=== PATIENT | male | born 1960 | race Caucasian/White ===

== ENCOUNTER 2023-05-17 09:48 | Emergency (ER) | payer MEDICARE, BC, SELFPAY ==
[2023-05-17 09:59] VITALS: BP 104/65
[2023-05-17 10:16] LABS: Glucose - Point of Care 166 mg/dl (70-99)
[2023-05-17 10:19] VITALS: BP 126/62
[2023-05-17 10:50] LABS: % Basophils 0.7 % (0-2); % Eosinophils 1.8 % (0-6); % Immature Granulocytes 0.6 % (0-0.5); % Lymphocytes 7.7 % (20.5-51.1); % Monocytes 12.8 % (1.7-9.3); % Neutrophils 76.4 % (42.2-75.2); Absolute Basophils 0.1 10^3/uL (0-0.2); Absolute Eosinophils 0.2 10^3/uL (0-0.7); Absolute Immature Granulocytes 0.1 10^3/uL (0-0.05); Absolute Lymphocytes 0.7 10^3/uL (1.2-3.4); Absolute Monocytes 1.2 10^3/uL (0.1-0.6); Absolute Neutrophils 7.3 10^3/uL (1.4-6.5); Hematocrit 33.9 % (39.0-52.0); Mean Corp Hgb Conc. 35.4 g/dL (33.0-37.0); Mean Corpuscular Hgb 32.2 pg (27.0-31.0); Mean Corpuscular Volume 90.9 fL (80.0-94.0); Mean Platelet Volume 11.2 fL (7.4-10.4); Nucleated Red Blood Cells % 0 % (-); Platelet Count 168 10^3/uL (130-400); Red Blood Cell Count 3.73 10^6/uL (4.70-6.10); Red Cell Dist. Width 13.9 % (11.5-14.5); White Blood Cell Count 9.5 10^3/uL (4.8-10.8)
[2023-05-17 11:00] VITALS: BP 136/71
[2023-05-17] MEDS: TYLENOL 650 MG PO (11:06)
[2023-05-17 11:07] LABS: COVID-19 Antigen Negative (Negative)
[2023-05-17 11:09] LABS: Lactic Acid 1.3 mmol/L (0.7-2.0)
[2023-05-17 11:13] LABS: Blood Urea Nitrogen 15 mg/dl (9-20); Calcium 8.3 mg/dl (8.4-10.2); Carbon Dioxide 33 mmol/L (22-30); Chloride 97 mmol/L (98-107); Glucose 161 mg/dl (70-99); Sodium 132 mmol/L (135-145); eGFR > 60.00
--- NOTE | 2023-05-17 12:05 | ED.GENMED ---
History of Present Illness
General
Chief Complaint: Fever
Source: patient and family
Exam Limitations: altered mental status
Time Seen by Provider: 05/17/23 10:08
Nursing documentation reviewed up to this point in time: agreed with
Travel History
Have you had any contact with someone who has COVID-19?: No
Do you have any symptoms of coronavirus? Fever > 100 degrees, chills, cough, shortness of breath, sore throat, loss of taste or smell, muscle aches, or headache?: Yes
Symptoms:: fever
History of Present Illness
History of Present Illness:
Patient is a 62-year-old male with a history of a remote TBI status postcraniotomy, insulin-dependent diabetes, hypertension, smoker, history of frequent pneumonia causing a change in mental status who presents for fever and rigors this morning.
Patient says he started not feeling well last night and this morning when he woke up he had the shakes. He did not take his temperature at home but he felt warm. His thought that he was disoriented, he disconnected his insulin pump and did
not reconnect it, was rooting around in a bag looking for it which would be very unusual for it to be kept on that location. Patient's says that he has gotten this way when he has been sick before, recently the patient was admitted in March
for bilateral pneumonia concerning for sepsis. At that time he also had toxic metabolic encephalopathy which did resolve and his fevers resolved. Patient's is very concerned because he will go from being stable to completely unstable when he
is sick like this.
Patient has no history of known aspiration
He is not having any neck pain, sore throat, headache, vomiting or diarrhea
Past History
Past History
ED Past Medical History: HTN, Hypercholesterolemia, NIDDM, Psychiatric (Bipolar) and Other (Chronic pain syndrome, pneumonia)
ED Past Surgical History: None
Social History
Tobacco: Smoker
Review of Systems
Review of Systems
Allergies reviewed?: Yes
All Other Systems: Not applicable
Phy Exam
Physical Exam
Physical Exam:
GENERAL: Alert , in no apparent distress
EYE: pupils equal and reactive
NECK: Supple
ENT: o/p clr, mmm.
CARDIAC: Regular rate and rhythm .
LUNGS: Clear breath sounds bilaterally, no acute respiratory distress, no wheezes/rales/rhonchi
ABDOMEN: Soft, without focal tenderness, no r/g, no cvat, normal bowel sounds
NEUROLOGICAL: Alert and oriented, no focal neuro deficits
SKIN: Warm and dry, skin intact.
MUSCULOSKELETAL: No edema, well perfused. neg kim's sign
PSYCH: Normal and appropriate interaction.
Course
Orders/Labs/Results
Orders:
Orders
05/17/23 10:32
Cardiac Monitoring- Treatment ONCE
05/17/23 10:33
Basic Metabolic Panel Urgent
Complete Blood Count/With Diff Urgent
Blood Culture Q30M
ELIE Source: Blood/Venous
Specimen Description:
Comment: FROM 2 SEPARATE SITES
Blood Culture Q30M
ELIE Source: Blood/Venous
Specimen Description:
Comment: FROM 2 SEPARATE SITES
05/17/23 10:35
Lactic Acid Q4H
Comment: ON ICE, CANCEL 2ND ORDER IF FIRST LACTIC ACID LEVEL <2
05/17/23 10:40
COVID-19 Antigen Urgent
Source: Nasal Swab
Influenza A+B Rapid Molecular Urgent
ELIE Source: Nasal Swab
Specimen Description:
05/17/23 10:42
CR Chest - 2 Views Urgent
Comment:
Reason For Exam: fever, sepsis
05/17/23 11:02
Acetaminophen [Tylenol] 650 mg PO NOW STA
05/17/23 12:08
Piperacillin/Tazo 4.5 Gram [Zosyn] 4.5 gram in 100 ml IV NOW
05/17/23 12:59
Potassium Urgent
Abnormal Lab Results
05/17/23 05/17/23
10:14 10:33
RBC 3.73 L 10^6/uL
(4.70-6.10)
Hgb 12.0 L g/dL
(13.0-18.0)
Hct 33.9 L %
(39.0-52.0)
MCH 32.2 H pg
(27.0-31.0)
MPV 11.2 H fL
(7.4-10.4)
Abs Immat Gran (auto) 0.1 H 10^3/uL
(0-0.05)
Absolute Neuts (auto) 7.3 H 10^3/uL
(1.4-6.5)
Absolute Lymphs (auto) 0.7 L 10^3/uL
(1.2-3.4)
Absolute Monos (auto) 1.2 H 10^3/uL
(0.1-0.6)
Immature Gran % 0.6 H %
(0-0.5)
Neutrophils % 76.4 H %
(42.2-75.2)
Lymphocytes % 7.7 L %
(20.5-51.1)
Monocytes % 12.8 H %
(1.7-9.3)
Sodium 132 L mmol/L
(135-145)
Chloride 97 L mmol/L
(98-107)
Carbon Dioxide 33 H mmol/L
(22-30)
Glucose 161 H mg/dl
(70-99)
Calcium 8.3 L mg/dl
(8.4-10.2)
POC Glucose 166 H mg/dl
(70-99)
05/17/23 10:33
05/17/23 12:59
Vital Signs
Initial and Last Documented VS:
Initial Vital Signs
Temp Pulse Resp BP Pulse Ox
100.6 F H 90 16 104/65 95
05/17/23 09:59 05/17/23 09:59 05/17/23 09:59 05/17/23 09:59 05/17/23 09:59
Last Documented Vital Signs
Temp Pulse Resp BP Pulse Ox
100.3 F 75 17 116/46 96
05/17/23 10:37 05/17/23 13:00 05/17/23 13:00 05/17/23 13:00 05/17/23 13:00
MDM/Problems Addressed
Differential Diagnosis Includes:
pneumponia, sepsis, bacetermia, TME, uri, flu, covid
MDM/Problems Addressed:
62 y/o M with ho pneumoina, smoiking, htn, tbi
fever and slight confusion today
has chronic cough
no sob, cp, abdominal pain, vomiting, diarrhea, yurinary sypmtoms, neck pain
says pt has had pneumonia a few times and gotten sick quickly
pt is not hypoxic, has basleine pulse ox 91%, but was febrile, low grade
nontoxic
no meningismus
lungs sounded diminished but no significant whezing or rales
abdomen soft/nontender
pt defervesced and then his mentation improved
he was given chance to be admitted or go home
he initially said he would stay and then decided on going home
cxr shows small pna
flu/cpovid neg
d/c home with abx
return precautions.
*Critical Care Note
Total Time (30-74mins, 75-104mins- exclusive of procedures): Not Applicable
ED Attending Note
-
Portions of this chart may have been created with voice recognition software.� Occasional wrong word or��sound alike� substitutions may have occurred due to the inherent limitations of voice recognition software.
Discharge Plan
Departure
Patient Disposition: Home (Routine Discharge)
Date of Disposition: 05/17/23
Time of Disposition: 13:32
Patient with high blood pressure during this ER visit?: No
Condition: Fair
Covid-19: Negative COVID-19
Discharge Problem:
Pneumonia
Instructions: Pneumonia, Adult (DC)
Prescriptions:
New
amoxicillin-pot clavulanate 875-125 mg tablet
1 tab PO BID Qty: 14 0RF
azithromycin [Zithromax] 250 mg tablet
250 mg PO DAILY Qty: 6 0RF
No Action
atorvastatin 40 mg tablet
40 mg PO DAILY
morphine 30 mg tablet extended release
30 mg PO Q12H
Patient Comments:
03/19/2023, patient filled this medication on 02/19/2023 for 60 tablets according to PDMP.
gabapentin 800 mg tablet
800 mg PO TID
divalproex 500 mg tablet extended release 24 hr
500 mg PO TID
paroxetine HCl 40 mg tablet
40 mg PO DAILY
budesonide-formoterol [Symbicort] 160-4.5 mcg/actuation Hfa Aerosol Inhaler
2 puff INHALATION R DAILYPRN PRN (Reason: sob)
cyanocobalamin (vitamin B-12) 1,000 mcg Tablet
1,000 mcg PO DAILY
aspirin 81 mg Tablet,Delayed Release (Dr/Ec)
81 mg PO DAILY
levothyroxine 100 mcg tablet
100 mcg PO DAILY
indomethacin 25 mg capsule
25 mg PO Q6H
diazepam 10 mg tablet
5 mg PO DAILY PRN (Reason: Mental Health/Anxiety)
Patient Comments:
03/19/2023, patient filled this medication on 03/13/2023 for 45 tablets according to PDMP.
oxycodone 10 mg tablet
10 mg PO Q6HPRN PRN (Reason: moderate to severe pain)
Patient Comments:
03/19/2023, patient filled this medication on 02/19/2023 for 120 tablets according to PDMP.
albuterol sulfate 90 mcg/actuation HFA aerosol inhaler
2 puff inhalation R Q4HPRN PRN (Reason: wheezing)
amlodipine-benazepril 5-20 mg Capsule
1 cap PO DAILY
Anoro Ellipta 62.5-25 mcg/actuation Blister With Device
1 inh INHALATION R DAILY
insulin aspart U-100 [Novolog U-100 Insulin aspart] 100 unit/mL Solution
0 unit SC .VIA PUMP
diazepam 10 mg Tablet
10 mg PO HS PRN (Reason: anxiety)
Patient Comments:
03/19/2023, patient filled this medication on 03/13/2023 for 45 tablets according to PDMP.
cholecalciferol (vitamin D3) 50 mcg (2,000 unit) Tablet
50 mcg PO DAILY
doxycycline hyclate 100 mg Capsule
100 mg PO Q12 Qty: 5 0RF
cefdinir 300 mg Capsule
300 mg PO Q12 Qty: 5 0RF
Referrals:
Dusty Nova, DO [Family Provider] - Follow up in 2-3 days
Activity Restrictions/Additional Instructions:
WE OFFERED YOU ADMISSION FOR YOUR INFECTION BUT YOU PREFERRED TO GO HOME
WE DID NOT GET A CHANCE TO TEST YOUR URINE.
BUT IT APPEARS THAT YOU MAY HAVE A SUBTLE PNEUMONIA
TAKE ZITHROMAX 2 TABS TODAY THEN 1 TAB DAILY FOR 4 DAYS
USE AUGMENTIN TWICE A DAY (START TONIGHT)
TYLENOL NEEDED 3 TIMES A DAY FOR FEVER/CONFUSION
DRINK FLUIDS
REST
RETURN FOR: SHORTNESS OF BREATH, SEVERE WORSENING CONFUSION, HIGH SUGARS, VOMITING, CHEST PAIN OR ANY CONCERNS.
Interventions
Interventions:
*Risk Screen - Suicide Last Done: 05/17/23 09:59
*General Assessment Last Done: 05/17/23 10:15
*Neglect/Abuse Screening Last Done: 05/17/23 09:59
ED- Fall Risk Assessment Last Done: 05/17/23 10:15
*ED COVID-19 Vaccine History Last Done: 05/17/23 09:59
*Nursing Disposition Last Done: 05/17/23 14:02
ED- Neurological Assessment Last Done: 05/17/23 10:15
ED-Skin Assessment Last Done: 05/17/23 10:15
Discharge Date and Time
Discharge Date/Time: 05/17/23 14:02
[2023-05-17 12:16] VITALS: BP 123/57
[2023-05-17] MEDS: ZOSYN 100 IV (12:21)
[2023-05-17 13:00] VITALS: BP 116/46
[2023-05-17 13:29] LABS: Potassium 4.5 mmol/L (3.5-5.1)
== END 2023-05-17 14:02 | disposition home or self-care (01) ==
LOC: EMR 09:48
PROVIDERS: Physician Assistant; EMERGENCY PHYSICIAN Emergency Medicine; FAMILY PHYSICIAN Family Medicine
DX: J18.9 Pneumonia, unspecified organism (principal); I10 Essential (primary) hypertension; F17.200 Nicotine dependence, unspecified, uncomplicated; Z11.52 Encounter for screening for COVID-19; Z87.820 Personal history of traumatic brain injury
CPT/HCPCS: 99284; 96365; 71046; 80048; 82962; 83605; 84132; 85025; 87040; 87502; 87811

== ENCOUNTER 2023-06-26 14:21 | Inpatient (IN) | payer MEDICARE, BC, SELFPAY ==
[2023-06-26] VITALS (12 sets, daily range): BP systolic 111–167; BP diastolic 60–93; BMI 29.5
[2023-06-26 07:58] LABS: Glucose - Point of Care 140 mg/dl (70-99)
--- NOTE | 2023-06-26 08:34 | ED.GENMED ---
History of Present Illness
<Hung Joy PA-C - Last Filed: 06/26/23 15:16>
General
Chief Complaint: Fever
Time Seen by Provider: 06/26/23 08:17
Travel History
Have you had any contact with someone who has COVID-19?: No
Do you have any symptoms of coronavirus? Fever > 100 degrees, chills, cough, shortness of breath, sore throat, loss of taste or smell, muscle aches, or headache?: No
History of Present Illness
History of Present Illness:
62-year-old male with history of prior craniotomy, hypertension, and insulin-dependent diabetes presents to the emergency department the [facility] from home. Prior history of severe encephalopathy due to sepsis. Patient provide no history on arrival as
he is profoundly altered. Was seen in this emergency department last month and treated for pneumonia
Past History
<Hung Joy PA-C - Last Filed: 06/26/23 15:16>
Past History
ED Past Medical History: HTN, Hypercholesterolemia, NIDDM, Psychiatric (Bipolar) and Other (Chronic pain syndrome, pneumonia)
ED Past Surgical History: None
Social History
Tobacco: Smoker
Review of Systems
<Hung Joy PA-C - Last Filed: 06/26/23 15:16>
Review of Systems
Allergies reviewed?: Yes
All Other Systems: ROS reviewed and negative except as documented in HPI and ROS
Phy Exam
<Hung Joy PA-C - Last Filed: 06/26/23 15:16>
Physical Exam
Physical Exam:
GEN: Ill-appearing, confused, difficult to redirect
Eyes: PERRLA, EOMs intact, no scleral icterus
HENT: NCAT, oral mucosa moist
Lungs: Tachypnea, no accessory muscle use, lungs clear to auscultation
Cardiac: RRR, no M/R/G, no peripheral edema. Radial pulses 2+ bilat
Abdomen: S, NT, ND, NABS, no masses or hepatosplenomegaly
Neuro: Somnolent, agitated, difficult to redirect, does follow commands occasionally, moves all extremities freely
MSK: No gross deformity or ecchymosis. No edema. No digital clubbing
Skin: No rashes, petechiae. Normal color, no pallor or jaundice.
Course
<Hung Joy PA-C - Last Filed: 06/26/23 15:16>
Orders/Labs/Results
Orders:
Orders
06/26/23 07:51
Electrocardiogram (*1) Urgent
Reason for Study: Fatigue / Weakness
06/26/23 07:52
EKG- Treatment ONCE
06/26/23 07:53
Electrocardiogram (*1) Urgent
Reason for Study: Other
Other Reason for Exam: Possible Sepsis
Cardiac Monitoring- Treatment ONCE
IV Insert/Care/Rem.- Treatment PRN
O2 Therapy [RESP] Urgent
Titrate/Wean O2 to maintain O2 sat greater than (%): 93
Special Instructions: TO MAINTAIN CONTINUOUS O2 SATS > OR = 93%
Pulse Ox/cont/shift [RESP] Urgent
Quantity: 1
Special Instructions: CONTINUOUS
06/26/23 07:54
EKG- Treatment ONCE
06/26/23 08:19
Acetaminophen [Tylenol/Feverall] 650 mg RECTAL NOW STA
CR Chest Portable - 1 View Urgent
Comment:
Reason For Exam: fever/altered mental
Reason Study Needs to be Portable: Other
06/26/23 08:23
Basic Metabolic Panel Urgent
Complete Blood Count/With Diff Urgent
Urinalysis Reflex To Culture Urgent
Date Specimen was Collected: 06/26/23
Time Specimen was Collected: 07:54
Urine Drug Abuse Screen Urgent
Date Specimen was Collected: 06/26/23
Time Specimen was Collected: 07:54
Urine Microscopic Reflex Cult Urgent
06/26/23 08:32
Blood Culture Q30M
ELIE Source: Blood/Venous
Specimen Description:
Comment: FROM 2 SEPARATE SITES
06/26/23 08:33
Lactic Acid Q4H
Comment: ON ICE, CANCEL 2ND ORDER IF FIRST LACTIC ACID LEVEL <2
Blood Culture Q30M
ELIE Source: Blood/Venous
Specimen Description:
Comment: FROM 2 SEPARATE SITES
06/26/23 08:35
Lorazepam [Ativan] 1 mg IV NOW STA
06/26/23 08:53
Lorazepam [Ativan] 1 mg IV NOW STA
06/26/23 09:04
Comprehensive Metabolic Panel Urgent
06/26/23 09:43
CT Chest/abd/pel W Iv Cont Urgent
Comment:
Reason For Exam: sepsis unknown source
06/26/23 09:48
0.9% Sodium Chloride 1000 ml [Nss] 1,000 ml IV BOLUS
Ketorolac [Toradol] 15 mg IV NOW STA
06/26/23 10:01
COVID-19 Antigen Urgent
Source: Nasal Swab
Influenza A+B Rapid Molecular Urgent
ELIE Source: Nasal Swab
Specimen Description:
06/26/23 11:23
Cefepime HCl [Maxipime] 2,000 mg IV NOW STA
06/26/23 12:20
Lactic Acid Q4H
Comment: ON ICE, CANCEL 2ND ORDER IF FIRST LACTIC ACID LEVEL <2
06/26/23 13:18
Admit/Transfer Patient As Directed
Co-Sign Provider:
Level of Care: Inpatient admission
Assign to:: Medical/Surgical
Physician / Group: baires
Diagnosis: sepsis
Reason for Hospitalization: sepsis
Expected length of stay greater than two midnights?: Yes
ELOS- Estimated Length of Stay in days: 3
I certify the patient meets the requirements for IP care: Yes
06/26/23 13:19
Code Status As Directed
Resuscitation Status: Full Code
06/26/23 14:11
Drug Screen, Urine [Urine Drug Abuse Screen] Stat
06/26/23 14:15
INFECTIOUS DISEASE CONSULT Routine
Consulting Provider: Roberta Benz
Was physician already notified: Yes
06/26/23 14:17
Add On- LAB Urgent
Tests Added?: urine drug screen
Abnormal Lab Results
06/26/23 06/26/23 06/26/23
07:56 08:23 08:33
WBC 12.6 H 10^3/uL
(4.8-10.8)
RBC 4.34 L 10^6/uL
(4.70-6.10)
MCH 32.0 H pg
(27.0-31.0)
MPV 12.1 H fL
(7.4-10.4)
Absolute Neuts (auto) 9.3 H 10^3/uL
(1.4-6.5)
Absolute Monos (auto) 1.3 H 10^3/uL
(0.1-0.6)
Lymphocytes % 12.3 L %
(20.5-51.1)
Monocytes % 10.5 H %
(1.7-9.3)
Carbon Dioxide 32 H mmol/L
(22-30)
Glucose 130 H mg/dl
(70-99)
Lactic Acid 3.7 H mmol/L
(0.7-2.0)
Ur Occult Blood Reflex 1+ A
(Negative)
Urine RBC 7-10 A /HPF
(0-2)
Urine Glucose Trace A
(Negative)
POC Glucose 140 H mg/dl
(70-99)
06/26/23
09:04
WBC
RBC
MCH
MPV
Absolute Neuts (auto)
Absolute Monos (auto)
Lymphocytes %
Monocytes %
Carbon Dioxide 31 H mmol/L
(22-30)
Glucose 137 H mg/dl
(70-99)
Lactic Acid
Ur Occult Blood Reflex
Urine RBC
Urine Glucose
POC Glucose
06/26/23 08:23
06/26/23 09:04
...
Vital Signs
Initial and Last Documented VS:
Initial Vital Signs
Pulse Resp Pulse Ox
93 16 96
06/26/23 07:52 06/26/23 07:52 06/26/23 07:52
Last Documented Vital Signs
Temp Pulse Resp BP Pulse Ox
100.6 F H 64 18 141/60 91
06/26/23 12:29 06/26/23 13:30 06/26/23 13:30 06/26/23 13:00 06/26/23 12:30
...
<Cele Soriano MD - Last Filed: 06/26/23 11:25>
Orders/Labs/Results
Orders:
Orders
06/26/23 07:51
Electrocardiogram (*1) Urgent
Reason for Study: Fatigue / Weakness
06/26/23 07:52
EKG- Treatment ONCE
06/26/23 07:53
Electrocardiogram (*1) Urgent
Reason for Study: Other
Other Reason for Exam: Possible Sepsis
Cardiac Monitoring- Treatment ONCE
IV Insert/Care/Rem.- Treatment PRN
O2 Therapy [RESP] Urgent
Titrate/Wean O2 to maintain O2 sat greater than (%): 93
Special Instructions: TO MAINTAIN CONTINUOUS O2 SATS > OR = 93%
Pulse Ox/cont/shift [RESP] Urgent
Quantity: 1
Special Instructions: CONTINUOUS
06/26/23 07:54
EKG- Treatment ONCE
06/26/23 08:19
Acetaminophen [Tylenol/Feverall] 650 mg RECTAL NOW STA
CR Chest Portable - 1 View Urgent
Comment:
Reason For Exam: fever/altered mental
Reason Study Needs to be Portable: Other
06/26/23 08:23
Basic Metabolic Panel Urgent
Complete Blood Count/With Diff Urgent
Urinalysis Reflex To Culture Urgent
Date Specimen was Collected: 06/26/23
Time Specimen was Collected: 07:54
Urine Drug Abuse Screen Urgent
Date Specimen was Collected: 06/26/23
Time Specimen was Collected: 07:54
Urine Microscopic Reflex Cult Urgent
06/26/23 08:32
Blood Culture Q30M
ELIE Source: Blood/Venous
Specimen Description:
Comment: FROM 2 SEPARATE SITES
06/26/23 08:33
Lactic Acid Q4H
Comment: ON ICE, CANCEL 2ND ORDER IF FIRST LACTIC ACID LEVEL <2
Blood Culture Q30M
ELIE Source: Blood/Venous
Specimen Description:
Comment: FROM 2 SEPARATE SITES
06/26/23 08:35
Lorazepam [Ativan] 1 mg IV NOW STA
06/26/23 08:53
Lorazepam [Ativan] 1 mg IV NOW STA
06/26/23 09:04
Comprehensive Metabolic Panel Urgent
06/26/23 09:43
CT Chest/abd/pel W Iv Cont Urgent
Comment:
Reason For Exam: sepsis unknown source
06/26/23 09:48
0.9% Sodium Chloride 1000 ml [Nss] 1,000 ml IV BOLUS
Ketorolac [Toradol] 15 mg IV NOW STA
06/26/23 10:01
COVID-19 Antigen Urgent
Source: Nasal Swab
Influenza A+B Rapid Molecular Urgent
ELIE Source: Nasal Swab
Specimen Description:
06/26/23 11:23
Cefepime HCl [Maxipime] 2,000 mg IV NOW STA
06/26/23 12:20
Lactic Acid Q4H
Comment: ON ICE, CANCEL 2ND ORDER IF FIRST LACTIC ACID LEVEL <2
06/26/23 13:18
Admit/Transfer Patient As Directed
Co-Sign Provider:
Level of Care: Inpatient admission
Assign to:: Medical/Surgical
Physician / Group: dequan
Diagnosis: sepsis
Reason for Hospitalization: sepsis
Expected length of stay greater than two midnights?: Yes
ELOS- Estimated Length of Stay in days: 3
I certify the patient meets the requirements for IP care: Yes
06/26/23 13:19
Code Status As Directed
Resuscitation Status: Full Code
06/26/23 14:11
Drug Screen, Urine [Urine Drug Abuse Screen] Stat
06/26/23 14:15
INFECTIOUS DISEASE CONSULT Routine
Consulting Provider: Roberta Benz
Was physician already notified: Yes
06/26/23 14:17
Add On- LAB Urgent
Tests Added?: urine drug screen
Abnormal Lab Results
06/26/23 06/26/23 06/26/23
07:56 08:23 08:33
WBC 12.6 H 10^3/uL
(4.8-10.8)
RBC 4.34 L 10^6/uL
(4.70-6.10)
MCH 32.0 H pg
(27.0-31.0)
MPV 12.1 H fL
(7.4-10.4)
Absolute Neuts (auto) 9.3 H 10^3/uL
(1.4-6.5)
Absolute Monos (auto) 1.3 H 10^3/uL
(0.1-0.6)
Lymphocytes % 12.3 L %
(20.5-51.1)
Monocytes % 10.5 H %
(1.7-9.3)
Carbon Dioxide 32 H mmol/L
(22-30)
Glucose 130 H mg/dl
(70-99)
Lactic Acid 3.7 H mmol/L
(0.7-2.0)
Ur Occult Blood Reflex 1+ A
(Negative)
Urine RBC 7-10 A /HPF
(0-2)
Urine Glucose Trace A
(Negative)
POC Glucose 140 H mg/dl
(70-99)
06/26/23
09:04
WBC
RBC
MCH
MPV
Absolute Neuts (auto)
Absolute Monos (auto)
Lymphocytes %
Monocytes %
Carbon Dioxide 31 H mmol/L
(22-30)
Glucose 137 H mg/dl
(70-99)
Lactic Acid
Ur Occult Blood Reflex
Urine RBC
Urine Glucose
POC Glucose
06/26/23 08:23
06/26/23 09:04
Vital Signs
Initial and Last Documented VS:
Initial Vital Signs
Pulse Resp Pulse Ox
93 16 96
06/26/23 07:52 06/26/23 07:52 06/26/23 07:52
Last Documented Vital Signs
Temp Pulse Resp BP Pulse Ox
100.6 F H 64 18 141/60 91
06/26/23 12:29 06/26/23 13:30 06/26/23 13:30 06/26/23 13:00 06/26/23 12:30
<Hung Joy PA-C - Last Filed: 06/26/23 15:16>
MDM/Problems Addressed
MDM/Problems Addressed:
Patient's altered mentation to improve defervescent's. CT scan is suggestive of potential pneumonia and he does have mild hypoxia. Certainly the patient has had recurrent pneumonia in the past and this could be driving his encephalopathy.
Ultimately I do not see any indication at this time to perform lumbar puncture to rule out meningitis given improvement in mental status. Given the profound encephalopathy on presentation will admit for further IV antibiotics and management
<Hung Joy PA-C - Last Filed: 06/26/23 15:16>
Comment
Comment:
EKG independently interpreted by me shows normal sinus rhythm with occasional PVCs, diffuse ST depressions, no ST elevations, QTc 420
*Critical Care Note
Total Time (30-74mins, 75-104mins- exclusive of procedures): Not Applicable
ED Attending Note
<Hung Joy PA-C - Last Filed: 06/26/23 15:16>
-
Portions of this chart may have been created with voice recognition software.� Occasional wrong word or��sound alike� substitutions may have occurred due to the inherent limitations of voice recognition software.
<Cele Soriano MD - Last Filed: 06/26/23 11:25>
ED Attending Note
Patient seen and examined by attending physician: Yes
I performed the substantive portion of visit, reviewed & personally made and approve the management plan that is documented in note by myself or YESENIA.: Yes
ED Attending Note:
62 yr old male with fever and mid low back pain, noted to be agitated here in ED. S/p ativan and antipyretic, pt now calm, cooperative, asking for an update. On exam, no nuchal rigidity, nods yes and no spontaneously, no photophobia. He generally
complains of not feeling well, nonspecific. No neck pain, has a mild headache. W/u suggestive of pna as cause of fever/findings. In past, pt quite agitated when febrile. Doubt meningitis/encephalitis given improvement of ms and lack fo typical
physical findings, other source more likely. Abx, admit.
Discharge Plan
Departure
Patient Disposition: Admit
Date of Disposition: 06/26/23
Time of Disposition: 11:25
Presentation/result/management discussed w/ accepting MD/DO: Hospitalist
Discharge Problem:
Toxic metabolic encephalopathy, Pneumonia
Interventions
Interventions:
*General Assessment Last Done: 06/26/23 08:01
*ED COVID-19 Vaccine History Last Done: 06/26/23 08:55
ED- Neurological Assessment Last Done: 06/26/23 08:30
ED-Skin Assessment Last Done: 06/26/23 08:30
[2023-06-26 08:38] LABS: Urine Albumin Negative (Neg - Trace); Urine Bilirubin Negative (Negative); Urine Character Clear (Clear); Urine Color Yellow; Urine Glucose Trace (Negative); Urine Ketone Negative (Negative); Urine Leukocyte Negative (Negative); Urine Nitrite Negative (Negative); Urine Occult Blood 1+ (Negative); Urine Urobilinogen Negative (Neg - 1+)
[2023-06-26] MEDS: ATIVAN 1 MG IV ×2 (08:40→08:59)
[2023-06-26] MEDS: TYLENOL/FEVERALL 650 MG RECTAL (08:41)
[2023-06-26 08:44] LABS: % Basophils 0.8 % (0-2); % Eosinophils 2.4 % (0-6); % Immature Granulocytes 0.3 % (0-0.5); % Lymphocytes 12.3 % (20.5-51.1); % Monocytes 10.5 % (1.7-9.3); % Neutrophils 73.7 % (42.2-75.2); Absolute Basophils 0.1 10^3/uL (0-0.2); Absolute Eosinophils 0.3 10^3/uL (0-0.7); Absolute Lymphocytes 1.6 10^3/uL (1.2-3.4); Absolute Monocytes 1.3 10^3/uL (0.1-0.6); Absolute Neutrophils 9.3 10^3/uL (1.4-6.5); Hematocrit 40.5 % (39.0-52.0); Hemoglobin 13.9 g/dL (13.0-18.0); Mean Corp Hgb Conc. 34.3 g/dL (33.0-37.0); Mean Corpuscular Volume 93.3 fL (80.0-94.0); Nucleated Red Blood Cells % 0 % (-); Red Blood Cell Count 4.34 10^6/uL (4.70-6.10); Red Cell Dist. Width 13.2 % (11.5-14.5); White Blood Cell Count 12.6 10^3/uL (4.8-10.8)
--- NOTE | 2023-06-26 08:51 | PHANOTE ---
MED REC NOTE- PATIENT UNABLE TO ANSWER QUESTIONS AT THIS TIME, CALLED [facility], NUMBER ON FILE, LEFT VOICE MAIL. PATIENT HAS NO ECW RECORDS AND WAS RECENTLY ADMITTED IN MAY 2023. AWAITING CALL BACK
[2023-06-26 08:57] LABS: Lactic Acid 3.7 mmol/L (0.7-2.0)
[2023-06-26 08:59] LABS: Blood Urea Nitrogen 16 mg/dl (9-20); Carbon Dioxide 32 mmol/L (22-30); Chloride 98 mmol/L (98-107); Estimated Creatinine Clearance 84 ml/min; Glucose 130 mg/dl (70-99); Sodium 135 mmol/L (135-145); eGFR > 60.00
[2023-06-26 09:08] LABS: Urine Squamous Cell 0-2 /LPF (Few); Urine White Cell 0-2 /HPF (0-5)
[2023-06-26 09:26] LABS: ALT (SGPT) 15 U/L (0-50); AST (SGOT) 29 U/L (17-59); Albumin 3.9 g/dl (3.5-5.0); Alkaline Phosphatase 107 U/L (38-126); Blood Urea Nitrogen 15 mg/dl (9-20); Calcium 9.1 mg/dl (8.4-10.2); Carbon Dioxide 31 mmol/L (22-30); Chloride 98 mmol/L (98-107); Estimated Creatinine Clearance 75 ml/min; Glucose 137 mg/dl (70-99); Potassium 4.8 mmol/L (3.5-5.1); Sodium 135 mmol/L (135-145); Total Bilirubin 0.5 mg/dl (0.2-1.3); Total Protein 6.7 g/dl (6.3-8.2); eGFR > 60.00
[2023-06-26] MEDS: TORADOL 15 MG IV (09:55)
[2023-06-26] MEDS: NSS 1000 IV ×2 (09:59→17:32)
[2023-06-26 10:24] LABS: COVID-19 Antigen Negative (Negative)
[2023-06-26 10:24] LABS: Mean Platelet Volume 12.1 fL (7.4-10.4); Platelet Count 163 10^3/uL (130-400)
[2023-06-26] MEDS: MAXIPIME 2000 MG IV (12:11)
[2023-06-26 12:38] LABS: Lactic Acid 1.9 mmol/L (0.7-2.0)
--- NOTE | 2023-06-26 12:52 | HPS.HSE ---
Addendum entered and electronically signed by Stewart Torres MD 06/26/23 16:54:
Seen and examined by me independently in collaboration with the nurse practitioner Kolby.
Past medical history/social history/medication/allergies reviewed.
Lab data and imaging data reviewed.
Presents presents with acute change in mental status suspect secondary to TME from infection.
Sepsis suspected from pneumonia.
Bilateral diffuse centrilobular groundglass nodules which are more pronounced raising suspicion for pneumonic process either infectious or inflammatory. Start on broad-spectrum antibiotics including atypical coverage-cefepime, vancomycin and
doxycycline. Consult ID. Follow culture data.
Rest as below.
Original Note:
Family Physician
-
Family Physician: Dusty Nova
Chief Complaint
-
fever
confusion
History of Present Illness
63-year-old with past medical history for hypertension type 2 diabetes chronic pain syndrome, COPD, hypothyroidism, pneumonia presented to us with fever of 101 this morning. patient was complaining of chills. he was sob and delirious. he was fine
until last night. patient stated productive cough with greenish sputum. patient was evaluated by pulmonology yesterday for his pulmonary nodules. he had CT of chest last week. At present, patient is confused. He does not know the year and date.
Patient does not know the name of the president. Patient denied any headache, dizziness. Patient denied any chest pain. Patient denied abdominal pain, nausea, vomiting, diarrhea. Patient denied dysuria hematuria.
CT with pneumonitis or bronchopneumonia. Patient received a dose of IV cefepime in ER. Admitting for further management
Medical History
Past Medical History
Past Medical History: Reports Other
Additional Past Medical History:
iabetes with insulin pump, COPD, chronic pain/opiate dependence, hypertension, hypercholesteremia, bipolar disorder
Past Surgical History: Reports Other
Additional Past Surgical History:
Craniotomy
Social History
Tobacco: Smoker
Alcohol: None
Drug: None
Personal:
Living: With Family
Family History
Family History: Not pertinent
Allergies / Home Medications
Allergies reflects when Allergies were last updated in [facility].
Home Medications with original date entered in [facility]
Allergy/Medication List:
Allergies
Allergy/AdvReac Type Severity Reaction Status Date / Time
No Known Allergies Allergy Verified 03/19/23 09:04
Home Medications
atorvastatin 40 mg tablet 40 mg PO DAILY High cholesterol 12/25/21
divalproex 500 mg tablet,extended release 24 hr 500 mg PO TID mental health 12/25/21
gabapentin 800 mg tablet 800 mg PO TID Neurological Condition 12/25/21
morphine 30 mg tablet,extended release 30 mg PO Q12H Pain 12/25/21
paroxetine HCl 40 mg tablet 40 mg PO DAILY Mental health 12/25/21
aspirin 81 mg tablet,delayed release 81 mg PO DAILY Blood clot prevention/tx 05/16/22
budesonide-formoterol HFA 160 mcg-4.5 mcg/actuation aerosol inhaler (Symbicort) 2 puff inhalation R DAILYPRN PRN sob 05/16/22
cyanocobalamin (vitamin B-12) 1,000 mcg tablet 1,000 mcg PO DAILY Supplement 05/16/22
albuterol sulfate 90 mcg/actuation aerosol inhaler 2 puff inhalation R Q4HPRN PRN wheezing 09/10/22
indomethacin 25 mg capsule 25 mg PO Q6H Pain 09/10/22
levothyroxine 100 mcg tablet 100 mcg PO DAILY Thyroid 09/10/22
oxycodone 10 mg tablet 10 mg PO Q6HPRN PRN moderate to severe pain 09/10/22
amlodipine 5 mg-benazepril 20 mg capsule 1 cap PO DAILY Blood Pressure 02/23/23
umeclidinium 62.5 mcg-vilanterol 25 mcg/actuation powdr for inhalation (Anoro Ellipta) 1 inh inhalation R DAILY Lung/Breathing Issues 12/11/23
cholecalciferol (vitamin D3) 50 mcg (2,000 unit) tablet 50 mcg PO DAILY 03/19/23
diazepam 10 mg tablet 10 mg PO BIDPRN PRN anxiety 03/19/23
Patient Own Insulin Pump 0 units SC .VIA PUMP 06/26/23
Review of Systems
-
Constitutional: Reports Fever, Fatigue and Chills
EENT: Reports No Symptoms
Respiratory: Reports Cough and Trouble Breathing
Cardiac: Reports Chest Pain
Abdomen/GI: Reports No Symptoms
: Reports No Symptoms
Musculoskeletal: Reports No Symptoms
Skin: Reports No Symptoms
Neurological: Reports No Symptoms
Endocrine: Reports No Symptoms
Hematologic/Lymphatic: Reports No Symptoms
Psych: Reports No Symptoms
Physical Exam
Vital Signs
Vital Signs
Temp Pulse Resp BP Pulse Ox
100.6 F H 65 21 166/67 91
06/26/23 12:29 06/26/23 12:30 06/26/23 12:30 06/26/23 12:00 06/26/23 12:30
Physical Exam
General: Well Developed, Well Nourished and No Apparent Distress
HEENT: NormoCephalic, Moist mucous membranes and Atraumatic
Respiratory: Clear
Cardiac: S1/S2 and Regular Rhythm; No Murmur or Rub
GI: Soft, Non Tender, Non Distended and Normal Bowel Sounds; No Organomegaly
Rectal: Deferred by Provider
Musculoskeletal: No Clubbing, No Cyanosis and No Edema
Skin: No Rash
Neuro: Nonfocal/grossly intact
Psych: Calm and Confused
Laboratory Results
-
06/26/23 08:23
06/26/23 09:04
Laboratory Results
Lactic Acid 1.9 mmol/L (0.7-2.0) 06/26/23 12:20
Total Bilirubin 0.5 mg/dl (0.2-1.3) 06/26/23 09:04
AST 29 U/L (17-59) 06/26/23 09:04
ALT 15 U/L (0-50) 06/26/23 09:04
Alkaline Phosphatase 107 U/L (38-126) 06/26/23 09:04
Data Reviewed
-
Diagnostic Radiology: Report Reviewed by me
CT Scan: Report Reviewed by me
Lab Data: Labs Reviewed by me
Impression/Plan
-
#sepsis/toxic metabolic encephalopathy likely from pneumonia
-wbc 12.6,temp 100.6
-COVID-negative
-Chest abdomen pelvis CT with impression of Scattered but diffuse centrilobular groundglass nodules scattered throughout the right lung with sparing of the left lung. Similar but more pronounced findings seen on the prior CT from 03/19/2023. Findings
suspicious for infectious or inflammatory process such as pneumonitis or bronchial pneumonia.Couple of more isolated appearing nodules, including a 6 mm nodule within the posterior lateral right lower lobe. There is also a 3 mm nodule within the
anterior left lower lobe. The larger nodule was present on the prior CT from 03/19/2023. Patient referred to the pulmonary nodule advisory Board for appropriate follow-up.
-Chest x-ray with impression of Nonspecific mildly increased interstitial markings bilaterally which may be chronic finding
-Negative for influenza AMB
-Blood culture sent from ER
-IV cefepime in ER
-Tylenol as needed for fever
-Nebs as needed for short of breath and wheezing
-continue vanco and cefepime, doxy
-ID consulted
# Pulmonary nodules
-Patient follows up with flame degreaser as outpatient
#COPD--Not in acute exacerbation--no wheezing--Continue inhalers
#Type 2 diabetes on chronic insulin pump
-hold insulin Pump
-sliding scale
-cho diet
#Essential hypertension--Continue amlodipine benazepril
#Hyperlipidemia--Continue statin
#Bipolar disorder--Continue diazepam, Depakote, paroxetine
#Chronic pain syndrome on chronic narcotics--Continue gabapentin, indomethacin, oxycodone, morphine
Subdural hematoma with parietal craniotomy--noted
#Hypothyroidism--Continue levothyroxine
#code status --Full code
#DVT prophylaxis�Lovenox
[2023-06-26 15:25] LABS: Amphetamines Negative (Negative); Barbiturates Negative (Negative); Benzodiazepines Positive (Negative); Buprenorphine Negative (Negative); Cocaine Negative (Negative); Marijuana Negative (Negative); Methadone Negative (Negative); Methamphetamines Negative (Negative); Opiates Positive (Negative); Phencyclidine Negative (Negative); Tricyclic Antidepressants Negative (Negative)
[2023-06-26 15:38] LABS: Fentanyl, Urine Negative (Negative)
[2023-06-26 16:24] LABS: Glucose - Point of Care 124 mg/dl (70-99)
--- NOTE | 2023-06-26 16:30 | CON.ID ---
Consultation
-
Date/Time Consultation Requested: 06/26/23 14:15
Date/Time Consultation Performed: 06/26/23 16:31
Requesting Provider: Kolby BOB
Performing Provider: Dr Benz
Reason for Consultation: fever, confusion
Chief Complaint / Past History
Chief Complaint
fever, confusion
History of Present Illness
Mr Macdonald is a 62 year old male with COPD, Dm2 who presented here for fever to 101, chills, productive cough with greenish sputum, confusion. Onset was abrupt. No headache, chest pain, abdomianl pain, nausea, vomiting, diarrhea, dysuria,
hematuria. reports recurrent pnuemonias. No coughing or choaking when eating. used to have a chronic 'smokers cough' but they both quit. no chronic sputum production. known to have pulmonary nodules. has been monogamous over 40 years,
hasnt had immunoglobulins checked. Did get routine vaccines for adults: pneumococcal, covid, influenza and rsv. Had augmentin about 1 month ago. No history of MDROs on file here. Does go to multiple health systems
Since arrival here rectal T up to 104.5 oral Tmax is 101.1, bp initially hypertensive now more stable, saturating well on 2L, wbc 12.6, hgb 3.9, plt 163, no left shift, cr 1.0, lactic acid initially 3.7 now 1.9, t bili 0.5, ast 29, alt 15, alk phos
107, ua without pyuria, UDS: benzos, opiates, covid ag neg, CT c/a/p: pneumonitis or bronchial pneumonia, pulmonary nodules, stool burden, s pnuemo/legionella urine antigens pending, flu pending, blood cultures x2 in progress, currently on
vanc/cefepime/doxycycline; ID is consulted for assistance with management.
Past History
Additional Past Medical History:
iabetes with insulin pump, COPD, chronic pain/opiate dependence, hypertension, hypercholesteremia, bipolar disorder
Additional Past Surgical History:
Craniotomy
Allergy History:
No Known Allergies Allergy (Verified 03/19/23 09:04)
Medications Reviewed: Yes
Social History
Tobacco: Smoker
Alcohol: None
Drug: None
Family History
Family History: Not Pertinent
Review of Systems
Review of Systems
General: Fever and Chills
All systems: All other systems were reviewed and were negative
Vital Signs
Temp Pulse Resp BP Pulse Ox
100.6 F H 62 17 127/67 84
06/26/23 12:29 06/26/23 15:45 06/26/23 15:45 06/26/23 15:01 06/26/23 15:45
Physical Exam
Physical Exam
Constitutional: No Acute Distress
Cardiovascular: Regular Rate and S1/S2; Negative Murmur or Rub
Pulmonary: Clear and Symmetric; Negative Wheezes, Rales or Rhonchi
Gastrointestinal: Soft, Non Tender, Non Distended and Normal Bowel Sounds
Skin: Warm and Dry; Negative Rash or Jaundice
Lab / Diagnostic Study Results
06/26/23 08:23
06/26/23 09:04
Abs Immat Gran (auto) 0.0 10^3/uL (0-0.05) 06/26/23 08:23
Absolute Neuts (auto) 9.3 10^3/uL (1.4-6.5) H 06/26/23 08:23
Absolute Lymphs (auto) 1.6 10^3/uL (1.2-3.4) 06/26/23 08:23
Absolute Monos (auto) 1.3 10^3/uL (0.1-0.6) H 06/26/23 08:23
Absolute Basos (auto) 0.1 10^3/uL (0-0.2) 06/26/23 08:23
Immature Gran % 0.3 % (0-0.5) 06/26/23 08:23
Neutrophils % 73.7 % (42.2-75.2) 06/26/23 08:23
Lymphocytes % 12.3 % (20.5-51.1) L 06/26/23 08:23
Monocytes % 10.5 % (1.7-9.3) H 06/26/23 08:23
Eosinophils % 2.4 % (0-6) 06/26/23 08:23
Basophils % 0.8 % (0-2) 06/26/23 08:23
Lactic Acid 1.9 mmol/L (0.7-2.0) 06/26/23 12:20
Ur Squamous Epith Cells 0-2 /LPF (Few) 06/26/23 08:23
Microbiology Results
Micro:
06/26/23 16:09 Legionella Urinary Antigen - Pending
Urine Streptococcus pneumoniae Antigen (M - Pending
06/26/23 10:01 Influenza Types A & B (KIERSTEN) - Final
Nasal Swab Negative for Influenza A & B, NAAT
Negative results must be combined with clinical observations
and patient history.
Nucleic Acid Amplification test (NAAT)performed on the
[employer] platform.
06/26/23 08:33 Blood Culture - Pending
Blood/Venous
06/26/23 08:32 Blood Culture - Pending
Blood/Venous
Assessment / Plan
Possible Bronchopneumonia
Pulmonary Nodules
- sputum culture if able to obtain one
- agree with legionella/s pneumo urine antigens
- blood cultures x2 in progress
- start ceftriaxone and oral doxycycline; stop cefepime/vancomycin
- no further rectal Ts and no cooling blanket - strict
- follow clinically
--- NOTE | 2023-06-26 16:52 | PTCARENOTE ---
Rec'd pt from ED, oriented to room and unit. Pt with own insulin pump, removed and taken home. Pt call crisostomo placed within reach, pt confused, will place bed alarm under pt. will cont to monitor.
--- NOTE | 2023-06-26 17:00 | PTCARENOTE ---
1630 Pt arrived from ER via stretcher, alert and verbalizing. Vs stable, afebrile. Pulse ox 97% on room air. Noted pt has own insulin pump.
Dr. Torres notified and ordered to have insulin pump removed. Pt's here at bedside and able to remove pt's insulin pump and will take back home.
1730 Noted MD orders, started IV fluids NSS at 80 ml per hour via IV pump, continue to monitor pt closely.
[2023-06-26] MEDS: DEPAKOTE ER (24 HR RELEASE) 500 MG PO ×2 (17:28→22:30)
[2023-06-26] MEDS: VANCOCIN 540 MG IV (17:28)
[2023-06-26] MEDS: INDOCIN 25 MG PO ×2 (17:28→22:31)
[2023-06-26] MEDS: LOVENOX 40 MG SC (17:30)
[2023-06-26] MEDS: NEURONTIN 800 MG PO ×2 (17:31→22:30)
[2023-06-26] MEDS: NOVOLOG FLEXPEN-LOW RESISTANCE SC (17:32)
[2023-06-26] MEDS: ROXICODONE 10 MG PO (18:11)
[2023-06-26] MEDS: MS CONTIN (EXTENDED RELEASE) 30 MG PO (20:02)
[2023-06-26] MEDS: VIBRAMYCIN 100 MG PO (20:02)
[2023-06-26] MEDS: STERILE WATER FOR INJECTION 20 ML IV (20:02)
[2023-06-26] MEDS: ROCEPHIN 2000 MG IV (20:02)
[2023-06-26 22:06] LABS: Glucose - Point of Care 245 mg/dl (70-99)
[2023-06-26 22:40] LABS: Amphetamines Negative (Negative); Barbiturates Negative (Negative); Benzodiazepines Positive (Negative); Buprenorphine Negative (Negative); Cocaine Negative (Negative); Marijuana Negative (Negative); Methadone Negative (Negative); Methamphetamines Negative (Negative); Opiates Positive (Negative); Phencyclidine Negative (Negative); Tricyclic Antidepressants Negative (Negative)
[2023-06-26 23:05] LABS: Fentanyl, Urine Negative (Negative)
[2023-06-27] MEDS: ROXICODONE 10 MG PO ×3 (00:46→15:47)
[2023-06-27] MEDS: VALIUM 10 MG PO ×2 (00:50→22:20)
[2023-06-27] MEDS: SYNTHROID 100 MCG PO (06:10)
[2023-06-27] MEDS: INDOCIN 25 MG PO ×4 (06:10→22:20)
[2023-06-27 06:59] LABS: Hematocrit 36.1 % (39.0-52.0); Mean Corpuscular Hgb 32.1 pg (27.0-31.0); Mean Corpuscular Volume 89.1 fL (80.0-94.0); Mean Platelet Volume 10.5 fL (7.4-10.4); Platelet Count 158 10^3/uL (130-400); Red Blood Cell Count 4.05 10^6/uL (4.70-6.10); Red Cell Dist. Width 13.2 % (11.5-14.5); White Blood Cell Count 7.8 10^3/uL (4.8-10.8)
[2023-06-27 07:21] LABS: Blood Urea Nitrogen 15 mg/dl (9-20); Calcium 9.1 mg/dl (8.4-10.2); Carbon Dioxide 32 mmol/L (22-30); Chloride 102 mmol/L (98-107); Estimated Creatinine Clearance 108 ml/min; Glucose 144 mg/dl (70-99); Potassium 4.1 mmol/L (3.5-5.1); Sodium 136 mmol/L (135-145); eGFR > 60.00
[2023-06-27 08:00] LABS: Glucose - Point of Care 151 mg/dl (70-99)
[2023-06-27] MEDS: SPIRIVA RESPIMAT 2.5 MCG 2 PUFF INH (08:01)
[2023-06-27] MEDS: STRIVERDI RESPIMAT 2 PUFF INH (08:01)
[2023-06-27 08:28] LABS: Glycohemoglobin (HgbA1c) 6.4 % (4.0-5.6)
[2023-06-27 08:34] VITALS: BP 152/80
[2023-06-27] MEDS: MS CONTIN (EXTENDED RELEASE) 30 MG PO ×2 (09:02→20:47)
[2023-06-27] MEDS: NOVOLOG FLEXPEN-LOW RESISTANCE 1 UNITS SC (09:24)
[2023-06-27] MEDS: ASPIR LOW (ENTERIC COATED) 81 MG PO (09:24)
[2023-06-27] MEDS: LIPITOR 40 MG PO (09:25)
[2023-06-27] MEDS: DEPAKOTE ER (24 HR RELEASE) 500 MG PO ×3 (09:25→21:16)
[2023-06-27] MEDS: PAXIL 40 MG PO (09:25)
[2023-06-27] MEDS: LOTREL 5 MG/20 MG 1 CAPSULE PO (09:25)
[2023-06-27] MEDS: NEURONTIN 800 MG PO ×3 (09:25→21:17)
[2023-06-27] MEDS: VIBRAMYCIN 100 MG PO ×2 (09:26→20:47)
--- NOTE | 2023-06-27 09:37 | PTOTSP ---
Speech Therapy
Presentation: Patient stated that his voice (mildly dysphonic) has changed since his spinal surgery (4 years ago). Patient appeared to demonstrate moments of word-finding difficulty which patient states his memory has been an issue for a little
while now.
Swallowing Complaints: Patient stated that for the past several months he has had trouble swallowing where he reports food occasionally getting stuck in his esophagus. Patient states he had a VSE previously but does not recall where, when or what
the recommendations were. Not completed at .
Swallowing Function: COAL SHOOTER observed patient with several bites of cracker and sips of thin liquids in which patient appeared to tolerate as he did not exhibit any overt clinical s/sx of aspiration or difficulty with mastication/ manipulation.
Per RN, patient tolerated medications whole with several sips of thin liquids.
Given the above information, patient would likely benefit from a VSE to r/o silent aspiration and quantify dysphagia complaints. In addition, a VSE could assist with r/o aspiration pna given patient's recurrent pna.
Recommendations:
1) Continuation of current diet (regular consistency solids and thin liquids)
2) Aspiration precautions
3) Medications as tolerated
4) VSE
Plan: COAL SHOOTER will continue to follow; pending hospitalization.
[2023-06-27 12:43] LABS: Glucose - Point of Care 243 mg/dl (70-99)
[2023-06-27] MEDS: NSS 1000 IV (13:06)
[2023-06-27] MEDS: NOVOLOG FLEXPEN-LOW RESISTANCE 2 UNITS SC ×2 (13:07→18:16)
--- NOTE | 2023-06-27 13:55 | W.PN.ID1 ---
Date of Service
Date of Service: June 27, 2023
Today's Communication
swallow eval
continue current abx
Assessment / Plan
Possible Bronchopneumonia
Pulmonary Nodules
Recurrent pneumonia
- sputum culture if able to obtain one
- agree with legionella/s pneumo urine antigens
- blood cultures x2 in progress
- continue ceftriaxone and oral doxycycline for today
- swallow evaluation given history of crainotomy and recurrent pneumonias
- check IgG, IgM, IgA levels, denies risk factors for HIV; CT not consistent with bronchiectasis
- follow clinically
Chief Complaint
-: Fever and Pneumonia
Subjective / Review of Systems
fever curve improved
bp stable
leukocytosis resolved
cr improved
immunoglobulins not resulted
cough less, no longer productive
discussed with patient and
Vital Signs / Physical Exam
Vital Signs
Vital Signs
Temp Pulse Resp BP Pulse Ox
97.7 F 53 18 152/80 98
06/27/23 08:34 06/27/23 08:34 06/27/23 08:34 06/27/23 08:34 06/27/23 09:30
Physical Exam
Constitutional: No Acute Distress
Cardiovascular: Regular Rate and S1/S2; Negative Murmur or Rub
Pulmonary: Clear and Symmetric; Negative Wheezes or Rales
Gastrointestinal: Soft, Non Tender, Non Distended and Normal Bowel Sounds
Skin: Warm and Dry; Negative Rash or Jaundice
Objective Data
Lab Data
Lab Results
06/27/23 06:44
06/27/23 06:44
Estimated Creat Clear 108 ml/min 06/27/23 06:44
Lactic Acid 1.9 mmol/L (0.7-2.0) 06/26/23 12:20
Total Bilirubin 0.5 mg/dl (0.2-1.3) 06/26/23 09:04
AST 29 U/L (17-59) 06/26/23 09:04
ALT 15 U/L (0-50) 06/26/23 09:04
Alkaline Phosphatase 107 U/L (38-126) 06/26/23 09:04
Most recent labs reviewed.
Micro Results:
06/26/23 08:33 Blood Culture - Preliminary
Blood/Venous No Growth in 24 hours- Final report to follow
06/26/23 08:32 Blood Culture - Preliminary
Blood/Venous No Growth in 24 hours- Final report to follow
06/26/23 16:09 Legionella Urinary Antigen - Final
Urine Negative for Legionella pneumophila Serogroup 1 antigen.
A negative result does not rule out the possiblity of
Legionella infection due to other serogroups or species of
Legionella. Clinical correlation is recommended.
Streptococcus pneumoniae Antigen (M - Final
Negative for Streptococcus pneumoniae antigen.
A negative result does not exclude infection with
Streptococcus pneumoniae. Clinical correlation is
recommended.
06/26/23 10:01 Influenza Types A & B (KIERSTEN) - Final
Nasal Swab Negative for Influenza A & B, NAAT
Negative results must be combined with clinical observations
and patient history.
Nucleic Acid Amplification test (NAAT)performed on the
[employer] platform.
Care Review
Plan reviewed with: Physician (Dr Torres - requests call)
--- NOTE | 2023-06-27 15:01 | CM ---
actuarial manager reviewed patient's chart and met with patient and patient lives with is spouse in a 2 story home, patient has a 1st floor set up, patient has a canes in home alone with a walker and w/c in home. patient has a prescription plan and uses
[facility] pharmacy, on [address] in [place].
PCP: Dr. Nova
Plan; Home when stable, no needs, AD information provided to patient.
--- NOTE | 2023-06-27 15:16 | W.PN.HOSP.TC ---
Today's Communication/Plan
-
Continue with antibiotics
Continue with diet
VSE
Assessment / Plan
Assessment / Plan
#sepsis/toxic metabolic encephalopathy
# Pouueqbdn-pxnpahumi-lhrkucqu; rule out silent aspiration
-Resolved fevers. Normalized white count.
-COVID-negative; influenza negative. Pneumococcal antigen negative. Blood cultures negative so far.
-Chest abdomen pelvis CT with impression of Scattered but diffuse centrilobular groundglass nodules scattered throughout the right lung with sparing of the left lung. Similar but more pronounced findings seen on the prior CT from 03/19/2023. Findings
suspicious for infectious or inflammatory process such as pneumonitis or bronchial pneumonia.Couple of more isolated appearing nodules, including a 6 mm nodule within the posterior lateral right lower lobe. There is also a 3 mm nodule within the
anterior left lower lobe. The larger nodule was present on the prior CT from 03/19/2023. Patient referred to the pulmonary nodule advisory Board for appropriate follow-up.
-Chest x-ray with impression of Nonspecific mildly increased interstitial markings bilaterally which may be chronic finding
-Negative for influenza AMB
-Appreciate ID input-continue with antibiotics per ID.
-Speech input noted-continue with regular consistency but will get a video swallow to rule out silent aspiration. Patient with remote history of head injury and craniotomy.
# Pulmonary nodules
-Patient follows up with administrative support specialist as outpatient
#COPD--Not in acute exacerbation--no wheezing--Continue inhalers
#Type 2 diabetes on chronic insulin pump
-hold insulin Pump
-sliding scale
-Diabetic diet
#Essential hypertension--Continue amlodipine benazepril
#Hyperlipidemia--Continue statin
#Bipolar disorder--Continue diazepam, Depakote, paroxetine
#Chronic pain syndrome on chronic narcotics--Continue gabapentin, indomethacin, oxycodone, morphine
Subdural hematoma with parietal craniotomy--noted
#Hypothyroidism--Continue levothyroxine
#code status --Full code
#DVT prophylaxis�Lovenox
Anticipated Discharge: > 48 hours
Subjective/Interval History
-
Date of Service: June 27, 2023
No further fevers.
Denies shortness of breath at rest.
Denies any nausea vomiting or swallowing difficulty.
Objective Data
-
Labs:
Laboratory Results
06/27/23
06:44
WBC 7.8
Hgb 13.0
Hct 36.1 L
Plt Count 158
Sodium 136
Potassium 4.1
Chloride 102
Carbon Dioxide 32 H
BUN 15
Creatinine 0.7
Glucose 144 H
Calcium 9.1
Vital Signs:
Vital Signs
Temp Pulse Resp BP Pulse Ox
97.7 F 53 18 152/80 98
06/27/23 08:34 06/27/23 08:34 06/27/23 08:34 06/27/23 08:34 06/27/23 09:30
I&O
06/26/23 06/27/23 06/28/23
06:59 06:59 06:59
Intake Total 750 / 750
Output Total 800 / 800 300 / 300
Balance -50 / -50 -300 / -300
Review of Systems
-
Constitutional: Denies Fever
EENT: Denies Sore Throat
Respiratory: Denies Trouble Breathing
Cardiac: Denies Chest Pain
Abdomen/GI: Denies Nausea or Vomiting
Neuro: Denies Dizzy
Physical Exam
-
General: No Apparent Distress
HEENT: Moist Mucous Membranes
Respiratory: Clear to Auscultation; Negative Wheezes or Crackles
Cardiac: Regular Rhythm and S1/S2
GI: Soft and Nontender
Neuro: Awake, Alert, Oriented and No Motor Deficits; Negative Tremors, Slurred Speech (slow speech) or Facial Droop
Psych: Calm; Negative Confused
Data Reviewed
-
Labs: Labs Reviewed by me
[2023-06-27 16:04] VITALS: BP 171/71
[2023-06-27 16:08] VITALS: BP 132/75; BP 171/79; PULSE 50
[2023-06-27 17:51] LABS: Glucose - Point of Care 203 mg/dl (70-99)
[2023-06-27] MEDS: LOVENOX 40 MG SC (18:15)
[2023-06-27] MEDS: STERILE WATER FOR INJECTION 20 ML IV (20:47)
[2023-06-27] MEDS: ROCEPHIN 2000 MG IV (20:47)
[2023-06-27 23:00] VITALS: BP 163/71
[2023-06-28] MEDS: NSS IV (00:10)
[2023-06-28] MEDS: INDOCIN 25 MG PO (06:14)
[2023-06-28] MEDS: SYNTHROID 100 MCG PO (06:14)
[2023-06-28 06:54] LABS: Hematocrit 37.6 % (39.0-52.0); Hemoglobin 13.4 g/dL (13.0-18.0); Mean Corp Hgb Conc. 35.6 g/dL (33.0-37.0); Mean Corpuscular Hgb 32.1 pg (27.0-31.0); Mean Corpuscular Volume 90.2 fL (80.0-94.0); Platelet Count 166 10^3/uL (130-400); Red Blood Cell Count 4.17 10^6/uL (4.70-6.10); Red Cell Dist. Width 13.1 % (11.5-14.5); White Blood Cell Count 5.6 10^3/uL (4.8-10.8)
[2023-06-28 07:11] VITALS: BP 180/79
[2023-06-28 07:18] LABS: Blood Urea Nitrogen 18 mg/dl (9-20); Calcium 9.7 mg/dl (8.4-10.2); Carbon Dioxide 33 mmol/L (22-30); Chloride 96 mmol/L (98-107); Estimated Creatinine Clearance 94 ml/min; Glucose 154 mg/dl (70-99); Potassium 4.4 mmol/L (3.5-5.1); Sodium 136 mmol/L (135-145); eGFR > 60.00
[2023-06-28 07:20] LABS: Glucose - Point of Care 152 mg/dl (70-99)
[2023-06-28] MEDS: LOTREL 5 MG/20 MG 1 CAPSULE PO (07:35)
[2023-06-28] MEDS: MS CONTIN (EXTENDED RELEASE) 30 MG PO ×2 (07:35→19:58)
[2023-06-28] MEDS: VIBRAMYCIN 100 MG PO ×2 (07:36→19:57)
[2023-06-28] MEDS: ASPIR LOW (ENTERIC COATED) 81 MG PO (07:36)
[2023-06-28] MEDS: NEURONTIN 800 MG PO ×3 (07:36→21:50)
[2023-06-28] MEDS: LIPITOR 40 MG PO (07:36)
[2023-06-28] MEDS: ROXICODONE 10 MG PO ×3 (07:36→23:04)
[2023-06-28] MEDS: PAXIL 40 MG PO (07:36)
[2023-06-28] MEDS: DEPAKOTE ER (24 HR RELEASE) 500 MG PO ×3 (07:37→21:49)
[2023-06-28] MEDS: NOVOLOG FLEXPEN-LOW RESISTANCE 1 UNITS SC (07:38)
[2023-06-28] MEDS: SPIRIVA RESPIMAT 2.5 MCG 2 PUFF INH (08:00)
[2023-06-28] MEDS: STRIVERDI RESPIMAT 2 PUFF INH (08:00)
[2023-06-28 10:05] VITALS: BP 134/67
--- NOTE | 2023-06-28 10:33 | W.PN.HOSP.TC ---
Today's Communication/Plan
-
cw antimicrobials
VSE in am
DC planning
Assessment / Plan
Assessment / Plan
#sepsis/toxic metabolic encephalopathy
# Yyvxkyzyh-vobwbdhqf-ybaqdqkq; rule out silent aspiration
-Resolved fevers. Normalized white count.
-COVID-negative; influenza negative. Pneumococcal antigen negative. Blood cultures negative so far.
-Chest abdomen pelvis CT with impression of Scattered but diffuse centrilobular groundglass nodules scattered throughout the right lung with sparing of the left lung. Similar but more pronounced findings seen on the prior CT from 03/19/2023. Findings
suspicious for infectious or inflammatory process such as pneumonitis or bronchial pneumonia.Couple of more isolated appearing nodules, including a 6 mm nodule within the posterior lateral right lower lobe. There is also a 3 mm nodule within the
anterior left lower lobe. The larger nodule was present on the prior CT from 03/19/2023. Patient referred to the pulmonary nodule advisory Board for appropriate follow-up.
-Chest x-ray with impression of Nonspecific mildly increased interstitial markings bilaterally which may be chronic finding
-Negative for influenza AMB
-Appreciate ID input-continue with antibiotics per ID.
-Speech input noted-continue with regular consistency but will get a video swallow to rule out silent aspiration. Patient with remote history of head injury and craniotomy.
# Pulmonary nodules
-Patient follows up with sewer tapper as outpatient
#COPD--Not in acute exacerbation--no wheezing--Continue inhalers
#Type 2 diabetes on chronic insulin pump
-hold insulin Pump
-sliding scale
-Diabetic diet
#Essential hypertension--Continue amlodipine benazepril
#Hyperlipidemia--Continue statin
#Bipolar disorder--Continue diazepam, Depakote, paroxetine
#Chronic pain syndrome on chronic narcotics--Continue gabapentin, indomethacin( says he takes it prn), oxycodone, morphine
Subdural hematoma with parietal craniotomy--noted
#Hypothyroidism--Continue levothyroxine
#code status --Full code
#DVT prophylaxis�Lovenox
Anticipated Discharge: Within 24 hours
Subjective/Interval History
-
Date of Service: June 28, 2023
No further fevers.
Denies any cough. No shortness of breath.
No nausea vomiting. Had a BM today.
Objective Data
-
Labs:
Laboratory Results
06/28/23
06:26
WBC 5.6
Hgb 13.4
Hct 37.6 L
Plt Count 166
Sodium 136
Potassium 4.4
Chloride 96 L
Carbon Dioxide 33 H
BUN 18
Creatinine 0.8
Glucose 154 H
Calcium 9.7
Vital Signs:
Vital Signs
Temp Pulse Resp BP Pulse Ox
97.9 F 52 16 134/67 98
06/28/23 07:11 06/28/23 08:07 06/28/23 08:07 06/28/23 10:05 06/28/23 08:07
I&O
06/27/23 06/28/23 06/29/23
06:59 06:59 06:59
Intake Total 750 / 750 2460 / 2460
Output Total 800 / 800 1450 / 1450
Balance -50 / -50 1010 / 1010
Review of Systems
-
All other systems: Reviewed and negative
Physical Exam
-
General: No Apparent Distress
HEENT: Moist Mucous Membranes
Respiratory: Clear to Auscultation
Cardiac: Regular Rhythm and S1/S2
GI: Soft
Neuro: AO x 3
Psych: Calm
--- NOTE | 2023-06-28 11:07 | W.PN.ID1 ---
Date of Service
Date of Service: June 28, 2023
Today's Communication
- switched to oral cefdinir and doxycycline - plan 5 day total course 06/25-06/29
- check IgG, IgM, IgA levels - lab reports will be run tonight; sample is in lab
- stable for dc once VSE completed
Assessment / Plan
Possible Bronchopneumonia
Pulmonary Nodules
Recurrent pneumonia
- for video swallow eval
- sputum culture if able to obtain one - none thus far
- blood cultures x2 in progress
- switched to oral cefdinir and doxycycline - plan 5 day total course 06/25-06/29
- check IgG, IgM, IgA levels - lab reports will be run tonight; sample is in lab
- stable for dc once VSE completed
Chief Complaint
-: Fever and Pneumonia
Subjective / Review of Systems
no further fevers
bp stable
remains without leukocytosis
cr stable
blood cultures no growth to date
hasnt produced a sputum
VSE is planned
discussed with via phone
Vital Signs / Physical Exam
Vital Signs
Vital Signs
Temp Pulse Resp BP Pulse Ox
97.9 F 52 16 134/67 98
06/28/23 07:11 06/28/23 08:07 06/28/23 08:07 06/28/23 10:05 06/28/23 08:40
Physical Exam
Constitutional: No Acute Distress and Chronically Ill
Cardiovascular: Regular Rate and S1/S2; Negative Murmur or Rub
Pulmonary: Clear and Symmetric; Negative Wheezes or Rales
Gastrointestinal: Soft, Non Tender, Non Distended and Normal Bowel Sounds
Skin: Warm and Dry; Negative Rash or Jaundice
Objective Data
Lab Data
Lab Results
06/28/23 06:26
06/28/23 06:26
Estimated Creat Clear 94 ml/min 06/28/23 06:26
Lactic Acid 1.9 mmol/L (0.7-2.0) 06/26/23 12:20
Total Bilirubin 0.5 mg/dl (0.2-1.3) 06/26/23 09:04
AST 29 U/L (17-59) 06/26/23 09:04
ALT 15 U/L (0-50) 06/26/23 09:04
Alkaline Phosphatase 107 U/L (38-126) 06/26/23 09:04
Most recent labs reviewed.
Micro Results:
06/26/23 08:32 Blood Culture - Preliminary
Blood/Venous No Growth in 48 hours- Final report to follow
06/26/23 08:33 Blood Culture - Preliminary
Blood/Venous No Growth in 48 hours- Final report to follow
06/26/23 16:09 Legionella Urinary Antigen - Final
Urine Negative for Legionella pneumophila Serogroup 1 antigen.
A negative result does not rule out the possiblity of
Legionella infection due to other serogroups or species of
Legionella. Clinical correlation is recommended.
Streptococcus pneumoniae Antigen (M - Final
Negative for Streptococcus pneumoniae antigen.
A negative result does not exclude infection with
Streptococcus pneumoniae. Clinical correlation is
recommended.
06/26/23 10:01 Influenza Types A & B (KIERSTEN) - Final
Nasal Swab Negative for Influenza A & B, NAAT
Negative results must be combined with clinical observations
and patient history.
Nucleic Acid Amplification test (NAAT)performed on the
[employer] platform.
[2023-06-28 11:55] LABS: Glucose - Point of Care 269 mg/dl (70-99)
[2023-06-28] MEDS: NOVOLOG FLEXPEN-LOW RESISTANCE 3 UNITS SC (12:11)
[2023-06-28 15:05] VITALS: BP 157/75
[2023-06-28 16:16] LABS: Glucose - Point of Care 213 mg/dl (70-99)
[2023-06-28] MEDS: NOVOLOG FLEXPEN-LOW RESISTANCE 2 UNITS SC (16:56)
[2023-06-28] MEDS: LOVENOX 40 MG SC (16:56)
[2023-06-28] MEDS: OMNICEF 300 MG PO (19:58)
[2023-06-28 21:57] LABS: Glucose - Point of Care 172 mg/dl (70-99)
[2023-06-28 23:00] VITALS: BP 140/74
[2023-06-29 03:58] LABS: IgA 134 mg/dl (70-400); IgG 1005 mg/dl (700-1600)
[2023-06-29] MEDS: SYNTHROID 100 MCG PO (05:04)
[2023-06-29] MEDS: ROXICODONE 10 MG PO ×2 (05:05→11:10)
[2023-06-29 05:20] LABS: IgM < 25 mg/dl (40-230)
[2023-06-29 07:30] VITALS: BP 165/72
[2023-06-29 08:02] LABS: Glucose - Point of Care 145 mg/dl (70-99)
[2023-06-29] MEDS: STRIVERDI RESPIMAT 2 PUFF INH (08:03)
[2023-06-29] MEDS: SPIRIVA RESPIMAT 2.5 MCG 2 PUFF INH (08:04)
[2023-06-29 08:11] LABS: Hematocrit 36.3 % (39.0-52.0); Hemoglobin 12.9 g/dL (13.0-18.0); Mean Corp Hgb Conc. 35.5 g/dL (33.0-37.0); Mean Corpuscular Hgb 32.1 pg (27.0-31.0); Mean Corpuscular Volume 90.3 fL (80.0-94.0); Mean Platelet Volume 10.8 fL (7.4-10.4); Platelet Count 180 10^3/uL (130-400); Red Blood Cell Count 4.02 10^6/uL (4.70-6.10); Red Cell Dist. Width 13.3 % (11.5-14.5); White Blood Cell Count 5.3 10^3/uL (4.8-10.8)
[2023-06-29] MEDS: NOVOLOG FLEXPEN-LOW RESISTANCE SC (08:24)
[2023-06-29 08:31] LABS: Blood Urea Nitrogen 21 mg/dl (9-20); Calcium 9.4 mg/dl (8.4-10.2); Carbon Dioxide 32 mmol/L (22-30); Chloride 100 mmol/L (98-107); Estimated Creatinine Clearance 94 ml/min; Glucose 150 mg/dl (70-99); Potassium 4.1 mmol/L (3.5-5.1); Sodium 136 mmol/L (135-145); eGFR > 60.00
[2023-06-29] MEDS: ASPIR LOW (ENTERIC COATED) 81 MG PO (09:16)
[2023-06-29] MEDS: LOTREL 5 MG/20 MG 1 CAPSULE PO (09:16)
[2023-06-29] MEDS: DEPAKOTE ER (24 HR RELEASE) 500 MG PO ×2 (09:22→15:51)
[2023-06-29] MEDS: PAXIL 40 MG PO (09:22)
[2023-06-29] MEDS: NEURONTIN 800 MG PO ×2 (09:22→15:51)
[2023-06-29] MEDS: VIBRAMYCIN 100 MG PO (09:22)
[2023-06-29] MEDS: MS CONTIN (EXTENDED RELEASE) 30 MG PO (09:22)
[2023-06-29] MEDS: LIPITOR 40 MG PO (09:22)
[2023-06-29] MEDS: OMNICEF 300 MG PO (11:07)
[2023-06-29 12:17] LABS: Glucose - Point of Care 258 mg/dl (70-99)
[2023-06-29] MEDS: NOVOLOG FLEXPEN-LOW RESISTANCE 3 UNITS SC (12:23)
--- NOTE | 2023-06-29 13:11 | PN.DE.MGMTRT ---
Insulin Management
- -
06/29/2023: Consulted for insulin pump management
This is a 62 year old male admitted on 06/25 with sepsis/toxic metabolic encephalopathy and Lmewkvpiv-nvzbuomxs-qfhkluyd.
PMH: COPD, T1DM, Smoking, bipolar disorder admitted for severe sepsis/acute hypoxia likely from HAP.
Prior to admission using Medtronic insulin pump with NovoLog insulin, Quick set infusion set. He is also using the Saqib [address] Berger, for ongoing diabetes care. A1C 6.4%, Cr 0.6, eGFR >60
Pt seen this morning, resting in bed, states that his took his insulin pump home and that it is not present at this time.
His current diabetes regimen includes low corrective insulin only. Premeal Glucose has been 145 to 269, with a current blood sugar of 258
Will start basal bolus insulin. Give Lantus 10 units now and start NovoLog 4 units A, cont low corrective insulin with meals
change diet to 1800 ADA diet. Accucheks AC/HS. Utilize corrective insulin if NPO for tests or procedures.
Pt may resume his insulin pump up on discharge. Discussed with Pt's Nurse and Hospitalist
Diabetes History
- -
Type of Diabetes: 1
Pre-Admission Diabetes Regimen
06/29/23
07:37
Creatinine 0.8
Lab Results
Hemoglobin A1c 6.4 % (4.0-5.6) H 06/27/23 06:44
Insulin Pump Settings
IP Diabetes Regimen
06/28/23 06/28/23 06/29/23
16:15 21:56 07:37
Glucose 150 H
POC Glucose 213 H 172 H
06/29/23 06/29/23
08:00 12:15
Glucose
POC Glucose 145 H 258 H
Meal type: Dinner
Meal type: Lunch
Amount consumed: 100%
Amount consumed: 100%
Patient Education
[2023-06-29 13:21] VITALS: BP 123/65; PULSE 50; O2SAT 95
[2023-06-29 13:47] LABS: Glucose - Point of Care 192 mg/dl (70-99)
[2023-06-29] MEDS: LANTUS 0.100000000000000006 UNITS SC (13:47)
[2023-06-29] MEDS: NOVOLOG FLEXPEN 4 UNITS SC (13:47)
--- NOTE | 2023-06-29 14:31 | W.PN.HOSP.TC ---
Today's Communication/Plan
-
DC
Assessment / Plan
Assessment / Plan
#sepsis/toxic metabolic encephalopathy
# Ydunwwlki-dnupqzrxy-cwbxgsgc; rule out silent aspiration
-Resolved fevers. Normalized white count.
-COVID-negative; influenza negative. Pneumococcal antigen negative. Blood cultures negative so far.
-Chest abdomen pelvis CT with impression of Scattered but diffuse centrilobular groundglass nodules scattered throughout the right lung with sparing of the left lung. Similar but more pronounced findings seen on the prior CT from 03/19/2023. Findings
suspicious for infectious or inflammatory process such as pneumonitis or bronchial pneumonia.Couple of more isolated appearing nodules, including a 6 mm nodule within the posterior lateral right lower lobe. There is also a 3 mm nodule within the
anterior left lower lobe. The larger nodule was present on the prior CT from 03/19/2023. Patient referred to the pulmonary nodule advisory Board for appropriate follow-up.
-Chest x-ray with impression of Nonspecific mildly increased interstitial markings bilaterally which may be chronic finding
-Negative for influenza AMB
-Appreciate ID input-continue with antibiotics per ID -switched to oral now
-Speech input noted-continue with regular consistency but will get a video swallow to rule out silent aspiration. Patient with remote history of head injury and craniotomy.
VSE today noted -cleared for regular solids n thin liquids with precautions
# Low IgM level with normal IgA/G levels - refer to immunology as OP
# Pulmonary nodules
-Patient follows up with interior design consultant as outpatient
#COPD--Not in acute exacerbation--no wheezing--Continue inhalers
#Type 2 diabetes on chronic insulin pump
-hold insulin Pump
-sliding scale
-Diabetic diet
#Essential hypertension--Continue amlodipine benazepril
#Hyperlipidemia--Continue statin
#Bipolar disorder--Continue diazepam, Depakote, paroxetine
#Chronic pain syndrome on chronic narcotics--Continue gabapentin, indomethacin( says he takes it prn), oxycodone, morphine
Subdural hematoma with parietal craniotomy--noted
#Hypothyroidism--Continue levothyroxine
#code status --Full code
#DVT prophylaxis�Lovenox
Medically stable for discharge.
Discussed with the regarding the diagnosis, treatments and follow-up plan.
Total time of discharge 32 minutes
Anticipated Discharge: Today
Subjective/Interval History
-
Date of Service: June 29, 2023
Doing well
Nauseous. Denies cough. No shortness of breath
Finished his VSE today
Objective Data
-
Labs:
Laboratory Results
06/29/23
07:37
WBC 5.3
Hgb 12.9 L
Hct 36.3 L
Plt Count 180
Sodium 136
Potassium 4.1
Chloride 100
Carbon Dioxide 32 H
BUN 21 H
Creatinine 0.8
Glucose 150 H
Calcium 9.4
Vital Signs:
Vital Signs
Temp Pulse Resp BP Pulse Ox
97.7 F 51 16 165/72 97
06/29/23 07:30 06/29/23 09:16 06/29/23 07:30 06/29/23 09:16 06/29/23 09:14
I&O
06/28/23 06/29/23 06/30/23
06:59 06:59 06:59
Intake Total 2460 / 2460 1330 / 1330
Output Total 1450 / 1450 200 / 200
Balance 1010 / 1010 1130 / 1130
Review of Systems
-
Constitutional: Denies Fever
EENT: Denies Sore Throat
Respiratory: Denies Cough or Trouble Breathing
Cardiac: Denies Chest Pain
Abdomen/GI: Denies Abdominal Pain, Nausea or Vomiting
Neuro: Denies Dizzy
Physical Exam
-
General: No Apparent Distress
HEENT: Moist Mucous Membranes
Respiratory: Clear to Auscultation
Cardiac: Regular Rhythm and S1/S2
GI: Soft, Nontender, Nondistended and Normal Bowel Sounds
Neuro: AO x 3
Psych: Calm
Data Reviewed
-
Labs: Labs Reviewed by me
--- NOTE | 2023-06-29 14:40 | W.DS.TRANS ---
DC Summary - Resource Management Specialist
-
Discharge Instructions:
Discharge Diagnosis/Procedures Pneumonia
Diet Low Cholesterol
Activity As tolerated
Driving Restrictions As prior to admission
Instructions:
Stand-Alone Forms:
Changes to Home Medications: Yes
Discharge Medications:
DC Medications w/original date entered in [employer]
atorvastatin 40 mg tablet 40 mg PO DAILY High cholesterol 12/25/21
divalproex 500 mg tablet,extended release 24 hr 500 mg PO TID mental health 12/25/21
gabapentin 800 mg tablet 800 mg PO TID Neurological Condition 12/25/21
morphine 30 mg tablet,extended release 30 mg PO Q12H Pain 12/25/21
paroxetine HCl 40 mg tablet 40 mg PO DAILY Mental health 12/25/21
aspirin 81 mg tablet,delayed release 81 mg PO DAILY Blood clot prevention/tx 05/16/22
budesonide-formoterol HFA 160 mcg-4.5 mcg/actuation aerosol inhaler (Symbicort) 2 puff inhalation R DAILYPRN PRN sob 05/16/22
cyanocobalamin (vitamin B-12) 1,000 mcg tablet 1,000 mcg PO DAILY Supplement 05/16/22
albuterol sulfate 90 mcg/actuation aerosol inhaler 2 puff inhalation R Q4HPRN PRN wheezing 09/10/22
levothyroxine 100 mcg tablet 100 mcg PO DAILY Thyroid 09/10/22
oxycodone 10 mg tablet 10 mg PO Q6HPRN PRN moderate to severe pain 09/10/22
amlodipine 5 mg-benazepril 20 mg capsule 1 cap PO DAILY Blood Pressure 02/23/23
umeclidinium 62.5 mcg-vilanterol 25 mcg/actuation powdr for inhalation (Anoro Ellipta) 1 inh inhalation R DAILY Lung/Breathing Issues 02/23/23
cholecalciferol (vitamin D3) 50 mcg (2,000 unit) tablet 50 mcg PO DAILY Supplement 03/19/23
diazepam 10 mg tablet 10 mg PO BIDPRN PRN anxiety 03/19/23
Patient Own Insulin Pump 0 units SC .VIA PUMP Diabetes 06/26/23
cefdinir 300 mg capsule 300 mg PO Q12 #3 caps 06/29/23
doxycycline hyclate 100 mg capsule 100 mg PO Q12 #3 caps 06/29/23
Home Medication Changes
New medication-doxycycline, cefdinir
Pending Results: No
--- NOTE | 2023-06-29 14:55 | CM ---
Addendum entered by Zoe Bowers 06/29/23 15:02:
Spouse to transport to home around 4pm today.
Original Note:
Chart reviewed home no needs when stable.
Plan; Home no needs
[2023-06-29 15:40] VITALS: BP 135/73
--- NOTE | 2023-06-29 15:45 | PTOTSP ---
Video Swallow Examination
Intermittent swallow delay contributed to silent aspiration of thin liquid by consecutive sips by straw. Cervical osteophytes at C4 and anterior cervical hardware at C5-6 contribute to incomplete epiglottic inversion and subsequent trace to mild
vallecular stasis.
Adequate tongue base retraction, pharyngeal constriction and PES opening. Full laryngeal vestibular closure.
Recommend
1. Regular solids and single sips of thin liquid - NO STRAWS
2. Meds whole in applesauce.
3. Aspiration precautions.
ST will follow up to ensure tolerance and adherence to recommendations.
--- NOTE | 2023-06-29 17:22 | W.PN.ID1 ---
Date of Service
Date of Service: June 29, 2023
Today's Communication
- oral cefdinir and doxycycline - plan 5 day total course 06/25-06/29
Assessment / Plan
Possible Bronchopneumonia
Pulmonary Nodules
Recurrent pneumonia
- with some aspiration
- low IgM would refer to outpatient Immunology
- oral cefdinir and doxycycline - plan 5 day total course 06/25-06/29
Chief Complaint
-: Fever and Pneumonia
Subjective / Review of Systems
afebrile
bp stable
without leukocytosis
cr stable
IgM quite low
aspiration noted
Vital Signs / Physical Exam
Vital Signs
Vital Signs
Temp Pulse Resp BP Pulse Ox
97.7 F 52 16 135/73 94
06/29/23 15:40 06/29/23 15:40 06/29/23 15:40 06/29/23 15:40 06/29/23 15:40
Physical Exam
Constitutional: No Acute Distress
Cardiovascular: Regular Rate
Pulmonary: Symmetric and Non Labored
Gastrointestinal: Non Distended
Neurological: Awake
Objective Data
Lab Data
Lab Results
06/29/23 07:37
06/29/23 07:37
Estimated Creat Clear 94 ml/min 06/29/23 07:37
Lactic Acid 1.9 mmol/L (0.7-2.0) 06/26/23 12:20
Total Bilirubin 0.5 mg/dl (0.2-1.3) 06/26/23 09:04
AST 29 U/L (17-59) 06/26/23 09:04
ALT 15 U/L (0-50) 06/26/23 09:04
Alkaline Phosphatase 107 U/L (38-126) 06/26/23 09:04
Most recent labs reviewed.
Micro Results:
06/26/23 08:32 Blood Culture - Preliminary
Blood/Venous No Growth in 72 hours- Final report to follow
06/26/23 08:33 Blood Culture - Preliminary
Blood/Venous No Growth in 72 hours- Final report to follow
06/26/23 16:09 Legionella Urinary Antigen - Final
Urine Negative for Legionella pneumophila Serogroup 1 antigen.
A negative result does not rule out the possiblity of
Legionella infection due to other serogroups or species of
Legionella. Clinical correlation is recommended.
Streptococcus pneumoniae Antigen (M - Final
Negative for Streptococcus pneumoniae antigen.
A negative result does not exclude infection with
Streptococcus pneumoniae. Clinical correlation is
recommended.
06/26/23 10:01 Influenza Types A & B (KIERSTEN) - Final
Nasal Swab Negative for Influenza A & B, NAAT
Negative results must be combined with clinical observations
and patient history.
Nucleic Acid Amplification test (NAAT)performed on the
[employer] platform.
Care Review
Plan reviewed with: Physician (Dr Torres - low Igm)
--- NOTE | 2023-06-29 18:00 | W.DCSUMMARY ---
Discharge Summary
Discharge Data
Date of Admission: 06/26/23
Date of Discharge: 06/29/23
-
Pending Results: No
Hospital Course
Primary diagnosis:
Sepsis from pneumonia
Toxic metabolic encephalopathy from pneumonia
Community-acquired pneumonia
Recurrent pneumonia
Low immunoglobulin M level
Secondary diagnosis:
Pulmonary nodule
Chronic obstructive pulmonary disease
Type 2 diabetes mellitus on insulin pump
Chronic pain
History of subdural hematoma with partial craniotomy
Hospital course:
Patient presented with a severe fever and change in mental status with his fever. He was noted to be septic and in toxic metabolic encephalopathy. With treatments of sepsis his mental status resolved to normal. He had a chest CT which showed-
Scattered but diffuse centrilobular groundglass nodules scattered throughout the right lung with sparing of the left lung. Similar but more pronounced findings seen on the prior CT from 03/19/2023. Findings suspicious for infectious or inflammatory
process such as pneumonitis or bronchial pneumonia.
He was not bacteremic. Legionella and streptococcal antigen was negative. Flu was negative. COVID was negative.
In view of recurrent pneumonias ID consult was obtained who requested immunoglobulin studies and IgE ZENA, IgG were normal but IgM were less than 25. Was advised to see the it sales representative as an outpatient in this regard.
He was also seen by speech and had a VSE and was cleared for regular solids and thin liquids. But with thin liquids he was advised to avoid straws but only has single sips.
He is known to have pulmonary nodules and follows with local laundry attendant.
Consultants on board:
Infectious disease-Dr. Peralta
Discharge Plan
-
Patient Disposition: Home (Routine Discharge)
Discharge Diagnosis/Procedures: Pneumonia
Diet: Low Cholesterol
Activity: As tolerated
Driving Restrictions: As prior to admission
Referrals:
Vero Dennis MD [Active] - in one month (For low Immunoglobulin M levels)
Umair Baron MD [Active] - in one month (for lung nodules)
Dusty Nova DO [Family Provider] - in less than 1 week
Prescriptions:
New
doxycycline hyclate 100 mg Capsule
100 mg PO Q12 Qty: 3 0RF
cefdinir 300 mg Capsule
300 mg PO Q12 Qty: 3 0RF
Continued
atorvastatin 40 mg tablet
40 mg PO DAILY
morphine 30 mg tablet extended release
30 mg PO Q12H
Patient Comments:
03/19/2023, patient filled this medication on 02/19/2023 for 60 tablets according to PDMP.
gabapentin 800 mg tablet
800 mg PO TID
divalproex 500 mg tablet extended release 24 hr
500 mg PO TID
paroxetine HCl 40 mg tablet
40 mg PO DAILY
budesonide-formoterol [Symbicort] 160-4.5 mcg/actuation Hfa Aerosol Inhaler
2 puff INHALATION R DAILYPRN PRN (Reason: sob)
cyanocobalamin (vitamin B-12) 1,000 mcg Tablet
1,000 mcg PO DAILY
aspirin 81 mg Tablet,Delayed Release (Dr/Ec)
81 mg PO DAILY
levothyroxine 100 mcg tablet
100 mcg PO DAILY
oxycodone 10 mg tablet
10 mg PO Q6HPRN PRN (Reason: moderate to severe pain)
Patient Comments:
03/19/2023, patient filled this medication on 02/19/2023 for 120 tablets according to PDMP.
albuterol sulfate 90 mcg/actuation HFA aerosol inhaler
2 puff inhalation R Q4HPRN PRN (Reason: wheezing)
amlodipine-benazepril 5-20 mg Capsule
1 cap PO DAILY
Anoro Ellipta 62.5-25 mcg/actuation Blister With Device
1 inh INHALATION R DAILY
diazepam 10 mg Tablet
10 mg PO BIDPRN PRN (Reason: anxiety)
Patient Comments:
03/19/2023, patient filled this medication on 03/13/2023 for 45 tablets according to PDMP.
cholecalciferol (vitamin D3) 50 mcg (2,000 unit) Tablet
50 mcg PO DAILY
Patient Own Insulin Pump
0 units SC .VIA PUMP
Rx Instructions:
PATIENT USING NOVOLOG
Discontinued
indomethacin 25 mg capsule
25 mg PO Q6H
Discharge Orders:
Discharge Patient (As Directed); Ordered 06/29/23
Ordered By: Stewart Torres
Discharge Date and Time
Discharge Date/Time: 06/29/23 17:00
Print Language: WELSH
== END 2023-06-29 17:00 | disposition home or self-care (01) | DRG 871 ==
LOC: 4 WEST ACU 14:21
PROVIDERS: Emergency Medicine; Physician Assistant; Registered Nurse; ADMITTING PHYSICIAN Internal Medicine; CONSULT PHYSICIAN Student in an Organized Health Care Education/Training Program; EMERGENCY PHYSICIAN Emergency Medicine; FAMILY PHYSICIAN Family Medicine
DX: A41.9 Sepsis, unspecified organism (principal); G92.8 Other toxic encephalopathy; J69.0 Pneumonitis due to inhalation of food and vomit; J44.0 Chronic obstructive pulmonary disease with (acute) lower respiratory infection; F11.20 Opioid dependence, uncomplicated; R91.1 Solitary pulmonary nodule; E11.9 Type 2 diabetes mellitus without complications; F17.200 Nicotine dependence, unspecified, uncomplicated; Z96.41 Presence of insulin pump (external) (internal); Z79.4 Long term (current) use of insulin
CPT/HCPCS: 51701; 51798; 71045; 71260; 74177; 74230; 80048; 80053; 80306; 80307; 81003; 81015; 82784; 82962; 83036; 83605; 85025; 85027; 87040; 87449; 87502; 87811; 87899; 92610; 92611; 93005; 94640; 96361; 96374; 96375; 97162; 99285; Q9967

== ENCOUNTER 2023-07-18 12:39 | Emergency (ER) | payer MEDICARE, BC, SELFPAY ==
[2023-07-18 12:41] VITALS: BP 154/81
[2023-07-18 13:34] LABS: ALT (SGPT) 12 U/L (0-50); AST (SGOT) 32 U/L (17-59); Albumin 3.9 g/dl (3.5-5.0); Alkaline Phosphatase 91 U/L (38-126); Blood Urea Nitrogen 13 mg/dl (9-20); Calcium 9.3 mg/dl (8.4-10.2); Carbon Dioxide 27 mmol/L (22-30); Chloride 101 mmol/L (98-107); Glucose 176 mg/dl (70-99); Potassium 4.9 mmol/L (3.5-5.1); Sodium 134 mmol/L (135-145); Total Bilirubin 0.5 mg/dl (0.2-1.3); Total Protein 6.6 g/dl (6.3-8.2); eGFR > 60.00
--- NOTE | 2023-07-18 15:40 | ED.GENMED ---
History of Present Illness
General
Chief Complaint: Skin Problem
Source: patient
Exam Limitations: none
Time Seen by Provider: 07/18/23 15:00
Travel History
Have you had any contact with someone who has COVID-19?: No
Do you have any symptoms of coronavirus? Fever > 100 degrees, chills, cough, shortness of breath, sore throat, loss of taste or smell, muscle aches, or headache?: No
History of Present Illness
History of Present Illness:
62-year-old male insulin-dependent diabetic presents with swelling and discomfort to the right elbow. This started couple days ago. His states he is a fragile diabetic and is prone to infections. He has a continuous glucose monitoring system
and is on insulin pump. He denies fevers or chills recently. No known injury to the elbow. No other complaints at this time
Past History
Past History
ED Past Medical History: HTN, Hypercholesterolemia, NIDDM, Psychiatric (Bipolar) and Other (Chronic pain syndrome, pneumonia)
ED Past Surgical History: None
Social History
Tobacco: Smoker
Phy Exam
Physical Exam
Physical Exam:
General: Well-appearing male no acute respiratory distress
HEENT: Normocephalic atraumatic
Musculoskeletal exam: Bursal swelling of the olecranon process of the right elbow. This is slightly tender not significantly erythematous or fluctuant. No induration surrounding this. He has full range of motion is painless to the right elbow.
Skin: Subtle blistering noted of the skin that has peeled off over the olecranon
Course
Orders/Labs/Results
Orders:
Orders
07/18/23 13:01
Comprehensive Metabolic Panel Urgent
07/18/23 13:19
Complete Blood Count/With Diff Urgent
07/18/23 15:29
Complete Blood Count/With Diff Urgent
07/18/23 15:30
Body Fluid Cell Count Urgent
What is the Body Fluid: joint
Date Specimen was Collected: 07/18/23
Time Specimen was Collected: 15:38
Comment: with DIFF
Body Fluid Crystals Urgent
What is the Body Fluid: joint
Date Specimen was Collected: 07/18/23
Time Specimen was Collected: 15:38
Fluid Culture with Gram Stain Urgent
ELIE Source: Joint Fluid
Specimen Description:
Date Specimen was Collected: 07/18/23
Time Specimen was Collected: 15:38
Gram Stain Stat
ELIE Source: Joint
Specimen Description:
Date Specimen was Collected: 07/18/23
Time Specimen was Collected: 15:[address] Non Medication Order As Directed
Physician Order: Please wrap elbow with antibacterial ointment, nonstick gauze and mateus banadage
Above order entered?: Yes
Abnormal Lab Results
07/18/23
13:01
Sodium 134 L mmol/L
(135-145)
Glucose 176 H mg/dl
(70-99)
07/18/23 13:01
Vital Signs
Initial and Last Documented VS:
Initial Vital Signs
Temp Pulse Resp BP Pulse Ox
98.2 F 82 18 154/81 96
07/18/23 12:41 07/18/23 12:41 07/18/23 12:41 07/18/23 12:41 07/18/23 12:41
Last Documented Vital Signs
Temp Pulse Resp BP Pulse Ox
98.2 F 82 18 154/81 96
07/18/23 12:41 07/18/23 12:41 07/18/23 12:41 07/18/23 12:41 07/18/23 12:41
MDM/Problems Addressed
Differential Diagnosis Includes:
Swelling right elbow. Question possible olecranon bursitis versus abscess. Consider cellulitis. Do not suspect joint given good range of motion
Will check labs. Discussed potential for aspiration of the bursa.
Discussed potential risks and benefits. Patient's states he is very prone to infection and she is concerned this could be infection. Explained also that aspirating the bursa could introduce infection. The patient and understood this.
They decided to go ahead. The right elbow was sterilely prepped with Betadine and aspirated using an 18-gauge needle. Approximately 10 mL of clear sveta-colored fluid was aspirated. This was sent for cell count Gram stain culture and crystals.
Will plan on starting on prophylaxis. He has an appoint with this coming week. Return precautions were given
*Critical Care Note
Total Time (30-74mins, 75-104mins- exclusive of procedures): Not Applicable
ED Attending Note
-
Portions of this chart may have been created with voice recognition software.� Occasional wrong word or��sound alike� substitutions may have occurred due to the inherent limitations of voice recognition software.
Discharge Plan
Departure
Patient Disposition: Home (Routine Discharge)
Date of Disposition: 07/18/23
Time of Disposition: 15:50
Patient with high blood pressure during this ER visit?: No
Discharge Problem:
Bursitis, olecranon
Prescriptions:
New
doxycycline hyclate 100 mg capsule
100 mg PO BID Qty: 14 0RF
No Action
atorvastatin 40 mg tablet
40 mg PO DAILY
morphine 30 mg tablet extended release
30 mg PO Q12H
Patient Comments:
03/19/2023, patient filled this medication on 02/19/2023 for 60 tablets according to PDMP.
gabapentin 800 mg tablet
800 mg PO TID
divalproex 500 mg tablet extended release 24 hr
500 mg PO TID
paroxetine HCl 40 mg tablet
40 mg PO DAILY
budesonide-formoterol [Symbicort] 160-4.5 mcg/actuation Hfa Aerosol Inhaler
2 puff INHALATION R DAILYPRN PRN (Reason: sob)
cyanocobalamin (vitamin B-12) 1,000 mcg Tablet
1,000 mcg PO DAILY
aspirin 81 mg Tablet,Delayed Release (Dr/Ec)
81 mg PO DAILY
levothyroxine 100 mcg tablet
100 mcg PO DAILY
oxycodone 10 mg tablet
10 mg PO Q6HPRN PRN (Reason: moderate to severe pain)
Patient Comments:
03/19/2023, patient filled this medication on 02/19/2023 for 120 tablets according to PDMP.
albuterol sulfate 90 mcg/actuation HFA aerosol inhaler
2 puff inhalation R Q4HPRN PRN (Reason: wheezing)
amlodipine-benazepril 5-20 mg Capsule
1 cap PO DAILY
Anoro Ellipta 62.5-25 mcg/actuation Blister With Device
1 inh INHALATION R DAILY
diazepam 10 mg Tablet
10 mg PO BIDPRN PRN (Reason: anxiety)
Patient Comments:
03/19/2023, patient filled this medication on 03/13/2023 for 45 tablets according to PDMP.
cholecalciferol (vitamin D3) 50 mcg (2,000 unit) Tablet
50 mcg PO DAILY
Patient Own Insulin Pump
0 units SC .VIA PUMP
Rx Instructions:
PATIENT USING NOVOLOG
doxycycline hyclate 100 mg Capsule
100 mg PO Q12 Qty: 3 0RF
cefdinir 300 mg Capsule
300 mg PO Q12 Qty: 3 0RF
Referrals:
Dusty Nova DO [Family Provider] -
Activity Restrictions/Additional Instructions:
Take antibiotics as directed. Keep covered. You may use ice or warm compresses. Return for worsening symptoms including redness swelling pain or fever. Follow-up with orthopedics otherwise as planned
Interventions
Interventions:
*Risk Screen - Suicide Last Done: 07/18/23 12:41
*General Assessment Last Done: 07/18/23 12:41
*Neglect/Abuse Screening Last Done: 07/18/23 12:41
*ED COVID-19 Vaccine History Last Done: 07/18/23 12:41
ED-Skin Assessment Last Done: 07/18/23 14:55
Discharge Date and Time
Print Language: MOSOTHO
[2023-07-18 15:58] LABS: % Eosinophils 3.1 % (0-6); % Immature Granulocytes 0.4 % (0-0.5); % Lymphocytes 51.1 % (20.5-51.1); % Monocytes 13.9 % (1.7-9.3); % Neutrophils 30.5 % (42.2-75.2); Absolute Basophils 0.1 10^3/uL (0-0.2); Absolute Eosinophils 0.2 10^3/uL (0-0.7); Absolute Lymphocytes 2.5 10^3/uL (1.2-3.4); Absolute Monocytes 0.7 10^3/uL (0.1-0.6); Absolute Neutrophils 1.5 10^3/uL (1.4-6.5); Hematocrit 34.3 % (39.0-52.0); Hemoglobin 12.1 g/dL (13.0-18.0); Mean Corp Hgb Conc. 35.3 g/dL (33.0-37.0); Mean Corpuscular Hgb 31.8 pg (27.0-31.0); Mean Corpuscular Volume 90.3 fL (80.0-94.0); Mean Platelet Volume 10.2 fL (7.4-10.4); Nucleated Red Blood Cells % 0 % (-); Platelet Count 176 10^3/uL (130-400); White Blood Cell Count 4.9 10^3/uL (4.8-10.8)
[2023-07-18 16:07] LABS: Body Fluid Mononuclear 79 %; Body Fluid Polymorphonuclear 21 %; Body Fluid WBC 166 /CUMM
[2023-07-18 16:09] LABS: Body Fluid Second Tech CMB
== END 2023-07-18 16:07 | disposition home or self-care (01) ==
LOC: EMR 12:39
PROVIDERS: Emergency Medicine; Physician Assistant; EMERGENCY PHYSICIAN Emergency Medicine; FAMILY PHYSICIAN Family Medicine
DX: M70.21 Olecranon bursitis, right elbow (principal); F17.200 Nicotine dependence, unspecified, uncomplicated
CPT/HCPCS: 99284; 20605; 80053; 85025; 87015; 87070; 87205; 89051; 89060

== ENCOUNTER 2023-07-29 20:35 | Inpatient (IN) | payer MEDICARE, BC, SELFPAY ==
[2023-07-29] VITALS (8 sets, daily range): BP systolic 116–144; BP diastolic 52–78; BMI 28.6
[2023-07-29 17:58] LABS: % Basophils 0.7 % (0-2); % Eosinophils 0.3 % (0-6); % Immature Granulocytes 0.5 % (0-0.5); % Lymphocytes 18.9 % (20.5-51.1); % Monocytes 12.9 % (1.7-9.3); % Neutrophils 66.7 % (42.2-75.2); Absolute Basophils 0.1 10^3/uL (0-0.2); Absolute Lymphocytes 1.7 10^3/uL (1.2-3.4); Absolute Monocytes 1.1 10^3/uL (0.1-0.6); Absolute Neutrophils 5.9 10^3/uL (1.4-6.5); Hematocrit 36.2 % (39.0-52.0); Hemoglobin 12.6 g/dL (13.0-18.0); Mean Corp Hgb Conc. 34.8 g/dL (33.0-37.0); Mean Corpuscular Hgb 32.4 pg (27.0-31.0); Mean Corpuscular Volume 93.1 fL (80.0-94.0); Mean Platelet Volume 11.2 fL (7.4-10.4); Nucleated Red Blood Cells % 0 % (-); Platelet Count 165 10^3/uL (130-400); Red Blood Cell Count 3.89 10^6/uL (4.70-6.10); White Blood Cell Count 8.8 10^3/uL (4.8-10.8)
[2023-07-29 18:03] LABS: Urine Albumin Negative (Neg - Trace); Urine Bilirubin Negative (Negative); Urine Character Clear (Clear); Urine Color Yellow; Urine Glucose Negative (Negative); Urine Ketone Negative (Negative); Urine Leukocyte Negative (Negative); Urine Nitrite Negative (Negative); Urine Occult Blood 2+ (Negative); Urine Specific Gravity 1.005 (<1.030); Urine Urobilinogen Negative (Neg - 1+)
[2023-07-29 18:12] LABS: Lactic Acid 1.3 mmol/L (0.7-2.0)
[2023-07-29 18:13] LABS: Urine Bacteria Few (Negative); Urine Squamous Cell 0-2 /LPF (Few); Urine White Cell 0-2 /HPF (0-5)
[2023-07-29 18:24] LABS: ALT (SGPT) 14 U/L (0-50); AST (SGOT) 32 U/L (17-59); Alkaline Phosphatase 77 U/L (38-126); Blood Urea Nitrogen 18 mg/dl (9-20); Calcium 9.3 mg/dl (8.4-10.2); Carbon Dioxide 29 mmol/L (22-30); Chloride 95 mmol/L (98-107); Glucose 55 mg/dl (70-99); Magnesium 2.1 mg/dl (1.6-2.3); Potassium 4.3 mmol/L (3.5-5.1); Sodium 134 mmol/L (135-145); Total Bilirubin 0.4 mg/dl (0.2-1.3); Total Protein 6.7 g/dl (6.3-8.2); eGFR > 60.00
[2023-07-29] MEDS: DEXTROSE 50% SYRINGE 12.5 GRAMS IV (18:30)
--- NOTE | 2023-07-29 19:32 | ED.GENMED ---
History of Present Illness
General
Chief Complaint: Fever
Source: patient and spouse
Exam Limitations: altered mental status
Time Seen by Provider: 07/29/23 17:35
Nursing documentation reviewed up to this point in time: agreed with
Travel History
Have you had any contact with someone who has COVID-19?: No
Do you have any symptoms of coronavirus? Fever > 100 degrees, chills, cough, shortness of breath, sore throat, loss of taste or smell, muscle aches, or headache?: No
History of Present Illness
History of Present Illness:
Patient presents to ED secondary to sudden onset of fever along with confusion, noted by his this afternoon. Patient has had number of similar symptoms in the past, including last month when he was admitted and treated for pneumonia. Per
, patient had improved after treatment in the hospital. Upon arrival, patient found to be febrile, without any complaints. Denies chest pain. Denies headache. Denies shortness of breath. Denies sore throat. Denies abdominal pain. Denies
nausea or vomiting. Denies diarrhea. Denies recent change in medications or diet.
Past History
Past History
ED Past Medical History: HTN, Hypercholesterolemia, NIDDM, Psychiatric (Bipolar) and Other (Chronic pain syndrome, pneumonia)
ED Past Surgical History: None
Social History
Tobacco: Smoker
Review of Systems
Review of Systems
Allergies reviewed?: Yes
Unable to obtain full review of systems at this time due to: due to acuity
All Other Systems: Not applicable
Phy Exam
Physical Exam
Physical Exam:
Physical Exam
General: no apparent distress, not acutely ill. febrile.
Head: nc/at. eomi
Neck: supple. no meningeal signs.
Heart: s1/s2 regular rate and rhythm, no murmur. equal radial pulses.
Lungs: no acute respiratory distress. clear bilaterally
Abdomen: normal bowel sounds. not tender.
Neuro: alert and oriented. no focal neurological deficits
Skin: no rash
Psychiatric: well kept. interactive and cooperative
Extremities: no edema. no calf tenderness.
Course
Orders/Labs/Results
Orders:
Orders
07/29/23 17:38
Straight cath- Treatment ONCE
CR Chest - 2 Views Urgent
Comment:
Reason For Exam: fever
07/29/23 17:52
Complete Blood Count/With Diff Urgent
Comprehensive Metabolic Panel Urgent
Lactic Acid Q4H
Comment: CANCEL 2nd LACTIC ACID IF 1st LACTIC ACID IS LESS THAN 2
Magnesium Urgent
Urinalysis Reflex To Culture Urgent
Date Specimen was Collected: 07/29/23
Time Specimen was Collected: 17:48
Urine Microscopic Reflex Cult Urgent
Blood Culture Q30M
ELIE Source: Blood/Venous
Specimen Description:
07/29/23 18:26
Dextrose 50%-Water [Dextrose 50% Syringe] 12.5 grams IV NOW STA
07/29/23 18:59
Blood Culture Q30M
ELIE Source: Blood/Venous
Specimen Description:
07/29/23 19:41
Acetaminophen [Tylenol/Feverall] 650 mg RECTAL NOW STA
Piperacillin/Tazo 3.375 Gram [Zosyn] 3.375 gram in 50 ml IV NOW
Vancomycin 1 Gram/200 ml [Vancocin] 1 gram in 200 ml IV NOW
07/29/23 19:42
0.9% Sodium Chloride 500 ml [Nss] 500 ml IV BOLUS
07/29/23 19:59
Admit/Transfer Patient As Directed
Co-Sign Provider:
Level of Care: Inpatient admission
Assign to:: Telemetry
Physician / Group: Db
Diagnosis: Pneumonia, Sepsis
Reason for Telemetry: Arrhythmia
Date to Stop Telemetry: 08/01/23
Time to Stop Telemetry: 11:00
Reason for Hospitalization: Pneumonia, Sepsis
Expected length of stay greater than two midnights?: Yes
ELOS- Estimated Length of Stay in days: 3
I certify the patient meets the requirements for IP care: Yes
07/29/23 20:05
Code Status As Directed
Resuscitation Status: Full Code
07/29/23 20:33
COVID-19 Antigen Urgent
Source: Nasal Swab
Influenza A+B Rapid Molecular Urgent
ELIE Source: Nasal Swab
Specimen Description:
07/29/23 21:13
0.9% Sodium Chloride 1000 ml [Nss] 1,000 ml IV 100 mls/hr
Acetaminophen [Tylenol] 650 mg PO Q4HPRN PRN
Dextrose 50%-Water [Dextrose 50% Syringe] 12.5 grams IV [id number] PRN
Glucagon [GlucaGen] 1 mg IM PRN PRN
Morphine Sulfate Extended Rel. [Ms Contin (Extended Release)] 30 mg PO Q12
Oxycodone [Roxicodone] 10 mg PO Q6HPRN PRN
Polyethylene Glycol Powder [Miralax] 17 grams PO DAILYPRN PRN
07/29/23 21:13
Activity As Directed
Activity Level: Ambulate
With Assistance
Bedside Glucose Monitoring As Directed
Frequency: AC&HS
Additional Instructions:: Change to q6h if pt on TPN, tube feeding or not eating
Bladder Scan As Directed
Follow Bladder Retention/Intermittent Cath Algorithm?: Yes
PRN if no void in __ hours: 6
Frequency: Per Retention Algorithm
If Bladder Scan Result >: 400
then:: Straight cath
EKG with chest pain [ECG as needed] As Directed
ECG as needed for:: Chest Pain
I/O [Intake/ Output] As Directed
Frequency: Per unit guidelines
Orthostatic Vital Signs As Directed
Orthostatic VS Frequency: BID
Pneumatic Compression Sleeves As Directed
Type: Knee high
Precautions As Directed
Type of Precautions: Aspiration
Straight Cath As Directed
Frequency: Per Retention Algorithm
Additional Instructions: straight cath as needed per acute urinary retention algorithm for 24 hrs
Additional Instructions: for bladder scan greater than 400 mL
Vital Signs As Directed
Frequency: Per unit guidelines
Weight As Directed
Frequency: Daily
Chest PT [Rx Chest Pt] [RESP] Routine
Special Instructions: BID
Oxygen Therapy [O2 Therapy] [RESP] Routine
Titrate/Wean O2 to maintain O2 sat greater than (%): 94
Rx Incentive Spirometry [RESP] Routine
Frequency: q1h while awake
Ot Eval And Treat Routine
PT Consult [Pt Eval And Treat] Routine
Activity Level: Ambulate
With Assistance
Speech Therapy Eval & Treat Routine
DX Deep Vein Thrombosis Video Routine
07/29/23 22:00
Divalproex Extended Rel. 24 Hr [Depakote ER (24 Hr Release)] 500 mg PO AMHS
Gabapentin [Neurontin] 600 mg PO TID
07/30/23 02:00
Piperacillin/Tazo 3.375 Gram [Zosyn] 3.375 gram in 50 ml IV Q6H
07/30/23 Breakfast
NPO
Allow oral meds: Yes
Allow clear liquids: Sips of Clears
Basic Metabolic Panel IN AM
Complete Blood Count/No Diff IN AM
Levothyroxine [Synthroid] 100 mcg PO DAILY @ 0600
07/30/23 07:30
Insulin Aspart Corrective Low [Novolog Flexpen-Low Resistance] See Protocol SC AC
07/30/23 08:00
Aspirin Low Dose EC [Aspir Low (Enteric Coated)] 81 mg PO DAILY
Atorvastatin [Lipitor] 40 mg PO DAILY
Docusate Sodium [Colace] 100 mg PO BID
Pantoprazole [Protonix IV] 40 mg IV DAILY
Paroxetine [Paxil] 40 mg PO DAILY
Sennosides [Senokot] 8.6 mg PO BID
07/30/23 18:00
Divalproex Extended Rel. 24 Hr [Depakote ER (24 Hr Release)] 250 mg PO QPM
08/01/23 11:00
DC Protocol for Telemetry ONCE
Abnormal Lab Results
07/29/23 07/29/23
17:52 19:31
RBC 3.89 L 10^6/uL
(4.70-6.10)
Hgb 12.6 L g/dL
(13.0-18.0)
Hct 36.2 L %
(39.0-52.0)
MCH 32.4 H pg
(27.0-31.0)
MPV 11.2 H fL
(7.4-10.4)
Absolute Monos (auto) 1.1 H 10^3/uL
(0.1-0.6)
Lymphocytes % 18.9 L %
(20.5-51.1)
Monocytes % 12.9 H %
(1.7-9.3)
Sodium 134 L mmol/L
(135-145)
Chloride 95 L mmol/L
(98-107)
Glucose 55 L* mg/dl
(70-99)
Ur Occult Blood Reflex 2+ A
(Negative)
Urine RBC 7-10 A /HPF
(0-2)
Urine Bacteria (Reflex) Few A
(Negative)
POC Glucose 102 H mg/dl
(70-99)
07/29/23 17:52
07/29/23 17:52
Vital Signs
Initial and Last Documented VS:
Initial Vital Signs
Temp Pulse Resp BP Pulse Ox
100.0 F 106 20 125/71 98
07/29/23 16:57 07/29/23 16:57 07/29/23 16:57 07/29/23 16:57 07/29/23 16:57
Last Documented Vital Signs
Temp Pulse Resp BP Pulse Ox
98.6 F 72 18 130/59 95
07/29/23 21:15 07/29/23 21:15 07/29/23 21:15 07/29/23 21:15 07/29/23 21:15
MDM/Problems Addressed
MDM/Problems Addressed:
History and exam concerning for recurrent sepsis, secondary to pneumonia, as suggested by x-ray, raising possibility of aspiration. However, hypoglycemia, may have also played a role in his mental status change. Patient given half amp of D50.
Patient will be admitted for IV antibiotics and further evaluation.
Blood culture pending.
*Critical Care Note
Total Time (30-74mins, 75-104mins- exclusive of procedures): Not Applicable
ED Attending Note
-
Portions of this chart may have been created with voice recognition software.� Occasional wrong word or��sound alike� substitutions may have occurred due to the inherent limitations of voice recognition software.
Discharge Plan
Departure
Patient Disposition: Admit
Date of Disposition: 07/29/23
Time of Disposition: 19:37
Admit to: Telemetry
Presentation/result/management discussed w/ accepting MD/DO: Hospitalist
Discharge Problem:
Pneumonia, Hypoglycemia
Interventions
Interventions:
*Risk Screen - Suicide Last Done: 07/29/23 16:57
*General Assessment Last Done: 07/29/23 16:57
*Neglect/Abuse Screening Last Done: 07/29/23 16:57
ED- Fall Risk Assessment Last Done: 07/29/23 18:04
*Nursing Disposition Last Done: 07/29/23 21:15
ED- Neurological Assessment Last Done: 07/29/23 18:04
ED-Skin Assessment Last Done: 07/29/23 18:04
Discharge Date and Time
Discharge Date/Time: 07/29/23 21:25
[2023-07-29 19:34] LABS: Glucose - Point of Care 102 mg/dl (70-99)
[2023-07-29] MEDS: ZOSYN 50 IV (19:49)
[2023-07-29] MEDS: TYLENOL/FEVERALL 650 MG RECTAL (19:49)
--- NOTE | 2023-07-29 20:20 | HPS.HSE ---
Family Physician
-
Family Physician: Dusty Nova
Chief Complaint
-
Confusion
History of Present Illness
Patient is a 62y M with PMH significant for chronic pain on chronic narcotic medications, hypertension and DM-II who presents to ED for evaluation of mental status change. states that patient seemed suddenly more confused today prompting
her to bring him to the ED for evaluation. Patient has had multiple similar episodes in the past and has been admitted to for pneumonia and TME multiple times (05/2022, 08/2022, 02/2023, 03/2023 and 06/2023). On his most recent admission he was
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 Patient himself complains of 'stomach issues' and notes that he has been having episodes of N/V at home. His history is somewhat suspect given his current degree of confusion. He is aware that he is in a
hospital, but is not oriented to time or recent events.
On evaluation in the ED today, patient is noted to have fever to 102.5 with initial pulse of 106.
Medical History
Past Medical History
Past Medical History: Reports Other
Additional Past Medical History:
Chronic Pain Syndrome
DM-II on Insulin Pump
COPD
Hypertension
Bipolar Disorder
History of Subdural Hematoma
Past Surgical History: Reports Other
Additional Past Surgical History:
Cervical Fusion
Craniotomy
Social History
Tobacco: Smoker (Current every day smoker. 1ppd for total of > 40 pack years.)
Alcohol: None
Drug: None
Personal:
Living: With Family
Family History
Family History: Not pertinent
Allergies / Home Medications
Allergies reflects when Allergies were last updated in [facility].
Home Medications with original date entered in [facility]
Allergy/Medication List:
Allergies
Allergy/AdvReac Type Severity Reaction Status Date / Time
No Known Allergies Allergy Verified 07/29/23 16:57
Home Medications
atorvastatin 40 mg tablet 40 mg PO DAILY High cholesterol 12/25/21
divalproex 500 mg tablet,extended release 24 hr 500 mg PO AMHS mental health 12/25/21
gabapentin 800 mg tablet 800 mg PO TID Neurological Condition 12/25/21
morphine 30 mg tablet,extended release 30 mg PO Q12H Pain 12/25/21
paroxetine HCl 40 mg tablet 40 mg PO DAILY Mental health 12/25/21
aspirin 81 mg tablet,delayed release 81 mg PO DAILY Blood clot prevention/tx 05/16/22
albuterol sulfate 90 mcg/actuation aerosol inhaler 2 puff inhalation R Q4HPRN PRN wheezing 09/10/22
levothyroxine 100 mcg tablet 100 mcg PO DAILY Thyroid 09/10/22
oxycodone 10 mg tablet 10 mg PO Q6H 09/10/22
amlodipine 5 mg-benazepril 20 mg capsule 1 cap PO DAILY Blood Pressure 02/23/23
umeclidinium 62.5 mcg-vilanterol 25 mcg/actuation powdr for inhalation (Anoro Ellipta) 1 inh inhalation R DAILY Lung/Breathing Issues 02/23/23
diazepam 10 mg tablet 10 mg PO DAILY@1400 03/19/23
Patient Own Insulin Pump 0 units SC .VIA PUMP Diabetes 06/26/23
diazepam 10 mg tablet 5 mg PO DAILY 07/29/23
divalproex 500 mg tablet,extended release 24 hr 250 mg PO QPM 07/29/23
oxycodone 30 mg tablet 30 mg PO Q8H 07/29/23
Review of Systems
-
History Source: Patient
A 12 point ROS was completed and negative except as noted: Yes
Constitutional: Reports Fever and Fatigue; Denies Chills
EENT: Denies Sore Throat
Respiratory: Reports Cough; Denies Hemoptysis or Trouble Breathing
Cardiac: Denies Chest Pain or Palpitations
Abdomen/GI: Reports Nausea and Vomiting; Denies Abdominal Pain, Diarrhea, Bloody Stools or Black Stools
: Denies Dysuria, Frequency or Flank Pain
Musculoskeletal: Denies Joint Pain or Edema
Neurological: Denies Dizzy or Headache
Psych: Reports Other (Confusion)
Physical Exam
Vital Signs
Vital Signs
Temp Pulse Resp BP Pulse Ox
102.6 F H 89 20 144/61 98
07/29/23 19:40 07/29/23 18:15 07/29/23 18:15 07/29/23 19:40 07/29/23 19:40
Physical Exam
General: Other (62y M is awake and interactive but disoriented /confused.)
HEENT: Other (Dry MM. Neck supple.)
Respiratory: Other (Few coarse breath sounds at bases. Otherwise clear. No wheezing.)
Cardiac: S1/S2 and Regular Rhythm; No Murmur
GI: Soft, Non Tender, Non Distended and Normal Bowel Sounds
Musculoskeletal: No Clubbing, No Cyanosis and No Edema
Neuro: Awake, Alert and Nonfocal/grossly intact; No Oriented
Laboratory Results
-
07/29/23 17:52
07/29/23 17:52
Laboratory Results
Lactic Acid 1.3 mmol/L (0.7-2.0) 07/29/23 17:52
Total Bilirubin 0.4 mg/dl (0.2-1.3) 07/29/23 17:52
AST 32 U/L (17-59) 07/29/23 17:52
ALT 14 U/L (0-50) 07/29/23 17:52
Alkaline Phosphatase 77 U/L (38-126) 07/29/23 17:52
Impression/Plan
-
A/P: Patient is a 62y M with PMH significant for chronic pain syndrome on chronic narcotics, COPD and DM-II who presents to ED for evaluation of confusion / mental status change.
Recurrent Bilateral Pneumonia
Acute TME secondary to the above
Sepsis secondary to the above
- Admit for further evaluation and treatment.
- Multiple similar previous admissions in the past - ? aspiration risk though has been seen by Speech prior.
- IV abx with Zosyn for now to cover for possible community or aspiration organisms.
- Aspiration precautions.
- Supportive care with IVFs, antipyretics, etc.
- Follow for clinical improvement.
DM-II
- Hypoglycemia on admission. Insulin pump deactivated.
- Follow glucose and cover with SSI as needed.
- Resume basal insulin / pump use once glucose stabilized and PO intake resumes.
- Recent A1C = 6.4%.
IgM Deficiency
- Not clear on the relevance of non-specific IgM deficiency or its relationship to his recurrent pneumonia presentations.
- IgG levels were within normal limits.
- Follow-up with Paediatric Surgeon after discharge.
COPD without Acute Exacerbation
- No active wheezing on exam.
- Continue inhaled corticosteroids + nebs PRN.
Chronic Pain Syndrome
Chronic Narcotic Use
Polypharmacy
- Patient on multiple medications with two different standing doses of narcotic + PRN dosing.
- Also takes scheduled benzodiazepines, which is not recommended coincident with chronic narcotic use.
- Hold diazepam, especially given current confusion / mental status change.
- Multiple sedating medications may be contributing to general somnolence / risk of aspiration events.
- Continue MS Contin. Oxycodone PRN - no standing doses of oxycodone.
- Adjust regimen as needed for control of pain and minimization of sedation.
Bipolar Disorder
- Stable. Continue current psychotropic med regimen.
- Check VPA levels.
DVT Prophylaxis: SCDs
Code Status: Full
[2023-07-29] MEDS: NSS 500 IV (20:28)
[2023-07-29] MEDS: VANCOCIN 200 IV (20:28)
[2023-07-29 21:02] LABS: COVID-19 Antigen Negative (Negative)
[2023-07-29 21:48] LABS: Glucose - Point of Care 114 mg/dl (70-99)
[2023-07-29 22:03] LABS: Depakane 74.2 ug/ml (50.0-120.0)
[2023-07-29 22:16] LABS: Procalcitonin < 0.05 ng/ml (0.0-0.25)
[2023-07-29] MEDS: NSS 1000 IV (23:29)
[2023-07-30] VITALS (9 sets, daily range): BP systolic 97–146; BP diastolic 51–63; PULSE 50–62; O2SAT 94–95; BMI 28.6
[2023-07-30] MEDS: DEPAKOTE ER (24 HR RELEASE) 500 MG PO ×3 (00:40→22:19)
[2023-07-30] MEDS: NEURONTIN 600 MG PO ×4 (00:40→21:27)
[2023-07-30] MEDS: MS CONTIN (EXTENDED RELEASE) 30 MG PO ×3 (00:45→21:28)
[2023-07-30] MEDS: ZOSYN 50 IV ×4 (01:07→20:40)
[2023-07-30] MEDS: SYNTHROID 100 MCG PO (05:56)
[2023-07-30 06:15] LABS: Glucose - Point of Care 115 mg/dl (70-99)
[2023-07-30 06:18] LABS: Hematocrit 35.6 % (39.0-52.0); Hemoglobin 12.2 g/dL (13.0-18.0); Mean Corp Hgb Conc. 34.3 g/dL (33.0-37.0); Mean Corpuscular Hgb 32.4 pg (27.0-31.0); Mean Corpuscular Volume 94.7 fL (80.0-94.0); Mean Platelet Volume 11.4 fL (7.4-10.4); Platelet Count 134 10^3/uL (130-400); Red Blood Cell Count 3.76 10^6/uL (4.70-6.10); Red Cell Dist. Width 12.8 % (11.5-14.5); White Blood Cell Count 5.8 10^3/uL (4.8-10.8)
[2023-07-30 06:40] LABS: Blood Urea Nitrogen 15 mg/dl (9-20); Calcium 8.6 mg/dl (8.4-10.2); Carbon Dioxide 29 mmol/L (22-30); Chloride 105 mmol/L (98-107); Estimated Creatinine Clearance 82 ml/min; Glucose 121 mg/dl (70-99); Potassium 4.2 mmol/L (3.5-5.1); Sodium 140 mmol/L (135-145); eGFR > 60.00
[2023-07-30] MEDS: PULMICORT 0.5 MG INH ×2 (07:48→19:22)
[2023-07-30 08:31] LABS: Glucose - Point of Care 144 mg/dl (70-99)
[2023-07-30] MEDS: NSS 1000 IV ×2 (09:36→20:40)
[2023-07-30] MEDS: ROXICODONE 10 MG PO ×2 (09:42→16:28)
[2023-07-30] MEDS: ASPIR LOW (ENTERIC COATED) 81 MG PO (09:51)
[2023-07-30] MEDS: SENOKOT 8.59999999999999964 MG PO ×2 (09:51→21:28)
[2023-07-30] MEDS: COLACE 100 MG PO ×2 (09:51→21:27)
[2023-07-30] MEDS: PAXIL 40 MG PO (09:51)
[2023-07-30] MEDS: LIPITOR 40 MG PO (09:51)
[2023-07-30] MEDS: PROTONIX IV 40 MG IV (09:52)
--- NOTE | 2023-07-30 10:58 | CM ---
CM consult for discussion regarding Advance Directive received.
I met with Lv and discussed the purpose of the Advance Directive; to provide guidance to the medical team regarding his wishes related to lifesaving measures in the event he was unable to speak for himself. He did not have his correct glasses and
did not wish to review the form, however he did ask that I leave the form and he will discuss with his when she visits.
CM will continue to follow to determine needs as hospitalization progresses.
--- NOTE | 2023-07-30 11:03 | CM ---
Addendum entered by Kasandra Del Cid 07/30/23 16:05:
PCP: Dr. Nova
Original Note:
I visited with Lv this AM; he was not able to recall how he got to the hospital, but believes that his probably called an ambulance.
Lv has had multiple hospitalizations for pneumonia and is frustrated that he has not been able to 'shake it'. He is still able to drive to get his coffee at [facility] which is about a mile away, but otherwise negro not have much energy. Emotional
support provided.
Lv lives with his and will return home at discharge. CM to follow to determine needs as patient approaches discharge.
Plan: Pt anticipates returning home at discharge. He may benefit from Skilled Home Care services; Will follow.
--- NOTE | 2023-07-30 11:28 | PTOTSP ---
ST Acute Care Evaluation
Pt presents with functional oral phase and previously dx mild pharyngeal dysphagia as evidenced by kristel silent aspiration on recent VFSS with thin liquids via straw with sequential sips. Pt also with chronic narcotic use, likely slowing down
digestion and placing pt at risk for aspiration from retrograde flow.
Recommendations:
- Initiate PO diet of REGULAR SOLIDS and THIN LIQUIDS with NO STRAWS and SINGLE SIPS ONLY
- Meds as tolerated.
- Aspiration and reflux precautions: HOB upright for all PO intake and for at least 60 minutes after PO intake; no straws; small, single sips; small bites; alternate liquids/solids; avoid acidic/spicy foods/drinks.
- LEAF SORTER will continue to follow to ensure pt is maintaining airway protection with the recommended diet consistencies and determine whether or not a repeat video fluoroscopic swallow study is warranted.
[2023-07-30 12:10] LABS: Glucose - Point of Care 187 mg/dl (70-99)
--- NOTE | 2023-07-30 12:33 | W.PN.HOSP.TC ---
Addendum entered and electronically signed by Artemio Kelsey DO 07/30/23 15:56:
Dr. Halima Jimenez called me back and we discussed plans for tapering opiates as an outpatient in light of his recurrent episodes of pneumonia. Informed her that he has had 6 admissions for pneumonia in the past 14 months.
Original Note:
Today's Communication/Plan
-
Resume diet
Resume insulin pump
Assessment / Plan
Assessment / Plan
Gen-AAOx3, NAD
HEENT-NC, AT, anicteric, clear oral mm
Neck-supple
CV-reg, no M, +S1/S2
Lungs-clear B/L
Abd-soft, NT, ND
Ext-no edema
Musculoskeletal-no cyanosis, clubbing
Skin-warm and dry
Neuro-grossly non-focal
Psych-calm, cooperative
Acute TME -resolved. Etiology likely due to fever, sepsis.
Sepsis due to bilateral pneumonia -suspect recurrent aspiration pneumonia. Cannot rule out pneumonitis. Suspect long-term opiate use contributing to aspiration with opioid induced gastroparesis as a contributor.
Recurrent hospitalizations for pneumonia over the past year.
WBC count normal. Fever resolved. Procalcitonin normal. Not hypoxic, not requiring oxygen. Nontoxic in appearance, clinically stable. Currently on IV Zosyn. Blood culture sent on admission, results pending. Admission chest x-ray with patchy
bibasilar opacities.
Evaluated by speech therapy today, regular diet with thin liquids recommended. Patient claims he was vomiting prior to admission, I did speak with his and she claims that he was not.
I had a long discussion with the patient as well as his regarding goal of coming off of long-term opiates to help prevent recurrent aspiration pneumonia. I called his outpatient pain management physician (Dr. Halima Jimenez [phone]) and
left a message for call back to discuss at the request of the patient's .
Chronic pulmonary nodules -suspect due to recurrent aspiration pneumonitis. Most nodules are located in the right lung. CT scan from June of this year reviewed. 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
Hyponatremia -present on admission. Resolved.
Essential hypertension -controlled.
DM2 without hyperglycemia -uses an insulin pump at home, currently disconnected. Currently on low resistance NovoLog scale. As patient is awake and alert and oriented, and medically stable, he may resume his insulin pump. Discussed with nurse.
Glucose 121 this morning. Last hemoglobin A1c 6.4% in June.
COPD without exacerbation -stable on inhalers.
Hyperlipidemia -atorvastatin.
Hypothyroidism -continue levothyroxine.
Bipolar disorder -on valproic acid. Levels okay.
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
Chronic pain syndrome/chronic opiate dependence
Tobacco dependence -counseled on need for cessation.
Hx SDH
Full code
Dispo -anticipate discharge tomorrow if he remains stable.
Updated on the phone. Explained to her that the goal is to ideally come off of long-term opiate therapy as I suspect the opiates are contributing to gastroparesis and GI dysmotility with suspected recurrent aspiration pneumonia. Also
discussed with patient.
Anticipated Discharge: Within 24 hours
Subjective/Interval History
-
Date of Service: July 30, 2023
Patient seen and examined. Feeling better. No complaints currently.
Objective Data
-
Labs:
Laboratory Results
07/30/23
05:52
WBC 5.8
Hgb 12.2 L
Hct 35.6 L
Plt Count 134
Sodium 140
Potassium 4.2
Chloride 105
Carbon Dioxide 29
BUN 15
Creatinine 0.9
Glucose 121 H
Calcium 8.6
Vital Signs:
Vital Signs
Temp Pulse Resp BP Pulse Ox
98.3 F 55 18 112/51 92
07/30/23 11:00 07/30/23 11:00 07/30/23 11:00 07/30/23 11:00 07/30/23 11:00
I&O
07/29/23 07/30/23 07/31/23
06:59 06:59 06:59
Output Total 2575 / 2571
Balance -2575 / -2575
Review of Systems
-
History Source: Patient
All other systems: Reviewed and negative
[2023-07-30] MEDS: NOVOLOG FLEXPEN-LOW RESISTANCE 1 UNITS SC (13:43)
--- NOTE | 2023-07-30 14:13 | PN.DE.MGMTRT ---
Insulin Management
- -
07/30/2023: Diabetes Management Consult:
This is a 62 year old male with PMH: COPD, T1DM, Smoking, bipolar disorder, chronic pain on chronic narcotics, admitted for TME/Sepsis due to b/l pneumonia -suspect recurrent aspiration pneumonia. Prior to admission using Medtronic insulin pump with
NovoLog insulin, Quick set infusion set. He is also using the Saqib and sees Endo Dr. Berger, for ongoing diabetes care. Last A1C 6.4% on 06/27/2023, Cr 0.6, eGFR >60
Pt awake, A/O x3, sitting up in bed, able to participate in discussion regarding diabetes management. Reports that his took his insulin pump home and that he would like to wait resuming it until he gets home. He is hoping for discharge home
tomorrow.
His current diabetes regimen includes low corrective insulin only. Glucose has been stable and in range 102 to 187 while NPO.
He has been started on a diet-2000 [place] ADA diet, states he ate ~50% of his lunch. Will change diet to 1800 ADA diet
Will start basal bolus insulin. Lantus 10 units @HS. NovoLog 4 units AC and low corrective insulin with meals
Utilize corrective insulin while NPO or if not eating >50% of his meals.
Pt may resume his insulin pump up on discharge. Discussed with Pt's Nurse
Diabetes History
- -
Type of Diabetes: 1
Pre-Admission Diabetes Regimen
07/29/23 07/30/23
17:52 05:52
Creatinine 1.1 0.9
Insulin Pump Settings
IP Diabetes Regimen
07/29/23 07/29/23 07/29/23
17:52 19:31 21:47
Glucose 55 L*
POC Glucose 102 H 114 H
07/30/23 07/30/23 07/30/23
05:52 06:13 08:30
Glucose 121 H
POC Glucose 115 H 144 H
07/30/23
12:09
Glucose
POC Glucose 187 H
Patient Education
[2023-07-30 16:40] LABS: Glucose - Point of Care 226 mg/dl (70-99)
[2023-07-30] MEDS: DEPAKOTE ER (24 HR RELEASE) 250 MG PO (17:54)
[2023-07-30] MEDS: NOVOLOG FLEXPEN-LOW RESISTANCE 2 UNITS SC (17:54)
[2023-07-30 21:37] LABS: Glucose - Point of Care 215 mg/dl (70-99)
[2023-07-31] MEDS: ZOSYN 50 IV ×3 (02:18→13:27)
[2023-07-31 03:15] VITALS: BP 131/57
[2023-07-31 06:00] VITALS: BP 168/76; BMI 28.6
[2023-07-31] MEDS: NSS 1000 IV (06:13)
[2023-07-31] MEDS: SYNTHROID 100 MCG PO (06:14)
[2023-07-31] MEDS: ROXICODONE 10 MG PO ×2 (06:32→12:32)
--- NOTE | 2023-07-31 07:32 | PN.DE.MGMTRT ---
Insulin Management
- -
07/31/2023: Diabetes Management Consult:
This is a 62 year old male with PMH: COPD, T1DM, Smoking, bipolar disorder, chronic pain on chronic narcotics, admitted for TME/Sepsis due to b/l pneumonia -suspect recurrent aspiration pneumonia. Prior to admission using Medtronic insulin pump with
NovoLog insulin, Quick set infusion set. He is also using the Saq[facility] and sees Endo Dr. Berger, for ongoing diabetes care. Last A1C 6.4% on 06/27/2023, Cr 0.6, eGFR >60
Pt awake, A/O x3, sitting up in bed, able to discuss diabetes management.
He would like to wait resuming his insulin pump he gets home. He is hoping for discharge home today.
Glucose remains stable , his POC is 148 this AM.
Will make no changes to current regimen: Lantus 10 units @HS. NovoLog 4 units AC and low corrective insulin with meals
Utilize corrective insulin while NPO or if not eating >50% of his meals.
Pt may resume his insulin pump up on discharge. Discussed with Pt's Nurse
Diabetes History
- -
Type of Diabetes: 1
Pre-Admission Diabetes Regimen
Insulin Pump Settings
IP Diabetes Regimen
07/30/23 07/30/23 07/30/23
08:30 12:09 16:39
POC Glucose 144 H 187 H 226 H
07/30/23
21:36
POC Glucose 215 H
Meal type: Dinner
Amount consumed: 100%
Patient Education
[2023-07-31] MEDS: PULMICORT 0.5 MG INH (07:44)
[2023-07-31 08:04] LABS: Glucose - Point of Care 148 mg/dl (70-99)
[2023-07-31] MEDS: MS CONTIN (EXTENDED RELEASE) 30 MG PO (08:15)
[2023-07-31] MEDS: PAXIL 40 MG PO (08:15)
[2023-07-31] MEDS: DEPAKOTE ER (24 HR RELEASE) 500 MG PO (08:15)
[2023-07-31] MEDS: COLACE 100 MG PO (08:16)
[2023-07-31] MEDS: SENOKOT 8.59999999999999964 MG PO (08:16)
[2023-07-31] MEDS: ASPIR LOW (ENTERIC COATED) 81 MG PO (08:16)
[2023-07-31] MEDS: LIPITOR 40 MG PO (08:16)
[2023-07-31] MEDS: NEURONTIN 600 MG PO (08:16)
[2023-07-31] MEDS: PROTONIX IV 40 MG IV (08:19)
[2023-07-31] MEDS: NOVOLOG FLEXPEN-LOW RESISTANCE SC (08:45)
[2023-07-31] MEDS: NOVOLOG FLEXPEN 4 UNITS SC ×2 (08:46→11:45)
--- NOTE | 2023-07-31 10:58 | W.PN.HOSP.TC ---
Today's Communication/Plan
-
Discharge
Assessment / Plan
Assessment / Plan
Gen-AAOx3, NAD
HEENT-NC, AT, anicteric, clear oral mm
Neck-supple
CV-reg, no M, +S1/S2
Lungs-clear B/L
Abd-soft, NT, ND
Ext-no edema
Musculoskeletal-no cyanosis, clubbing
Skin-warm and dry
Neuro-grossly non-focal
Psych-calm, cooperative
Acute TME -resolved. Etiology likely due to fever, sepsis.
Sepsis due to bilateral pneumonia -suspect recurrent aspiration pneumonia. Cannot rule out pneumonitis. Suspect long-term opiate use contributing to aspiration with opioid induced gastroparesis as a contributor.
Recurrent hospitalizations for pneumonia over the past year.
WBC count normal. Fever resolved. Procalcitonin normal. Not hypoxic, not requiring oxygen. Nontoxic in appearance, clinically stable. Currently on IV Zosyn. Blood culture sent on admission, results pending. Admission chest x-ray with patchy
bibasilar opacities.
Evaluated by speech therapy today, regular diet with thin liquids recommended. Patient claims he was vomiting prior to admission, I did speak with his and she claims that he was not.
I had a long discussion with the patient as well as his regarding goal of coming off of long-term opiates to help prevent recurrent aspiration pneumonia. I spoke with his outpatient pain management physician (Dr. Halima Jimenez [phone])
and explained importance of weaning him off of long-term opioid therapy as I believe it is a contributor to recurrent pneumonia. She understands and will plan to do so as an outpatient.
Will change to Augmentin on discharge.
Chronic pulmonary nodules -suspect due to recurrent aspiration pneumonitis. Most nodules are located in the right lung. CT scan from June of this year reviewed. 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
Hyponatremia -present on admission. Resolved.
Essential hypertension -controlled.
DM2 without hyperglycemia -uses an insulin pump at home, currently disconnected. Currently on low resistance NovoLog scale. Resume insulin pump on discharge. Glucose 148 this morning. Last hemoglobin A1c 6.4% in June.
COPD without exacerbation -stable on inhalers.
Hyperlipidemia -atorvastatin.
Hypothyroidism -continue levothyroxine.
Bipolar disorder -on valproic acid. Levels okay.
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
Chronic pain syndrome/chronic opiate dependence
Tobacco dependence -counseled on need for cessation.
Hx SDH
Full code
Dispo -medically stable for discharge. Outpatient follow-up. Updated on the phone.
32 minutes spent in discharge process.
Anticipated Discharge: Today
Subjective/Interval History
-
Date of Service: July 31, 2023
Patient seen and examined. Complaining of chronic back pain. Denies shortness of breath.
Objective Data
-
Vital Signs:
Vital Signs
Temp Pulse Resp BP Pulse Ox
97.8 F 46 16 168/76 97
07/31/23 06:00 07/31/23 07:47 07/31/23 07:47 07/31/23 06:00 07/31/23 07:47
I&O
07/30/23 07/31/23 08/01/23
06:59 06:59 06:59
Intake Total 1919 / 1919
Output Total 2575 / 2575 1350 / 1350
Balance -2575 / -2575 570 / 570
Review of Systems
-
History Source: Patient
All other systems: Reviewed and negative
[2023-07-31 11:00] VITALS: BP 166/80
--- NOTE | 2023-07-31 11:03 | W.DS.TRANS ---
DC Summary - [employer]
-
Discharge Instructions:
Discharge Diagnosis/Procedures Recurrent aspiration pneumonia, chronic pain
syndrome
Diet Diabetic, Carb Controlled
Activity As tolerated
Driving Restrictions As prior to admission
Bathing Restrictions None
Instructions:
Stand-Alone Forms:
Changes to Home Medications: No
Discharge Medications:
DC Medications w/original date entered in [facility]
atorvastatin 40 mg tablet 40 mg PO DAILY High cholesterol 12/25/21
divalproex 500 mg tablet,extended release 24 hr 500 mg PO AMHS mental health 12/25/21
gabapentin 800 mg tablet 800 mg PO TID Neurological Condition 12/25/21
morphine 30 mg tablet,extended release 30 mg PO Q12H Pain 12/25/21
paroxetine HCl 40 mg tablet 40 mg PO DAILY Mental health 12/25/21
aspirin 81 mg tablet,delayed release 81 mg PO DAILY Blood clot prevention/tx 05/16/22
albuterol sulfate 90 mcg/actuation aerosol inhaler 2 puff inhalation R Q4HPRN PRN wheezing 09/10/22
levothyroxine 100 mcg tablet 100 mcg PO DAILY Thyroid 09/10/22
oxycodone 10 mg tablet 10 mg PO Q6H Pain 09/10/22
amlodipine 5 mg-benazepril 20 mg capsule 1 cap PO DAILY Blood Pressure 02/23/23
umeclidinium 62.5 mcg-vilanterol 25 mcg/actuation powdr for inhalation (Anoro Ellipta) 1 inh inhalation R DAILY Lung/Breathing Issues 02/23/23
diazepam 10 mg tablet 10 mg PO DAILY@1400 Mental Health/Anxiety 03/19/23
Patient Own Insulin Pump 0 units SC .VIA PUMP Diabetes 06/26/23
diazepam 10 mg tablet 5 mg PO DAILY Mental Health/Anxiety 07/29/23
divalproex 500 mg tablet,extended release 24 hr 250 mg PO QPM mental health 07/29/23
oxycodone 30 mg tablet 30 mg PO Q8H Pain 07/29/23
amoxicillin 875 mg-potassium clavulanate 125 mg tablet 1 tab PO BID #10 tabs 07/31/23
Home Medication Changes
Pending Results: No
--- NOTE | 2023-07-31 11:38 | CM ---
Case management following for d/c planning
Pt for d/c today
Offered VN - declined
Discussed IMM
can transport home after work today
Plan - home no needs
[2023-07-31 11:43] LABS: Glucose - Point of Care 182 mg/dl (70-99)
[2023-07-31] MEDS: NOVOLOG FLEXPEN-LOW RESISTANCE 1 UNITS SC (11:46)
[2023-07-31 15:00] VITALS: BP 169/79
== END 2023-07-31 16:26 | disposition home or self-care (01) | DRG 871 ==
LOC: 3 WEST ACU 20:35
PROVIDERS: ADMITTING PHYSICIAN Hospitalist; ATTENDING PHYSICIAN Hospitalist; EMERGENCY PHYSICIAN Emergency Medicine; FAMILY PHYSICIAN Family Medicine
DX: A41.89 Other specified sepsis (principal); G92.8 Other toxic encephalopathy; J69.0 Pneumonitis due to inhalation of food and vomit; J44.0 Chronic obstructive pulmonary disease with (acute) lower respiratory infection; E87.1 Hypo-osmolality and hyponatremia; F11.20 Opioid dependence, uncomplicated; D80.4 Selective deficiency of immunoglobulin M [IgM]; E11.649 Type 2 diabetes mellitus with hypoglycemia without coma; K31.84 Gastroparesis; E78.00 Pure hypercholesterolemia, unspecified; F31.9 Bipolar disorder, unspecified; G89.4 Chronic pain syndrome; I10 Essential (primary) hypertension; R91.8 Other nonspecific abnormal finding of lung field; E78.5 Hyperlipidemia, unspecified; E03.9 Hypothyroidism, unspecified; F17.200 Nicotine dependence, unspecified, uncomplicated; Z96.41 Presence of insulin pump (external) (internal); Z79.4 Long term (current) use of insulin; Z79.82 Long term (current) use of aspirin; Z79.890 Hormone replacement therapy; Z87.01 Personal history of pneumonia (recurrent); Z11.52 Encounter for screening for COVID-19
CPT/HCPCS: 51701; 71046; 80048; 80053; 80164; 81003; 81015; 82962; 83605; 83735; 84145; 85025; 85027; 87040; 87502; 87811; 92610; 94640; 94667; 94668; 96365; 96367; 96375; 97162; 97167; 99285

== ENCOUNTER 2023-08-15 16:14 | Inpatient (IN) | payer MEDICARE, BC, SELFPAY ==
[2023-08-15] VITALS (16 sets, daily range): BP systolic 109–156; BP diastolic 52–96; BMI 28.8; BMI 27.8
[2023-08-15 09:18] LABS: Glucose - Point of Care 145 mg/dl (70-99)
--- NOTE | 2023-08-15 09:22 | ED.GENMED ---
History of Present Illness
<FLORENTINO Monroe Last Filed: 08/15/23 14:41>
General
Chief Complaint: Fever
Source: patient
Exam Limitations: none
Time Seen by Provider: 08/15/23 09:11
History of Present Illness
History of Present Illness:
62-year-old male insulin-dependent diabetic with history of traumatic brain injury presents from home with generalized weakness. Weakness onset this morning. Report was that he was unable to get out of bed he was so weak. He was discharged from
this hospital recently for sepsis secondary to bilateral pneumonia. He was hypoglycemic upon arrival then. Currently denies new pain. He denies chest pain. He denies shortness of breath. No other complaints at this time
Past History
<FLORENTINO Monroe Last Filed: 08/15/23 14:41>
Past History
ED Past Medical History: HTN, Hypercholesterolemia, NIDDM, Psychiatric (Bipolar) and Other (Chronic pain syndrome, pneumonia)
ED Past Surgical History: None
Social History
Tobacco: Smoker
Phy Exam
<FLORENTINO Monroe Last Filed: 08/15/23 14:41>
Physical Exam
Physical Exam:
General: Well-appearing male no acute respiratory distress HEENT: Normocephalic atraumatic
Heart: Regular rate and rhythm
Lungs: Subtle crackles at the bases but no distress
Abdomen soft mildly diffusely tender no guarding rebound normal bowel sounds
Extremities: No cyanosis or edema
Skin: Hot to the touch no rash
Neurologic exam: Alert and oriented no facial asymmetry
Course
<FLORENTINO Monroe Last Filed: 08/15/23 14:41>
Orders/Labs/Results
Orders:
Orders
08/15/23 09:12
CR Chest - 2 Views Urgent
Comment:
Reason For Exam: suspected infection
08/15/23 09:15
Blood Culture Q30M
ELIE Source: Blood/Venous
Specimen Description:
Comment: FROM 2 SEPARATE SITES
08/15/23 09:20
0.9% Sodium Chloride 1000 ml [Nss] 1,000 ml IV BOLUS
08/15/23 09:21
Complete Blood Count/With Diff Urgent
Comprehensive Metabolic Panel Urgent
Lactic Acid Q4H
Comment: ON ICE, CANCEL 2ND ORDER IF FIRST LACTIC ACID LEVEL <2
Blood Culture Q30M
ELIE Source: Blood/Venous
Specimen Description:
Comment: FROM 2 SEPARATE SITES
Acetaminophen [Tylenol] 1,000 mg PO NOW STA
08/15/23 09:51
COVID-19 Antigen Urgent
Source: Nasal Swab
Urinalysis Reflex To Culture Urgent
Date Specimen was Collected: 08/15/23
Time Specimen was Collected: 09:49
Urine Microscopic Reflex Cult Urgent
Influenza A+B Rapid Molecular Urgent
ELIE Source: Nasal Swab
Specimen Description:
08/15/23 10:48
CT Chest With Iv Contrast Urgent
Comment:
Reason For Exam: fever
08/15/23 10:49
CT Head W/o Iv Contrast Urgent
Comment:
Reason For Exam: confusion
08/15/23 14:38
Vancomycin 2000 mg IVPB x 1 LOADING DOSE Vancomycin [Vancocin] 2,000 mg 0.9% Sodium Chloride 500 ml [Nss] 500 ml IV NOW
Zosyn 3.375 grams IVPB NOW Piperacillin/Tazo 3.375 Gram [Zosyn] 3.375 gram in 50 ml IV NOW
Abnormal Lab Results
08/15/23 08/15/23 08/15/23
09:17 09:21 09:51
WBC 12.0 H 10^3/uL
(4.8-10.8)
RBC 4.26 L 10^6/uL
(4.70-6.10)
MCH 32.2 H pg
(27.0-31.0)
MPV 10.9 H fL
(7.4-10.4)
Absolute Neuts (auto) 9.8 H 10^3/uL
(1.4-6.5)
Absolute Lymphs (auto) 1.1 L 10^3/uL
(1.2-3.4)
Absolute Monos (auto) 0.7 H 10^3/uL
(0.1-0.6)
Neutrophils % 81.9 H %
(42.2-75.2)
Lymphocytes % 9.4 L %
(20.5-51.1)
Carbon Dioxide 32 H mmol/L
(22-30)
Glucose 148 H mg/dl
(70-99)
Ur Occult Blood Reflex 1+ A
(Negative)
Urine RBC 3-6 A /HPF
(0-2)
Urine Glucose Trace A
(Negative)
POC Glucose 145 H mg/dl
(70-99)
08/15/23 09:21
08/15/23 09:21
Vital Signs
Initial and Last Documented VS:
Initial Vital Signs
Temp Pulse Resp BP Pulse Ox
102.1 F H 85 18 151/64 97
08/15/23 09:13 08/15/23 09:13 08/15/23 09:13 08/15/23 09:13 08/15/23 09:13
Last Documented Vital Signs
Temp Pulse Resp BP Pulse Ox
100.2 F 64 13 143/64 97
08/15/23 11:34 08/15/23 14:30 08/15/23 14:01 08/15/23 14:00 08/15/23 14:30
<Eddie Bagley MD - Last Filed: 08/15/23 10:00>
Orders/Labs/Results
Orders:
Orders
08/15/23 09:12
CR Chest - 2 Views Urgent
Comment:
Reason For Exam: suspected infection
08/15/23 09:15
Blood Culture Q30M
ELIE Source: Blood/Venous
Specimen Description:
Comment: FROM 2 SEPARATE SITES
08/15/23 09:20
0.9% Sodium Chloride 1000 ml [Nss] 1,000 ml IV BOLUS
08/15/23 09:21
Complete Blood Count/With Diff Urgent
Comprehensive Metabolic Panel Urgent
Lactic Acid Q4H
Comment: ON ICE, CANCEL 2ND ORDER IF FIRST LACTIC ACID LEVEL <2
Blood Culture Q30M
ELIE Source: Blood/Venous
Specimen Description:
Comment: FROM 2 SEPARATE SITES
Acetaminophen [Tylenol] 1,000 mg PO NOW STA
08/15/23 09:51
COVID-19 Antigen Urgent
Source: Nasal Swab
Urinalysis Reflex To Culture Urgent
Date Specimen was Collected: 08/15/23
Time Specimen was Collected: 09:49
Urine Microscopic Reflex Cult Urgent
Influenza A+B Rapid Molecular Urgent
ELIE Source: Nasal Swab
Specimen Description:
08/15/23 10:48
CT Chest With Iv Contrast Urgent
Comment:
Reason For Exam: fever
08/15/23 10:49
CT Head W/o Iv Contrast Urgent
Comment:
Reason For Exam: confusion
08/15/23 14:38
Vancomycin 2000 mg IVPB x 1 LOADING DOSE Vancomycin [Vancocin] 2,000 mg 0.9% Sodium Chloride 500 ml [Nss] 500 ml IV NOW
Zosyn 3.375 grams IVPB NOW Piperacillin/Tazo 3.375 Gram [Zosyn] 3.375 gram in 50 ml IV NOW
Abnormal Lab Results
08/15/23 08/15/2308/14/24
09:17 09:21 09:51
WBC 12.0 H 10^3/uL
(4.8-10.8)
RBC 4.26 L 10^6/uL
(4.70-6.10)
MCH 32.2 H pg
(27.0-31.0)
MPV 10.9 H fL
(7.4-10.4)
Absolute Neuts (auto) 9.8 H 10^3/uL
(1.4-6.5)
Absolute Lymphs (auto) 1.1 L 10^3/uL
(1.2-3.4)
Absolute Monos (auto) 0.7 H 10^3/uL
(0.1-0.6)
Neutrophils % 81.9 H %
(42.2-75.2)
Lymphocytes % 9.4 L %
(20.5-51.1)
Carbon Dioxide 32 H mmol/L
(22-30)
Glucose 148 H mg/dl
(70-99)
Ur Occult Blood Reflex 1+ A
(Negative)
Urine RBC 3-6 A /HPF
(0-2)
Urine Glucose Trace A
(Negative)
POC Glucose 145 H mg/dl
(70-99)
08/15/23 09:21
08/15/23 09:21
Vital Signs
Initial and Last Documented VS:
Initial Vital Signs
Temp Pulse Resp BP Pulse Ox
102.1 F H 85 18 151/64 97
08/15/23 09:13 08/15/23 09:13 08/15/23 09:13 08/15/23 09:13 08/15/23 09:13
Last Documented Vital Signs
Temp Pulse Resp BP Pulse Ox
100.2 F 64 13 143/64 97
08/15/23 11:34 08/15/23 14:30 08/15/23 14:01 08/15/23 14:00 08/15/23 14:30
<Justus Ley PA-C - Last Filed: 08/15/23 14:41>
MDM/Problems Addressed
Differential Diagnosis Includes:
Patient presents with generalized weakness. Noted to have a fever here. Question sepsis. Will check for pneumonia, UTI COVID and flu. Fingerstick blood sugar upon arrival was 145. Tylenol fluids ordered. X-ray pending
I reviewed prior hospital records. He was here 2 weeks ago secondary to sepsis due to bilateral pneumonia he was found to have be hypoglycemic then.
Chronic conditions affecting care:
Insulin-dependent diabetes
<Justus Ley PA-C - Last Filed: 08/15/23 14:41>
*Critical Care Note
Total Time (30-74mins, 75-104mins- exclusive of procedures): Not Applicable
<Justus Ley PA-C - Last Filed: 08/15/23 14:41>
Update Note
Update Note:
Chest x-ray clear but review of chart demonstrates that he has had negative chest x-rays in the past with other things showing up on CT. concerned that there may be a brain issue causing his swallowing difficulty. I did review prior swallow
study that was performed which demonstrated with consecutive sips of liquid he has silent aspiration however anything thicker than liquid or liquid in the cup did not result in any aspiration. His states he has not been using straws. CT of
the chest today demonstrates multiple opacities bilaterally some of which have increased in size some of which have decreased in size. Leading is in differential could include infectious source. Will cover with vancomycin and Zosyn and admit
ED Attending Note
<Justus Ley PA-C - Last Filed: 08/15/23 14:41>
-
Portions of this chart may have been created with voice recognition software.� Occasional wrong word or��sound alike� substitutions may have occurred due to the inherent limitations of voice recognition software.
<Eddie Bagley MD - Last Filed: 08/15/23 10:00>
ED Attending Note
Patient seen and examined by attending physician: Yes
I performed the substantive portion of visit, reviewed & personally made and approve the management plan that is documented in note by myself or YESENIA.: Yes
ED Attending Note:
62-year-old man fever. No other infectious symptoms. No cough congestion abdominal pain urinary symptoms. Symptoms started in the last 24 hours or so.
On exam patient is nontoxic in no distress. Old craniotomy scar. Neck supple and nontender. Lungs with a few bibasilar crackles. No wheezing. No respiratory distress. Regular rate and rhythm no murmur. Abdomen nontender. Extremities
unremarkable.
No obvious clinical source of fever except for possibly his lungs. Workup in progress. Previous records reviewed.
Discharge Plan
Departure
Patient Disposition: Admit
Date of Disposition: 08/15/23
Time of Disposition: 14:41
Admit to: Telemetry
Presentation/result/management discussed w/ accepting MD/DO: Hospitalist
Discharge Problem:
Pneumonia
Prescriptions:
No Action
morphine 30 mg tablet extended release
30 mg PO Q12H
Patient Comments:
07/29/2023: last filled 07/08/23, 60 tabs for 30 days from [facility]
gabapentin 800 mg tablet
800 mg PO TID
divalproex 500 mg tablet extended release 24 hr
500 mg PO BID
levothyroxine 100 mcg tablet
75 mcg PO DAILY
oxycodone 10 mg tablet
10 mg PO Q8H
Patient Comments:
07/29/2023: last filled 07/08/23, 120 tabs for 30 days from [facility]
diazepam 10 mg Tablet
15 mg PO DAILY@1400
Patient Comments:
07/29/2023: last filld 07/13/23, 45 tabs for 30 days from [facility]
Patient Own Insulin Pump
0 units SC .VIA PUMP
Patient Comments:
07/29/2023: Pt uses Novolog
oxycodone 30 mg tablet
30 mg PO Q12H
Patient Comments:
07/29/2023: last filled 07/08/23, 90 tabs for 30 days from [facility]
simvastatin [Zocor] 40 mg Tablet
40 mg PO DAILY
paroxetine HCl [Paxil] 20 mg Tablet
20 mg PO DAILY
lisinopril 10 mg Tablet
10 mg PO DAILY
budesonide-formoterol [Symbicort] 160-4.5 mcg/actuation Hfa Aerosol Inhaler
2 puff INHALATION DAILY
Referrals:
Dusty Nova DO [Family Provider] -
Interventions
Interventions:
*Risk Screen - Suicide Last Done: 08/15/23 09:21
*General Assessment Last Done: 08/15/23 09:21
*Neglect/Abuse Screening Last Done: 08/15/23 09:21
ED- Neurological Assessment Last Done: 08/15/23 09:32
ED-Skin Assessment Last Done: 08/15/23 09:32
Discharge Date and Time
Print Language: BRAZILIAN
[2023-08-15 09:30] LABS: % Basophils 0.5 % (0-2); % Eosinophils 1.7 % (0-6); % Immature Granulocytes 0.3 % (0-0.5); % Lymphocytes 9.4 % (20.5-51.1); % Monocytes 6.2 % (1.7-9.3); % Neutrophils 81.9 % (42.2-75.2); Absolute Basophils 0.1 10^3/uL (0-0.2); Absolute Eosinophils 0.2 10^3/uL (0-0.7); Absolute Lymphocytes 1.1 10^3/uL (1.2-3.4); Absolute Monocytes 0.7 10^3/uL (0.1-0.6); Absolute Neutrophils 9.8 10^3/uL (1.4-6.5); Hemoglobin 13.7 g/dL (13.0-18.0); Mean Corp Hgb Conc. 35.1 g/dL (33.0-37.0); Mean Corpuscular Hgb 32.2 pg (27.0-31.0); Mean Corpuscular Volume 91.5 fL (80.0-94.0); Mean Platelet Volume 10.9 fL (7.4-10.4); Nucleated Red Blood Cells % 0 % (-); Platelet Count 170 10^3/uL (130-400); Red Blood Cell Count 4.26 10^6/uL (4.70-6.10); Red Cell Dist. Width 12.7 % (11.5-14.5)
[2023-08-15] MEDS: NSS 1000 IV (09:30)
[2023-08-15 09:44] LABS: Lactic Acid 1.9 mmol/L (0.7-2.0)
[2023-08-15 09:45] LABS: ALT (SGPT) 15 U/L (0-50); AST (SGOT) 26 U/L (17-59); Alkaline Phosphatase 97 U/L (38-126); Blood Urea Nitrogen 17 mg/dl (9-20); Calcium 9.5 mg/dl (8.4-10.2); Carbon Dioxide 32 mmol/L (22-30); Chloride 100 mmol/L (98-107); Estimated Creatinine Clearance 74 ml/min; Glucose 148 mg/dl (70-99); Potassium 4.6 mmol/L (3.5-5.1); Sodium 139 mmol/L (135-145); Total Bilirubin 0.6 mg/dl (0.2-1.3); Total Protein 6.7 g/dl (6.3-8.2); eGFR > 60.00
[2023-08-15] MEDS: TYLENOL 1000 MG PO (09:45)
[2023-08-15 10:19] LABS: COVID-19 Antigen Negative (Negative)
[2023-08-15 10:42] LABS: Urine Albumin Negative (Neg - Trace); Urine Bilirubin Negative (Negative); Urine Character Clear (Clear); Urine Color Yellow; Urine Glucose Trace (Negative); Urine Ketone Negative (Negative); Urine Leukocyte Negative (Negative); Urine Nitrite Negative (Negative); Urine Occult Blood 1+ (Negative); Urine Urobilinogen Negative (Neg - 1+)
[2023-08-15 11:47] LABS: Urine Mucus Few; Urine Squamous Cell 0-2 /LPF (Few)
[2023-08-15 11:48] LABS: Urine White Cell 0-2 /HPF (0-5)
--- NOTE | 2023-08-15 14:52 | HPS.HSE ---
Family Physician
-
Family Physician: Dusty Nova
Chief Complaint
-
fever, weakness
History of Present Illness
HPI: 62-year-old male PMH IDDM, traumatic brain injury; p/w generalized weakness that started in the morning. He felt too weak to get out of bed.
He was discharged from this hospital recently for sepsis secondary to bilateral pneumonia.
He is AOx3 and denies to new symptoms. He denies to SOB, cough etc.
Medical History
Past Medical History
Past Medical History: Reports Other
Additional Past Medical History:
Chronic Pain Syndrome
DM-II on Insulin Pump
COPD
Hypertension
Bipolar Disorder
History of Subdural Hematoma
Past Surgical History: Reports Other
Additional Past Surgical History:
Cervical Fusion
Craniotomy
Social History
Tobacco: Smoker (Current every day smoker. 1ppd for total of > 40 pack years.)
Alcohol: None
Drug: None
Personal:
Living: With Family
Family History
Family History: Not pertinent
Allergies / Home Medications
Allergies reflects when Allergies were last updated in [facility].
Home Medications with original date entered in [facility]
Allergy/Medication List:
Allergies
Allergy/AdvReac Type Severity Reaction Status Date / Time
No Known Allergies Allergy Verified 08/15/23 09:13
Home Medications
divalproex 500 mg tablet,extended release 24 hr 500 mg PO BID mental health 12/25/21
gabapentin 800 mg tablet 800 mg PO TID Neurological Condition 12/25/21
morphine 30 mg tablet,extended release 30 mg PO Q12H Pain 12/25/21
levothyroxine 100 mcg tablet 100 mcg PO DAILY Thyroid 09/10/22
oxycodone 10 mg tablet 10 mg PO Q8H Pain 09/10/22
diazepam 10 mg tablet 15 mg PO DAILY@1400 Mental Health/Anxiety 03/19/23
Patient Own Insulin Pump 0 units SC .VIA PUMP Diabetes 06/26/23
oxycodone 30 mg tablet 30 mg PO Q12H Pain 07/29/23
albuterol sulfate 90 mcg/actuation aerosol inhaler 2 puff inhalation R Q4HPRN PRN wheezing 08/15/23
amlodipine 5 mg-benazepril 20 mg capsule 1 cap PO DAILY 08/15/23
atorvastatin 40 mg tablet 40 mg PO DAILY 08/15/23
indomethacin 25 mg capsule 25 mg PO Q6H 08/15/23
lisinopril 10 mg tablet 10 mg PO DAILY 08/15/23
paroxetine HCl 40 mg tablet 40 mg PO DAILY 08/15/23
umeclidinium 62.5 mcg-vilanterol 25 mcg/actuation powdr for inhalation (Anoro Ellipta) 1 inh inhalation R DAILY 08/15/23
Review of Systems
-
Respiratory: Reports See HPI; Denies Cough
Physical Exam
Vital Signs
Vital Signs
Temp Pulse Resp BP Pulse Ox
37.9 C 64 13 143/64 97
08/15/23 11:50 08/15/23 14:30 08/15/23 14:01 08/15/23 14:00 08/15/23 14:30
Physical Exam
General: Well Developed, Well Nourished, No Apparent Distress, Comfortable and Conversant
HEENT: NormoCephalic, Moist mucous membranes and Atraumatic
Respiratory: Clear and Non Labored Respirations; No Accessory Resp Muscle Use
Cardiac: S1/S2 and Regular Rhythm
GI: Soft, Non Tender, Non Distended and Normal Bowel Sounds
Rectal: Deferred by Provider
Musculoskeletal: No Cyanosis and No Edema
Neuro: Alert
Psych: Calm and Intact Judgment/Insight (somewhat)
Laboratory Results
-
08/15/23 09:21
08/15/23 09:21
Laboratory Results
Lactic Acid Cancelled 08/15/23 13:15
Total Bilirubin 0.6 mg/dl (0.2-1.3) 08/15/23 09:21
AST 26 U/L (17-59) 08/15/23 09:21
ALT 15 U/L (0-50) 08/15/23 09:21
Alkaline Phosphatase 97 U/L (38-126) 08/15/23 09:21
Data Reviewed
-
Diagnostic Radiology: Image Personally Visualized and interpreted and Report Reviewed by me
CT Scan: Report Reviewed by me
Lab Data: Labs Reviewed by me
Impression/Plan
-
HPI: 62-year-old male PMH IDDM, traumatic brain injury; p/w generalized weakness that started in the morning. He felt too weak to get out of bed.
He was discharged from this hospital recently for sepsis secondary to bilateral pneumonia.
He is AOx3 and denies to new symptoms. He denies to SOB, cough etc.
CT Chest:
1. Moderate number of centrilobular nodular opacities throughout the right lung which are mostly ground-glass opacities and similar in appearance to 06/26/2023 with some of the opacities increasing in size and others decreasing in size. Diagnostic
possibilities are (1) MULTIFOCAL INFECTION with atypical infection (possibly fungal infection or septic emboli) a possibility, (2) an asymmetric inflammatory pneumonitis (less likely), or (3) less likely pulmonary malignancy.
2. Mild to moderate emphysema in the posterior aspect of the right lung apex.
3. Mild mediastinal and bilateral hilar lymphadenopathy.
A/P:
# Generalized weakness likely 2/2 sepsis POA with CAP vs recurrent aspiration pneumonia
There was thought that his detention use of opiate may have contributed to his recurrent aspiration pneumonia.
His opiate dose has been reduced from recent admission
CT Chest report as above
Flu/COVID are negative
Follow blood Cx
Check MRSA screen
SPL eval for aspiration eval
s/p vanc/Zosyn in ED, cont with both
# Essential hypertension, controlled.
Cont BENCH MOLDER amlodipine-benazepril
# IDDM
Cont BENCH MOLDER insulin pump
Last hemoglobin A1c 6.4% in June.
cover with ISS during hospital stay
Carb control diet
# COPD without exacerbation
stable on inhalers.
# Hyperlipidemia
atorvastatin.
# Hypothyroidism
continue levothyroxine.
# Bipolar disorder on valproic acid.
# IgM deficiency
follow-up with immunology after discharge.
# Chronic pain syndrome/chronic opiate dependence
# Tobacco dependence -counseled on need for cessation.
# Hx SDH
DVT ppx: lovenox SQ
Full code
[2023-08-15] MEDS: ZOSYN 50 IV ×2 (15:00→22:34)
[2023-08-15] MEDS: NICODERM TRANSDERMAL 14 MG TRANSDERM (15:42)
[2023-08-15] MEDS: VANCOCIN 540 MG IV (15:45)
[2023-08-15 16:05] LABS: Depakane 86.4 ug/ml (50.0-120.0)
[2023-08-15] MEDS: MS CONTIN (EXTENDED RELEASE) 30 MG PO (16:55)
--- NOTE | 2023-08-15 18:00 | PTCARENOTE ---
Pt arrived to rm [id number] at this time, AAOx3, med/surg, complaints of weakness, no SOB. See shift assessment for further detail. Oriented pt to rm, reporting concerns, plan of care, use of call crisostomo, fall risk etc- pt verbalized understanding. Call
crisostomo within reach.
[2023-08-15 18:28] LABS: Glucose - Point of Care 232 mg/dl (70-99)
[2023-08-15] MEDS: ROXICODONE 10 MG PO ×2 (20:10→22:35)
[2023-08-15] MEDS: INDOCIN 25 MG PO (20:11)
[2023-08-15] MEDS: NEURONTIN 800 MG PO (20:11)
[2023-08-15] MEDS: DEPAKOTE ER (24 HR RELEASE) 500 MG PO (20:11)
[2023-08-15] MEDS: LOVENOX 40 MG SC (20:12)
[2023-08-15 21:33] LABS: Glucose - Point of Care 232 mg/dl (70-99)
[2023-08-15] MEDS: NEURONTIN PO (22:00)
[2023-08-15] MEDS: LANTUS 0.0500000000000000028 UNITS SC (22:34)
[2023-08-15] MEDS: NOVOLOG FLEXPEN-LOW RESISTANCE SC ×2 (22:36→22:49)
--- NOTE | 2023-08-15 23:43 | PHA.VAN.IN ---
Assessment
- Assessment
Renal Function: Appears similar to baseline (baseline Scr 0.6-0.9)
Maximum Temperature: 102.1F
Concomitant Antimicrobials: Piperacillin/tazobactam
AUC Dosing Plan
- Dosing Variables
Dosing Weight (kg): 83
Dosing CrCl (ml/min): 74
Vd coefficient (L/kg): 0.7
- Empiric Dosing
Initial / Loading Dose: Vancomycin 2000mg given 08/14 at ~1600
Maintenance Regimen: Vancomycin 1000mg IV Q12h to start 08/15 at 0600
Estimated AUC (mcg*h/mL): 540
Estimated Peak (mcg*h/mL): 31.5
Estimated Trough (mcg/ml): 15.3
- Monitoring
No levels ordered at this time: Will order levels prior to steady state.
Pharmacokinetics Vancomycin I
- -
Patient Age: 62
Patient Sex: Male
Vancomycin Day #: 1
Indication: Pulmonary/Respiratory
Requesting Provider: Dr. Driscoll
Pertinent Antimicrobial Allergies:
NKA
Height / Weight:
Height 5 ft 8 in
Actual Weight 83.007 kg
- Vital Signs / Lab Results
Temp Pulse Resp BP Pulse Ox
98 F 60 16 127/52 96
08/15/23 18:34 08/15/23 18:34 08/15/23 18:34 08/15/23 18:34 08/15/23 18:34
Lab Results - Hematology
08/15/23
09:21
WBC 12.0 H
Lab Results - Chemistry
08/15/23
09:21
BUN 17
Creatinine 1.0
Estimated Creat Clear 74
Albumin 4.0
08/15/23 08/15/23
09:21 13:15
Lactic Acid 1.9 Cancelled
Lab Results - Urine
08/15/23
09:51
Urine Nitrite (Reflex) Negative
Leukocyte Esterase Rfl Negative
Urine WBC (Reflex) 0-2
Ur Squamous Epith Cells 0-2
Microbiology Results
08/15/23 09:51 Influenza Types A & B (KIERSTEN) - Final
Nasal Swab Negative for Influenza A & B, NAAT
Negative results must be combined with clinical observations
and patient history.
Nucleic Acid Amplification test (NAAT)performed on the
[employer] platform.
[2023-08-16] MEDS: INDOCIN 25 MG PO ×4 (00:35→17:59)
[2023-08-16] MEDS: ROXICODONE PO ×2 (04:00→04:23)
[2023-08-16] MEDS: ZOSYN IV (04:23)
[2023-08-16] MEDS: ZOSYN 50 IV ×4 (05:18→23:10)
[2023-08-16] MEDS: VANCOCIN 200 IV ×2 (05:27→18:29)
[2023-08-16 05:42] LABS: % Basophils 0.8 % (0-2); % Eosinophils 2.4 % (0-6); % Lymphocytes 40.9 % (20.5-51.1); % Monocytes 8.2 % (1.7-9.3); % Neutrophils 47.7 % (42.2-75.2); Absolute Basophils 0.1 10^3/uL (0-0.2); Absolute Eosinophils 0.2 10^3/uL (0-0.7); Absolute Monocytes 0.6 10^3/uL (0.1-0.6); Absolute Neutrophils 3.5 10^3/uL (1.4-6.5); Hematocrit 38.1 % (39.0-52.0); Hemoglobin 13.2 g/dL (13.0-18.0); Mean Corp Hgb Conc. 34.6 g/dL (33.0-37.0); Mean Corpuscular Volume 92.5 fL (80.0-94.0); Mean Platelet Volume 11.3 fL (7.4-10.4); Nucleated Red Blood Cells % 0 % (-); Platelet Count 146 10^3/uL (130-400); Red Blood Cell Count 4.12 10^6/uL (4.70-6.10); Red Cell Dist. Width 12.4 % (11.5-14.5); White Blood Cell Count 7.4 10^3/uL (4.8-10.8)
[2023-08-16 06:07] LABS: Blood Urea Nitrogen 17 mg/dl (9-20); Calcium 9.2 mg/dl (8.4-10.2); Carbon Dioxide 26 mmol/L (22-30); Chloride 104 mmol/L (98-107); Estimated Creatinine Clearance 106 ml/min; Glucose 147 mg/dl (70-99); Potassium 5.4 mmol/L (3.5-5.1); Sodium 137 mmol/L (135-145); eGFR > 60.00
[2023-08-16] MEDS: INDOCIN PO (06:20)
[2023-08-16 07:10] VITALS: BP 163/82
[2023-08-16 07:24] LABS: Glucose - Point of Care 186 mg/dl (70-99)
[2023-08-16] MEDS: NEURONTIN 800 MG PO ×3 (08:03→23:10)
[2023-08-16] MEDS: MS CONTIN (EXTENDED RELEASE) 30 MG PO ×2 (08:03→21:41)
[2023-08-16] MEDS: NICODERM TRANSDERMAL 14 MG TRANSDERM (08:03)
[2023-08-16] MEDS: LOTREL 5 MG/20 MG 1 CAPSULE PO (08:03)
[2023-08-16] MEDS: DEPAKOTE ER (24 HR RELEASE) 500 MG PO ×2 (08:03→20:30)
[2023-08-16] MEDS: LIPITOR 40 MG PO (08:03)
[2023-08-16] MEDS: SYNTHROID 100 MCG PO (08:04)
[2023-08-16] MEDS: PAXIL 40 MG PO (08:04)
[2023-08-16] MEDS: NOVOLOG FLEXPEN-LOW RESISTANCE 1 UNITS SC (08:05)
[2023-08-16] MEDS: SPIRIVA RESPIMAT 2.5 MCG 2 PUFF INH (08:07)
[2023-08-16] MEDS: STRIVERDI RESPIMAT 2 PUFF INH (08:07)
--- NOTE | 2023-08-16 09:30 | PHA.VAN.FU ---
Vancomycin Assessment / Plan
- Assessment
Renal Function: SCR Decreasing (1.0-> 0.7)
WBC's are: WNL
In the past 24 hrs, patient has been: Afebrile (100.4 on 08/15/23 1018)
Concomitant Antimicrobials: piperacillin/tazo
- Dosing Plan
Continue: vancomycin 1000 q12h - first dose 08/15 0600, after 2000 mg LD
- Monitoring Plan
No level(s) ordered at this time: consider levels when pt nears steady state
- Follow Up
Pharmacy will continue to follow.
Vancomycin Follow UP
- -
Patient Age: 62
Patient Sex: Male
Vancomycin Day #: 2
Indication: Pulmonary/Respiratory
Requesting Provider: Dr. Driscoll
Pertinent Antimicrobial Allergies:
NKA
Height / Weight:
Height 5 ft 8 in
Actual Weight 83.007 kg
- Vital Signs / Lab Results
Temp Pulse Resp BP Pulse Ox
97.8 F 47 16 163/82 97
08/16/23 07:10 08/16/23 08:15 08/16/23 08:15 08/16/23 07:10 08/16/23 08:15
Lab Results - Hematology
08/15/23 08/16/23
09:21 05:11
WBC 12.0 H 7.4
Lab Results - Chemistry
08/15/23 08/16/23
09:21 05:11
BUN 17 17
Creatinine 1.0 0.7
Estimated Creat Clear 74 106
Albumin 4.0
08/15/23 08/15/23
09:21 13:15
Lactic Acid 1.9 Cancelled
Lab Results - Urine
08/15/23
09:51
Urine Nitrite (Reflex) Negative
Leukocyte Esterase Rfl Negative
Ur Squamous Epith Cells 0-2
Microbiology Results
08/15/23 09:51 Influenza Types A & B (KIERSTEN) - Final
Nasal Swab Negative for Influenza A & B, NAAT
Negative results must be combined with clinical observations
and patient history.
Nucleic Acid Amplification test (NAAT)performed on the
[employer] platform.
[2023-08-16 10:17] LABS: Glycohemoglobin (HgbA1c) 6.4 % (4.0-5.6)
[2023-08-16] MEDS: ROXICODONE 10 MG PO ×3 (10:22→23:10)
--- NOTE | 2023-08-16 11:08 | W.PN.HOSP.TC ---
Today's Communication/Plan
-
see A/P
Assessment / Plan
Assessment / Plan
HPI: 62-year-old male PMH IDDM, traumatic brain injury; p/w generalized weakness that started in the morning. He felt too weak to get out of bed.
He was discharged from this hospital recently for sepsis secondary to bilateral pneumonia.
He is AOx3 and denies to new symptoms. He denies to SOB, cough etc.
CT Chest:
1. Moderate number of centrilobular nodular opacities throughout the right lung which are mostly ground-glass opacities and similar in appearance to 06/26/2023 with some of the opacities increasing in size and others decreasing in size. Diagnostic
possibilities are (1) MULTIFOCAL INFECTION with atypical infection (possibly fungal infection or septic emboli) a possibility, (2) an asymmetric inflammatory pneumonitis (less likely), or (3) less likely pulmonary malignancy.
2. Mild to moderate emphysema in the posterior aspect of the right lung apex.
3. Mild mediastinal and bilateral hilar lymphadenopathy.
A/P:
# Generalized weakness likely 2/2 sepsis POA with CAP vs recurrent aspiration pneumonia
There was thought that his detention use of opiate may have contributed to his recurrent aspiration pneumonia.
His opiate dose had been reduced from recent admission
CT Chest report as above
Flu/COVID are negative
Follow blood Cx
Check MRSA screen
SPL eval for aspiration eval
s/p vanc/Zosyn in ED, cont with both
# Essential hypertension, controlled.
Cont YARN TWISTER amlodipine-benazepril
# Mild hyperkalemia
K at 5.4
cont to monitor
consider holding benazepril if K remain elevated
# IDDM
Pt on insulin pump YARN TWISTER
Last hemoglobin A1c 6.4% in June.
Started lantus 5 units HS during hospital stay
cover with ISS
Carb control diet
# COPD without exacerbation
stable on inhalers.
# Hyperlipidemia
atorvastatin.
# Hypothyroidism
continue levothyroxine.
# Bipolar disorder on valproic acid.
# IgM deficiency
follow-up with immunology after discharge.
# Chronic pain syndrome/chronic opiate dependence
# Tobacco dependence -counseled on need for cessation.
# Hx SDH
DVT ppx: lovenox SQ
Full code
DW at bedside
Anticipated Discharge: 24 - 48 hours
Subjective/Interval History
-
Date of Service: August 16, 2023
Objective Data
-
Labs:
Laboratory Results
08/16/23
05:11
WBC 7.4
Hgb 13.2
Hct 38.1 L
Plt Count 146
Sodium 137
Potassium 5.4 H
Chloride 104
Carbon Dioxide 26
BUN 17
Creatinine 0.7
Glucose 147 H
Calcium 9.2
Vital Signs:
Vital Signs
Temp Pulse Resp BP Pulse Ox
36.6 C 47 16 163/82 97
08/16/23 07:10 08/16/23 08:15 08/16/23 08:15 08/16/23 07:10 08/16/23 08:15
I&O
08/15/23 08/16/23 08/17/23
06:59 06:59 06:59
Intake Total 720 / 720
Output Total 950 / 950
Balance -230 / -230
Review of Systems
-
History Source: Patient
All other systems: Reviewed and negative
Physical Exam
-
General: Well Developed, Well Nourished, No Apparent Distress, Comfortable and Conversant
Respiratory: Clear to Auscultation and Non Labored Respirations; Negative Accessory Resp Muscle Use
Cardiac: Regular Rhythm and S1/S2
GI: Soft, Nontender, Nondistended and Normal Bowel Sounds
Neuro: Awake
Psych: Calm and Intact Judgement/Insight
Data Reviewed
-
Diagnostic Radiology: Report Reviewed by me
CT Scan: Report Reviewed by me
Labs: Labs Reviewed by me
[2023-08-16 12:07] LABS: Glucose - Point of Care 286 mg/dl (70-99)
[2023-08-16] MEDS: NOVOLOG FLEXPEN-LOW RESISTANCE 3 UNITS SC ×2 (12:22→17:59)
--- NOTE | 2023-08-16 14:33 | PTOTSP ---
ST Acute Care Evaluation
Pt presents with grossly functional oropharyngeal parameters for safe PO intake of current diet consistencies with compensatory strategies (single sips, no straws). No overt s/s of penetration or aspiration noted at bedside. Of note, pt has a hx of
silent aspiration with sequential sips on VFSS completed in 06/2023.
Recommendations:
- Continue with regular solids, thin liquids, meds as tolerated.
- Continue with compensatory strategies of single sips and avoiding straws.
- General aspiration precautions: Make sure pt is fully awake/alert for all PO intake, HOB fully upright for ALL PO intake and for at least 60 minutes afterwards; small bites/sips; slow intake rate.
- MD to consider repeat VFSS if recurrent silent aspiration is suspected as the origin for pt's persistent PNA.
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
[2023-08-16] MEDS: VALIUM 15 MG PO (14:55)
--- NOTE | 2023-08-16 14:57 | CM ---
Alert awake oriented patient who lives with his Marilu who lives in a 2 story home with 1 step to enter and 10 steps to bed and bathroom. He is assisted in all activities of daily living.He uses a cane. He was offered VN he declined need.
[facility] hx / No SNF history
Pharmacy [facility]
PCP DR Dusty Nova
PLAN Home no needs
[2023-08-16 15:12] VITALS: BP 139/69; PULSE 48; O2SAT 98
[2023-08-16 15:20] VITALS: BP 139/69
[2023-08-16] MEDS: ROXICODONE 30 MG PO (16:05)
[2023-08-16 17:46] LABS: Glucose - Point of Care 288 mg/dl (70-99)
[2023-08-16] MEDS: LOVENOX 40 MG SC (17:59)
[2023-08-16 21:28] LABS: Glucose - Point of Care 245 mg/dl (70-99)
[2023-08-16] MEDS: LANTUS 0.0500000000000000028 UNITS SC (23:09)
[2023-08-16 23:48] VITALS: BP 144/71
[2023-08-17] MEDS: INDOCIN 25 MG PO ×4 (00:10→23:01)
[2023-08-17] MEDS: ROXICODONE PO ×2 (04:30→06:21)
[2023-08-17] MEDS: ZOSYN 50 IV ×4 (04:30→21:46)
[2023-08-17] MEDS: INDOCIN PO (06:00)
[2023-08-17] MEDS: VANCOCIN 200 IV ×2 (06:19→17:50)
[2023-08-17 07:35] VITALS: BP 173/69
[2023-08-17 07:50] LABS: Glucose - Point of Care 161 mg/dl (70-99)
[2023-08-17] MEDS: STRIVERDI RESPIMAT 2 PUFF INH (08:07)
[2023-08-17] MEDS: SPIRIVA RESPIMAT 2.5 MCG 2 PUFF INH (08:07)
[2023-08-17 08:21] LABS: % Basophils 1.1 % (0-2); % Immature Granulocytes 0.2 % (0-0.5); % Lymphocytes 48.8 % (20.5-51.1); % Monocytes 7.7 % (1.7-9.3); % Neutrophils 33.2 % (42.2-75.2); Absolute Basophils 0.1 10^3/uL (0-0.2); Absolute Eosinophils 0.4 10^3/uL (0-0.7); Absolute Lymphocytes 2.3 10^3/uL (1.2-3.4); Absolute Monocytes 0.4 10^3/uL (0.1-0.6); Absolute Neutrophils 1.6 10^3/uL (1.4-6.5); Hematocrit 37.2 % (39.0-52.0); Hemoglobin 13.3 g/dL (13.0-18.0); Mean Corp Hgb Conc. 35.8 g/dL (33.0-37.0); Mean Corpuscular Volume 89.6 fL (80.0-94.0); Nucleated Red Blood Cells % 0 % (-); Red Blood Cell Count 4.15 10^6/uL (4.70-6.10); Red Cell Dist. Width 12.4 % (11.5-14.5); White Blood Cell Count 4.7 10^3/uL (4.8-10.8)
[2023-08-17 08:42] LABS: Blood Urea Nitrogen 21 mg/dl (9-20); Calcium 9.1 mg/dl (8.4-10.2); Carbon Dioxide 28 mmol/L (22-30); Chloride 101 mmol/L (98-107); Estimated Creatinine Clearance 82 ml/min; Glucose 136 mg/dl (70-99); Potassium 4.2 mmol/L (3.5-5.1); Sodium 137 mmol/L (135-145); eGFR > 60.00
[2023-08-17] MEDS: SYNTHROID 100 MCG PO (08:57)
[2023-08-17] MEDS: NEURONTIN 800 MG PO ×3 (08:57→21:45)
[2023-08-17] MEDS: NICODERM TRANSDERMAL 14 MG TRANSDERM (08:57)
[2023-08-17] MEDS: LIPITOR 40 MG PO (08:57)
--- NOTE | 2023-08-17 08:57 | PTOTSP ---
Speech Therapy
Patient tolerating diet without overt signs of aspiration with use of compensations that he was able to verbalize and demonstrate independently.
Recommend
1. Continue with regular solids and thin liquids by single sip. NO Straws.
2. Remain upright for 30 minutes after meals.
3. Alternate sip of liquid after 2-3 bite of solid to assist with esophageal clearance.
4. Do not feel repeat video swallow study is needed at this time given clinical observations during bedside assessment and previous study was performed fairly recently (7 weeks ago ago).
[2023-08-17] MEDS: LOTREL 5 MG/20 MG 1 CAPSULE PO (08:58)
[2023-08-17] MEDS: MS CONTIN (EXTENDED RELEASE) 30 MG PO ×2 (08:58→19:49)
[2023-08-17] MEDS: DEPAKOTE ER (24 HR RELEASE) 500 MG PO ×2 (08:58→19:49)
[2023-08-17] MEDS: NOVOLOG FLEXPEN-LOW RESISTANCE 1 UNITS SC ×2 (08:58→17:50)
[2023-08-17] MEDS: PAXIL 40 MG PO (08:58)
--- NOTE | 2023-08-17 09:56 | W.PN.HOSP.TC ---
Today's Communication/Plan
-
see A/P
Assessment / Plan
Assessment / Plan
HPI: 62-year-old male PMH IDDM, traumatic brain injury; p/w generalized weakness that started in the morning. He felt too weak to get out of bed.
He was discharged from this hospital recently for sepsis secondary to bilateral pneumonia.
He is AOx3 and denies to new symptoms. He denies to SOB, cough etc.
CT Chest:
1. Moderate number of centrilobular nodular opacities throughout the right lung which are mostly ground-glass opacities and similar in appearance to 06/26/2023 with some of the opacities increasing in size and others decreasing in size. Diagnostic
possibilities are (1) MULTIFOCAL INFECTION with atypical infection (possibly fungal infection or septic emboli) a possibility, (2) an asymmetric inflammatory pneumonitis (less likely), or (3) less likely pulmonary malignancy.
2. Mild to moderate emphysema in the posterior aspect of the right lung apex.
3. Mild mediastinal and bilateral hilar lymphadenopathy.
A/P:
# Generalized weakness likely 2/2 sepsis POA with CAP vs recurrent aspiration pneumonia
There was thought that his senior living use of opiate may have contributed to his recurrent aspiration pneumonia.
His opiate dose had been reduced from recent admission
CT Chest report as above
Flu/COVID are negative, Blood Cx negative
Follow MRSA screen
SPL cleared for solid and thin liquids
Cont vanc/Zosyn for now with anticipation of changing to PO Abx at the time of discharge
# Essential hypertension, controlled.
Cont UNDER PRESSER amlodipine-benazepril
Add IV hydralazine PRN
# Mild hyperkalemia, resolved
# IDDM
Pt on insulin pump UNDER PRESSER
Last hemoglobin A1c 6.4% in June.
Started lantus 5 units HS during hospital stay
cover with ISS
Carb control diet
# COPD without exacerbation
stable on inhalers.
# Hyperlipidemia
atorvastatin.
# Hypothyroidism
continue levothyroxine.
# Bipolar disorder on valproic acid.
# IgM deficiency
follow-up with immunology after discharge.
# Chronic pain syndrome/chronic opiate dependence
# Tobacco dependence -counseled on need for cessation.
# Hx SDH
DVT ppx: lovenox SQ
Full code
Dispo: PT recc SNF vs home PT. Pt prefers home PT
Anticipated Discharge: Within 24 hours
Subjective/Interval History
-
Date of Service: August 17, 2023
Objective Data
-
Labs:
Laboratory Results
08/17/23
07:18
WBC 4.7 L
Hgb 13.3
Hct 37.2 L
Plt Count Not Reportable
Sodium 137
Potassium 4.2
Chloride 101
Carbon Dioxide 28
BUN 21 H
Creatinine 0.9
Glucose 136 H
Calcium 9.1
Vital Signs:
Vital Signs
Temp Pulse Resp BP Pulse Ox
36.4 C 58 16 173/69 96
08/17/23 07:35 08/17/23 08:08 08/17/23 08:08 08/17/23 07:35 08/17/23 08:10
I&O
08/16/23 08/17/23 08/18/23
06:59 06:59 06:59
Intake Total 720 / 720 1260 / 1260
Output Total 950 / 950 950 / 950
Balance -230 / -230 310 / 310
Review of Systems
-
History Source: Patient
All other systems: Reviewed and negative
Physical Exam
-
General: Well Developed, Well Nourished, No Apparent Distress, Comfortable and Conversant
Respiratory: Clear to Auscultation and Non Labored Respirations; Negative Accessory Resp Muscle Use
Cardiac: Regular Rhythm and S1/S2
GI: Soft, Nontender, Nondistended and Normal Bowel Sounds
Neuro: Awake
Psych: Calm and Intact Judgement/Insight
Data Reviewed
-
Diagnostic Radiology: Report Reviewed by me
CT Scan: Report Reviewed by me
Labs: Labs Reviewed by me
[2023-08-17] MEDS: ROXICODONE 10 MG PO ×3 (10:15→21:46)
[2023-08-17 11:47] LABS: Glucose - Point of Care 203 mg/dl (70-99)
[2023-08-17] MEDS: NOVOLOG FLEXPEN-LOW RESISTANCE 2 UNITS SC (12:33)
[2023-08-17] MEDS: VALIUM 15 MG PO (14:04)
[2023-08-17 15:11] VITALS: BP 146/61
--- NOTE | 2023-08-17 15:30 | PHA.VAN.FU ---
Vancomycin Assessment / Plan
- Assessment
Renal Function: SCR Increasing (slight increase in SCR & BUN)
In the past 24 hrs, patient has been: Afebrile
Concomitant Antimicrobials: piperacillin/tazobactam
- Dosing Plan
Continue: Vanc 1000mg Q12H
- Monitoring Plan
No level(s) ordered at this time: hold off on levels for now
- Follow Up
Pharmacy will continue to follow.
Vancomycin Follow UP
- -
Patient Age: 62
Patient Sex: Male
Vancomycin Day #: 3
Indication: Pulmonary/Respiratory
Requesting Provider: Dr. Driscoll
Pertinent Antimicrobial Allergies:
NKA
Height / Weight:
Height 5 ft 8 in
Actual Weight 83.007 kg
- Vital Signs / Lab Results
Temp Pulse Resp BP Pulse Ox
97.5 F 58 16 173/69 96
08/17/23 07:35 08/17/23 08:08 08/17/23 08:08 08/17/23 07:35 08/17/23 08:10
Lab Results - Hematology
08/15/23 08/16/23 08/17/23
09:21 05:11 07:18
WBC 12.0 H 7.4 4.7 L
Lab Results - Chemistry
08/15/23 08/16/23 08/17/23
09:21 05:11 07:18
BUN 17 17 21 H
Creatinine 1.0 0.7 0.9
Estimated Creat Clear 74 106 82
Albumin 4.0
08/15/23 08/15/23
09:21 13:15
Lactic Acid 1.9 Cancelled
Microbiology Results
08/15/23 15:19 Blood Culture - Preliminary
Blood/Venous No Growth in 48 hours- Final report to follow
08/15/23 18:29 MRSA Screen - Final
Nose No Methicillin Resistant Staphylococcus aureus isolated.
08/15/23 09:21 Blood Culture - Preliminary
Blood/Venous No Growth in 48 hours- Final report to follow
--- NOTE | 2023-08-17 15:46 | CM ---
I met Lv and provided support. This hospitalization was unexpected, and his had a scheduled hysterectomy at another hospital today. He feels badly that she has been there for him, but he may not be able to to the same for her.
Lv has been to outpatient therapy with [facility] and will consider going there after discharge if he feels it is needed. Otherwise, Lv feels he will be able to return home at discharge.
Plan: Discharge to home with no needs
PCP: Dusty Nova
Pharmacy: [facility]
[2023-08-17] MEDS: ROXICODONE 30 MG PO (16:03)
[2023-08-17 16:11] VITALS: BP 146/61
[2023-08-17 16:49] LABS: Glucose - Point of Care 170 mg/dl (70-99)
[2023-08-17] MEDS: LOVENOX 40 MG SC (17:50)
[2023-08-17 21:29] LABS: Glucose - Point of Care 222 mg/dl (70-99)
[2023-08-17] MEDS: LANTUS 0.0500000000000000028 UNITS SC (21:45)
[2023-08-17 23:53] VITALS: BP 156/77
[2023-08-18 03:26] VITALS: BP 138/58
[2023-08-18] MEDS: ROXICODONE 30 MG PO (03:29)
[2023-08-18] MEDS: ZOSYN 50 IV ×2 (03:30→10:26)
[2023-08-18] MEDS: VANCOCIN 200 IV (06:23)
[2023-08-18] MEDS: INDOCIN 25 MG PO ×2 (06:23→12:06)
[2023-08-18 07:29] LABS: Glucose - Point of Care 183 mg/dl (70-99)
[2023-08-18] MEDS: STRIVERDI RESPIMAT 2 PUFF INH (07:48)
[2023-08-18] MEDS: SPIRIVA RESPIMAT 2.5 MCG 2 PUFF INH (07:48)
[2023-08-18 07:55] VITALS: BP 147/65
[2023-08-18] MEDS: NICODERM TRANSDERMAL 14 MG TRANSDERM (08:12)
[2023-08-18] MEDS: LIPITOR 40 MG PO (08:12)
[2023-08-18] MEDS: MS CONTIN (EXTENDED RELEASE) 30 MG PO (08:12)
[2023-08-18] MEDS: LOTREL 5 MG/20 MG 1 CAPSULE PO (08:12)
[2023-08-18] MEDS: NOVOLOG FLEXPEN-LOW RESISTANCE 1 UNITS SC (08:13)
[2023-08-18] MEDS: PAXIL 40 MG PO (08:13)
[2023-08-18] MEDS: NEURONTIN 800 MG PO (08:13)
[2023-08-18] MEDS: SYNTHROID 100 MCG PO (08:13)
[2023-08-18] MEDS: DEPAKOTE ER (24 HR RELEASE) 500 MG PO (08:13)
[2023-08-18 09:10] LABS: Hematocrit 34.8 % (39.0-52.0); Hemoglobin 12.6 g/dL (13.0-18.0); Mean Corp Hgb Conc. 36.2 g/dL (33.0-37.0); Mean Corpuscular Hgb 32.1 pg (27.0-31.0); Mean Corpuscular Volume 88.5 fL (80.0-94.0); Mean Platelet Volume 11.1 fL (7.4-10.4); Platelet Count 149 10^3/uL (130-400); Red Blood Cell Count 3.93 10^6/uL (4.70-6.10); Red Cell Dist. Width 12.2 % (11.5-14.5); White Blood Cell Count 4.5 10^3/uL (4.8-10.8)
[2023-08-18 09:49] LABS: Blood Urea Nitrogen 22 mg/dl (9-20); Calcium 8.8 mg/dl (8.4-10.2); Carbon Dioxide 30 mmol/L (22-30); Chloride 97 mmol/L (98-107); Estimated Creatinine Clearance 74 ml/min; Glucose 253 mg/dl (70-99); Potassium 4.5 mmol/L (3.5-5.1); Sodium 136 mmol/L (135-145); eGFR > 60.00
[2023-08-18] MEDS: ROXICODONE 10 MG PO (10:26)
--- NOTE | 2023-08-18 11:49 | CM ---
Addendum entered by Sherrill Diana 08/18/23 12:01:
Patient clarified he will follow up with [facility] outpatient at discharge.
Original Note:
Patient seen at bedside with physician. Patient given IMM and signed form placed on chart. Patient stated that he would go home with daughter in car and follow up with his private physicians. CM will continue to follow for discharge planning needs.
Plan; home with no needs at this time
--- NOTE | 2023-08-18 11:55 | W.PN.HOSP.TC ---
Today's Communication/Plan
-
d/c
Assessment / Plan
Assessment / Plan
HPI: 62-year-old male PMH IDDM, traumatic brain injury; p/w generalized weakness that started in the morning. He felt too weak to get out of bed.
He was discharged from this hospital recently for sepsis secondary to bilateral pneumonia.
He is AOx3 and denies to new symptoms. He denies to SOB, cough etc.
Generalized weakness likely due to sepsis POA with CAP vs recurrent aspiration pneumonia-There was thought that his skilled nursing use of opiate may have contributed to his recurrent aspiration pneumonia--His opiate dose had been reduced from recent
admission --Flu/COVID are negative, Blood Cx negative --SPL cleared for solid and thin liquids--vanco/Zosyn to PO Abx at the time of discharge
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
Mild hyperkalemia, resolved
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
COPD without exacerbation--stable on inhalers.
Hyperlipidemia--atorvastatin.
Hypothyroidism--continue levothyroxine.
Bipolar disorder on valproic acid.
IgM deficiency--follow-up with immunology after discharge.
Chronic pain syndrome/chronic opiate dependence
Tobacco dependence -counseled on need for cessation.
Hx SDH
DVT ppx: lovenox SQ
Full code
Anticipated Discharge: Today
Subjective/Interval History
-
Date of Service: August 18, 2023
pt ready to go home
Objective Data
-
Labs:
Laboratory Results
08/18/23
08:37
WBC 4.5 L
Hgb 12.6 L
Hct 34.8 L
Plt Count 149
Sodium 136
Potassium 4.5
Chloride 97 L
Carbon Dioxide 30
BUN 22 H
Creatinine 1.0
Glucose 253 H
Calcium 8.8
Vital Signs:
max temp for 24 hours
08/18/23
03:26
Temp 98.6 F
Vital Signs
Temp Pulse Resp BP Pulse Ox
97.7 F 47 16 147/65 94
08/18/23 07:55 08/18/23 07:55 08/18/23 07:55 08/18/23 07:55 08/18/23 08:20
I&O
08/17/23 08/18/23 08/19/23
06:59 06:59 06:59
Intake Total 1260 / 1260 540 / 540
Output Total 950 / 950
Balance 310 / 310 540 / 540
Review of Systems
-
All other systems: Reviewed and negative
Physical Exam
-
General: Well Developed, Well Nourished and No Apparent Distress
HEENT: Normocephalic and Atraumatic; Negative Oxygen
Respiratory: Clear to Auscultation and Wheezes; Negative Rhonchi
Cardiac: Regular Rhythm and S1/S2; Negative Murmur
GI: Soft, Nontender, Nondistended and Normal Bowel Sounds
Musculoskeletal: No Clubbing, No Cyanosis and No Edema
Neuro: Awake and Alert
[2023-08-18 12:15] VITALS: BP 137/88
--- NOTE | 2023-08-18 16:36 | W.DCSUMMARY ---
Discharge Summary
Discharge Data
Date of Admission: 08/15/23
Date of Discharge: 08/18/23
-
Pending Results: No
Hospital Course
Primary care physician : Dusty Nova
Principal Discharge diagnosis : Generalized weakness due to sepsis which was present on admission due to community-acquired pneumonia (cannot rule out aspiration)
Chronic Discharge diagnosis : Essential hypertension, mild hyperkalemia resolved, type 2 diabetes mellitus requiring insulin, chronic obstructive pulmonary disease without exacerbation, hyperlipidemia, hypothyroidism, bipolar disorder, IgM
deficiency, chronic pain syndrome with chronic opioid dependence, tobacco dependence, history of subdural hematoma with traumatic brain injury
Hospital Course : Patient was a 62-year-old male with a history of traumatic brain injury and insulin requiring diabetes who stated that he felt weak on the morning of admission. He stated he felt too weak to get out of bed. He was actually
discharged from the hospital recently for sepsis secondary to bilateral pneumonia. Given his symptoms of fever and weakness, patient was admitted.
Problem #1: Generalized weakness due to sepsis (present on admission) due to community-acquired pneumonia (cannot rule out aspiration). Patient was admitted. Influenza and COVID were checked and were negative. Blood cultures were negative as
well. There was some thought that perhaps his long-term use of opioids could have contributed to aspiration pneumonia. He was started on IV Vanco and Zosyn. They have been switched to oral Augmentin at the time of discharge. Patient is not
hypoxic and not requiring oxygen. Patient's white count has normalized from 12.0 on admission down to 4.5 the day of discharge.
Problem #2: All other medical issues. These include Essential hypertension, mild hyperkalemia resolved, type 2 diabetes mellitus requiring insulin, chronic obstructive pulmonary disease without exacerbation, hyperlipidemia, hypothyroidism, bipolar
disorder, IgM deficiency, chronic pain syndrome with chronic opioid dependence, tobacco dependence, history of subdural hematoma with traumatic brain injury. These medical issues were stable during his hospitalization. Medications were continued
as able.
Patient is stable for discharge home at this time. If there are any questions regarding this dictation or his hospital stay, please not hesitate to call. Our office number is [phone].
Important imaging findings :
CT CHEST IMPRESSION:
1. Moderate number of centrilobular nodular opacities throughout the right lung which are mostly ground-glass opacities and similar in appearance to 06/26/2023 with some of the opacities increasing in size and others decreasing in size. Diagnostic
possibilities are (1) MULTIFOCAL INFECTION with atypical infection (possibly fungal infection or septic emboli) a possibility, (2) an asymmetric inflammatory pneumonitis (less likely), or (3) less likely pulmonary malignancy.
2. Mild to moderate emphysema in the posterior aspect of the right lung apex.
3. Mild mediastinal and bilateral hilar lymphadenopathy.
CHEST X-RAY IMPRESSION:
No convincing radiographic evidence for lung consolidation or pneumonia.
HEAD CT SCAN IMPRESSION:
1. No CT evidence for acute intracranial hemorrhage or transcortical infarct.
2. Moderate encephalomalacia in the superolateral left parietal lobe and posterolateral right temporal lobe which appears unchanged and could be secondary to previous traumatic brain injury or transcortical infarcts.
3. Mild periventricular white matter leukoaraiosis.
Discharge Plan
-
Patient Disposition: Home with Home Care
Discharge Diagnosis/Procedures: Generalized weakness likely due to community acquired pneumonia versus recurrent aspiration pneumonia; history of traumatic brain injury, essential hypertension, mild hyperkalemia, insulin-dependent diabetes mellitus
requiring insulin pump, chronic obstructive pulmonary disease without exacerbation, hyperlipidemia, hypothyroidism, bipolar disorder, chronic pain syndrome with chronic opioid dependence
Condition: Fair
Diet: As tolerated, Low Fat, Low Cholesterol and Low Sodium
Activity: As tolerated
Driving Restrictions: Not until seen by your Dr
Bathing Restrictions: None
Referrals:
Dusty Nova, [Family Provider] - in less than 1 week
Prescriptions:
New
amoxicillin-pot clavulanate 500-125 mg tablet
1 tab PO Q12H Qty: 14 0RF
Continued
morphine 30 mg tablet extended release
30 mg PO Q12H
Patient Comments:
08/15/2023: last filled 08/05/23, 60 tabs for 30 days from [facility]
gabapentin 800 mg tablet
800 mg PO TID
divalproex 500 mg tablet extended release 24 hr
500 mg PO BID
levothyroxine 100 mcg tablet
100 mcg PO DAILY
oxycodone 10 mg tablet
10 mg PO Q8H
Patient Comments:
08/15/2023: last filled 08/05/23, 120 tabs for 30 days from [facility]
diazepam 10 mg Tablet
15 mg PO DAILY@1400
Patient Comments:
08/15/2023: last filld 08/12/23, 45 tabs for 30 days from [facility]
Patient Own Insulin Pump
0 units SC .VIA PUMP
Patient Comments:
08/15/2023: Pt uses Novolog
oxycodone 30 mg tablet
30 mg PO Q12H
Patient Comments:
08/15/2023: last filled 08/05/23, 90 tabs for 30 days from [facility]
lisinopril 10 mg Tablet
10 mg PO DAILY
Patient Comments:
08/15/2023: Pt states he takes Lisinopril and Amlodipine/Benazepril, do not see a fill in the last year from Dr Zaragoza.
atorvastatin 40 mg tablet
40 mg PO DAILY
amlodipine-benazepril 5-20 mg capsule
1 cap PO DAILY
indomethacin 25 mg capsule
25 mg PO Q6H
albuterol sulfate 90 mcg/actuation HFA aerosol inhaler
2 puff INHALATION R Q4HPRN PRN (Reason: wheezing)
paroxetine HCl 40 mg tablet
40 mg PO DAILY
Anoro Ellipta 62.5-25 mcg/actuation blister with device
1 inh INHALATION R DAILY
Discharge Orders:
Discharge Patient (As Directed); Ordered 08/18/23
Ordered By: Miranda Verdugo
Discharge Date and Time
Discharge Date/Time: 08/18/23 12:51
Print Language: PUERTO RICAN
== END 2023-08-18 12:51 | disposition home or self-care (01) | DRG 871 ==
LOC: 4 EAST ACU 16:14
PROVIDERS: Internal Medicine Cardiovascular Disease; Physician Assistant; ADMITTING PHYSICIAN Internal Medicine; ATTENDING PHYSICIAN Internal Medicine; EMERGENCY PHYSICIAN Emergency Medicine; FAMILY PHYSICIAN Family Medicine
PROC: 4A02XFZ Measurement of Cardiac Rhythm, External Approach (ICD-10-PCS; 2023-08-18)
DX: A41.9 Sepsis, unspecified organism (principal); J69.0 Pneumonitis due to inhalation of food and vomit; F11.20 Opioid dependence, uncomplicated; D80.4 Selective deficiency of immunoglobulin M [IgM]; G93.89 Other specified disorders of brain; E03.9 Hypothyroidism, unspecified; F31.9 Bipolar disorder, unspecified; I10 Essential (primary) hypertension; E11.9 Type 2 diabetes mellitus without complications; J43.9 Emphysema, unspecified; J44.9 Chronic obstructive pulmonary disease, unspecified; T40.2X5A Adverse effect of other opioids, initial encounter; E78.00 Pure hypercholesterolemia, unspecified; E87.5 Hyperkalemia; G89.4 Chronic pain syndrome; F17.210 Nicotine dependence, cigarettes, uncomplicated; R59.0 Localized enlarged lymph nodes; R53.1 Weakness; Z11.52 Encounter for screening for COVID-19; Z96.41 Presence of insulin pump (external) (internal); Z79.4 Long term (current) use of insulin; Z79.890 Hormone replacement therapy; Z79.899 Other long term (current) drug therapy; Z87.820 Personal history of traumatic brain injury
CPT/HCPCS: 70450; 71046; 71260; 80048; 80053; 80164; 81003; 81015; 82962; 83036; 83605; 85025; 85027; 87040; 87070; 87502; 87811; 92526; 92610; 93005; 94640; 94668; 96361; 96365; 96367; 97162; 99285; Q9967

== ENCOUNTER 2023-10-04 10:06 | Inpatient (IN) | payer MEDICARE, BC, SELFPAY ==
[2023-10-04] VITALS (12 sets, daily range): BP systolic 105–155; BP diastolic 47–99; PULSE 66; O2SAT 98; BMI 28.5
[2023-10-04] MEDS: TYLENOL/FEVERALL 650 MG RECTAL (06:48)
--- NOTE | 2023-10-04 06:56 | ED.GENMED ---
History of Present Illness
General
Chief Complaint: Fever
Source: patient and records
Exam Limitations: clinical condition
Time Seen by Provider: 10/04/23 06:47
Nursing documentation reviewed up to this point in time: agreed with
History of Present Illness
History of Present Illness:
Patient is a 62-year-old male presents from home for confusion and weakness. Patient was brought by EMS and had a fever of 103 at home. Patient does answer questions but says yes to everything making the answers somewhat dubious. Patient does
have a history of COPD and repeated bouts of pneumonia. Patient was incontinent of urine prior to arrival.
Past History
Past History
ED Past Medical History: HTN, Hypercholesterolemia, NIDDM, Seizures, Psychiatric (Bipolar) and Other (Chronic pain syndrome, pneumonia, traumatic brain injury)
ED Past Surgical History: None
Social History
Tobacco: Smoker
Review of Systems
Review of Systems
Unable to obtain full review of systems at this time due to: due to acuity
All Other Systems: Not applicable
Phy Exam
Physical Exam
Physical Exam:
Physical Exam
General: moderate distress, alert but appears confused, well nourished, dry mucous membranes
HENT: Normocephalic, supple with no lymphadenopathy, no thyromegaly
Eyes: Clear sclera, conjuctiva without injection
Heart: Regular rhythm and rate. No S3, S4. No murmur. No NVD
Lungs: No respiratory distress, no stridor, lung sounds are coarse but clear and equal bilaterally, chest wall symmetrical and nontender
Abdomen: Soft, nontender, no organomegaly, BS good
Neuro: Alert, CN II - XII intact, no motor focality
Skin: no rash
Psychiatric: well kept. interactive and cooperative
Extremities: No edema, cyanosis, tenderness, Good and equal peripheral pulses.
Scores
Heart Failure Risk
Heart Failure Risk Score: Not Applicable
Heart Score for Chest Pain Patients
STEMI patient?: Not applicable
Withdrawal Assessment of Alcohol
Withdrawal Assessment Completed?: Not applicable
Course
Orders/Labs/Results
Orders:
Orders
10/04/23 06:44
Acetaminophen [Tylenol/Feverall] 650 mg .ROUTE .STK-MED ONE
10/04/23 06:47
Acetaminophen [Tylenol/Feverall] 650 mg RECTAL NOW STA
10/04/23 06:54
Cardiac Monitoring- Treatment ONCE
Straight cath- Treatment ONCE
0.9% Sodium Chloride 1000 ml [Nss] 1,000 ml IV BOLUS
Pulse Ox/cont/shift [RESP] Urgent
Quantity: 1
10/04/23 07:09
Complete Blood Count/With Diff Urgent
Comprehensive Metabolic Panel Urgent
Lactic Acid Q4H
Comment: CANCEL 2nd LACTIC ACID IF 1st LACTIC ACID IS LESS THAN 2
Blood Culture Urgent
ELIE Source: Blood/Venous
Specimen Description:
10/04/23 07:19
Urinalysis Reflex To Culture Urgent
Date Specimen was Collected: 10/04/23
Time Specimen was Collected: 07:13
Urine Microscopic Reflex Cult Urgent
10/04/23 07:25
Blood Culture Routine
ELIE Source: Blood/Venous
Specimen Description:
10/04/23 07:45
0.9% Sodium Chloride 1000 ml [Nss] 1,500 ml IV NOW STA
10/04/23 08:04
Portable Chest Xray [CR Chest Portable - 1 View] Urgent
Comment:
Reason For Exam: fever, SOB
Reason Study Needs to be Portable: Unable to Transport
10/04/23 08:37
Vancomycin 2000 mg IVPB x 1 LOADING DOSE Vancomycin [Vancocin] 2,000 mg 0.9% Sodium Chloride 500 ml [Nss] 500 ml IV NOW
Zosyn 4.5 grams IVPB NOW Piperacillin/Tazo 4.5 Gram [Zosyn] 4.5 gram in 100 ml IV NOW
10/04/23 11:00
Lactic Acid Q4H
Comment: CANCEL 2nd LACTIC ACID IF 1st LACTIC ACID IS LESS THAN 2
Abnormal Lab Results
10/04/23 10/04/23
07:09 07:19
RBC 4.29 L 10^6/uL
(4.70-6.10)
Hct 38.6 L %
(39.0-52.0)
MCH 31.9 H pg
(27.0-31.0)
MPV 11.3 H fL
(7.4-10.4)
Absolute Neuts (auto) 7.4 H 10^3/uL
(1.4-6.5)
Absolute Monos (auto) 0.9 H 10^3/uL
(0.1-0.6)
Neutrophils % 76.1 H %
(42.2-75.2)
Lymphocytes % 12.7 L %
(20.5-51.1)
Chloride 97 L mmol/L
(98-107)
Carbon Dioxide 34 H mmol/L
(22-30)
BUN 21 H mg/dl
(9-20)
Glucose 147 H mg/dl
(70-99)
Lactic Acid 2.8 H mmol/L
(0.7-2.0)
Urine Ketones Trace A
(Negative)
Ur Occult Blood Reflex 1+ A
(Negative)
Urine RBC 3-6 A /HPF
(0-2)
10/04/23 07:09
10/04/23 07:09
Vital Signs
Initial and Last Documented VS:
Initial Vital Signs
Temp Pulse Resp BP Pulse Ox
104.5 F H 110 18 110/75 96
10/04/23 06:39 10/04/23 06:39 10/04/23 06:39 10/04/23 06:39 10/04/23 06:39
Last Documented Vital Signs
Temp Pulse Resp BP Pulse Ox
104.5 F H 104 26 112/99 94
10/04/23 06:39 10/04/23 08:00 10/04/23 08:00 10/04/23 08:00 10/04/23 08:00
*Radiology
Radiology exam reviewed: preliminary read by ED provider (Chest x-ray looks essentially unchanged)
*Pulse Oximetry
Patient hypoxic: no
*EKG
Interpreted by ED Provider?: NA
*Melt Down Furnace Operator Interpretation
Rate: tachycardiac
Interpretation: normal
Heart Rate: 104
Rhythm: sinus
*Critical Care Note
Total Time (30-74mins, 75-104mins- exclusive of procedures): Not Applicable
Update Note
Update Note:
Urine and chest x-ray do not appear to be the source of infection. Patient's lactic acid and fever are elevated so we will treat as sepsis. Patient will be admitted.
ED Attending Note
-
Portions of this chart may have been created with voice recognition software.� Occasional wrong word or��sound alike� substitutions may have occurred due to the inherent limitations of voice recognition software.
Discharge Plan
Departure
Patient Disposition: Admit
Date of Disposition: 10/04/23
Time of Disposition: 08:39
Admit to: Telemetry
Admit to doctor: Hospitalist
Presentation/result/management discussed w/ accepting MD/DO: Hospitalist
Patient with high blood pressure during this ER visit?: No
Condition: Serious
Covid-19: Not Applicable
Discharge Problem:
Sepsis
Prescriptions:
No Action
morphine 30 mg tablet extended release
30 mg PO Q12H
Patient Comments:
08/15/2023: last filled 08/05/23, 60 tabs for 30 days from [facility]
gabapentin 800 mg tablet
800 mg PO TID
divalproex 500 mg tablet extended release 24 hr
500 mg PO BID
levothyroxine 100 mcg tablet
100 mcg PO DAILY
oxycodone 10 mg tablet
10 mg PO Q8H
Patient Comments:
08/15/2023: last filled 08/05/23, 120 tabs for 30 days from [facility]
diazepam 10 mg Tablet
15 mg PO DAILY@1400
Patient Comments:
08/15/2023: last filld 08/12/23, 45 tabs for 30 days from [facility]
Patient Own Insulin Pump
0 units SC .VIA PUMP
Patient Comments:
08/15/2023: Pt uses Novolog
oxycodone 30 mg tablet
30 mg PO Q12H
Patient Comments:
08/15/2023: last filled 08/05/23, 90 tabs for 30 days from [facility]
lisinopril 10 mg Tablet
10 mg PO DAILY
Patient Comments:
08/15/2023: Pt states he takes Lisinopril and Amlodipine/Benazepril, do not see a fill in the last year from Dr Zaragoza.
atorvastatin 40 mg tablet
40 mg PO DAILY
amlodipine-benazepril 5-20 mg capsule
1 cap PO DAILY
indomethacin 25 mg capsule
25 mg PO Q6H
albuterol sulfate 90 mcg/actuation HFA aerosol inhaler
2 puff INHALATION R Q4HPRN PRN (Reason: wheezing)
paroxetine HCl 40 mg tablet
40 mg PO DAILY
Anoro Ellipta 62.5-25 mcg/actuation blister with device
1 inh INHALATION R DAILY
amoxicillin-pot clavulanate 500-125 mg tablet
1 tab PO Q12H Qty: 14 0RF
Referrals:
UNKNOWN - PT DOES,NOT KNOW [Family Provider] -
Interventions
Interventions:
*Risk Screen - Suicide Last Done: 10/04/23 07:45
*General Assessment Last Done: 10/04/23 07:43
*Neglect/Abuse Screening Last Done: 10/04/23 07:43
*ED COVID-19 Vaccine History Last Done: 10/04/23 07:18
ED- Neurological Assessment Last Done: 10/04/23 07:43
ED-Skin Assessment Last Done: 10/04/23 07:43
Discharge Date and Time
Print Language: ALBANIAN
[2023-10-04] MEDS: NSS 1000 IV ×3 (07:14→20:06)
[2023-10-04 07:24] LABS: % Basophils 0.7 % (0-2); % Eosinophils 1.4 % (0-6); % Immature Granulocytes 0.3 % (0-0.5); % Lymphocytes 12.7 % (20.5-51.1); % Monocytes 8.8 % (1.7-9.3); % Neutrophils 76.1 % (42.2-75.2); Absolute Basophils 0.1 10^3/uL (0-0.2); Absolute Eosinophils 0.1 10^3/uL (0-0.7); Absolute Lymphocytes 1.2 10^3/uL (1.2-3.4); Absolute Monocytes 0.9 10^3/uL (0.1-0.6); Absolute Neutrophils 7.4 10^3/uL (1.4-6.5); Hematocrit 38.6 % (39.0-52.0); Hemoglobin 13.7 g/dL (13.0-18.0); Mean Corp Hgb Conc. 35.5 g/dL (33.0-37.0); Mean Corpuscular Hgb 31.9 pg (27.0-31.0); Mean Platelet Volume 11.3 fL (7.4-10.4); Nucleated Red Blood Cells % 0 % (-); Platelet Count 157 10^3/uL (130-400); Red Blood Cell Count 4.29 10^6/uL (4.70-6.10); Red Cell Dist. Width 12.5 % (11.5-14.5); White Blood Cell Count 9.8 10^3/uL (4.8-10.8)
[2023-10-04 07:36] LABS: Lactic Acid 2.8 mmol/L (0.7-2.0)
[2023-10-04 07:37] LABS: ALT (SGPT) 11 U/L (0-50); AST (SGOT) 23 U/L (17-59); Albumin 4.2 g/dl (3.5-5.0); Alkaline Phosphatase 101 U/L (38-126); Blood Urea Nitrogen 21 mg/dl (9-20); Calcium 9.4 mg/dl (8.4-10.2); Carbon Dioxide 34 mmol/L (22-30); Chloride 97 mmol/L (98-107); Glucose 147 mg/dl (70-99); Potassium 4.9 mmol/L (3.5-5.1); Sodium 138 mmol/L (135-145); Total Bilirubin 0.6 mg/dl (0.2-1.3); Total Protein 6.6 g/dl (6.3-8.2); eGFR > 60.00
[2023-10-04 07:54] LABS: Urine Albumin Negative (Neg - Trace); Urine Bilirubin Negative (Negative); Urine Character Clear (Clear); Urine Color Yellow; Urine Glucose Negative (Negative); Urine Ketone Trace (Negative); Urine Leukocyte Negative (Negative); Urine Nitrite Negative (Negative); Urine Occult Blood 1+ (Negative); Urine Specific Gravity 1.015 (<1.030); Urine Urobilinogen Negative (Neg - 1+)
[2023-10-04 08:07] LABS: Urine White Cell 0-2 /HPF (0-5)
[2023-10-04] MEDS: NSS 1500 ML IV (08:55)
[2023-10-04] MEDS: ZOSYN 100 IV (08:57)
--- NOTE | 2023-10-04 09:29 | HPS.HSE ---
Family Physician
-
Family Physician: NOT KNOW UNKNOWN - PT DOES
Chief Complaint
-
fever, confusion
History of Present Illness
62-year-old male with a past medical history of recurrent admissions for sepsis/pneumonia, subdural hematoma, traumatic brain injury, COPD, hypertension, bipolar disorder, chronic pain syndrome with opioid dependency, and type 2 diabetes on insulin
pump presents with high fever and confusion. History obtained from and medical records. reports that patient had a high fever starting at 4 AM today, associated with acute onset of confusion. Temperature was 104 in the ER. She denies
patient having any nausea, vomiting. Patient did mention having a headache, and abdominal discomfort.
Medical History
Past Medical History
Past Medical History: Reports Other
Additional Past Medical History:
Sepsis/Pneumonia
Chronic Pain Syndrome
DM-II on Insulin Pump
COPD
Hypertension
Bipolar Disorder
History of Subdural Hematoma
Traumatic Brain Injury
Past Surgical History: Reports Other
Additional Past Surgical History:
Cervical Fusion
Craniotomy
Bilateral shoulder surgery
Multiple back surgeries
Social History
Tobacco: Smoker (Current every day smoker. 1ppd for total of > 40 pack years.)
Alcohol: None
Drug: None
Personal:
Living: With Family
Family History
Family History: Not pertinent
Allergies / Home Medications
Allergies reflects when Allergies were last updated in [facility].
Home Medications with original date entered in [facility]
Allergy/Medication List:
Allergies
Allergy/AdvReac Type Severity Reaction Status Date / Time
No Known Allergies Allergy Verified 10/04/23 06:38
Home Medications Table - record
�Medication �Instructions �Recorded �Confirmed
gabapentin 800 mg tablet 800 mg PO TID Neurological 12/25/21 10/04/23
Condition
morphine 30 mg tablet,extended 30 mg PO Q12H Pain 12/25/21 10/04/23
release
levothyroxine 100 mcg tablet 100 mcg PO DAILY Thyroid 09/10/22 10/04/23
oxycodone 10 mg tablet 10 mg PO TID 09/10/22 10/04/23
Patient Own Insulin Pump 0 units SC .NOVOLOG VIA PUMP 06/26/23 10/04/23
Diabetes
oxycodone 30 mg tablet 30 mg PO BID Pain 07/29/23 10/04/23
amlodipine 5 mg-benazepril 20 mg 1 cap PO DAILY 08/15/23 10/04/23
capsule
atorvastatin 40 mg tablet 40 mg PO DAILY 08/15/23 10/04/23
indomethacin 25 mg capsule 25 mg PO Q6H 08/15/23 10/04/23
paroxetine HCl 40 mg tablet 40 mg PO DAILY 08/15/23 10/04/23
umeclidinium 62.5 mcg-vilanterol 1 inh inhalation R DAILY 08/15/23 10/04/23
25 mcg/actuation powdr for
inhalation (Anoro Ellipta)
diazepam 10 mg tablet 10 mg PO DAILY 10/04/23 10/04/23
diazepam 5 mg tablet 5 mg PO DAILY@1400 10/04/23 10/04/23
divalproex 500 mg tablet,extended 1,000 mg PO HS 10/04/23 10/04/23
release 24 hr
divalproex 500 mg tablet,extended 500 mg PO DAILY 10/04/23 10/04/23
release 24 hr
Review of Systems
-
A 12 point ROS was completed and negative except as noted: Yes
Physical Exam
Vital Signs
Vital Signs
Temp Pulse Resp BP Pulse Ox
99.7 F 97 11 111/63 91
10/04/23 08:59 10/04/23 09:00 10/04/23 09:00 10/04/23 09:00 10/04/23 09:00
Physical Exam
General: Other (Appears acutely ill)
HEENT: NormoCephalic, Anicteric, Moist mucous membranes and Atraumatic
Respiratory: Clear
Cardiac: S1/S2 and Regular Rhythm
GI: Soft, Non Tender, Non Distended and Normal Bowel Sounds
Musculoskeletal: No Clubbing and No Cyanosis
Skin: Warm and Dry
Neuro: Other (Confused)
Psych: Calm
Laboratory Results
-
10/04/23 07:09
10/04/23 07:09
Laboratory Results
Lactic Acid 2.8 mmol/L (0.7-2.0) H 10/04/23 07:09
Total Bilirubin 0.6 mg/dl (0.2-1.3) 10/04/23 07:09
AST 23 U/L (17-59) 10/04/23 07:09
ALT 11 U/L (0-50) 10/04/23 07:09
Alkaline Phosphatase 101 U/L (38-126) 10/04/23 07:09
Impression/Plan
-
#Fever
#Toxic metabolic encephalopathy
Chest x-ray/UA negative, covid/flu neg
WBC normal, there is a left shift, procalcitonin elevated
High fever of 104 suggest viral etiology
Due to elevation in procalcitonin, will treat with empiric antibiotics
Consult ID, trend fever and white count, follow-up on blood cultures
#Elevated lactic acid without evidence of acidosis
Resolved with IV fluids
#COPD
No evidence of exacerbation, monitor
#Benign essential hypertension
Hold home blood pressure medications secondary to soft blood pressure
#Chronic pain syndrome on chronic opioids with dependency
Will continue as mentation allows
#Type 2 diabetes on insulin pump
Consult diabetes nurse practitioner
#Hypothyroidism
Continue levothyroxine
#Anxiety/depression
Continue SSRI
#Hyperlipidemia
Continue statin
DVT prophylaxis�subcu Lovenox
Full code
Updated on phone 10/03
Total time spent to see the patient on the floor, examine the patient, review data and lab results, discuss treatment plan with patient, nursing staff around 76 minutes.
[2023-10-04] MEDS: VANCOCIN 540 MG IV (10:01)
[2023-10-04 10:31] LABS: COVID-19 Antigen Negative (Negative)
[2023-10-04 11:19] LABS: Glucose - Point of Care 184 mg/dl (70-99)
[2023-10-04 11:46] LABS: Procalcitonin 0.56 ng/ml (0.0-0.25)
[2023-10-04] MEDS: DEPACON 55 MG IV (12:40)
[2023-10-04 12:52] LABS: Lactic Acid 1.5 mmol/L (0.7-2.0)
--- NOTE | 2023-10-04 13:24 | CON.ID ---
Consultation
-
Date/Time Consultation Requested: 10/04/2023 09:45
Date/Time Consultation Performed: 10/04/2023 1300
Requesting Provider: Dr. Thomas
Performing Provider: Dr. Jones
Reason for Consultation: Encephalopathy
Chief Complaint / Past History
History of Present Illness
Lv bertrand is a 62-year-old male being evaluated at the request of Dr. Thomas regarding encephalopathy. History is obtained from chart review along with patient interview.
The patient arrived at [facility] ER earlier this morning secondary to confusion and weakness. According to reviewed notes the patient developed a fever at approximately 4 AM this morning associated with confusion. Patient was brought to
the hospital where he was found to be febrile to 104 degrees. Workup in the ER did not reveal leukocytosis, but the patient did have a mild left shift. He has been started on empiric antibiotics, and Infectious Diseases is asked to comment upon
further antimicrobial therapy.
At present, the patient denies any headache. He denies any chest pain or shortness of breath. He denies any abdominal pain, nausea, vomiting or diarrhea.
Past History
Additional Past Medical History:
DM II with insulin pump
COPD
Chronic pain/opiate dependence
HTN
Dyslipidemia
Bipolar disorder
Additional Past Surgical History:
Craniotomy for subdural hematoma
Allergy History:
No Known Allergies Allergy (Verified 10/04/23 06:38)
Medications Reviewed: Yes
Current Antibiotics:
Zosyn 3.375 g IV every 6 hours
Vancomycin (dosing per pharmacy
Social History
Tobacco: Smoker
Alcohol: None
Drug: None
Personal:
Living: With Family
Employment: Employed
Family History
Family History: Not Pertinent
Review of Systems
Vital Signs
Temp Pulse Resp BP Pulse Ox
100 F 82 12 118/63 97
10/04/23 11:53 10/04/23 11:53 10/04/23 11:53 10/04/23 11:53 10/04/23 11:53
Physical Exam
Physical Exam
Constitutional: Comfortable, Chronically Ill and Non-toxic
Head: Normocephalic
Eyes: Pupils Equal, Pupils Round, No Conjunctival Hemorrhage and Sclera Anicteric
Oral: No Thrush and No Ulcers
Cardiovascular: Regular Rate and S1/S2; Negative S3/S4
Pulmonary: Clear; Negative Wheezes, Rales or Rhonchi
Gastrointestinal: Soft, Non Tender, Non Distended, Normal Bowel Sounds, No Rebound and No Guarding
Genito-Urinary: Soriano and Clear Urine; Negative Turbid Urine or Hematuria
Extremities: Negative Edema, Cyanosis or Erythema
Musculoskeletal: Negative Joint Swelling or Joint Effusion
Neurological: Awake (But somnolent), Oriented and Other; Negative Meningeal Signs (No nuchal rigidity)
Psychological: Calm
.
Lab / Diagnostic Study Results
10/04/23 07:09
10/04/23 07:09
Abs Immat Gran (auto) 0.0 10^3/uL (0-0.05) 10/04/23 07:09
Absolute Neuts (auto) 7.4 10^3/uL (1.4-6.5) H 10/04/23 07:09
Absolute Lymphs (auto) 1.2 10^3/uL (1.2-3.4) 10/04/23 07:09
Absolute Monos (auto) 0.9 10^3/uL (0.1-0.6) H 10/04/23 07:09
Absolute Basos (auto) 0.1 10^3/uL (0-0.2) 10/04/23 07:09
Immature Gran % 0.3 % (0-0.5) 10/04/23 07:09
Neutrophils % 76.1 % (42.2-75.2) H 10/04/23 07:09
Lymphocytes % 12.7 % (20.5-51.1) L 10/04/23 07:09
Monocytes % 8.8 % (1.7-9.3) 10/04/23 07:09
Eosinophils % 1.4 % (0-6) 10/04/23 07:09
Basophils % 0.7 % (0-2) 10/04/23 07:09
Lactic Acid 1.5 mmol/L (0.7-2.0) 10/04/23 12:31
Procalcitonin 0.56 ng/ml (0.0-0.25) H 10/04/23 09:57
Ur Squamous Epith Cells 3-5 /LPF (Few) 10/04/23 07:19
Microbiology Results
Micro:
10/04/23 09:57 Influenza Types A & B (KIERSTEN) - Final
Nasal Swab Negative for Influenza A & B, NAAT
Negative results must be combined with clinical observations
and patient history.
Nucleic Acid Amplification test (NAAT)performed on the
[employer] NOW platform.
10/04/23 07:09 Blood Culture - Pending
Blood/Venous
Imaging:
10/04/2023 CXR (portable): No focal parenchymal consolidation to suggest bronchopneumonia. Previously Providencia with pulmonary interstitial noted. Please see full dictation for additional detail.
Assessment / Plan
Acute encephalopathy
Fever
- of note, ER temp recorded a rectal temp.
Normal white count with left shift
DM II with insulin pump
COPD
Chronic pain/opiate dependence
HTN
Dyslipidemia
Bipolar disorder
Recommendations:
Continue with empiric antibiotics for now. Follow vanco levels.
Blood cultures currently pending.
Monitor white count and temperature curve.
Continue with supportive measures.
Will continue to follow with you.
[2023-10-04] MEDS: VALIUM PO (14:01)
--- NOTE | 2023-10-04 14:18 | PHA.VAN.IN ---
Assessment
- Assessment
Renal Function: Appears elevated from baseline
Maximum Temperature: 104.5
Minimum Temperature: 99.7
Concomitant Antimicrobials: Piperacillin-tazobactam
- Previous Dosing Experience
Previous Regimen: Vanc 1000mg IV q12h
Date of Regimen: 08/2023
Patient's SCR is: Elevated compared to previous dosing experience
Patient's weight is: Similar to previous dosing experience (Vanco DCED before levels drawn)
AUC Dosing Plan
- Dosing Variables
Dosing Weight (kg): 85
Dosing CrCl (ml/min): 57
Vd coefficient (L/kg): 0.7
- Empiric Dosing
Initial / Loading Dose: Vanc 2000mg IV
Maintenance Regimen: Vanc 1500mg IV [id number] 10/04 at 0600
Estimated AUC (mcg*h/mL): 506
Estimated Peak (mcg*h/mL): 35.4
Estimated Trough (mcg/ml): 11.1
Estimated Half Life (H): 13.4
- Monitoring
No levels ordered at this time: Consider levels after 10/06 0600 dose
Pharmacokinetics Vancomycin I
- -
Patient Age: 62
Patient Sex: Male
Vancomycin Day #: 1
Indication: Other
Requesting Provider: Christian Thomas
Height / Weight:
Height 5 ft 8 in
Actual Weight 84.964 kg
IBW in k.4
Adjusted BW in k
- Vital Signs / Lab Results
Temp Pulse Resp BP Pulse Ox
100 F 82 12 118/63 97
10/04/23 11:53 10/04/23 11:53 10/04/23 11:53 10/04/23 11:53 10/04/23 11:53
Lab Results - Hematology
10/04/23
07:09
WBC 9.8
Lab Results - Chemistry
10/04/23
07:09
BUN 21 H
Creatinine 1.3
Albumin 4.2
10/04/23 10/04/23 10/04/23
07:09 10:43 12:31
Lactic Acid 2.8 H Cancelled 1.5
Lab Results - Urine
10/04/23
07:19
Urine Nitrite (Reflex) Negative
Leukocyte Esterase Rfl Negative
Urine WBC (Reflex) 0-2
Ur Squamous Epith Cells 3-5
Microbiology Results
10/04/23 09:57 Influenza Types A & B (KIERSTEN) - Final
Nasal Swab Negative for Influenza A & B, NAAT
Negative results must be combined with clinical observations
and patient history.
Nucleic Acid Amplification test (NAAT)performed on the
[employer] NOW platform.
[2023-10-04] MEDS: ZOSYN 50 IV ×2 (16:00→20:04)
[2023-10-04] MEDS: NEURONTIN PO (16:16)
[2023-10-04] MEDS: ROXICODONE PO (16:16)
[2023-10-04] MEDS: ROXICODONE 10 MG PO ×2 (16:17→22:08)
[2023-10-04 17:10] LABS: Glucose - Point of Care 190 mg/dl (70-99)
[2023-10-04] MEDS: LOVENOX 40 MG SC (17:35)
[2023-10-04] MEDS: INDOCIN 25 MG PO ×2 (17:35→23:14)
[2023-10-04] MEDS: NOVOLOG FLEXPEN-MODERATE RESISTANCE 1 UNITS SC (17:52)
[2023-10-04] MEDS: MS CONTIN (EXTENDED RELEASE) 30 MG PO (20:03)
[2023-10-04 21:33] LABS: Glucose - Point of Care 252 mg/dl (70-99)
[2023-10-04] MEDS: DEPACON 60 MG IV (22:07)
[2023-10-04] MEDS: NEURONTIN 800 MG PO (22:08)
[2023-10-05] MEDS: ZOSYN 50 IV ×2 (02:13→08:15)
[2023-10-05 03:24] VITALS: BP 129/58
[2023-10-05] MEDS: VANCOCIN 300 ML IV (04:55)
[2023-10-05] MEDS: VANCOCIN 300 MG IV (04:55)
[2023-10-05] MEDS: ROXICODONE 30 MG PO ×2 (04:55→15:46)
[2023-10-05 06:05] LABS: Hemoglobin 11.9 g/dL (13.0-18.0); Mean Corpuscular Hgb 32.4 pg (27.0-31.0); Mean Corpuscular Volume 92.6 fL (80.0-94.0); Mean Platelet Volume 11.5 fL (7.4-10.4); Platelet Count 119 10^3/uL (130-400); Red Blood Cell Count 3.67 10^6/uL (4.70-6.10); Red Cell Dist. Width 12.7 % (11.5-14.5); White Blood Cell Count 10.1 10^3/uL (4.8-10.8)
[2023-10-05] MEDS: INDOCIN 25 MG PO ×4 (06:08→23:29)
[2023-10-05] MEDS: SYNTHROID 100 MCG PO (06:08)
[2023-10-05 06:29] LABS: Blood Urea Nitrogen 18 mg/dl (9-20); Calcium 8.6 mg/dl (8.4-10.2); Carbon Dioxide 30 mmol/L (22-30); Chloride 104 mmol/L (98-107); Estimated Creatinine Clearance 82 ml/min; Glucose 135 mg/dl (70-99); Potassium 4.2 mmol/L (3.5-5.1); Sodium 137 mmol/L (135-145); eGFR > 60.00
[2023-10-05 07:10] VITALS: BP 154/66
[2023-10-05 07:41] LABS: Glucose - Point of Care 177 mg/dl (70-99)
[2023-10-05] MEDS: NOVOLOG FLEXPEN-MODERATE RESISTANCE 1 UNITS SC (08:13)
[2023-10-05] MEDS: PAXIL 40 MG PO (08:14)
[2023-10-05] MEDS: MS CONTIN (EXTENDED RELEASE) 30 MG PO ×2 (08:14→20:41)
[2023-10-05] MEDS: NEURONTIN 800 MG PO ×3 (08:14→22:45)
[2023-10-05] MEDS: LIPITOR 40 MG PO (08:14)
[2023-10-05] MEDS: VALIUM 10 MG PO (08:14)
[2023-10-05] MEDS: DEPACON 55 MG IV (08:15)
--- NOTE | 2023-10-05 08:25 | PN.DE.MGMTRT ---
Insulin Management
- -
10/05/2023: Diabetes Management Consult:
This is a 62 year old male presented with high fever and confusion.
PMH: COPD, T1DM, Smoking, bipolar disorder, chronic pain on chronic narcotics, admitted for TME/Sepsis due to b/l pneumonia -suspect recurrent aspiration pneumonia. Prior to admission using Medtronic insulin pump with NovoLog insulin, Quick set
infusion set. He is also using the Saqib and sees Endo Dr. Berger, for ongoing diabetes care. Last A1C 6.4% on 08/16/2023, Cr 0.9, eGFR >60
Pt awake, A/O x3, sitting up in bed, able to participate in discussion regarding diabetes management.
Reports that his took his insulin pump home. He is hoping for discharge home tomorrow.
His current diabetes regimen includes low corrective insulin only. HS Glucose trended up to 252, fasting 131 (V), 177 POC.
Pt has been started on a diet-2000 aurora ADA diet, states he ate all his breakfast. Will change diet to 1800 ADA diet
Will start basal bolus insulin. Give Lantus 12 units NOW and in AM thereafter. Add NovoLog 4 units AC and cont low corrective insulin with meals
Pt may resume his insulin pump up on discharge. Discussed with Pt's Nurse at bedside
Diabetes History
- -
Type of Diabetes: 2 requiring insulin
Pre-Admission Diabetes Regimen
10/05/23
05:00
Creatinine 0.9
Insulin Pump Settings
IP Diabetes Regimen
10/04/23 10/04/23 10/04/23
11:18 17:08 21:30
Glucose
POC Glucose 184 H 190 H 252 H
10/05/23 10/05/23
05:00 07:36
Glucose 135 H
POC Glucose 177 H
Meal type: Dinner
Amount consumed: 95%
Patient Education
[2023-10-05] MEDS: NSS 1000 IV (09:30)
--- NOTE | 2023-10-05 09:40 | PHA.VAN.FU ---
Vancomycin Assessment / Plan
- Assessment
Renal Function: SCR Decreasing
WBC's are: WNL
Concomitant Antimicrobials: piperacillin/tazobactam
- Dosing Plan
Adjust Regimen to: Vanc 1000mg Q12H starting at 1800
New Regimen Predicts: AUC (481), Peak (28.9), Trough (13)
- Monitoring Plan
No level(s) ordered at this time: consider levels in next few days
- Follow Up
Pharmacy will continue to follow.
Vancomycin Follow UP
- -
Patient Age: 62
Patient Sex: Male
Vancomycin Day #: 2
Indication: Other
Requesting Provider: Christian Thomas / Karen
Pertinent Antimicrobial Allergies:
NKDA
Height / Weight:
Height 5 ft 8 in
Actual Weight 84.964 kg
IBW in k.4
Adjusted BW in k
Pertinent Past Medical History: DM (insulin pump)
- Vital Signs / Lab Results
Temp Pulse Resp BP Pulse Ox
96.4 F L 47 18 154/66 91
10/05/23 07:10 10/05/23 07:10 10/05/23 07:10 10/05/23 07:10 10/05/23 07:10
Lab Results - Hematology
10/04/23 10/05/23
07:09 05:00
WBC 9.8 10.1
Lab Results - Chemistry
10/04/23 10/05/23
07:09 05:00
BUN 21 H 18
Creatinine 1.3 0.9
Estimated Creat Clear 82
Albumin 4.2
10/04/23 10/04/23 10/04/23
07:09 10:43 12:31
Lactic Acid 2.8 H Cancelled 1.5
Microbiology Results
10/04/23 07:09 Blood Culture - Preliminary
Blood/Venous No Growth in 24 hours- Final report to follow
10/04/23 09:57 Influenza Types A & B (KIERSTEN) - Final
Nasal Swab Negative for Influenza A & B, NAAT
Negative results must be combined with clinical observations
and patient history.
Nucleic Acid Amplification test (NAAT)performed on the
[employer] platform.
[2023-10-05] MEDS: ROXICODONE 10 MG PO ×3 (09:55→22:45)
--- NOTE | 2023-10-05 10:03 | W.PN.ID1 ---
Date of Service
Date of Service: October 05, 2023
Today's Communication
Discontinue antibiotics and observe.
Assessment / Plan
Acute encephalopathy
Fever
- of note, ER temp recorded a rectal temp.
- No fevers since admission
Normal white count with left shift
DM II with insulin pump
COPD
Chronic pain/opiate dependence
HTN
Dyslipidemia
Bipolar disorder
Recommendations:
Cultures negative thus far.
White count remains normal.
Blood cultures currently pending, but no growth to date.
At present, would discontinue further antibiotics and observe.
����������������������������������������������������������
Chief Complaint
-: Other (Encephalopathy)
Subjective / Review of Systems
Patient seen and examined. Reports feeling improved today.
Review of Systems: No Fever and No Chills
Vital Signs / Physical Exam
Vital Signs
Vital Signs
Temp Pulse Resp BP Pulse Ox
96.4 F L 47 18 154/66 91
10/05/23 07:10 10/05/23 07:10 10/05/23 07:10 10/05/23 07:10 10/05/23 07:10
Physical Exam
Constitutional: No Acute Distress, Comfortable and Non-toxic
Eyes: Sclera Anicteric
Cardiovascular: S1/S2; Negative S3/S4
Pulmonary: Clear and Non Labored; Negative Wheezes or Rales
Gastrointestinal: Soft, Non Tender and Non Distended
Extremities: Negative Edema or Cyanosis
Neurological: Awake and Alert
Psychological: Calm
Objective Data
Lab Data
Lab Results
10/05/23 05:00
10/05/23 05:00
Estimated Creat Clear 82 ml/min 10/05/23 05:00
Lactic Acid 1.5 mmol/L (0.7-2.0) 10/04/23 12:31
Total Bilirubin 0.6 mg/dl (0.2-1.3) 10/04/23 07:09
AST 23 U/L (17-59) 10/04/23 07:09
ALT 11 U/L (0-50) 10/04/23 07:09
Alkaline Phosphatase 101 U/L (38-126) 10/04/23 07:09
Most recent labs reviewed.
Micro Results:
10/04/23 07:09 Blood Culture - Preliminary
Blood/Venous No Growth in 24 hours- Final report to follow
10/04/23 09:57 Influenza Types A & B (KIERSTEN) - Final
Nasal Swab Negative for Influenza A & B, NAAT
Negative results must be combined with clinical observations
and patient history.
Nucleic Acid Amplification test (NAAT)performed on the
[employer] platform.
Imaging:
10/04/2023 CXR (portable): No focal parenchymal consolidation to suggest bronchopneumonia. Previously Providencia with pulmonary interstitial noted. Please see full dictation for additional detail.
[2023-10-05 11:20] VITALS: BP 150/65
--- NOTE | 2023-10-05 11:20 | W.PN.HOSP.TC ---
Today's Communication/Plan
-
Observe off antibiotics
Pulmonary consult
Assessment / Plan
Assessment / Plan
Gen-AAOx3, NAD
HEENT-NC, AT, anicteric, clear oral mm
Neck-supple
CV-reg, no M, +S1/S2
Lungs-clear B/L
Abd-soft, NT, ND
Ext-no edema
Musculoskeletal-no cyanosis, clubbing
Skin-warm and dry
Neuro-grossly non-focal
Psych-calm, cooperative
Acute TME -likely due to fever. Symptoms resolved. Mental status back to baseline.
Recurrent febrile illness -has been admitted to the hospital on a monthly basis for evaluation of fever. Etiology unclear but differential diagnosis includes infection versus malignancy versus inflammatory process.
CT chest with IV contrast from 08/15/2023 showed mild mediastinal and bilateral hilar lymphadenopathy, moderate number of centrilobular nodular opacities throughout the right lung.
Infectious disease input noted, now off antibiotics. White blood cell count normal. Blood cultures negative so far.
Will consult pulmonary. Patient states he sees a cosmetic counselor in [facility].
COPD without exacerbation
DM2 without hyperglycemia -uses insulin pump.
Hypothyroidism -on levothyroxine.
Hyperlipidemia -on atorvastatin.
Anxiety/depression -on divalproex, diazepam, paroxetine.
Chronic pain syndrome/chronic opiate dependence
Full code
Anticipated Discharge: Within 24 hours
Subjective/Interval History
-
Date of Service: October 05, 2023
Patient seen and examined. No complaints. Asking about discharge.
Objective Data
-
Labs:
Laboratory Results
10/05/23
05:00
WBC 10.1
Hgb 11.9 L
Hct 34.0 L
Plt Count 119 L D
Sodium 137
Potassium 4.2
Chloride 104
Carbon Dioxide 30
BUN 18
Creatinine 0.9
Glucose 135 H
Calcium 8.6
Vital Signs:
Vital Signs
Temp Pulse Resp BP Pulse Ox
96.4 F L 47 18 154/66 91
10/05/23 07:10 10/05/23 07:10 10/05/23 07:10 10/05/23 07:10 10/05/23 07:10
I&O
10/04/23 10/05/23 10/06/23
06:59 06:59 06:59
Intake Total 0 / 0
Output Total 2049
Balance 480 / 480
Review of Systems
-
History Source: Patient
All other systems: Reviewed and negative
[2023-10-05 11:38] LABS: Glucose - Point of Care 248 mg/dl (70-99)
[2023-10-05] MEDS: LANTUS 0.12 UNITS SC (11:59)
[2023-10-05] MEDS: NOVOLOG FLEXPEN 4 UNITS SC ×2 (12:00→17:33)
[2023-10-05] MEDS: NOVOLOG FLEXPEN-MODERATE RESISTANCE 3 UNITS SC (12:00)
--- NOTE | 2023-10-05 12:10 | CON.PUL ---
Consultation
Consultation Request
Date/Time Consultation Requested: 10/05/23
Date/Time Consultation Performed: 10/05/23
Performing Provider: Keshia
Reason for Consultation: Fever, SOB
Medical History
-
History of Present Illness:
Patient is a 62-year-old male with a past medical history of recurrent admissions for sepsis/pneumonia, subdural hematoma, traumatic brain injury, COPD, hypertension, bipolar disorder, chronic pain syndrome with opioid dependency, and type 2
diabetes on insulin pump presents with high fever and change in MS. T Max in ER was 104.5F but has not had fever since admission. Patient did mention having a headache, and abdominal discomfort. He feels these symptoms have since improved. He
notes ongoing SOB/cough at times.
Prior CT chest showing nodules, has been treated for PNA for this. Repeat CXR this admission does not show significant infiltrate.
Had been evaluated by pulmonary as OP at [facility]. No records of these visits/work up.
Past Medical History
Past Medical History: Other (see below)
Social History
Tobacco: Former Smoker
Alcohol: None
Drug: None
Family History
Family History: Reviewed & Not Pertinent
Allergies / Home Medications
Allergies
Allergy/AdvReac Type Severity Reaction Status Date / Time
No Known Allergies Allergy Verified 10/04/23 06:38
Home Medications
�Medication �Instructions �Recorded �Confirmed �Last Taken �Type
gabapentin 800 mg tablet 800 mg PO TID Neurological 12/25/21 10/04/23 10/03/23 History
Condition
morphine 30 mg tablet,extended 30 mg PO Q12H Pain 12/25/21 10/04/23 10/03/23 History
release
levothyroxine 100 mcg tablet 100 mcg PO DAILY Thyroid 09/10/22 10/04/23 10/03/23 History
oxycodone 10 mg tablet 10 mg PO TID Pain 09/10/22 10/04/23 10/03/23 History
Patient Own Insulin Pump 0 units SC .NOVOLOG VIA PUMP 06/26/23 10/04/23 Unknown History
Diabetes
oxycodone 30 mg tablet 30 mg PO BID Pain 07/29/23 10/04/23 10/03/23 History
amlodipine 5 mg-benazepril 20 mg 1 cap PO DAILY Blood Pressure 08/15/23 10/04/23 Unknown History
capsule
atorvastatin 40 mg tablet 40 mg PO DAILY High Cholesterol 08/15/23 10/04/23 Unknown History
indomethacin 25 mg capsule 25 mg PO Q6H ANTIINFLAMMATORY 08/15/23 10/04/23 10/03/23 History
paroxetine HCl 40 mg tablet 40 mg PO DAILY Mental 08/15/23 10/04/23 10/03/23 History
Health/Anxiety
umeclidinium 62.5 mcg-vilanterol 1 inh inhalation R DAILY 08/15/23 10/04/23 Unknown History
25 mcg/actuation powdr for Lung/Breathing Issues
inhalation (Anoro Ellipta)
diazepam 10 mg tablet 10 mg PO DAILY ANTIANXIETY 10/04/23 10/04/23 10/03/23 History
diazepam 5 mg tablet 5 mg PO DAILY@1400 ANTIANXIETY 10/04/23 10/04/23 10/03/23 History
divalproex 500 mg tablet,extended 1,000 mg PO HS Seizures 10/04/23 10/04/23 10/03/23 History
release 24 hr
divalproex 500 mg tablet,extended 500 mg PO DAILY Seizures 10/04/23 10/04/23 10/03/23 History
release 24 hr
Review of Systems
-
History Source: Patient
All other systems: Negative unless noted
Vitals / Labs / Diagnostic Testing
Vital Signs
Temp Pulse Resp BP Pulse Ox
96.4 F L 43 18 154/66 91
10/05/23 07:10 10/05/23 11:52 10/05/23 07:10 10/05/23 07:10 10/05/23 07:10
Lab Data
10/05/23 05:00
10/05/23 05:00
Microbiology
10/04/23 07:09 Blood/Venous Blood Culture - Preliminary
No Growth in 24 hours- Final report to follow
10/04/23 09:57 Nasal Swab Influenza Types A & B (KIERSTEN) - Final
Negative for Influenza A & B, NAAT
Negative results must be combined with clinical observations
and patient history.
Nucleic Acid Amplification test (NAAT)performed on the
[employer] platform.
Diagnostic Testing:
Physical Exam
-
HEENT: Normocephalic, Anicteric and Moist Mucous Membranes
Cardiovascular: S1/S2 and Regular Rhythm
Respiratory: Clear and Non-Labored Respirations
GI: Soft, Non Distended and Non Tender
Neurology: Awake, Alert, Oriented, AO x 3 and No Motor Deficits
Skin: Warm, Dry and Good Color
General: Comfortable and Other (NAD)
Assessment
-
Patient is a 62-year-old male with a past medical history of recurrent admissions for sepsis/pneumonia, subdural hematoma, traumatic brain injury, COPD, hypertension, bipolar disorder, chronic pain syndrome with opioid dependency, and type 2
diabetes on insulin pump presents with high fever and change in MS. T Max in ER was 104.5F but has not had fever since admission. Patient did mention having a headache, and abdominal discomfort. He feels these symptoms have since improved. He
notes ongoing SOB/cough at times. Prior CT chest showing nodules, has been treated for PNA for this. Repeat CXR this admission does not show significant infiltrate. We are consulted for eval.
Fever
Change in MS
Suspected infection, treated for pneumonia x 2 recently
Pulmonary nodules
SOB/cough
SHIPMAN
Abd pain
Conditions present prior admission:
Adm 12-11 to 14 '23: CAP, sputum cx Pseudo fluorescens putrida, d/c on cefpodoxime
Adm May 2022: pneumonia, mild event
Hypertension
History of pneumonia 12/2021
Chronic pain syndrome opiate dependent
Depression/bipolar disorder
Diabetes mellitus type 1 on insulin pump
COPD, on Symbicort-unknown PFTs
Smoker since age 14
Plan
Currently 97% on RA
Fever on adm, afebrile since admission
Clinically improved off empiric atbs
ID following, observation for now
Reports he follows with pulm at [facility], being followed for 'a lung nodule and scars'
Unfortunately no prior chest CTs at OSH for comparison, on our CTs he does have pulmonary nodules
Has seen Dr Tomas for PFTs, unclear work up done as OP thus far
Sputum cx negative in past
Repeat culture pending, non productive
Question if need for bronchoscopy at this time, if remains afebrile will discuss case with ID
Consideration for LP if SHIPMAN/confusion ongoing
COPD on anoro, symbicort and albuterol HFA, not on home O2
Currently stable on RA
Unfortunately continues smoking: advised to quit
Continue inpatient olodaterol, spiriva, prn DNs
RT reports marginal compliance with above inpatient regimen, patient advised to comply
Keep asp precs
Speech eval
Continue rest of supportive care
D/w Mr Torres and RN
We will follow
Diagnostic Data
Chest CT s/c 03-19-23: no comparison chest CT but abd CT Feb 23 did have a 6 mm RLL posterior nodule which appears more dense, a LLL faint nodule is now gone and another RLL density has improved
Recent films also show multiple R sided nodules in UL/ML/LL and an area of emphysema in RUL. No gross MLAD in a noncontrasted study
CT Chest 06/26/23- 1. Scattered but diffuse centrilobular groundglass nodules scattered throughout the right lung with sparing of the left lung. Similar but more pronounced findings seen on the prior CT from 03/19/2023. Findings suspicious for
infectious or inflammatory process such as pneumonitis or bronchial pneumonia.
2. Couple of more isolated appearing nodules, including a 6 mm nodule within the posterior lateral right lower lobe. There is also a 3 mm nodule within the anterior left lower lobe. The larger nodule was present on the prior CT from 03/19/2023.
Patient referred to the pulmonary nodule advisory Board for appropriate follow-up.
3. No definite inflammatory process seen within the abdomen or pelvis.
4. Moderate colonic stool burden. Scattered sigmoid diverticulosis.
5. Posterior lumbosacral fusion with grade [address] Chest 08/15/23- . Moderate number of centrilobular nodular opacities throughout the right lung which are mostly ground-glass opacities and similar in appearance to 06/26/2023 with some of the opacities increasing in size and others decreasing in
size. Diagnostic possibilities are (1) MULTIFOCAL INFECTION with atypical infection (possibly fungal infection or septic emboli) a possibility, (2) an asymmetric inflammatory pneumonitis (less likely), or (3) less likely pulmonary malignancy.
2. Mild to moderate emphysema in the posterior aspect of the right lung apex.
3. Mild mediastinal and bilateral hilar lymphadenopathy.
CXR 03-19-23 c/w 02-23-23: new nodular entities in R infrahilar area and base
CXR -, c/w below, no gross but subtle basilar infiltrates
CXR - c/w Dec. Suspected basilar infiltrates
CXR 10/04/23: No focal parenchymal consolidation to suggest bronchopneumonia. Slight prominence of pulmonary interstitium suspected which could represent an acute interstitial process such as edema.
TTE 05-16-22 CONCLUSIONS: Technically difficult study - Definity used. Normal left ventricular size, wall thickness and systolic function. No regional wall motion abnormalities are seen. LV ejection fraction is 60-65% by Mireles's method of
discs. Normal diastolic function.
--- NOTE | 2023-10-05 14:19 | CON.CAR ---
Addendum entered and electronically signed by Benjamin Hinton MD 10/05/23 15:46:
I saw and examined the patient.
The COMMUNITY DEVELOPMENT COORDINATOR or PA's note was reviewed and I agree with the note.
Comment: General: Well developed, well nourished in NAD.
Neck: Supple, no JVD, HJR, carotids +2 B/L, no bruits bilaterally.
Heart: Non displaced PMI, RRR, no murmurs, No S3, S4, no rubs.
Lungs: Clear to auscultation bilaterally, no wheeze, rhonchi, rubs bilaterally,
normal expiratory phase.
Extremities: No clubbing, cyanosis or edema bilaterally.
Neuro: Grossly nonfocal, awake, alert and oriented x3.
Lv has h/o htn, dm type, hyperlipidemia, Copd, bipolar disorder, traumatic brain injury. He was admitted with fever and change in mental status. Cardiology consulted for bradycardia.
reviewed telemetry. SB in the 40's at time. Asymptomatic. No treatment needed. Stable cardiology status for d/c.
Original Note:
Consultation
Consultation Request
Date/Time Consultation Requested: 10/05/2023
Date/Time Consultation Performed: 10/05/2023
Requesting Provider: Dr. Kelsey
Performing Provider: Terri Castle PA-C for Dr. Benjamin Hinton
Reason for Consultation: Bradycardia
Medical History
-
History of Present Illness:
Patient is a 62-year-old with a past medical history of recurrent admissions for sepsis/pneumonia, subdural hematoma, traumatic brain injury, COPD/long-term tobacco abuse, hypertension, hyperlipidemia, bipolar disorder, chronic pain syndrome with
opioid dependency, and type 2 diabetes on insulin pump who presented 10/04/2023 with high fever (T max 104.5 on admission) and change in MS. He also complained of headache and abdominal discomfort. He was COVID and flu negative. Initially he was
placed on IV antibiotics however this was later discontinued by ID. Blood cultures negative x 24 hours. White count remains normal. Cardiology being asked to see patient due to concerns of bradycardia with heart rates in the 40s and 50s bpm.
Patient reports he notes occasional 'fluttering' in his chest but denies chest pain or shortness of breath. He reports he is somewhat sedentary due to multiple orthopedic issues but can perform some light chores around the house like doing the
laundry. He reports rare dizziness and lightheadedness and denies a history of syncope.
He has seen Dr. Raphael Victoria official greeter but denies a history of arrhythmia or heart disease. He reports he has a follow-up with cardiology on 10/22/2023.
PMH:
Hypertension
Hyperlipidemia
Diabetes mellitus type 1 on insulin pump
COPD, on Symbicort
Bipolar disorder
History of pneumonia 12/2021
Chronic pain syndrome opiate dependent
Depression/bipolar disorder
Traumatic brain injury with subdural hematoma and craniotomy
Smoker since age 14
Multiple orthopedic surgeries
Past Medical History
Past Medical History: Other (See HPI)
Past Surgical History: Orthopedic (Cervical fusion, multiple back surgeries, bilateral shoulder surgery, bilateral ankle surgery) and Other (Craniotomy)
Social History
Tobacco: Smoker (1 pack a day for at least 40 years)
Alcohol: None
Drug: Narcotics (Chronic pain/opioid dependence)
Personal:
Living: With Family
Employment: Disabled
Family History
Family History: CAD (Mother had coronary artery disease)
Allergies / Home Medications
Allergy/AdvReac Type Severity Reaction Status Date / Time
No Known Allergies Allergy Verified 10/04/23 06:38
�Medication �Instructions �Recorded �Confirmed �Type
gabapentin 800 mg tablet 800 mg PO TID Neurological 12/25/21 10/04/23 History
Condition
morphine 30 mg tablet,extended 30 mg PO Q12H Pain 12/25/21 10/04/23 History
release
levothyroxine 100 mcg tablet 100 mcg PO DAILY Thyroid 09/10/22 10/04/23 History
oxycodone 10 mg tablet 10 mg PO TID Pain 09/10/22 10/04/23 History
Patient Own Insulin Pump 0 units SC .NOVOLOG VIA PUMP 06/26/23 10/04/23 History
Diabetes
oxycodone 30 mg tablet 30 mg PO BID Pain 07/29/23 10/04/23 History
amlodipine 5 mg-benazepril 20 mg 1 cap PO DAILY Blood Pressure 08/15/23 10/04/23 History
capsule
atorvastatin 40 mg tablet 40 mg PO DAILY High Cholesterol 08/15/23 10/04/23 History
indomethacin 25 mg capsule 25 mg PO Q6H ANTIINFLAMMATORY 08/15/23 10/04/23 History
paroxetine HCl 40 mg tablet 40 mg PO DAILY Mental 08/15/23 10/04/23 History
Health/Anxiety
umeclidinium 62.5 mcg-vilanterol 1 inh inhalation R DAILY 08/15/23 10/04/23 History
25 mcg/actuation powdr for Lung/Breathing Issues
inhalation (Anoro Ellipta)
diazepam 10 mg tablet 10 mg PO DAILY ANTIANXIETY 10/04/23 10/04/23 History
diazepam 5 mg tablet 5 mg PO DAILY@1400 ANTIANXIETY 10/04/23 10/04/23 History
divalproex 500 mg tablet,extended 1,000 mg PO HS Seizures 10/04/23 10/04/23 History
release 24 hr
divalproex 500 mg tablet,extended 500 mg PO DAILY Seizures 10/04/23 10/04/23 History
release 24 hr
Review of Systems
-
History Source: Patient
All other systems: Negative unless noted
Physical Exam
Vital Signs
Temp Pulse Resp BP Pulse Ox
96.4 F L 43 18 154/66 91
10/05/23 07:10 10/05/23 11:52 10/05/23 07:10 10/05/23 07:10 10/05/23 07:10
GEN: No distress, awake, Ox3
HEENT: supple, anicteric, mmm
LUNGS: CTA, no wheezes/rales
CV: Reg, S1/S2, no murmur, rub or gallop
ABD: soft, BS+, NT/ND
EXT: No edema, clubbing or cyanosis
NEURO: Gross non-focal
SKIN: No rash, warm, dry, pink
Lab Results
10/05/23 05:00
10/05/23 05:00
Impression / Plan
-
Outpatient official greeter: Dr. Raphael Victoria
Impression:
Presented 10/04/2023 with fever, altered mental status
Suspected infection
Pulmonary nodules
SOB/cough
SHIPMAN
Abd pain
Bradycardia
Hypertension
Hyperlipidemia
Diabetes mellitus type 1 on insulin pump
COPD, on Symbicort
Bipolar disorder
History of pneumonia 12/2021
Chronic pain syndrome opiate dependent
Depression/bipolar disorder
Traumatic brain injury with subdural hematoma and craniotomy
Smoker since age 14
Multiple orthopedic surgeries
Echo 05/16/2022 (TDS): EF 60 to 65% with no significant valvular disease
Plan:
-Presented 10/04/2023 with fever, altered mental status. Initially placed on IV antibiotics however this has been discontinued. He was COVID and flu negative. Blood cultures no growth x 24 hours.
-Asymptomatic bradycardia noted on telemetry with heart rates predominantly in the 50s and 60s however heart rates can drop into the 40s, mostly during sleep.
-Suspect bradycardia exacerbated by chronic pain medication and possible obstructive sleep apnea.
-Check TSH
-Would avoid AV rajiv blocking agents
-He had a normal echo in May 2022.
-Consider outpatient clinical research monitor to assess heart rate and rhythm with normal activities. Patient has outpatient cardiology follow up scheduled for 10/22/2023
-No intervention required at this time. Patient does not qualify for pacemaker implant.
Records requested from [facility].
HPI 10/05/2023:
Patient is a 62-year-old with a past medical history of recurrent admissions for sepsis/pneumonia, subdural hematoma, traumatic brain injury, COPD/long-term tobacco abuse, hypertension, hyperlipidemia, bipolar disorder, chronic pain syndrome with
opioid dependency, and type 2 diabetes on insulin pump who presented 10/04/2023 with high fever (T max 104.5 on admission) and change in MS. He also complained of headache and abdominal discomfort. He was COVID and flu negative. Initially he was
placed on IV antibiotics however this was later discontinued by ID. Blood cultures negative x 24 hours. White count remains normal. Cardiology being asked to see patient due to concerns of bradycardia with heart rates in the 40s and 50s bpm.
Patient reports he notes occasional 'fluttering' in his chest but denies chest pain or shortness of breath. He reports he is somewhat sedentary due to multiple orthopedic issues but can perform some light chores around the house like doing the
laundry. He reports rare dizziness and lightheadedness and denies a history of syncope.
He has seen Dr. Raphael Victoria official greeter but denies a history of arrhythmia or heart disease. He reports he has a follow-up with cardiology on 10/22/2023.
Data Reviewed
-
EKG: Report Reviewed by me, Discussed with Physician, Discussed with Nurse, Discussed with Patient and Discussed with Family
Labs: Labs Reviewed by me, Discussed with Physician, Discussed with Patient and Discussed with Family
Old Records: Reviewed
[2023-10-05] MEDS: VALIUM PO (15:01)
[2023-10-05 15:04] LABS: Cortisol, Random 4.8 ug/dl; TSH 0.15 uIU/ml (0.47-4.68)
[2023-10-05 15:20] VITALS: BP 167/79
--- NOTE | 2023-10-05 16:34 | CM ---
Initial assessment completed with patient who lives with his in a 2 story home with basement with B/B on 2nd and 03/17 bath in basement, laundry in basement, 1 step to enter. Patient has a SPC which he uses occasionally and has an insulin pump.
Patient is mostly independent in ADL's and does drive occasionally. 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 Patient has a history of Bipolar Disorder and has phone sessions with a psychiatrist every 3 months. He has never had
an inpatient psychiatric hospitalization. He also sees a pain specialist every month for chronic spinal and knee pain. Pharmacy is [facility] [address] in [place] and also uses [facility] in [place] for his narcotics. PCP is Dr. Montano
Avtar. Discharge Plan of Care: Anticipate home with no needs.
[2023-10-05 16:57] LABS: Glucose - Point of Care 132 mg/dl (70-99)
[2023-10-05] MEDS: NOVOLOG FLEXPEN-MODERATE RESISTANCE SC (17:32)
[2023-10-05] MEDS: LOVENOX 40 MG SC (17:47)
[2023-10-05 19:27] VITALS: BP 154/69
[2023-10-05] MEDS: NSS IV (19:35)
[2023-10-05 21:42] LABS: Glucose - Point of Care 119 mg/dl (70-99)
[2023-10-05] MEDS: DEPAKOTE ER (24 HR RELEASE) 1000 MG PO (22:45)
[2023-10-05 23:12] VITALS: BP 154/75
[2023-10-06 03:25] VITALS: BP 158/76
[2023-10-06] MEDS: ROXICODONE 30 MG PO ×2 (03:51→15:44)
[2023-10-06] MEDS: SYNTHROID 100 MCG PO (05:35)
[2023-10-06] MEDS: INDOCIN 25 MG PO ×2 (05:35→11:19)
--- NOTE | 2023-10-06 07:14 | PN.DE.MGMTRT ---
Insulin Management
- -
10/06/2023: Diabetes Management Consult Follow up
Patient admitted 10/03 with high fever and confusion. PMH: COPD, T1DM, Smoking, bipolar disorder, chronic pain on chronic narcotics, admitted for TME/Sepsis due to b/l pneumonia -suspect recurrent aspiration pneumonia. Prior to admission using
Medtronic insulin pump with NovoLog insulin, Quick set infusion set. He is also using the Saqib and sees Endo Dr. Berger, for ongoing diabetes care. Last A1C 6.4% on 08/16/2023, Cr 0.9, eGFR >60
Pt awake, A/O x3, sitting up in bed, able to participate in discussion regarding diabetes management.
Reports that his took his insulin pump home.
Pt has been started on a 1800 ADA diet. Lantus 12 units started 10/04 AM with NovoLog 4 units AC and low corrective insulin with meals Glucose improved 132 pre dinner and 119 @ HS. Fasting glucose this AM 130. Will continue current regimen.
Pt may resume his insulin pump up on discharge. Discussed with Pt's Nurse at bedside
Diabetes History
- -
Type of Diabetes: 2 requiring insulin
Pre-Admission Diabetes Regimen
Insulin Pump Settings
IP Diabetes Regimen
10/05/23 10/05/23 10/05/23
07:36 11:36 16:56
POC Glucose 177 H 248 H 132 H
10/05/23
21:38
POC Glucose 119 H
Meal type: Dinner
Meal type: Breakfast
Amount consumed: 100%
Amount consumed: 100%
Patient Education
[2023-10-06 07:20] VITALS: BP 195/80
[2023-10-06 07:45] LABS: Glucose - Point of Care 130 mg/dl (70-99)
[2023-10-06] MEDS: NOVOLOG FLEXPEN 4 UNITS SC ×2 (08:20→12:34)
[2023-10-06] MEDS: NOVOLOG FLEXPEN-MODERATE RESISTANCE SC ×2 (08:21→12:33)
[2023-10-06] MEDS: DEPAKOTE ER (24 HR RELEASE) 500 MG PO (08:21)
[2023-10-06] MEDS: VALIUM 10 MG PO (08:22)
[2023-10-06] MEDS: NEURONTIN 800 MG PO ×2 (08:22→15:44)
[2023-10-06] MEDS: LIPITOR 40 MG PO (08:22)
[2023-10-06] MEDS: PAXIL 40 MG PO (08:22)
[2023-10-06] MEDS: MS CONTIN (EXTENDED RELEASE) 30 MG PO (08:22)
[2023-10-06] MEDS: LANTUS 0.12 UNITS SC (08:23)
--- NOTE | 2023-10-06 09:17 | W.PN.PUL3 ---
Today's Communication / Plan
-
No further fevers, asymptomatic at this time
Outpatient pulmonary FU recommended, follows at [facility]
Discharge planning per team
Assessment
-
Patient is a 62-year-old male with a past medical history of recurrent admissions for sepsis/pneumonia, subdural hematoma, traumatic brain injury, COPD, hypertension, bipolar disorder, chronic pain syndrome with opioid dependency, and type 2
diabetes on insulin pump presents with high fever and change in MS. T Max in ER was 104.5F but has not had fever since admission. Patient did mention having a headache, and abdominal discomfort. He feels these symptoms have since improved. He
notes ongoing SOB/cough at times. Prior CT chest showing nodules, has been treated for PNA for this. Repeat CXR this admission does not show significant infiltrate. We are consulted for eval.
Fever
Change in MS
Suspected infection, treated for pneumonia x 2 recently
Pulmonary nodules
SOB/cough
SHIPMAN
Abd pain
Conditions present prior admission:
Adm 12-11 to 14 23: CAP, sputum cx Pseudo fluorescens putrida, d/c on cefpodoxime
Adm May 2022: pneumonia, mild event
Hypertension
History of pneumonia 12/2021
Chronic pain syndrome opiate dependent
Depression/bipolar disorder
Diabetes mellitus type 1 on insulin pump
COPD, on Symbicort-unknown PFTs
Smoker since age 14
Plan
Currently 97% on RA
Fever on adm, afebrile since admission
Clinically improved off empiric atbs
ID following, observation for now
Reports he follows with pulm at [facility], being followed for 'a lung nodule and scars'
Unfortunately no prior chest CTs at OSH for comparison, on our CTs he does have pulmonary nodules
Has seen Dr Tomas for PFTs, unclear work up done as OP thus far
We discussed resuming outpatient w/u if needed
Sputum cx negative in past
Repeat culture pending, non productive
Question if need for bronchoscopy at this time, if remains afebrile will discuss case with ID
Consideration for LP if SHIPMAN/confusion ongoing
Fever resolved
COPD on anoro, symbicort and albuterol HFA, not on home O2
Currently stable on RA
Unfortunately continues smoking: advised to quit
Continue inpatient olodaterol, spiriva, prn DNs
RT reports marginal compliance with above inpatient regimen, patient advised to comply
Keep asp precs
Speech eval
Continue rest of supportive care
D/w Mr Torres and RN
Discharge planning per team
Diagnostic Data
Chest CT s/c 03-19-23: no comparison chest CT but abd CT Feb 23 did have a 6 mm RLL posterior nodule which appears more dense, a LLL faint nodule is now gone and another RLL density has improved
Recent films also show multiple R sided nodules in UL/ML/LL and an area of emphysema in RUL. No gross MLAD in a noncontrasted study
CT Chest 06/26/23. Scattered but diffuse centrilobular groundglass nodules scattered throughout the right lung with sparing of the left lung. Similar but more pronounced findings seen on the prior CT from 03/19/2023. Findings suspicious for
infectious or inflammatory process such as pneumonitis or bronchial pneumonia.
2. Couple of more isolated appearing nodules, including a 6 mm nodule within the posterior lateral right lower lobe. There is also a 3 mm nodule within the anterior left lower lobe. The larger nodule was present on the prior CT from 03/19/2023.
Patient referred to the pulmonary nodule advisory Board for appropriate follow-up.
3. No definite inflammatory process seen within the abdomen or pelvis.
4. Moderate colonic stool burden. Scattered sigmoid diverticulosis.
5. Posterior lumbosacral fusion with grade [address] Chest 08/15/23. Moderate number of centrilobular nodular opacities throughout the right lung which are mostly ground-glass opacities and similar in appearance to 06/26/2023 with some of the opacities increasing in size and others decreasing in
size. Diagnostic possibilities are (1) MULTIFOCAL INFECTION with atypical infection (possibly fungal infection or septic emboli) a possibility, (2) an asymmetric inflammatory pneumonitis (less likely), or (3) less likely pulmonary malignancy.
2. Mild to moderate emphysema in the posterior aspect of the right lung apex.
3. Mild mediastinal and bilateral hilar lymphadenopathy.
CXR 03-19-23 c/w 02-23-23: new nodular entities in R infrahilar area and base
CXR 05-18, c/w below, no gross but subtle basilar infiltrates
CXR 05-16 c/w Dec. Suspected basilar infiltrates
CXR 10/04/23: No focal parenchymal consolidation to suggest bronchopneumonia. Slight prominence of pulmonary interstitium suspected which could represent an acute interstitial process such as edema.
TTE 05-16-22 CONCLUSIONS: Technically difficult study - Definity used. Normal left ventricular size, wall thickness and systolic function. No regional wall motion abnormalities are seen. LV ejection fraction is 60-65% by Mireles's method of
discs. Normal diastolic function.
Subjective Data
-
Date of Service:
Date of Service: October 06, 2023
Chief Complaint: Pulmonary Follow Up
Subjective:
Doing well today, no new complaints
Fever free overnight
Objective Data
Data Reviewed
Vital Signs / I&O / Oxygen:
Vital Signs
Temp Pulse Resp BP Pulse Ox
97.7 F 48 16 195/80 97
10/06/23 07:20 10/06/23 07:20 10/06/23 07:20 10/06/23 07:20 10/06/23 07:20
Intake and Output
10/05/23 10/06/23 10/07/23
06:59 06:59 06:59
Intake Total 2530 / 2530 2755 / 2755
Output Total 2049 / 2049
Balance 480 / 480 2755 / 2755
SaO2 97
Nasal Cannula flow liters per 2
minute
Physical Exam
General: Comfortable and Other (NAD)
HEENT: Normocephalic, Anicteric and Moist Mucous Membranes
Cardiovascular: S1-S2 and Regular Rhythm
Respiratory: Clear and Non-Labored Respirations
GI: Soft, Non Distended and Non Tender
Neurology: Awake, Alert, Oriented, AO x 3 and No Motor Deficits
Skin: Warm, Dry and Good Color
Labs/Micro/Reports
Lab Data
10/05/23 05:00
10/05/23 05:00
Microbiology
10/04/23 07:09 Blood/Venous Blood Culture - Preliminary
No Growth in 48 hours- Final report to follow
10/04/23 09:57 Nasal Swab Influenza Types A & B (KIERSTEN) - Final
Negative for Influenza A & B, NAAT
Negative results must be combined with clinical observations
and patient history.
Nucleic Acid Amplification test (NAAT)performed on the
[employer] NOW platform.
--- NOTE | 2023-10-06 09:48 | W.PN.HOSP.TC ---
Today's Communication/Plan
-
Discharge
Assessment / Plan
Assessment / Plan
Gen-AAOx3, NAD
HEENT-NC, AT, anicteric, clear oral mm
Neck-supple
CV-reg, no M, +S1/S2
Lungs-clear B/L
Abd-soft, NT, ND
Ext-no edema
Musculoskeletal-no cyanosis, clubbing
Skin-warm and dry
Neuro-grossly non-focal
Psych-calm, cooperative
Acute TME -likely due to fever. Symptoms resolved. Mental status back to baseline.
Recurrent febrile illness -has been admitted to the hospital on a monthly basis for evaluation of fever. Etiology unclear but differential diagnosis includes infection versus malignancy versus inflammatory process. Aspiration pneumonitis is a
possibility as well.
CT chest with IV contrast from 08/15/2023 showed mild mediastinal and bilateral hilar lymphadenopathy, moderate number of centrilobular nodular opacities throughout the right lung.
Infectious disease input noted, now off antibiotics. White blood cell count normal. Blood cultures negative so far. Patient states he sees a pulp operator in [facility].
Pulmonary input noted. Recommend outpatient follow-up.
Asymptomatic bradycardia - appreciate cardiology input. Outpatient follow-up.
Constipation -Dulcolax ordered. High-fiber diet. Opioid-induced constipation contributing.
Essential hypertension -resume amlodipine/benazepril.
COPD without exacerbation
DM2 without hyperglycemia -uses insulin pump.
Hypothyroidism -on levothyroxine.
Hyperlipidemia -on atorvastatin.
Anxiety/depression -on divalproex, diazepam, paroxetine.
Chronic pain syndrome/chronic opiate dependence
Full code
Dispo -medically stable for discharge. Outpatient follow-up. Updated on the phone.
33-minute spent in discharge process.
Anticipated Discharge: Today
Subjective/Interval History
-
Date of Service: October 06, 2023
Patient seen and examined. Complaining of constipation.
Objective Data
-
Vital Signs:
Vital Signs
Temp Pulse Resp BP Pulse Ox
97.7 F 48 16 195/80 97
10/06/23 07:20 10/06/23 07:20 10/06/23 07:20 10/06/23 07:20 10/06/23 07:20
I&O
10/05/23 10/06/23 10/07/23
06:59 06:59 06:59
Intake Total 2530 / 2530 2755 / 2755
Output Total 2049
Balance 480 / 480 2755 / 2755
Review of Systems
-
History Source: Patient
All other systems: Reviewed and negative
--- NOTE | 2023-10-06 09:53 | W.DS.TRANS ---
DC Summary - Docketing Specialist
-
Discharge Instructions:
Discharge Diagnosis/Procedures Febrile illness
Diet Diabetic, Carb Controlled
Activity As tolerated
Driving Restrictions As prior to admission
Bathing Restrictions None
Instructions:
Stand-Alone Forms:
Changes to Home Medications: No
Discharge Medications:
DC Medications w/original date entered in IMN
gabapentin 800 mg tablet 800 mg PO TID Neurological Condition 12/25/21
morphine 30 mg tablet,extended release 30 mg PO Q12H Pain 12/25/21
levothyroxine 100 mcg tablet 100 mcg PO DAILY Thyroid 09/10/22
oxycodone 10 mg tablet 10 mg PO TID Pain 09/10/22
Patient Own Insulin Pump 0 units SC .NOVOLOG VIA PUMP Diabetes 06/26/23
oxycodone 30 mg tablet 30 mg PO BID Pain 07/29/23
amlodipine 5 mg-benazepril 20 mg capsule 1 cap PO DAILY Blood Pressure 08/15/23
atorvastatin 40 mg tablet 40 mg PO DAILY High Cholesterol 08/15/23
indomethacin 25 mg capsule 25 mg PO Q6H ANTIINFLAMMATORY 08/15/23
paroxetine HCl 40 mg tablet 40 mg PO DAILY Mental Health/Anxiety 08/15/23
umeclidinium 62.5 mcg-vilanterol 25 mcg/actuation powdr for inhalation (Anoro Ellipta) 1 inh inhalation R DAILY Lung/Breathing Issues 08/15/23
diazepam 10 mg tablet 10 mg PO DAILY ANTIANXIETY 10/04/23
diazepam 5 mg tablet 5 mg PO DAILY@1400 ANTIANXIETY 10/04/23
divalproex 500 mg tablet,extended release 24 hr 1,000 mg PO HS Seizures 10/04/23
divalproex 500 mg tablet,extended release 24 hr 500 mg PO DAILY Seizures 10/04/23
Home Medication Changes
Pending Results: No
[2023-10-06] MEDS: ROXICODONE 10 MG PO (09:55)
[2023-10-06] MEDS: DULCOLAX 10 MG PO (09:56)
[2023-10-06] MEDS: LOTREL 5 MG/20 MG 1 CAPSULE PO (10:43)
--- NOTE | 2023-10-06 11:06 | CM ---
Patient seen at bedside. Patient sleeping. IMM provided and patient stated he was too sleepy to sign and waiting for patient to call him back. CM will continue to follow for discharge planning needs.
Plan; home with no needs.
[2023-10-06 11:56] LABS: Glucose - Point of Care 135 mg/dl (70-99)
[2023-10-06] MEDS: VALIUM PO (13:43)
[2023-10-06] MEDS: VALIUM 5 MG PO (13:52)
--- NOTE | 2023-10-06 14:03 | W.PN.ID1 ---
Date of Service
Date of Service: October 06, 2023
Today's Communication
Continue off abx.
Assessment / Plan
Acute encephalopathy
Fever
- of note, ER temp recorded a rectal temp.
- No fevers since admission
Normal white count with left shift
DM II with insulin pump
COPD
Chronic pain/opiate dependence
HTN
Dyslipidemia
Bipolar disorder
Recommendations:
Cultures negative thus far.
White count remains normal.
Blood cultures no growth to date.
Continue off abx.
����������������������������������������������������������
Chief Complaint
-: Other (Encephalopathy)
Subjective / Review of Systems
Review of Systems: No Fever and No Chills
Vital Signs / Physical Exam
Vital Signs
Vital Signs
Temp Pulse Resp BP Pulse Ox
98.0 F 54 16 187/83 97
10/06/23 11:35 10/06/23 10:43 10/06/23 11:35 10/06/23 10:43 10/06/23 11:35
Physical Exam
Constitutional: No Acute Distress, Comfortable and Non-toxic
Eyes: Sclera Anicteric
Cardiovascular: S1/S2; Negative S3/S4
Pulmonary: Clear and Non Labored
Gastrointestinal: Soft, Non Tender and Non Distended
Extremities: Negative Edema or Cyanosis
Neurological: Awake and Alert
Psychological: Calm
Objective Data
Lab Data
Lab Results
10/05/23 05:00
10/05/23 05:00
Estimated Creat Clear 82 ml/min 10/05/23 05:00
Lactic Acid 1.5 mmol/L (0.7-2.0) 10/04/23 12:31
Total Bilirubin 0.6 mg/dl (0.2-1.3) 10/04/23 07:09
AST 23 U/L (17-59) 10/04/23 07:09
ALT 11 U/L (0-50) 10/04/23 07:09
Alkaline Phosphatase 101 U/L (38-126) 10/04/23 07:09
Most recent labs reviewed.
Micro Results:
10/05/23 20:46 Respiratory Culture - Final
Sputum Gram Stain - Final
10/04/23 07:09 Blood Culture - Preliminary
Blood/Venous No Growth in 48 hours- Final report to follow
10/04/23 09:57 Influenza Types A & B (KIERSTEN) - Final
Nasal Swab Negative for Influenza A & B, NAAT
Negative results must be combined with clinical observations
and patient history.
Nucleic Acid Amplification test (NAAT)performed on the
[employer] platform.
Imaging:
10/04/2023 CXR (portable): No focal parenchymal consolidation to suggest bronchopneumonia. Previously Providencia with pulmonary interstitial noted. Please see full dictation for additional detail.
Care Review
Plan reviewed with: Physician (Hospitalist)
--- NOTE | 2023-10-06 14:24 | W.PN.CARDCBS ---
Today's Communication / Plan
-
No treatment needed for bradycardia
Will double Lotrel dose for hypertension and has follow-up with outpatient cardiology in [facility]
Impression / Plan
-
Outpatient faceter: Dr. Raphael Victoria
Impression:
Presented 10/04/2023 with fever, altered mental status
Suspected infection
Pulmonary nodules
SOB/cough
SHIPMAN
Abd pain
Bradycardia
Hypertension
Hyperlipidemia
Diabetes mellitus type 1 on insulin pump
COPD, on Symbicort
Bipolar disorder
History of pneumonia 12/2021
Chronic pain syndrome opiate dependent
Depression/bipolar disorder
Traumatic brain injury with subdural hematoma and craniotomy
Smoker since age 14
Multiple orthopedic surgeries
Echo 05/16/2022 (TDS): EF 60 to 65% with no significant valvular disease
Plan:
Remains with bradycardia but no further workup is needed as asymptomatic
He is hypertensive and would double Lotrel dose
He has follow-up with cardiology in [place] scheduled as an outpatient and told to follow blood pressure at home
Stable cardiology status for discharge
HPI 10/05/2023:
Patient is a 62-year-old with a past medical history of recurrent admissions for sepsis/pneumonia, subdural hematoma, traumatic brain injury, COPD/long-term tobacco abuse, hypertension, hyperlipidemia, bipolar disorder, chronic pain syndrome with
opioid dependency, and type 2 diabetes on insulin pump who presented 10/04/2023 with high fever (T max 104.5 on admission) and change in MS. He also complained of headache and abdominal discomfort. He was COVID and flu negative. Initially he was
placed on IV antibiotics however this was later discontinued by ID. Blood cultures negative x 24 hours. White count remains normal. Cardiology being asked to see patient due to concerns of bradycardia with heart rates in the 40s and 50s bpm.
Patient reports he notes occasional 'fluttering' in his chest but denies chest pain or shortness of breath. He reports he is somewhat sedentary due to multiple orthopedic issues but can perform some light chores around the house like doing the
laundry. He reports rare dizziness and lightheadedness and denies a history of syncope.
He has seen Dr. Raphael Victoria faceter but denies a history of arrhythmia or heart disease. He reports he has a follow-up with cardiology on 10/22/2023.
Progress Note - Hr Advisor
Subjective
Date of Service: October 06, 2023
No complaints
Objective
Labs:
10/05/23 05:00
10/05/23 05:00
Labs
Hgb 11.9 g/dL (13.0-18.0) L 10/05/23 05:00
Hct 34.0 % (39.0-52.0) L 10/05/23 05:00
Plt Count 119 10^3/uL (130-400) L D 10/05/23 05:00
Sodium 137 mmol/L (135-145) 10/05/23 05:00
Potassium 4.2 mmol/L (3.5-5.1) 10/05/23 05:00
BUN 18 mg/dl (9-20) 10/05/23 05:00
Creatinine 0.9 mg/dL (0.7-1.3) 10/05/23 05:00
Glucose 135 mg/dl (70-99) H 10/05/23 05:00
Vital Signs and I&O:
Vital Signs
Temp Pulse Resp BP Pulse Ox
98.0 F 54 16 187/83 97
10/06/23 11:35 10/06/23 10:43 10/06/23 11:35 10/06/23 10:43 10/06/23 11:35
Vital Signs
Temp Pulse Resp BP Pulse Ox
98.0 F 54 16 187/83 97
10/06/23 11:35 10/06/23 10:43 10/06/23 11:35 10/06/23 10:43 10/06/23 11:35
Intake & Output
10/04/23 10/05/23 10/06/23 10/07/23
06:59 06:59 06:59 06:59
Intake Total 2530 / 2530 2755 / 2755
Output Total 2049
Balance 480 / 480 2755 / 2755
Physical Exam
Physical Exam
General: Well developed, well nourished in NAD.
Neck: Supple, no JVD, HJR, carotids +2 B/L, no bruits bilaterally.
Heart: Non displaced PMI, RRR, no murmurs, No S3, S4, no rubs.
Lungs: Clear to auscultation bilaterally, no wheeze, rhonchi, rubs bilaterally,
normal expiratory phase.
Extremities: No clubbing, cyanosis or edema bilaterally.
Neuro: Grossly nonfocal, awake, alert and oriented x3.
[2023-10-06 15:32] VITALS: BP 158/79
== END 2023-10-06 16:15 | disposition home or self-care (01) | DRG 864 ==
LOC: 2 NORTH 10:06
PROVIDERS: ADMITTING PHYSICIAN Family Medicine; ATTENDING PHYSICIAN Hospitalist; CONSULT PHYSICIAN Internal Medicine; CONSULT PHYSICIAN Internal Medicine Cardiovascular Disease; CONSULT PHYSICIAN Internal Medicine Infectious Disease; EMERGENCY PHYSICIAN Emergency Medicine; FAMILY PHYSICIAN Family Medicine
DX: R50.9 Fever, unspecified (principal); G92.8 Other toxic encephalopathy; F11.20 Opioid dependence, uncomplicated; J44.9 Chronic obstructive pulmonary disease, unspecified; I10 Essential (primary) hypertension; E03.9 Hypothyroidism, unspecified; F31.9 Bipolar disorder, unspecified; E11.9 Type 2 diabetes mellitus without complications; F41.9 Anxiety disorder, unspecified; G89.4 Chronic pain syndrome; E78.5 Hyperlipidemia, unspecified; F17.210 Nicotine dependence, cigarettes, uncomplicated; R00.1 Bradycardia, unspecified; R74.02 Elevation of levels of lactic acid dehydrogenase [LDH]; Z96.41 Presence of insulin pump (external) (internal); K59.00 Constipation, unspecified; Z79.4 Long term (current) use of insulin; Z79.890 Hormone replacement therapy; Z79.899 Other long term (current) drug therapy; Z87.820 Personal history of traumatic brain injury; Z87.01 Personal history of pneumonia (recurrent); Z86.19 Personal history of other infectious and parasitic diseases
CPT/HCPCS: 71045; 80048; 80053; 81003; 81015; 82533; 82962; 83605; 84145; 84443; 85025; 85027; 87040; 87070; 87205; 87502; 87811; 96361; 96365; 97163; 99285

== ENCOUNTER 2024-06-30 12:33 | Inpatient (IN) | payer MEDICARE, BC, SELFPAY ==
[2024-06-30] VITALS (11 sets, daily range): BP systolic 128–159; BP diastolic 53–86; BMI 27.5
[2024-06-30 08:14] LABS: Glucose - Point of Care 165 mg/dl (70-99)
[2024-06-30] MEDS: NSS 1000 IV ×2 (08:35→09:39)
[2024-06-30 08:50] LABS: % Basophils 0.6 % (0-2); % Eosinophils 1.5 % (0-6); % Immature Granulocytes 0.3 % (0-0.5); % Lymphocytes 14.3 % (20.5-51.1); % Monocytes 7.5 % (1.7-9.3); % Neutrophils 75.8 % (42.2-75.2); Absolute Basophils 0.1 10^3/uL (0-0.2); Absolute Eosinophils 0.1 10^3/uL (0-0.7); Absolute Lymphocytes 1.3 10^3/uL (1.2-3.4); Absolute Monocytes 0.7 10^3/uL (0.1-0.6); Absolute Neutrophils 6.7 10^3/uL (1.4-6.5); Hematocrit 41.2 % (39.0-52.0); Hemoglobin 14.4 g/dL (13.0-18.0); Mean Corpuscular Hgb 32.5 pg (27.0-31.0); Mean Platelet Volume 11.1 fL (7.4-10.4); Nucleated Red Blood Cells % 0 % (-); Platelet Count 146 10^3/uL (130-400); Red Blood Cell Count 4.43 10^6/uL (4.70-6.10); Red Cell Dist. Width 13.1 % (11.5-14.5); White Blood Cell Count 8.8 10^3/uL (4.8-10.8)
[2024-06-30 08:58] LABS: Urine Albumin Negative (Neg - Trace); Urine Bilirubin Negative (Negative); Urine Glucose Negative (Negative); Urine Ketone 1+ (Negative); Urine Leukocyte Negative (Negative); Urine Nitrite Negative (Negative); Urine Occult Blood 2+ (Negative); Urine Urobilinogen Negative (Neg - 1+)
[2024-06-30 08:59] LABS: Urine Character Clear (Clear); Urine Color Yellow
[2024-06-30 09:01] LABS: Lactic Acid 2.3 mmol/L (0.7-2.0)
[2024-06-30 09:03] LABS: COVID-19 Antigen Negative (Negative)
[2024-06-30 09:05] LABS: Urine Bacteria Few (Negative); Urine Squamous Cell 0-2 /LPF (Few); Urine White Cell 0-2 /HPF (0-5)
[2024-06-30 09:13] LABS: ALT (SGPT) 15 U/L (0-50); AST (SGOT) 27 U/L (17-59); Alkaline Phosphatase 85 U/L (38-126); Blood Urea Nitrogen 18 mg/dl (9-20); Calcium 9.5 mg/dl (8.4-10.2); Carbon Dioxide 33 mmol/L (22-30); Chloride 98 mmol/L (98-107); Glucose 181 mg/dl (70-99); Potassium 4.8 mmol/L (3.5-5.1); Sodium 140 mmol/L (135-145); Total Bilirubin 0.8 mg/dl (0.2-1.3); Total Protein 6.4 g/dl (6.3-8.2); eGFR > 60.00
[2024-06-30] MEDS: MAXIPIME 2000 MG IV ×2 (09:38→17:41)
[2024-06-30] MEDS: VANCOCIN 540 MG IV (10:17)
--- NOTE | 2024-06-30 10:20 | ED.GENMED ---
History of Present Illness
General
Chief Complaint: Fever
Source: patient and family
Time Seen by Provider: 06/30/24 08:18
History of Present Illness
History of Present Illness:
Patient is a 63-year-old male with a history of COPD, diabetes, chronic smoker, bipolar disorder presents after he was rigors at home and altered. Family (daughter at bedside) states that he has had recurrent episodes like this that has been
attributed to aspiration. His had reported that he is not swallowing very well at times. He continues to smoke family states. The patient does admit he has been coughing but does admit he coughs often due to his smoking history. Does have a
history of traumatic brain injury. Has not had any recent surgeries. Denies neck stiffness or pain. Denies headache.
Past History
Past History
ED Past Medical History: HTN, Hypercholesterolemia, NIDDM, Seizures, Psychiatric (Bipolar) and Other (Chronic pain syndrome, pneumonia, traumatic brain injury)
ED Past Surgical History: None
Social History
Tobacco: Smoker
Phy Exam
Physical Exam
Physical Exam:
CONSTITUTIONAL Patient alert and oriented to person.... Confused. Pulse ox 92%. Temperature 104.7 vital signs reviewed.
HEAD atraumatic, normocephalic.
EYES eyelids normal to inspection, Extraocular muscles intact, Conjunctiva normal, Sclera normal.
NECK normal range of motion, Trachea midline, no jugular venous distention. No meningismus
RESPIRATORY CHEST No respiratory distress noted, Chest expansion equal, fine crackles at bilateral bases
CARDIOVASCULAR regular and tachycardic
ABDOMEN No distention.
BACK normal inspection, no obvious deformities
UPPER EXTREMITY range of motion normal, Motor strength normal, no cyanosis, no edema.
LOWER EXTREMITY range of motion normal, Motor strength normal, no cyanosis, no edema.
NEURO Speech normal, No focal motor deficits, confused, cranial Nerves intact to screening exam.
Sepsis
Sepsis Screening
Sepsis Assessment: Sepsis
Sepsis Screen
Sepsis Screen: Sepsis
Date: 07/02/24
Time: 01:32
Course
Orders/Labs/Results
Orders:
Orders
06/30/24 08:15
Acetaminophen 1000MG/100Ml [Ofirmev] 1,000 mg in 100 ml .ROUTE .STK-MED
06/30/24 08:21
Electrocardiogram (*1) Urgent
Reason for Study: Other
Other Reason for Exam: fever
EKG- Treatment ONCE
06/30/24 08:27
0.9% Sodium Chloride 1000 ml [Nss] 1,000 ml IV BOLUS
06/30/24 08:37
COVID-19 Antigen Urgent
Source: Nasal Swab
Lactic Acid Urgent
Urinalysis Reflex To Culture Urgent
Date Specimen was Collected: 06/30/24
Time Specimen was Collected: 08:34
Urine Microscopic Reflex Cult Urgent
Blood Culture Urgent
ELIE Source: Blood/Venous
Specimen Description:
Influenza A+B Rapid Molecular Urgent
ELIE Source: Nasal Swab
Specimen Description:
06/30/24 08:38
Complete Blood Count/With Diff Urgent
06/30/24 08:55
CMP [Comprehensive Metabolic Panel] Urgent
TSH Urgent
Comment: TSH ADDED ON BY FLOOR 12:18PM 06-30-24
06/30/24 09:08
Blood Culture Urgent
ELIE Source: Blood/Venous
Specimen Description:
06/30/24 09:15
Restraints - Non Violent As Directed
Justification-Patient:: 1-Attempts to remove tube
Restraint Type-: Soft Limb-L&R Wrist/4rail
Apply From (date): 06/30/24
Apply from (time): 09:15
Remove (date): 07/01/24
Remove (time): 23:59
06/30/24 09:18
CR Chest Portable - 1 View Urgent
Comment:
Reason For Exam: sepsis
Reason Study Needs to be Portable: Patient Unstable
06/30/24 09:21
0.9% Sodium Chloride 1000 ml [Nss] 1,000 ml IV BOLUS
Cefepime HCl [Maxipime] 2,000 mg IV NOW STA
06/30/24 09:48
Vancomycin [Vancocin] 2,000 mg 0.9% Sodium Chloride 500 ml [Nss] 500 ml IV NOW
06/30/24 10:16
Add On- LAB Urgent
Tests Added?: depakote level
06/30/24 10:19
MetroNIDAZOLE 500 MG/100 ML [Flagyl 500 mg] 100 ml IV NOW
06/30/24 10:45
Depakane Routine
06/30/24 12:00
Nicotine [Nicoderm Transdermal] 14 mg TRANSDERM DAILY
06/30/24 12:05
Admit/Transfer Patient As Directed
Co-Sign Provider:
Level of Care: Inpatient admission
Assign to:: Telemetry
Physician / Group: Benjamin Brown
Diagnosis: Sepsis
Reason for Telemetry: Arrhythmia
Date to Stop Telemetry: 07/03/24
Time to Stop Telemetry: 11:00
Reason for Hospitalization: Fever of 104 �F, sepsis of unclear etiology
Expected length of stay greater than two midnights?: Yes
ELOS- Estimated Length of Stay in days: 3
I certify the patient meets the requirements for IP care: Yes
PRN Pain Medication Management As Directed
May give lesser potent ordered pain med per pt: Yes
preference::
Protocol:: Medication orders for pain may be administered in a
manner that supports deferring to patient preference
when the pt is:
- Requesting an ordered lesser potent pain medication.
Least to most potent pain medications are defined
as: acetaminophen < NSAID < tramadol < opioids
(morphine, oxycodone, hydromorphone).
- Requesting a lesser dose of the same medication IF
ORDERED.
- Requesting a less intrusive route of administration
if both routes are prescribed by the provider (PO <
IV).
06/30/24 12:08
Code Status As Directed
Resuscitation Status: Full Code
06/30/24 12:14
Ot Eval And Treat Routine
Pt Eval And Treat Routine
Activity Level: Out of Bed-Early Mobility
Speech Therapy Eval & Treat Routine
06/30/24 12:18
Add On- LAB Routine
Tests Added?: TSH
06/30/24 12:48
Bisacodyl [Dulcolax] 10 mg RECTAL [id number] PRN
Docusate W/Senna [Senokot-S] 1 tablet PO BIDPRN PRN
Indomethacin [Indocin] 25 mg PO Q6HPRN PRN
Ipratropium/Albuterol Sulfate [Duoneb] 3 ml INH R Q4HPRN PRN
Ondansetron Injectable [Zofran] 4 mg IV Q6HPRN PRN
Polyethylene Glycol Powder [Miralax] 17 grams PO DAILYPRN PRN
umeclidinium-vilanterol [Anoro Ellipta] 1 inh INH R DAILYPRN PRN
06/30/24 12:48
CT Chest/abd/pel W Iv Cont Routine
Comment:
Reason For Exam: sepsis of unclear source
Activity As Directed
Activity Level: Out of Bed-Early Mobility
Intake/ Output As Directed
Frequency: Per unit guidelines
Vital Signs As Directed
Frequency: Per unit guidelines
DX Deep Vein Thrombosis Video Routine
06/30/24 13:00
Lactated Ringers [Lr] 1,000 ml IV 100 mls/hr
06/30/24 13:22
Lactic Acid Urgent
06/30/24 13:45
Morphine Sulfate Extended Rel. [Ms Contin (Extended Release)] 30 mg PO Q12
06/30/24 14:00
Diazepam [Valium] 10 mg PO DAILY@1400
Diazepam [Valium] 5 mg PO DAILY@1100
MetroNIDAZOLE 500 MG/100 ML [Flagyl 500 mg] 100 ml IV Q8H
06/30/24 Dinner
Full Liquids
At Your Request: Non-Participating
Does patient need a safe tray?: No
06/30/24 16:00
Divalproex Extended Rel. 24 Hr [Depakote ER (24 Hr Release)] 500 mg PO TID
Gabapentin [Neurontin] 800 mg PO TID
Oxycodone [Roxicodone] 10 mg PO TID
oxycodone 30 mg PO TID
06/30/24 16:30
Pt's Own Ins. Pump Aspart [PT'S OWN INSULIN PUMP - NovoLOG] See Dose Instructions SC ACHS
06/30/24 18:00
Cefepime HCl [Maxipime] 2,000 mg IV Q8H
Enoxaparin Sodium [Lovenox] 40 mg SC QPM
07/01/24 06:00
Levothyroxine [Synthroid] 100 mcg PO DAILY@0600
07/01/24 06:20
Complete Blood Count/With Diff IN AM
Comprehensive Metabolic Panel IN AM
07/01/24 08:00
Amlodipine Besylate/Benazepril [Lotrel 5 mg/20 mg] 1 capsule PO DAILY
Atorvastatin [Lipitor] 40 mg PO DAILY
Paroxetine [Paxil] 40 mg PO DAILY
07/03/24 11:00
DC Protocol for Telemetry ONCE
Abnormal Lab Results
06/30/24 06/30/24 06/30/24
08:13 08:37 08:38
RBC 4.43 L 10^6/uL
(4.70-6.10)
MCH 32.5 H pg
(27.0-31.0)
MPV 11.1 H fL
(7.4-10.4)
Absolute Neuts (auto) 6.7 H 10^3/uL
(1.4-6.5)
Absolute Monos (auto) 0.7 H 10^3/uL
(0.1-0.6)
Neutrophils % 75.8 H %
(42.2-75.2)
Lymphocytes % 14.3 L %
(20.5-51.1)
Carbon Dioxide
Glucose
Lactic Acid 2.3 H mmol/L
(0.7-2.0)
Urine Ketones 1+ A
(Negative)
Ur Occult Blood Reflex 2+ A
(Negative)
Urine RBC 11-15 A /HPF
(0-2)
Urine Bacteria (Reflex) Few A
(Negative)
POC Glucose 165 H mg/dl
(70-99)
06/30/24
08:55
RBC
MCH
MPV
Absolute Neuts (auto)
Absolute Monos (auto)
Neutrophils %
Lymphocytes %
Carbon Dioxide 33 H mmol/L
(22-30)
Glucose 181 H mg/dl
(70-99)
Lactic Acid
Urine Ketones
Ur Occult Blood Reflex
Urine RBC
Urine Bacteria (Reflex)
POC Glucose
06/30/24 08:38
06/30/24 08:55
Vital Signs
Initial and Last Documented VS:
Initial Vital Signs
Pulse Resp
102 16
06/30/24 08:17 06/30/24 08:17
Last Documented Vital Signs
Temp Pulse Resp BP Pulse Ox
98.3 F 63 24 130/76 95
07/01/24 15:00 07/01/24 15:00 07/01/24 15:00 07/01/24 15:00 07/01/24 15:10
MDM/Problems Addressed
Differential Diagnosis Includes:
Meningitis, UTI, pneumonia, bacteremia, endocarditis
MDM/Problems Addressed:
Sepsis, pneumonia, possible aspiration, lactic acidosis, diabetes
*Radiology
Radiology exam reviewed: preliminary read by ED provider (Patchy infiltrates noted)
*Pulse Oximetry
Patient hypoxic: yes
*EKG
Interpreted by ED Provider?: Yes
Interpretation: normal
Rate: normal
Rhythm: sinus
[place]: normal axis
Ischemia: no ischemia
*Hoisting Engine Operator Interpretation
Rate: normal
Interpretation: normal
*Critical Care Note
Total Time (30-74mins, 75-104mins- exclusive of procedures): 35 minutes
Data Reviewed
Review of Other/Old Records Reveals: Progress Notes (History and physical reviewed from September 2023) and Discharge Summary (Discharge summary reviewed from September 2023.)
Source: patient and family
Further Testing Considered But Not Given:
Considered CT head but altered mentation related to temperature of 104.7 which is improving with antipyretics
Patient Management
Discussion with other providers: Hospitalist
Escalation/DeEscalation of care consider admission/obs:
60-year-old male presents with fever. Suspect changes on chest x-ray related to pneumonia as he has a history of the same. Broad-spectrum antibiotics including anaerobic coverage. Admit
ED Attending Note
-
Portions of this chart may have been created with voice recognition software.� Occasional wrong word or��sound alike� substitutions may have occurred due to the inherent limitations of voice recognition software.
Discharge Plan
Departure
Patient Disposition: Admit
Date of Disposition: 06/30/24
Time of Disposition: 10:21
Presentation/result/management discussed w/ accepting MD/DO: Hospitalist
Discharge Problem:
Sepsis, Pneumonia, Toxic metabolic encephalopathy
Interventions
Interventions:
*Risk Screen - Suicide Last Done: 06/30/24 10:37
*General Assessment Last Done: 06/30/24 09:05
*Neglect/Abuse Screening Last Done: 06/30/24 09:03
*ED- Fall Risk Assessment Last Done: 06/30/24 08:22
*ED COVID-19 Vaccine History Last Done: 06/30/24 08:22
ED- Neurological Assessment Last Done: 06/30/24 08:32
ED-Skin Assessment Last Done: 06/30/24 09:04
[2024-06-30 11:30] LABS: Depakane 71.8 ug/ml (50.0-120.0)
[2024-06-30] MEDS: NICODERM TRANSDERMAL 14 MG TRANSDERM (11:39)
--- NOTE | 2024-06-30 11:49 | HPS.HSE ---
Family Physician
-
Family Physician: Dusty Nova
Chief Complaint
-
Fever
History of Present Illness
63-year-old male with T2DM s/p insulin pump, COPD, hypertension, bipolar disorder, chronic pain syndrome, tobacco use, H/O TBI (subdural hematoma s/p craniotomy), s/p cervical fusion, s/p multiple back surgeries that is presenting to the emergency
department with a complaint of a fever. Was noted to have rigors and fever at home, daughter at bedside states that he has had recurrent episodes similar to this that have been attributed to aspiration. reported he does not swallow well at
times. Upon arrival to the ED was febrile up to 104.7 �F, tachycardic at 104/min though otherwise stable and on room air. Initial labs with bicarb 33 though otherwise unremarkable and without leukocytosis. Chest x-ray showed hypoaerated lungs
without consolidation. ECG with sinus rhythm, no ischemic findings. Viral respiratory panel was negative for influenza and COVID. Blood cultures x 2 were obtained in the ED. Was started on vancomycin and cefepime as well as IV maintenance fluids
while in the ED.
Medical History
Past Medical History
Past Medical History: Reports Other
Additional Past Medical History:
IDDM s/p insulin pump
COPD
Hypertension
Bipolar disorder
Chronic pain syndrome/opiate dependence
Tobacco use
TBI/SDH
Past Surgical History: Reports Other
Additional Past Surgical History:
Craniotomy
Back surgeries
Cervical Fusion
Social History
Tobacco: Smoker
Alcohol: None
Drug: None
Family History
Family History: Not pertinent
Allergies / Home Medications
Allergies reflects when Allergies were last updated in [facility] [employer]
Home Medications with original date entered in [facility] [employer]
Allergy/Medication List:
Allergies
Allergy/AdvReac Type Severity Reaction Status Date / Time
No Known Allergies Allergy Verified 07/21/24 06:38
Home Medications
gabapentin 800 mg tablet 800 mg PO TID Neurological Condition 12/25/21
morphine 30 mg tablet,extended release 30 mg PO Q12H Pain 12/25/21
levothyroxine 100 mcg tablet 100 mcg PO DAILY Thyroid 09/10/22
oxycodone 10 mg tablet 10 mg PO TID Pain 09/10/22
Patient Own Insulin Pump 0 units SC .NOVOLOG VIA PUMP Diabetes 06/26/23
oxycodone 30 mg tablet 30 mg PO TID Pain 07/29/23
amlodipine 5 mg-benazepril 20 mg capsule 1 cap PO DAILY Blood Pressure 08/15/23
atorvastatin 40 mg tablet 40 mg PO DAILY High Cholesterol 08/15/23
indomethacin 25 mg capsule 25 mg PO Q6HPRN PRN flares up 08/15/23
paroxetine HCl 40 mg tablet 40 mg PO DAILY Mental Health/Anxiety 08/15/23
umeclidinium 62.5 mcg-vilanterol 25 mcg/actuation powdr for inhalation (Anoro Ellipta) 1 inh inhalation R DAILYPRN PRN sob 08/15/23
diazepam 10 mg tablet 10 mg PO DAILY@1400 ANTIANXIETY 10/04/23
diazepam 5 mg tablet 5 mg PO DAILY@1100 ANTIANXIETY 10/04/23
divalproex 500 mg tablet,extended release 24 hr 500 mg PO TID Seizures 10/04/23
Review of Systems
-
History Source: Patient and Family
A 12 point ROS was completed and negative except as noted: Yes
Constitutional: Reports See HPI
EENT: Reports No Symptoms
Respiratory: Reports No Symptoms
Cardiac: Reports No Symptoms
Abdomen/GI: Reports No Symptoms
: Reports No Symptoms
Musculoskeletal: Reports No Symptoms
Skin: Reports No Symptoms
Neurological: Reports No Symptoms
Endocrine: Reports No Symptoms
Hematologic/Lymphatic: Reports No Symptoms
Psych: Reports No Symptoms
Physical Exam
Vital Signs
Vital Signs
Temp Pulse Resp BP Pulse Ox
100.3 F 82 21 143/59 94
06/30/24 10:25 06/30/24 10:15 06/30/24 10:15 06/30/24 10:00 06/30/24 10:15
Physical Exam
General: Well Developed, Well Nourished, No Apparent Distress and Comfortable
HEENT: NormoCephalic, Anicteric and Moist mucous membranes
Respiratory: Clear and Non Labored Respirations; No Accessory Resp Muscle Use
Cardiac: S1/S2 and Regular Rhythm; No Murmur, Rub or Gallop
GI: Soft, Non Tender, Non Distended and Normal Bowel Sounds
Musculoskeletal: No Clubbing, No Cyanosis and No Edema
Skin: Warm and Dry; No Rash
Neuro: Awake, Alert, Nonfocal/grossly intact and Cranial Nerves Intact
Psych: Calm
Laboratory Results
-
06/30/24 08:38
06/30/24 08:55
Laboratory Results
Lactic Acid 2.3 mmol/L (0.7-2.0) H 06/30/24 08:37
Total Bilirubin 0.8 mg/dl (0.2-1.3) 06/30/24 08:55
AST 27 U/L (17-59) 06/30/24 08:55
ALT 15 U/L (0-50) 06/30/24 08:55
Alkaline Phosphatase 85 U/L (38-126) 06/30/24 08:55
Data Reviewed
-
Lab Data: Labs Reviewed by me, Discussed with Physician (ED attending) and Discussed with Patient
Impression/Plan
-
#Sepsis secondary to aspiration pneumonia
#Lactic acidosis
#H/O aspiration
-Presented with SIRS criteria positive, temperature 104.7 �F; suspected source with frequent aspiration
-On exam he does have some neck discomfort though states it is chronic and at baseline; lower suspicion for meningitis
-Chest x-ray without any obvious consolidation; urinalysis fairly unremarkable; not requiring oxygen
-Blood cultures x 2 were obtained; started on IV vancomycin and cefepime empirically
-Fevers have improved with antipyretics, most recent temperature 100.3 degrees Fahrenheit
-Has remained hemodynamically stable without requirements for vasopressors; lactate 2.3
Plan
-Continue broad-spectrum IV antibiotics and follow cultures
-Trend CBC and temperature curve, trend lactate to normal
-CT C/A/P with IV contrast to assess for sources of infection
-Maintenance IV fluids, monitor for hypotension
-Consider ID consult
-If clinical deterioration start meningitis empiric therapy and order LP
#Acute metabolic encephalopathy
-Likely related to sepsis as above, also is on significant sedating regimen
-Suspect that mental status will improve with antibiotics and resolution of underlying infection
-Will provide hold parameters for home sedating medications
-Monitor clinically, appears improved by time of my eval
#IDDM s/p insulin pump
-No recent A1c; no known microvascular disease complications
-Currently on NovoLog insulin pump; also on statin and ACEi
-Monitor blood glucose
#COPD without exacerbation
-No baseline O2 requirement; Home regimen includes an Anoro Ellipta
-Does have signs of hypercapnia with bicarb 33 on BMP, near baseline
-No recent PFTs
#Primary hypertension
-Home medications include amlodipine-benazepril
-No known history of hypertensive systemic disease
-Continue current regimen with hold parameters
#Hypothyroidism
-Unclear etiology, home regimen includes levothyroxine 100 mcg daily
-Do not suspect fever related to thyroid dysfunction; will check TSH for completeness
#Bipolar disorder
#Seizure disorder
-Home regimen includes divalproex; unclear if this is for history of seizures versus bipolar disease versus both
-Seizure precautions
#Chronic pain syndrome with opioid dependence
#H/O TBI s/p craniotomy
#H/O cervical fusion
#H/O back surgery
-Currently on multimodal pain regimen
-Home meds include diazepam, gabapentin, morphine, oxycodone
-Will provide hold parameters for home medications, do not give if sedated
#IgG M deficiency
-Noted per history, may be related with frequent hospitalizations for high fever
DVT prophylaxis: SQ Lovenox
Diet: Full liquids, TRAINING ASSOCIATE consult
CODE STATUS: Full code
--- NOTE | 2024-06-30 12:53 | PTCARENOTE ---
Pt moved to [facility] from ED, restraints on per order, skin intact, awaiting pharmacy to verify all of patients medications
--- NOTE | 2024-06-30 13:30 | PTCARENOTE ---
Patient received from ED into [facility]
[2024-06-30 14:01] LABS: Lactic Acid 1.7 mmol/L (0.7-2.0)
[2024-06-30 14:22] LABS: Glucose - Point of Care 190 mg/dl (70-99)
[2024-06-30] MEDS: LR 1000 IV (14:32)
[2024-06-30] MEDS: VALIUM 10 MG PO (14:50)
[2024-06-30] MEDS: MS CONTIN (EXTENDED RELEASE) 30 MG PO ×2 (14:51→20:25)
[2024-06-30] MEDS: FLAGYL 500 MG 100 IV ×2 (14:55→21:58)
[2024-06-30 15:17] LABS: TSH 0.63 uIU/ml (0.47-4.68)
--- NOTE | 2024-06-30 15:58 | PHA.VAN.IN ---
Assessment
- Assessment
Renal Function: Appears elevated from baseline (SCR 1.1 vs ~0.8 in 2023)
Concomitant Antimicrobials: cefepime, metronidazole
Plan
- Plan
Initial / Loading Dose: 2000mg - 06/30 10:17
Maintenance Regimen: dosing by level
Monitoring: random 07/01 0600
MRSA Screen: Ordered per protocol
Pharmacokinetics Vancomycin I
- -
Patient Age: 63
Patient Sex: Female
Vancomycin Day #: 1
Indication: Pulmonary/Respiratory
Requesting Provider: Dr. Brown
Pertinent Antimicrobial Allergies:
NKDA
Height / Weight:
Height 5 ft 7 in
Actual Weight 79.6 kg
Pertinent Past Medical History: DM
- Vital Signs / Lab Results
Temp Pulse Resp BP Pulse Ox
99.0 F 68 15 133/55 95
06/30/24 13:15 06/30/24 13:00 06/30/24 13:00 06/30/24 13:00 06/30/24 13:07
Lab Results - Hematology
06/30/24
08:38
WBC 8.8
Lab Results - Chemistry
06/30/24
08:55
BUN 18
Creatinine 1.1
Albumin 4.0
06/30/24 06/30/24
08:37 13:22
Lactic Acid 2.3 H 1.7
Lab Results - Urine
06/30/24
08:37
Urine Nitrite (Reflex) Negative
Leukocyte Esterase Rfl Negative
Urine WBC (Reflex) 0-2
Ur Squamous Epith Cells 0-2
Urine Bacteria (Reflex) Few A
Microbiology Results
06/30/24 08:37 Influenza Types A & B (KIERSTEN) - Final
Nasal Swab Negative for Influenza A & B, NAAT
Negative results must be combined with clinical observations
and patient history.
Nucleic Acid Amplification test (NAAT)performed on the
[employer] NOW platform.
[2024-06-30 16:36] LABS: Glucose - Point of Care 162 mg/dl (70-99)
[2024-06-30] MEDS: NOVOLOG FLEXPEN-MODERATE RESISTANCE SC (16:40)
[2024-06-30] MEDS: NOVOLOG FLEXPEN SC (16:40)
[2024-06-30] MEDS: ROXICODONE PO (16:59)
[2024-06-30] MEDS: NEURONTIN 800 MG PO ×2 (17:39→21:59)
[2024-06-30] MEDS: LOVENOX 40 MG SC (17:40)
[2024-06-30] MEDS: STERILE WATER FOR INJECTION 10 ML IV (17:41)
--- NOTE | 2024-06-30 18:15 | PTCARENOTE ---
RN called pharmacy, Depakote is not stocked in ED, told pharmacy to please send it to patients new floor 4
Verbal report called to receiving RN on
--- NOTE | 2024-06-30 18:18 | PTCARENOTE ---
Patient was behaving appropriately and not a threat to himself or tubes/lines in [facility]. Bilateral wrist restraints were discontinued at 1400.
[2024-06-30] MEDS: DEPAKOTE ER (24 HR RELEASE) 500 MG PO ×2 (18:36→21:59)
[2024-06-30] MEDS: ROXICODONE 10 MG PO ×2 (18:36→21:59)
[2024-06-30 21:47] LABS: Glucose - Point of Care 176 mg/dl (70-99)
[2024-06-30] MEDS: LANTUS 0.15 UNITS SC (21:58)
[2024-07-01] MEDS: MAXIPIME 2000 MG IV ×2 (01:33→09:56)
[2024-07-01] MEDS: STERILE WATER FOR INJECTION 10 ML IV ×2 (01:33→09:56)
[2024-07-01 03:26] VITALS: BP 135/45
[2024-07-01] MEDS: LR 1000 IV (03:41)
[2024-07-01] MEDS: ROXICODONE 10 MG PO ×2 (03:41→09:53)
[2024-07-01 03:46] LABS: Glucose - Point of Care 83 mg/dl (70-99)
[2024-07-01] MEDS: FLAGYL 500 MG 100 IV (05:48)
[2024-07-01] MEDS: SYNTHROID 100 MCG PO (05:48)
[2024-07-01 07:00] VITALS: BP 133/56
[2024-07-01 07:21] LABS: % Basophils 0.5 % (0-2); % Eosinophils 0.7 % (0-6); % Immature Granulocytes 0.4 % (0-0.5); % Lymphocytes 19.7 % (20.5-51.1); % Monocytes 8.8 % (1.7-9.3); % Neutrophils 69.9 % (42.2-75.2); Absolute Basophils 0.1 10^3/uL (0-0.2); Absolute Eosinophils 0.1 10^3/uL (0-0.7); Absolute Lymphocytes 1.9 10^3/uL (1.2-3.4); Absolute Monocytes 0.9 10^3/uL (0.1-0.6); Absolute Neutrophils 6.8 10^3/uL (1.4-6.5); Hematocrit 35.3 % (39.0-52.0); Hemoglobin 12.3 g/dL (13.0-18.0); Mean Corp Hgb Conc. 34.8 g/dL (33.0-37.0); Mean Corpuscular Hgb 33.1 pg (27.0-31.0); Mean Corpuscular Volume 94.9 fL (80.0-94.0); Mean Platelet Volume 11.4 fL (7.4-10.4); Nucleated Red Blood Cells % 0 % (-); Platelet Count 130 10^3/uL (130-400); Red Blood Cell Count 3.72 10^6/uL (4.70-6.10); Red Cell Dist. Width 13.2 % (11.5-14.5); White Blood Cell Count 9.8 10^3/uL (4.8-10.8)
[2024-07-01 07:30] LABS: Vancomycin Random 7.6 ug/ml
[2024-07-01 07:35] LABS: ALT (SGPT) 12 U/L (0-50); AST (SGOT) 19 U/L (17-59); Albumin 3.1 g/dl (3.5-5.0); Alkaline Phosphatase 64 U/L (38-126); Blood Urea Nitrogen 16 mg/dl (9-20); Calcium 8.7 mg/dl (8.4-10.2); Carbon Dioxide 31 mmol/L (22-30); Chloride 102 mmol/L (98-107); Estimated Creatinine Clearance 88 ml/min; Glucose 140 mg/dl (70-99); Potassium 3.8 mmol/L (3.5-5.1); Sodium 140 mmol/L (135-145); Total Bilirubin 0.6 mg/dl (0.2-1.3); Total Protein 5.3 g/dl (6.3-8.2); eGFR > 60.00
[2024-07-01 08:08] LABS: Glucose - Point of Care 142 mg/dl (70-99)
[2024-07-01] MEDS: NOVOLOG FLEXPEN-MODERATE RESISTANCE SC (08:37)
--- NOTE | 2024-07-01 08:40 | PTOTSP ---
Speech Language Pathology
Pt seen for clinical bedside swallow evaluation. Known to EMBLEM CUTTER service line with VSE completed 06/29/23 with silent aspiration of consecutive straw sips of thin liquids with recommendations for regular solids/thin liquids, single sips only. Hx of
recurrent PNA (December, May, February, March, May, June, July, August, currently).
P.O. trials of puree and thin liquids provided from breakfast tray. Adequate bolus formation and A-P transit noted. No overt signs of aspiration. Pt reported globus sensation in mid-chest with puree, which he stated happens occasionally. He has
never noted regurgitation. He does not follow with a GI doctor. He did not recall precautions from past VSE for single sips. Question whether pt with aspiration PNA currently from not following prescribed precautions, whether related to a change
in swallow function since last VSE completed, or possible esophageal etiology.
Recommend:
(1) Repeat VSE
(2) Continue full liquids pending VSE
(3) Aspiration precautions: sit upright, single sips only
(4) Meds as tolerated. Ok to take whole with liquids if able to take single sip only
(5) EMBLEM CUTTER to continue to follow
[2024-07-01] MEDS: NOVOLOG FLEXPEN 5 UNITS SC ×2 (08:47→14:53)
[2024-07-01] MEDS: MS CONTIN (EXTENDED RELEASE) 30 MG PO (09:53)
[2024-07-01] MEDS: NEURONTIN 800 MG PO (09:54)
[2024-07-01] MEDS: LOTREL 5 MG/20 MG 1 CAPSULE PO (09:54)
[2024-07-01] MEDS: NICODERM TRANSDERMAL 14 MG TRANSDERM (09:54)
[2024-07-01] MEDS: LIPITOR 40 MG PO (09:55)
[2024-07-01] MEDS: PAXIL 40 MG PO (09:55)
[2024-07-01] MEDS: DEPAKOTE ER (24 HR RELEASE) 500 MG PO (09:56)
[2024-07-01 11:00] VITALS: BP 142/68
[2024-07-01 11:17] VITALS: BP 110/59; PULSE 80; O2SAT 95
--- NOTE | 2024-07-01 11:20 | PTOTSP ---
Speech Language Pathology
VIDEOFLUOROSCOPIC SWALLOWING EXAMINATION (VSE) completed. Mild pharyngeal dysphagia noted, slightly improved from VSE completed in June 2023. No aspiration noted, but laryngeal penetration noted. As pt unable to clear penetrated material with
cued cough, it is possible that aspiration occurs at times and is why pt with recurrent PNA. However, as dysphagia only mild at this time, question additional factors. During evaluation in room earlier this date, pt complained of globus sensation
in mid chest with solids. Question esophageal component.
Recommend:
(1) Regular solids/thin liquids
(2) Aspiration precautions: slow rate, single sips, intermittent cough/reswallow
(3) Meds as tolerated
(4) Consider OP GI
(5) MUSIC ENGINEER to continue to follow
[2024-07-01 11:30] VITALS: BP 131/61; PULSE 59; O2SAT 98
[2024-07-01 12:00] LABS: Glucose - Point of Care 128 mg/dl (70-99)
[2024-07-01] MEDS: VALIUM 5 MG PO (12:06)
--- NOTE | 2024-07-01 12:22 | W.PN.HOSP.TC ---
Today's Communication/Plan
-
Transition to oral antibiotics
OP follow-up for repeat CT
Discharge
Assessment / Plan
Assessment / Plan
#Sepsis secondary to aspiration pneumonia
#Lactic acidosis
#H/O aspiration
-Suspect aspiration possibly in association with his pain regimen likely causing sedation
-Presented SIRS positive, temperature 104.7 �F; suspected source with frequent aspiration
-CT C/A/P with IV contrast showed airspace consolidation in the right lower lung lobe
-Blood cultures x 2 were obtained; blood cultures with no growth to date
-IV cefepime and vancomycin initially, vancomycin now discontinued
-Has remained hemodynamically stable without requirements for vasopressors
-VSE performed this morning showed improvement from previous study
Plan
-Transition broad-spectrum antibiotics to cefdinir and azithromycin to complete 7-day course
-Follow-up with PCP for repeat CT chest as OP to ensure resolution
-Regular diet at discharge, aspiration precautions with the sedating medicine
#Acute metabolic encephalopathy
-Likely related to sepsis as above, also is on significant sedating regimen
-Suspect that mental status will improve with antibiotics and resolution of underlying infection
-Will provide hold parameters for home sedating medications
-Resolved
#IDDM s/p insulin pump
-No recent A1c; no known microvascular disease complications
-Currently on NovoLog insulin pump; also on statin and ACEi
-Monitor blood glucose
#COPD without exacerbation
-No baseline O2 requirement; Home regimen includes an Anoro Ellipta
-Does have signs of hypercapnia with bicarb 33 on BMP, near baseline
-No recent PFTs
#Primary hypertension
-Home medications include amlodipine-benazepril
-No known history of hypertensive systemic disease
-Continue current regimen with hold parameters
#Hypothyroidism
-Unclear etiology, home regimen includes levothyroxine 100 mcg daily
-Do not suspect fever related to thyroid dysfunction; will check TSH for completeness
#Bipolar disorder
#Seizure disorder
-Home regimen includes divalproex; unclear if this is for history of seizures versus bipolar disease versus both
-Seizure precautions
#Chronic pain syndrome with opioid dependence
#H/O TBI s/p craniotomy
#H/O cervical fusion
#H/O back surgery
-Currently on multimodal pain regimen
-Home meds include diazepam, gabapentin, morphine, oxycodone
-Will provide hold parameters for home medications, do not give if sedated
#IgG M deficiency
-Noted per history, may be related with frequent hospitalizations for high fever
DVT prophylaxis: SQ Lovenox
Diet: Regular
CODE STATUS: Full code
Anticipated Discharge: Within 24 hours
Subjective/Interval History
-
Date of Service: July 01, 2024
Seen and examined at the bedside. No acute events reported overnight. AFVSS this morning
No fever since admission, remains without leukocytosis. Remains on room air comfortably. Mental status improved. VSE performed this morning, improved from previous
Patient states he feels very well today, was walking around the room. States he would like to go home
Objective Data
-
Labs:
Laboratory Results
07/01/24
06:20
WBC 9.8
Hgb 12.3 L
Hct 35.3 L
Plt Count 130
Sodium 140
Potassium 3.8
Chloride 102
Carbon Dioxide 31 H
BUN 16
Creatinine 0.8
Glucose 140 H
Calcium 8.7
Total Bilirubin 0.6
AST 19
ALT 12
Alkaline Phosphatase 64
Vital Signs:
Vital Signs
Temp Pulse Resp BP Pulse Ox
98.1 F 61 16 133/56 95
07/01/24 07:00 07/01/24 07:00 07/01/24 07:00 07/01/24 07:00 07/01/24 07:00
I&O
06/30/24 07/01/24 07/02/24
06:59 06:59 06:59
Intake Total 1500 / 1500
Output Total 390 / 390
Balance 1110 / 1110
Review of Systems
-
History Source: Patient
All other systems: Reviewed and negative
Physical Exam
-
General: Well Developed, No Apparent Distress and Comfortable
HEENT: Normocephalic, Moist Mucous Membranes and Anicteric; Negative Oxygen
Respiratory: Clear to Auscultation and Non Labored Respirations; Negative Wheezes, Rales, Rhonchi or Accessory Resp Muscle Use
Cardiac: Regular Rhythm and S1/S2; Negative Murmur, Rub or Gallop
GI: Soft, Nontender, Nondistended and Normal Bowel Sounds
Musculoskeletal: No Clubbing, No Cyanosis and No Edema
Skin: Warm, Dry and Normal Turgor; Negative Rash
Neuro: AO x 3, Nonfocal/Grossly Intact and Central Nerve's Intact; Negative Tremors
Psych: Calm
Data Reviewed
-
Labs: Labs Reviewed by me, Discussed with Nurse and Discussed with Patient
[2024-07-01] MEDS: ROXICODONE 20 MG PO (12:34)
[2024-07-01] MEDS: FLAGYL 500 MG IV (14:41)
[2024-07-01] MEDS: LR IV (14:41)
--- NOTE | 2024-07-01 14:41 | CM ---
CM reviewed chart, patient seen bedside, initial assessment completed. Patient resides with his in a multiple story home, reports having a cane if needed. Patient reports history of [facility] in past, denies SNF, has been to outpatient PT through
[facility]. Patient confirms PCP Dusty Nova, pharmacy [facility] or [facility] for mail order. Patient for discharge today, confirms transportation home. CM will continue to follow for all discharge planning needs.
Plan; home no needs.
[2024-07-01] MEDS: VALIUM 10 MG PO (14:52)
[2024-07-01 14:53] LABS: Glucose - Point of Care 162 mg/dl (70-99)
[2024-07-01] MEDS: NOVOLOG FLEXPEN-MODERATE RESISTANCE 1 UNITS SC (14:56)
[2024-07-01 15:00] VITALS: BP 130/76
--- NOTE | 2024-07-01 15:13 | PTCARENOTE ---
07/01/2024 DIABETES EDUCATION
I met with Lv to review diabetes management, has been T1D for 30 years. Inpatient with [facility], states he went off the pump to avoid confusion with IV insulin prescribed. Uses Medtronic insulin pump with Free Style Saqib 2 CGM. Denies having any
issues with maintenance and compliance, A1c 3 months ago was 6/4%. He sees Dr. Michael Ross every 3 months for T1D management.
He declined manual demonstration of glucometer, states he has ReliOn brand at home for back up use. I provided sample kit of EverTune Next glucometer, test strips and lancets. States he does not need additional supplies ordered. I verbally
reviewed manual testing technique, he acknowledged understanding. He rotates insulin pump insertion sites, has his CGM parameters set 90 - 150 mg/dL and states the alarms rarely go off. If an alarm is set, it's typically due to lack of eating or
over eating. States he counts carbohydrates for all meals and snacks, charts his food intake and glucose values. He gave no indication of not resuming insulin pump when discharged home, I discussed with his nurse who will verify with patient.
States he has been inpatient numerous times in the past 2.5 years with [facility]. Smokes 1 PPD cigarettes, I provided information on [id number] and educated patient that smoking could be a risk factor for [facility]. States he is up to date with all
vaccines. Has neuropathy, takes Gabapentin. I provided education on proper foot care. Encouraged patient to follow up with his Dr. Ross for post d/c appointment and to monitor medication and blood glucose levels. Information provided on
the outpatient Diabetes Adult Support Group and Insulin Pump Support Group. Patient verbalized understanding.
--- NOTE | 2024-07-01 15:24 | W.DCSUMMARY ---
Discharge Summary
Discharge Data
Date of Admission: 06/30/24
Date of Discharge: 07/01/24
Total time spent discharging patient (in min): 36
-
Pending Results: No
Hospital Course
Discharging Physician :�Benjamin Brown DO
Disposition :���� Home
Principal Discharge diagnosis :�
Aspiration pneumonia versus pneumonitis
Acute metabolic encephalopathy
High-grade fever (104.7 �F)
Dysphagia
Tobacco use
Chronic Discharge diagnosis :�
COPD
IDDM s/p insulin pump
Primary hypertension
IgM deficiency
Bipolar disorder
Chronic pain with opiate dependence
H/O SDH s/p craniotomy
Hospital Course :�
63-year-old male that presented to the hospital with altered mental status and high-grade fevers that started within the day prior to arrival. In the ED was found to have temperature of 104.7 �F. Initial chest x-ray was unremarkable. CBC without
leukocytosis. Urinalysis bland. Blood cultures x 2 were obtained and he was started on broad-spectrum antibiotics with IV vancomycin, cefepime, Flagyl. Subsequently with CT C/A/P with IV contrast that demonstrated right lower lobe consolidation.
Patient had frequent hospitalizations in the past for aspiration pneumonia and high-grade fevers likely related to mental status changes due to his home medication regimen. He quickly improved with buddhism of his baseline mental status. Never
required supplemental oxygen while in the hospital. Received IV fluids as well and remained hemodynamically stable throughout the his 2-day hospitalization. Blood cultures preliminary negative while in the hospital. No recurrence of high-grade
fevers since admission. Had a repeat video swallow exam that showed improvement from previous study, speech therapy recommended regular diet with thin liquids. Was transition to Augmentin for 7 days of antibiotic coverage. Recommend follow-up
with PCP 1 week after discharge. Should follow-up with shipyard painter helper and have consideration for down titration on his regimen that consists of diazepam/gabapentin/oxycodone/morphine. Prescription sent for nicotine patches at discharge.
Consultants : N/A
Important imaging findings :�
CT C/A/P with IV contrast (06/30/24)
FINDINGS:
Lungs: There is right lower lobe paramediastinal approximately 3.5 cm area of airspace consolidation, presumably obscured by the cardiac shadow on chest radiographs of earlier the same date. In addition to this, there are multifocal predominantly
perironchovascular interstitial and groundglass opacities throughout the right lung involving all the lobes. All these findings are most likely related to pneumonia. There is bilateral gravity dependent atelectasis. Small amount of reticular opacity
in the lingula and anterior left upper lobe likely related to chronic interstitial change/fibrosis, similar to prior. There is right lower lobe subpleural 6 mm nodule which was present prior (image #[id number] series 201). No significant interval increase
in size. There are some secretions within the trachea. Mild emphysematous changes which are most conspicuous near the right apex. Small nodular opacity in the anterior right upper lobe which is probably related to the infectious process (image #27
series 201). No pneumothorax.
Mediastinum: Thyroid gland is unremarkable. There is no axillary adenopathy. Mediastinal images somewhat limited by artifacts, no clear adenopathy identified within the mediastinum. There are subcentimeter right hilar nodes. There is no pleural or
pericardial effusion. There is no cardiomegaly. No aneurysmal dilation of the thoracic aorta. There are moderate calcific atherosclerotic changes.
Abdomen and pelvis: Liver shows diffuse mildly decreased attenuation compatible with mild fatty infiltration. No suspicious focal hepatic lesions. No intrahepatic biliary dilation. Gallbladder is unremarkable. Spleen is unremarkable. Pancreas shows
some atrophic changes, no abnormal focal lesions. Adrenal glands are unremarkable. Small cleft at the upper pole of the right kidney most consistent with scarring. There is mild bilateral perinephric stranding. The left kidney shows a subcentimeter
low-attenuation focus, too small to characterize but most likely a cyst. No hydronephrosis. No enhancing renal masses.
There is no bowel obstruction. Relatively small volume of stool within the colon. There is colonic diverticulosis, no signs of acute diverticulitis. Normal appendix. No abnormal focal inflammatory reaction of the bowel is identified. No free air or
free fluid within the abdomen. No retroperitoneal lymphadenopathy. No aneurysmal dilation of the aorta. There are moderate calcific atherosclerotic changes. Minimal relative ectasia of the infrarenal aorta, maximum diameter approximately 1.9 cm.
Urinary bladder mildly distended with urine. There is diffuse mild wall thickening. Prostate unremarkable. Rectum unremarkable. No free fluid is seen within the pelvis. There are small bilateral fat-containing inguinal hernias.
Bones: Mild degenerative changes. Post lumbosacral fusion. No suspicious focal osseous lesions.
IMPRESSION:
1. Right lung findings as detailed above, most consistent with pneumonia. Most severe in the right lower lobe.
2. No acute intra-abdominal process identified.
3. Diverticulosis without diverticulitis.
4. Mild urinary bladder distention and minimal diffuse wall thickening, question outlet obstruction or neurogenic bladder.
Procedure findings :� N/A
Follow-up :
Follow-up with family doctor within 1 week of discharge from the hospital
Follow-up with shipyard painter helper within 2 weeks of discharge
Repeat CT chest to assess for resolution of consolidation
Discharge Plan
-
Patient Disposition: Home (Routine Discharge)
Discharge Diagnosis/Procedures: Aspiration pneumonitis versus pneumonia
Acute metabolic encephalopathy
Chronic dysphagia
Condition: Good
Diet: Regular
Additional Diets: Caution with food and water intake after sedating medications (oxycodone, morphine, gabapentin, diazepam)
Activity: As tolerated
Driving Restrictions: No driving for 24 hours
Bathing Restrictions: None
Blood Work: None
Others Tests: Repeat CT chest as outpatient with PCP to ensure pneumonia resolving
Activity Restrictions/Additional Instructions:
After discharge from the hospital schedule follow-up appointment with your family doctor. Should be seen in office within 1 to 2 weeks of discharge from the hospital
Follow-up with precision honing machine operator, referral provided below. They may want to perform additional testing into your ability to swallow
Follow-up with your shipyard painter helper to see if any medications you are currently on can be reduced to help limit your chances of aspirating in the future
Instructions: Aspiration pneumonia - Discharge instructions
Referrals:
Dusty Nova, [Family Provider] -
Edis Ortega DO [Active] - in two to four weeks
Additional Discharge Medication Instructions: Continue Augmentin every 12 hours for 6 days after discharge
Insulin and equipment to monitor sent to pharmacy if needed, in event glucometer and insulin pump is malfunctioning. If your insulin pump is working properly we recommend you continue that regimen
Prescriptions:
New
nicotine 14 mg/24 hr Patch 24 Hour
14 mg transdermal DAILY 30 Days Qty: 28 0RF
insulin glargine [Lantus Solostar U-100 Insulin] 100 unit/mL (3 mL) insulin pen
20 unit SC QPM 30 Days Qty: 6 0RF
insulin aspart U-100 100 unit/mL (3 mL) Insulin Pen
5 unit SC AC 30 Days Qty: 4.5 0RF
(DME) lancets 25 gauge misc
See Rx Instructions .Route Qty: 100 0RF
Rx Instructions:
As directed
(DME) Accutrend Glucose test strips Strip
See Rx Instructions .Route Qty: 50 0RF
Rx Instructions:
As directed
(DME) blood-glucose meter Kit
See Rx Instructions .Route Qty: 1 0RF
Rx Instructions:
As directed
amoxicillin-pot clavulanate 875-125 mg tablet
1 tab PO Q12H 6 Days Qty: 12 0RF
Continued
morphine 30 mg tablet extended release
30 mg PO Q12H
gabapentin 800 mg tablet
800 mg PO TID
levothyroxine 100 mcg tablet
100 mcg PO DAILY
oxycodone 10 mg tablet
10 mg PO TID
Patient Own Insulin Pump
0 units SC .NOVOLOG VIA PUMP
oxycodone 30 mg tablet
30 mg PO TID
atorvastatin 40 mg tablet
40 mg PO DAILY
amlodipine-benazepril 5-20 mg capsule
1 cap PO DAILY
indomethacin 25 mg capsule
25 mg PO Q6HPRN PRN (Reason: flares up)
paroxetine HCl 40 mg tablet
40 mg PO DAILY
Anoro Ellipta 62.5-25 mcg/actuation blister with device
1 inh INHALATION R DAILYPRN PRN (Reason: sob)
divalproex 500 mg Tablet Extended Release 24 Hr
500 mg PO TID
diazepam 10 mg Tablet
10 mg PO DAILY@1400
diazepam 5 mg Tablet
5 mg PO DAILY@1100
Discharge Orders:
Discharge Patient (As Directed); Ordered 07/01/24
Ordered By: Benjamin Brown
Discharge Date and Time
Print Language: GREEK
== END 2024-07-01 16:55 | disposition home or self-care (01) | DRG 871 ==
LOC: 4 WEST ACU 12:33
PROVIDERS: ADMITTING PHYSICIAN Internal Medicine; EMERGENCY PHYSICIAN Emergency Medicine; FAMILY PHYSICIAN Family Medicine
DX: A41.89 Other specified sepsis (principal); G92.8 Other toxic encephalopathy; J69.0 Pneumonitis due to inhalation of food and vomit; J44.0 Chronic obstructive pulmonary disease with (acute) lower respiratory infection; F11.20 Opioid dependence, uncomplicated; E87.20 Acidosis, unspecified; J98.11 Atelectasis; F31.9 Bipolar disorder, unspecified; E11.9 Type 2 diabetes mellitus without complications; E78.00 Pure hypercholesterolemia, unspecified; E03.9 Hypothyroidism, unspecified; G40.909 Epilepsy, unspecified, not intractable, without status epilepticus; G89.4 Chronic pain syndrome; I10 Essential (primary) hypertension; R13.10 Dysphagia, unspecified; F17.210 Nicotine dependence, cigarettes, uncomplicated; K76.0 Fatty (change of) liver, not elsewhere classified; K57.30 Diverticulosis of large intestine without perforation or abscess without bleeding; K40.20 Bilateral inguinal hernia, without obstruction or gangrene, not specified as recurrent; N32.89 Other specified disorders of bladder; Z60.2 Problems related to living alone; Z96.41 Presence of insulin pump (external) (internal); Z87.820 Personal history of traumatic brain injury; Z11.52 Encounter for screening for COVID-19; Z98.1 Arthrodesis status; Z79.4 Long term (current) use of insulin; Z79.890 Hormone replacement therapy
CPT/HCPCS: 71045; 71260; 74177; 74230; 80053; 80164; 80202; 81003; 81015; 82962; 83605; 84443; 85025; 87040; 87070; 87205; 87449; 87502; 87641; 87811; 87899; 92610; 92611; 93005; 96361; 96365; 96366; 96375; 97162; 97167; 99291; 99406; Q9967

== ENCOUNTER 2024-10-01 11:40 | Observation (INO) | payer MEDICARE, BC, SELFPAY ==
[2024-10-01 07:56] VITALS: BP 160/78
[2024-10-01 07:58] VITALS: BMI 28.1
[2024-10-01 07:59] VITALS: BP 160/78
[2024-10-01 08:16] LABS: Hematocrit 37.4 % (39.0-52.0); Hemoglobin 13.0 g/dL (13.0-18.0); Mean Corp Hgb Conc. 34.8 g/dL (33.0-37.0); Mean Corpuscular Volume 94.0 fL (80.0-94.0); Nucleated Red Blood Cells % 0 % (-); Platelet Count 176 10^3/uL (130-400); Red Cell Dist. Width 12.9 % (11.5-14.5)
--- NOTE | 2024-10-01 08:28 | ED.GENMED ---
History of Present Illness
General
Chief Complaint: Fever
Time Seen by Provider: 10/01/24 07:58
History of Present Illness
History of Present Illness:
63-year-old male with history of TBI status postcraniotomy, hypertension, diabetes, history of aspiration pneumonia presenting to the emergency department for fever. Fever allegedly started this morning. Patient did take Tylenol prior to arrival.
Patient with history of aspiration pneumonia, most recently in June. Patient is a limited historian given his prior history. Reports mild cough. Denies abdominal pain. Denies chest pain or difficulty breathing. Denies urinary issues. Denies
any preceding possible aspiration events. Denies additional acute medical complaints
Past History
Past History
ED Past Medical History: HTN, Hypercholesterolemia, NIDDM, Seizures, Psychiatric (Bipolar) and Other (Chronic pain syndrome, pneumonia, traumatic brain injury)
ED Past Surgical History: None
Social History
Tobacco: Smoker
Phy Exam
Physical Exam
Physical Exam:
General: Well-appearing, no clinical signs of dehydration, nontoxic and in no acute distress
HEENT: protecting airway
Neck: appears supple
CV: Normal heart rate, regular rhythm
Resp: No accessory muscle use, no increased work of breathing, lungs clear to auscultation bilaterally
Abd: Soft and non-distended, no tenderness to palpation
Extremities: No deformities, no swelling
Neuro: alert, no focal neurologic deficit
: deferred
Rectal: deferred
Psych: Normal affect
Skin: Intact
Course
Orders/Labs/Results
Orders:
Orders
10/01/24 08:00
Electrocardiogram (*1) Urgent
Reason for Study: Other
Other Reason for Exam: Possible Sepsis
Cardiac Monitoring- Treatment ONCE
EKG- Treatment ONCE
IV Insert/Care/Rem.- Treatment PRN
Chest [CR Chest - 2 Views ] Urgent
Comment:
Reason For Exam: fever
O2 Therapy [RESP] Urgent
Titrate/Wean O2 to maintain O2 sat greater than (%): 93
Special Instructions: TO MAINTAIN CONTINUOUS O2 SATS > OR = 93%
Pulse Ox/cont/shift [RESP] Urgent
Quantity: 1
Special Instructions: CONTINUOUS
10/01/24 08:02
Basic Metabolic Panel Urgent
Complete Blood Count/With Diff Urgent
Lactic Acid Q4H
Comment: ON ICE, CANCEL 2ND ORDER IF FIRST LACTIC ACID LEVEL <2
Blood Culture Q20M
ELIE Source: Blood/Venous
Specimen Description:
Comment: Urgent from separate sites. If patient screens positive for possible sepsis
10/01/24 08:23
0.9% Sodium Chloride 1000 ml [Nss] 1,000 ml IV BOLUS
10/01/24 08:47
COVID-19 Antigen Urgent
Source: Nasal Swab
Blood Culture Q20M
ELIE Source: Blood/Venous
Specimen Description:
Comment: Urgent from separate sites. If patient screens positive for possible sepsis
Influenza A+B Rapid Molecular Urgent
ELIE Source: Nasal Swab
Specimen Description:
10/01/24 08:49
Urinalysis Reflex To Culture Urgent
Date Specimen was Collected: 10/01/24
Time Specimen was Collected: 08:48
Urine Microscopic Reflex Cult Urgent
10/01/24 09:41
Piperacillin/Tazo 4.5 Gram [Zosyn] 4.5 gram in 100 ml IV NOW
10/01/24 10:16
Ketorolac [Toradol] 15 mg IV NOW STA
10/01/24 12:00
Lactic Acid Q4H
Comment: ON ICE, CANCEL 2ND ORDER IF FIRST LACTIC ACID LEVEL <2
Abnormal Lab Results
10/01/24 10/01/24
08:02 08:49
RBC 3.98 L 10^6/uL
(4.70-6.10)
Hct 37.4 L %
(39.0-52.0)
MCH 32.7 H pg
(27.0-31.0)
Absolute Monos (auto) 0.9 H 10^3/uL
(0.1-0.6)
Lymphocytes % 18.6 L %
(20.5-51.1)
Monocytes % 9.5 H %
(1.7-9.3)
Carbon Dioxide 34 H mmol/L
(22-30)
Glucose 135 H mg/dl
(70-99)
Ur Occult Blood Reflex 2+ A
(Negative)
Urine RBC 21-25 A /HPF
(0-2)
Urine Bacteria (Reflex) Few A
(Negative)
Urine Glucose 2+ A
(Negative)
10/01/24 08:02
10/01/24 08:02
Vital Signs
Initial and Last Documented VS:
Initial Vital Signs
Temp Pulse Resp
101.7 F H 82 20
10/01/24 07:57 10/01/24 07:57 10/01/24 07:57
Last Documented Vital Signs
Temp Pulse Resp BP Pulse Ox
101.0 F H 82 20 160/78 98
10/01/24 10:13 10/01/24 07:57 10/01/24 07:57 10/01/24 07:59 10/01/24 08:37
MDM/Problems Addressed
MDM/Problems Addressed:
63-year-old male with history of TBI and aspiration pneumonia presenting for fever.
Patient well-appearing on exam, denies any specific symptoms. On review of EMR, similar symptoms in the past, fever from aspiration pneumonia. Patient nontoxic, lungs clear to auscultation, no increased work of breathing. Denies any additional
acute infectious symptoms. Patient is febrile here, but otherwise hemodynamically stable with lower suspicion for septic process. Plan for laboratory analysis, lactic acid, chest x-ray imaging, urinalysis.
10:15 - Urine without sign of infection. Chest x-ray without acute cardiopulmonary disease. No leukocytosis, normal lactic acid, again without sepsis concerns. Did call and discussed with who notes that this is patient's typical course,
wakes up with a high fever and develops aspiration pneumonia. She denies any preceding events that may have led to the aspiration. Given patient's history and suspicion that aspiration may later develop, with presentation of fever, do feel patient
warrants antibiotics. On check of temperature, still febrile. notes that she did give a gram of Tylenol prior to arrival. Will administer Toradol. She expresses concern given patient's response to fever, becomes very delirious. Patient is
persistently trying to get out of bed, seems unsteady, will plan for admission for continued antibiotics and respiratory monitoring
*Pulse Oximetry
SaO2: 98
Oxygen Mode of Delivery: Room air
Patient hypoxic: no
*EKG
Interpreted by ED Provider?: Yes
EKG Intrepretation Date: 10/01/24
EKG Intrepretation Time: 08:43
Interpretation: normal
Comparison EKG: no changes
Heart Rate: 81
Rate: normal
Rhythm: sinus
[place]: normal axis
Interval: normal interval
QRS Pattern: normal QRS
Ischemia: no ischemia
*Critical Care Note
Total Time (30-74mins, 75-104mins- exclusive of procedures): Not Applicable
ED Attending Note
-
Portions of this chart may have been created with voice recognition software.� Occasional wrong word or��sound alike� substitutions may have occurred due to the inherent limitations of voice recognition software.
Discharge Plan
Departure
Patient with high blood pressure during this ER visit?: Yes
Condition: Good
Discharge Problem:
Fever
Instructions: Fever, Adult (DC), Aspiration pneumonia - Discharge instructions
Prescriptions:
New
amoxicillin-pot clavulanate 875-125 mg tablet
1 tab PO BID 7 Days Qty: 14 0RF
No Action
morphine 30 mg tablet extended release
30 mg PO Q12H
gabapentin 800 mg tablet
800 mg PO TID
levothyroxine 100 mcg tablet
100 mcg PO DAILY
oxycodone 10 mg tablet
10 mg PO TID
Patient Own Insulin Pump
0 units SC .NOVOLOG VIA PUMP
oxycodone 30 mg tablet
30 mg PO TID
atorvastatin 40 mg tablet
40 mg PO DAILY
amlodipine-benazepril 5-20 mg capsule
1 cap PO DAILY
indomethacin 25 mg capsule
25 mg PO Q6HPRN PRN (Reason: flares up)
paroxetine HCl 40 mg tablet
40 mg PO DAILY
Anoro Ellipta 62.5-25 mcg/actuation blister with device
1 inh INHALATION R DAILYPRN PRN (Reason: sob)
divalproex 500 mg Tablet Extended Release 24 Hr
500 mg PO TID
diazepam 10 mg Tablet
10 mg PO DAILY@1400
diazepam 5 mg Tablet
5 mg PO DAILY@1100
nicotine 14 mg/24 hr Patch 24 Hour
14 mg transdermal DAILY 30 Days Qty: 28 0RF
insulin glargine [Lantus Solostar U-100 Insulin] 100 unit/mL (3 mL) insulin pen
20 unit SC QPM 30 Days Qty: 6 0RF
insulin aspart U-100 100 unit/mL (3 mL) Insulin Pen
5 unit SC AC 30 Days Qty: 4.5 0RF
(DME) lancets 25 gauge misc
See Rx Instructions .Route Qty: 100 0RF
Rx Instructions:
As directed
(DME) Accutrend Glucose test strips Strip
See Rx Instructions .Route Qty: 50 0RF
Rx Instructions:
As directed
(DME) blood-glucose meter Kit
See Rx Instructions .Route Qty: 1 0RF
Rx Instructions:
As directed
amoxicillin-pot clavulanate 875-125 mg tablet
1 tab PO Q12H 6 Days Qty: 12 0RF
Activity Restrictions/Additional Instructions:
You were seen in the emergency department for fever
You were found to have reassuring laboratory analysis and chest x-ray imaging. Given your history of aspiration pneumonias, we are starting you on antibiotics.
Please follow-up closely with your primary care physician.
Return to the emergency department for any worsening of your symptoms, or any development of chest pain, difficulty breathing, abdominal pain with persistent vomiting and inability to tolerate food or liquid by mouth (concern for dehydration),
weakness, headache or confusion, fever greater than 100.4, or any additional symptoms that are concerning to you.
Thank you for choosing [facility].
Discharge Date and Time
Print Language: UKRAINIAN
[2024-10-01 08:37] LABS: Blood Urea Nitrogen 20 mg/dl (9-20); Calcium 8.8 mg/dl (8.4-10.2); Carbon Dioxide 34 mmol/L (22-30); Chloride 101 mmol/L (98-107); Estimated Creatinine Clearance 79 ml/min; Glucose 135 mg/dl (70-99); Sodium 138 mmol/L (135-145); eGFR > 60.00
[2024-10-01 08:41] VITALS: BP 120/87
[2024-10-01] MEDS: NSS 1000 IV ×2 (08:49→19:07)
[2024-10-01 09:00] LABS: Urine Character Clear (Clear)
[2024-10-01 09:02] VITALS: BP 135/80
[2024-10-01 09:06] LABS: Urine Red Blood Cell 21-25 /HPF (0-2); Urine Squamous Cell 0-2 /LPF (Few); Urine White Cell 0-2 /HPF (0-5)
[2024-10-01 09:13] LABS: COVID-19 Antigen Negative (Negative)
[2024-10-01] MEDS: ZOSYN 100 IV (09:53)
[2024-10-01] MEDS: TORADOL 15 MG IV (11:26)
--- NOTE | 2024-10-01 11:28 | HPS.HSE ---
Family Physician
-
Family Physician: NO INTERVIEW UNKNOWN
Chief Complaint
-
fever
History of Present Illness
63yo M with PMHx of TBI, HTN, COPD, anxiety, neuropathy brought by his after he developed high grade fever and then delirium, which resolved as temperature improved in ED. Patient complained about mild dyscomfort in his throat, but no other
symptoms besides of fever. No sick contacts. No recent trauma. ED was concerned for dysphagia with Hx of aspiration pneumonia, however patient previously was recommended regular diet as per VSE and chest XR without signs of overt pneumonia
Medical History
Past Medical History
Past Medical History: Reports Other
Additional Past Medical History:
See HPI
Past Surgical History: Reports Other
Additional Past Surgical History:
See HPI
Social History
Tobacco: Non-smoker
Alcohol: None
Drug: None
Family History
Family History: Not pertinent
Allergies / Home Medications
Allergies reflects when Allergies were last updated in [facility].
Home Medications with original date entered in [facility]
Allergy/Medication List:
Allergies
Allergy/AdvReac Type Severity Reaction Status Date / Time
No Known Allergies Allergy Verified 06/30/24 13:16
Home Medications - Not updated
gabapentin 800 mg tablet 800 mg PO TID Neurological Condition 12/25/21
morphine 30 mg tablet,extended release 30 mg PO Q12H Pain 12/25/21
levothyroxine 100 mcg tablet 100 mcg PO DAILY Thyroid 09/10/22
oxycodone 10 mg tablet 10 mg PO TID Pain 09/10/22
Patient Own Insulin Pump 0 units SC .NOVOLOG VIA PUMP Diabetes 06/26/23
oxycodone 30 mg tablet 30 mg PO TID Pain 07/29/23
amlodipine 5 mg-benazepril 20 mg capsule 1 cap PO DAILY Blood Pressure 08/15/23
atorvastatin 40 mg tablet 40 mg PO DAILY High Cholesterol 08/15/23
indomethacin 25 mg capsule 25 mg PO Q6HPRN PRN flares up 08/15/23
paroxetine HCl 40 mg tablet 40 mg PO DAILY Mental Health/Anxiety 08/15/23
umeclidinium 62.5 mcg-vilanterol 25 mcg/actuation powdr for inhalation (Anoro Ellipta) 1 inh inhalation R DAILYPRN PRN sob 08/15/23
diazepam 10 mg tablet 10 mg PO DAILY@1400 ANTIANXIETY 10/04/23
diazepam 5 mg tablet 5 mg PO DAILY@1100 ANTIANXIETY 10/04/23
divalproex 500 mg tablet,extended release 24 hr 500 mg PO TID Seizures 10/04/23
amoxicillin 875 mg-potassium clavulanate 125 mg tablet 1 tab PO Q12H Infection 6 days #12 tabs 07/01/24
blood sugar diagnostic (Accutrend Glucose test strips) #50 ea 07/01/24
blood-glucose meter #1 ea 07/01/24
insulin aspart U-100 100 unit/mL (3 mL) subcutaneous pen 5 unit (0.05 mL) SC AC Diabetes 1 month #4.5 mL 07/01/24
insulin glargine 100 unit/mL (3 mL) subcutaneous pen (Lantus Solostar U-100 Insulin) 20 unit (0.2 mL) SC QPM Diabetes 1 month #6 mL 07/01/24
lancets 25 gauge #100 ea 07/01/24
nicotine 14 mg/24 hr daily transdermal patch 14 mg transdermal DAILY Smoking cessation 1 month #28 ea 07/01/24
Review of Systems
-
History Source: Patient
A 12 point ROS was completed and negative except as noted: Yes
EENT: Reports See HPI
Physical Exam
Vital Signs
Vital Signs
Temp Pulse Resp BP Pulse Ox
101.0 F H 82 20 160/78 98
10/01/24 10:13 10/01/24 07:57 10/01/24 07:57 10/01/24 07:59 10/01/24 08:37
Physical Exam
General: Well Developed, Well Nourished and No Apparent Distress
HEENT: NormoCephalic, Anicteric and Moist mucous membranes
Respiratory: Clear; No Wheezes or Crackles
Cardiac: S1/S2 and Regular Rhythm; No Tachycardia
GI: Soft, Non Tender and Non Distended
Genito-urinary: No costovertebral tender
Musculoskeletal: No Clubbing, No Cyanosis and No Edema
Skin: Warm; No Rash, Jaundice or Ulcers
Neuro: Awake, Alert, Oriented and AO x 3
Psych: Calm; No Confused
Laboratory Results
-
10/01/24 08:02
10/01/24 08:02
Laboratory Results
Lactic Acid 1.9 mmol/L (0.7-2.0) 10/01/24 08:02
Data Reviewed
-
Diagnostic Radiology: Report Reviewed by me
Lab Data: Labs Reviewed by me
Impression/Plan
-
A/P:
#Fever
with normal WBC without left shift, mild throat pain and clean chest XR, no overt urinary or GI symptoms - no indication for Abx
check Procal, Monospot and GAS rapid test
Monitor off Abx
IVF and observe overnight
#Delirium
transient, associated with fever
control symptoms
similar presentation on past admissions
No neurological deficit bedside and delirium completely resolved after Ketorolac
#DM type 2 with neuronopathy
cont insulin, ass SS, accuchecks and DM diet
#hypothyroidism
#Hx of TBI
#Mood d/o
#Anxiety
#COPD not in exacerbation
#Neuropathy
#Chronic pain d/o
#seizure d/o
#HLD
cont home meds
Seizure precautions
check TSH
DVT ppx Lovenox
Full code
I have spent at least 78min reviewing chart, test results, communication with family and providing direct patient care
[2024-10-01 12:33] LABS: Procalcitonin < 0.05 ng/ml (0.0-0.25)
--- NOTE | 2024-10-01 15:52 | CM ---
Initial assessment completed with via phone
EL notice explained to ; from dated/timed @ 1543
Pharmacy verified: [facility] @ [address] [facility], [place], [place]
Family Physician: Dr. Ciro Nova, [address] [place] [address], [place], [place]
Patient lives w/; split level home; 1 step to enter; 6 steps between levels; railings on stairs
PLOF: reported patient was independent with personal care and ADLs; ambulated with a cane when he leaves the house; manages medication
DME: Insulin Pump, Continuous Glucose Monitor
No SNF utilization history; no recent home health services
will transport home
Plan: Discharge to home when medically stable; Chief Medical Technologist will monitor for needs/services and support accordingly
[2024-10-01 17:33] VITALS: BP 152/65
[2024-10-01 17:33] LABS: Glucose - Point of Care 168 mg/dl (70-99)
[2024-10-01 17:35] VITALS: BMI 26.5
[2024-10-01] MEDS: NOVOLOG FLEXPEN SC (18:46)
[2024-10-01] MEDS: NOVOLOG FLEXPEN-MODERATE RESISTANCE SC (18:46)
[2024-10-01] MEDS: NOVOLOG FLEXPEN 5 UNITS SC (19:02)
[2024-10-01] MEDS: LANTUS 0.2 UNITS SC (19:02)
[2024-10-01] MEDS: NOVOLOG FLEXPEN-MODERATE RESISTANCE 1 UNITS SC (19:03)
[2024-10-01] MEDS: NEURONTIN 800 MG PO ×2 (19:06→22:24)
[2024-10-01] MEDS: LOVENOX 40 MG SC (19:06)
[2024-10-01] MEDS: DEPAKOTE ER (24 HR RELEASE) PO (20:10)
[2024-10-01] MEDS: VALIUM 10 MG PO (20:45)
[2024-10-01] MEDS: DEPAKOTE ER (24 HR RELEASE) 500 MG PO (20:45)
[2024-10-01] MEDS: MS CONTIN (EXTENDED RELEASE) 30 MG PO (20:45)
[2024-10-01 21:38] LABS: Glucose - Point of Care 122 mg/dl (70-99)
[2024-10-01] MEDS: ROXICODONE 30 MG PO (21:40)
[2024-10-01 23:00] VITALS: BP 147/58
[2024-10-02] MEDS: ROXICODONE 10 MG PO (01:54)
[2024-10-02 07:00] VITALS: BP 171/74
[2024-10-02 07:13] LABS: Hematocrit 33.6 % (39.0-52.0); Hemoglobin 11.7 g/dL (13.0-18.0); Mean Corp Hgb Conc. 34.8 g/dL (33.0-37.0); Mean Corpuscular Volume 93.3 fL (80.0-94.0); Nucleated Red Blood Cells % 0 % (-); Platelet Count 158 10^3/uL (130-400); Red Cell Dist. Width 13.0 % (11.5-14.5)
[2024-10-02 07:31] LABS: ALT (SGPT) < 10 U/L (0-50); AST (SGOT) 17 U/L (17-59); Albumin 3.0 g/dl (3.5-5.0); Alkaline Phosphatase 55 U/L (38-126); Blood Urea Nitrogen 15 mg/dl (9-20); Calcium 8.6 mg/dl (8.4-10.2); Carbon Dioxide 32 mmol/L (22-30); Chloride 105 mmol/L (98-107); Estimated Creatinine Clearance 91 ml/min; Glucose 102 mg/dl (70-99); Magnesium 2.2 mg/dl (1.6-2.3); Potassium 3.9 mmol/L (3.5-5.1); Sodium 136 mmol/L (135-145); Total Protein 5.3 g/dl (6.3-8.2); eGFR > 60.00
[2024-10-02] MEDS: NOVOLOG FLEXPEN-MODERATE RESISTANCE SC ×2 (07:31→11:44)
[2024-10-02 07:32] LABS: Glucose - Point of Care 114 mg/dl (70-99)
[2024-10-02] MEDS: LIPITOR 40 MG PO (07:32)
[2024-10-02] MEDS: DEPAKOTE ER (24 HR RELEASE) 500 MG PO (07:32)
[2024-10-02] MEDS: ZESTRIL 20 MG PO (07:32)
[2024-10-02] MEDS: NEURONTIN 800 MG PO (07:33)
[2024-10-02] MEDS: PAXIL 40 MG PO (07:33)
[2024-10-02] MEDS: ROXICODONE 30 MG PO (07:33)
[2024-10-02] MEDS: NICODERM TRANSDERMAL 14 MG TRANSDERM (07:34)
[2024-10-02] MEDS: NORVASC 5 MG PO (07:34)
[2024-10-02] MEDS: MS CONTIN (EXTENDED RELEASE) 30 MG PO (07:34)
[2024-10-02] MEDS: NOVOLOG FLEXPEN 5 UNITS SC (07:35)
[2024-10-02 08:03] LABS: TSH 0.21 uIU/ml (0.47-4.68)
[2024-10-02] MEDS: NSS IV (09:02)
[2024-10-02 09:31] LABS: Glycohemoglobin (HgbA1c) 6.5 % (4.0-5.6)
--- NOTE | 2024-10-02 10:43 | W.PN.HOSP.TC ---
Today's Communication/Plan
-
dc
Assessment / Plan
Assessment / Plan
63yo M with PMHx of TBI, HTN, COPD, anxiety, neuropathy brought by his after he developed high grade fever and then delirium, which resolved as temperature improved in ED. Patient complained about mild dyscomfort in his throat, but no other
symptoms besides of fever. No sick contacts. No recent trauma. ED was concerned for dysphagia with Hx of aspiration pneumonia, however patient previously was recommended regular diet as per VSE and chest XR without signs of overt pneumonia.
Procalcitonin neg. Fever did not reoccur off Abx. Mentation remained on baseline without new episodes of confusion. Medcially stable to be d/c home
A/P:
#Fever
with normal WBC without left shift, mild throat pain and clean chest XR, no overt urinary or GI symptoms - no indication for Abx
Procal, Monospot neg
GAS was not checked, but with normal procal and resolved throat dyscomfort - no concern
Monitor off Abx
#Delirium
transient, associated with fever
control symptoms
similar presentation on past admissions
No neurological deficit bedside and delirium completely resolved after Ketorolac
#DM type 2 with neuronopathy
cont insulin, add SS, accuchecks and DM diet
#hypothyroidism
#Hx of TBI
#Mood d/o
#Anxiety
#COPD not in exacerbation
#Neuropathy
#Chronic pain d/o
#seizure d/o
#HLD
cont home meds
Seizure precautions
TSH minimally supressed - decrease synthroid and repeat TFT in 2-3 weeks with PCP
DVT ppx Lovenox
Full code
I have spent at least 38min reviewing chart, test results, communication with family and providing direct patient care
Anticipated Discharge: Today
Subjective/Interval History
-
Date of Service: October 02, 2024
Objective Data
-
Labs:
Laboratory Results
10/01/24 10/02/24
08:02 06:59
WBC 8.9 8.2
Hgb 13.0 11.7 L
Hct 37.4 L 33.6 L
Plt Count 176 158
Sodium 136
Potassium 3.9
Chloride 105
Carbon Dioxide 32 H
BUN 15
Creatinine 0.8
Glucose 102 H
Calcium 8.6
Total Bilirubin 0.6
AST 17
ALT < 10
Alkaline Phosphatase 55
Vital Signs:
Vital Signs
Temp Pulse Resp BP Pulse Ox
97.8 F 48 18 171/74 97
10/02/24 07:00 10/02/24 07:32 10/02/24 07:00 10/02/24 07:32 10/02/24 07:00
I&O
10/01/24 10/02/24 10/03/24
06:59 06:59 06:59
Intake Total 240 / 240
Balance 240 / 240
Review of Systems
-
History Source: Patient
All other systems: Reviewed and negative
Physical Exam
-
General: No Apparent Distress
HEENT: Normocephalic
Respiratory: Clear to Auscultation
Neuro: Awake, Alert, Oriented and AO x 3
Psych: Calm; Negative Confused
--- NOTE | 2024-10-02 10:49 | W.DCSUMMARY ---
Discharge Summary
Discharge Data
Date of Admission: 10/01/24
Date of Discharge: 10/02/24
-
Pending Results: No
Hospital Course
63yo M with PMHx of TBI, HTN, COPD, anxiety, neuropathy brought by his after he developed high grade fever and then delirium, which resolved as temperature improved in ED. Patient complained about mild dyscomfort in his throat, but no other
symptoms besides of fever. No sick contacts. No recent trauma. ED was concerned for dysphagia with Hx of aspiration pneumonia, however patient previously was recommended regular diet as per VSE and chest XR without signs of overt pneumonia.
Procalcitonin neg. Fever did not reoccur off Abx. Mentation remained on baseline without new episodes of confusion. Bcx prelim neg. Medcially stable to be d/c home
I have spent at least 38min reviewing chart, test results, communication with family and providing direct patient care
Patient was managed for:
#Fever, most likely viral
#Delirium
#DM type 2 with neuropathy
#hypothyroidism
#Hx of TBI
#Mood d/o
#Anxiety
#COPD not in exacerbation
#Neuropathy
#Chronic pain d/o
#seizure d/o
#HLD
#Nicotine dependency
Discharge Plan
-
Patient Disposition: Home (Routine Discharge)
Discharge Diagnosis/Procedures: Fever
Diet: Diabetic, Carb Controlled
Activity: No restrictions
Blood Work: check thyroid function test in 2-3 weeks after discharge with family doctor
Referrals:
UNKNOWN,NO INTERVIEW [Family Provider]
Prescriptions:
New
lisinopril 20 mg Tablet
20 mg PO DAILY Qty: 0 0RF
levothyroxine 88 mcg Tablet
88 mcg PO DAILY @ 0600 Qty: 30 0RF
Continued
morphine 30 mg tablet extended release
30 mg PO Q12H
gabapentin 800 mg tablet
800 mg PO TID
oxycodone 10 mg tablet
10 mg PO TID
Patient Own Insulin Pump
0 units SC .NOVOLOG VIA PUMP
oxycodone 30 mg tablet
30 mg PO TID
atorvastatin 40 mg tablet
40 mg PO DAILY
amlodipine-benazepril 5-20 mg capsule
1 cap PO DAILY
paroxetine HCl 40 mg tablet
40 mg PO DAILY
umeclidinium-vilanterol [Anoro Ellipta] 62.5-25 mcg/actuation blister with device
1 inh INHALATION R DAILYPRN PRN (Reason: sob)
divalproex 500 mg Tablet Extended Release 24 Hr
500 mg PO TID
diazepam 10 mg Tablet
10 mg PO DAILY@1400
diazepam 5 mg Tablet
5 mg PO DAILY@1100
nicotine 14 mg/24 hr Patch 24 Hour
14 mg transdermal DAILY 30 Days Qty: 28 0RF
insulin glargine [Lantus Solostar U-100 Insulin] 100 unit/mL (3 mL) insulin pen
20 unit SC QPM 30 Days Qty: 6 0RF
insulin aspart U-100 100 unit/mL (3 mL) Insulin Pen
5 unit SC AC 30 Days Qty: 4.5 0RF
Discontinued
levothyroxine 100 mcg tablet
100 mcg PO DAILY
Discharge Orders:
Discharge Patient (As Directed); Ordered 10/02/24
Ordered By: Nathanael Marie
Discharge Date and Time
Print Language: TURKISH
[2024-10-02 11:28] LABS: Glucose - Point of Care 124 mg/dl (70-99)
[2024-10-02] MEDS: NOVOLOG FLEXPEN SC (11:43)
--- NOTE | 2024-10-02 11:46 | CM ---
Patient is for discharge to home today, EL letter completed and placed on chart.
Plan; Home no needs, spouse to transport.
== END 2024-10-02 13:15 | disposition home or self-care (01) ==
LOC: 4 WEST ACU 11:40
PROVIDERS: ADMITTING PHYSICIAN Internal Medicine; EMERGENCY PHYSICIAN Student in an Organized Health Care Education/Training Program
DX: R50.9 Fever, unspecified (principal); R41.0 Disorientation, unspecified; Z87.820 Personal history of traumatic brain injury; F17.200 Nicotine dependence, unspecified, uncomplicated; F41.9 Anxiety disorder, unspecified; E11.40 Type 2 diabetes mellitus with diabetic neuropathy, unspecified; E03.9 Hypothyroidism, unspecified; F39 Unspecified mood [affective] disorder; J44.9 Chronic obstructive pulmonary disease, unspecified; G40.909 Epilepsy, unspecified, not intractable, without status epilepticus; Z11.52 Encounter for screening for COVID-19; I10 Essential (primary) hypertension; Z79.899 Other long term (current) drug therapy
CPT/HCPCS: 71046; 80048; 80053; 81003; 81015; 82962; 83036; 83605; 83735; 84145; 84443; 85025; 86308; 87040; 87502; 87811; 93005; 94760; 96361; 96365; 96375; 99285; 99406; G0378

== ENCOUNTER 2024-11-02 12:12 | Inpatient (IN) | payer MEDICARE, BC, SELFPAY ==
[2024-11-02] VITALS (11 sets, daily range): BP systolic 134–149; BP diastolic 61–100; BMI 27.2; BMI 26.8
[2024-11-02 08:12] LABS: Hematocrit 34.8 % (39.0-52.0); Hemoglobin 12.2 g/dL (13.0-18.0); Mean Corp Hgb Conc. 35.1 g/dL (33.0-37.0); Mean Corpuscular Volume 93.8 fL (80.0-94.0); Nucleated Red Blood Cells % 0 % (-); Platelet Count 153 10^3/uL (130-400); Red Cell Dist. Width 12.4 % (11.5-14.5)
[2024-11-02] MEDS: NSS 1000 IV ×2 (08:24→14:11)
[2024-11-02] MEDS: MOTRIN 600 MG PO (08:27)
[2024-11-02 08:31] LABS: COVID-19 Antigen Negative (Negative)
[2024-11-02 08:32] LABS: ALT (SGPT) 11 U/L (0-50); AST (SGOT) 20 U/L (17-59); Albumin 3.7 g/dl (3.5-5.0); Alkaline Phosphatase 60 U/L (38-126); Blood Urea Nitrogen 20 mg/dl (9-20); Calcium 8.7 mg/dl (8.4-10.2); Carbon Dioxide 30 mmol/L (22-30); Chloride 103 mmol/L (98-107); Estimated Creatinine Clearance 81 ml/min; Glucose 124 mg/dl (70-99); Potassium 4.4 mmol/L (3.5-5.1); Sodium 139 mmol/L (135-145); Total Protein 6.0 g/dl (6.3-8.2); eGFR > 60.00
--- NOTE | 2024-11-02 08:47 | ED.GENMED ---
History of Present Illness
General
Chief Complaint: Fever
Source: patient
Exam Limitations: none
Time Seen by Provider: 11/02/24 08:08
Nursing documentation reviewed up to this point in time: agreed with
History of Present Illness
History of Present Illness:
see MDM
Past History
Past History
ED Past Medical History: HTN, Hypercholesterolemia, NIDDM, Seizures, Psychiatric (Bipolar) and Other (Chronic pain syndrome, pneumonia, traumatic brain injury)
ED Past Surgical History: None
Social History
Tobacco: Smoker
Review of Systems
Review of Systems
Allergies reviewed?: Yes
All Other Systems: Not applicable
Phy Exam
Physical Exam
Physical Exam:
GENERAL: Alert , mildly confused
EYE: pupils equal and reactive
NECK: Supple
ENT: o/p clr, mmm.
CARDIAC: Regular rate and rhythm .
LUNGS: Clear breath sounds bilaterally, no acute respiratory distress, no wheezes/rales/rhonchi
ABDOMEN: Soft, without focal tenderness, no r/g, no cvat, normal bowel sounds
NEUROLOGICAL: Alert and oriented, no focal neuro deficits; mildly confused at times, memory issues, moving all extremites
SKIN: Warm and dry, skin intact.
MUSCULOSKELETAL: No edema, well perfused. neg kim's sign
Small suprapatellar left knee effusion, no erythema, no warmth, able to flex both knees to 45 degrees, mild discomfort with movement, stable
PSYCH: Normal and appropriate interaction.
Course
Orders/Labs/Results
Orders:
Orders
11/02/24 07:56
COVID-19 Antigen Urgent
Source: Nasal Swab
Complete Blood Count/With Diff Urgent
Comprehensive Metabolic Panel Urgent
Lactic Acid Urgent
Lyme Progressive Urgent
Comment: ADD ON
Blood Culture Urgent
ELIE Source: Blood/Venous
Specimen Description:
Influenza A+B Rapid Molecular Urgent
ELIE Source: Nasal Swab
Specimen Description:
11/02/24 08:01
Blood Culture Urgent
ELIE Source: Blood/Venous
Specimen Description:
11/02/24 08:23
0.9% Sodium Chloride 1000 ml [Nss] 1,000 ml IV BOLUS
11/02/24 08:24
Add On- LAB Urgent
Tests Added?: lyme progressive
Ibuprofen [Motrin] 600 mg PO NOW STA
CR Chest - 2 Views Urgent
Comment:
Reason For Exam: fever
11/02/24 08:25
Urinalysis Reflex To Culture Urgent
11/02/24 09:34
Piperacillin/Tazo 3.375 Gram [Zosyn] 3.375 gram in 50 ml IV NOW
11/02/24 09:36
MetroNIDAZOLE 500 MG/100 ML [Flagyl 500 mg] 100 ml IV NOW
11/02/24 09:51
Ampicillin/Sulbactam 3 G [Unasyn] 3 gm 0.9% Sodium Chloride 100 ml [Nss] 100 ml IV NOW
Abnormal Lab Results
11/02/24
07:56
RBC 3.71 L 10^6/uL
(4.70-6.10)
Hgb 12.2 L g/dL
(13.0-18.0)
Hct 34.8 L %
(39.0-52.0)
MCH 32.9 H pg
(27.0-31.0)
MPV 10.5 H fL
(7.4-10.4)
Absolute Neuts (auto) 6.8 H 10^3/uL
(1.4-6.5)
Absolute Monos (auto) 0.7 H 10^3/uL
(0.1-0.6)
Lymphocytes % 13.2 L %
(20.5-51.1)
Glucose 124 H mg/dl
(70-99)
Total Protein 6.0 L g/dl
(6.3-8.2)
11/02/24 07:56
11/02/24 07:56
Vital Signs
Initial and Last Documented VS:
Initial Vital Signs
Temp Pulse Resp BP Pulse Ox
39.6 C H 80 16 149/67 95
11/02/24 07:49 11/02/24 07:49 11/02/24 07:49 11/02/24 07:49 11/02/24 07:49
Last Documented Vital Signs
Temp Pulse Resp BP Pulse Ox
37.6 C 73 22 135/74 95
11/02/24 10:03 11/02/24 10:00 11/02/24 10:00 11/02/24 10:00 11/02/24 10:03
MDM/Problems Addressed
Differential Diagnosis Includes:
see MDM
MDM/Problems Addressed:
Note:
CHIEF COMPLAINT(S)
Severe knee pain, fever, difficulty walking, confusion.
HISTORY OF PRESENT ILLNESS
The patient is a 63-year-old male with a history of type I diabetes insulin pump who woke up around 3 am with a high fever measured at 103.3�F, difficulty walking, and episodes of confusion, per his . The patient usually requires a cane for
ambulation due to chronic knee arthritis. Symptoms began overnight, prompting his spouse to call emergency medical services because the patient was unable to walk due to the severity of his knee pain and fever, along with his gen weakness. he
received 1500 mg of tylenol around 6 am according to , whom i called to get proper history. pt seems slightly confused at times.
he apparently has had many episodes of FUO or fever causing encephalopathy, which could be from aspiration pna. says most recent episode was september, he was admitted and treated with IV abx for aspiration pna. pt has not had any recent episodes
of vomiting, diarrhea, chest pain, or abdominal pain were noted.
he is coughing minimally.
no urinary sypmtoms
no rash
no tick bites
no recent exposures or travel
ADDITIONAL HISTORY OBTAINED FROM SOURCES OTHER THAN THE PATIENT
Per the EMS report, the patient exhibited periods of confusion and took an hour to arrive at the facility.
CHRONIC MEDICAL CONDITIONS SIGNIFICANTLY AFFECTING CARE
Diabetes mellitus.
SOCIAL DETERMINANTS AFFECTING HEALTH
According to the conversation, the patient expressed difficulty walking, typically relying on a cane due to arthritis, which may influence mobility and access to care. Additionally, confusion and altered mental status were present, potentially
complicating self-care and communication needs.
REVIEW OF SYSTEMS
- Musculoskeletal: Severe knee pain, difficulty walking using a cane.
- Neurological: Periods of confusion.
- Respiratory: Cough present.
- General: High fever measured at 103.3�F.
PHYSICAL EXAM
Nursing notes reviewed and vital signs reviewed. Examination reveals tenderness and pain in both knees, making ambulation difficult. Notable fever of 103.3�F.
PLAN
Further assessment and management in the emergency department are warranted, including laboratory testing to evaluate for potential infection or inflammatory causes. Consider additional imaging of the knees if indicated after initial workup.
Monitoring of blood glucose levels given the patients diabetes and verifying the function and settings of the insulin pump is necessary. Fluid administration has been initiated.
DIFFERENTIAL DIAGNOSIS
The Differential Diagnosis includes, in no particular order and is not limited to:
1. Septic arthritis
2. Gout
3. Bacterial infection leading to fever and confusion
4. Viral infection
5. Diabetes-related neuropathic pain
6. Rheumatoid arthritis flare
7. Cellulitis
8. Osteoarthritis exacerbation
9. Parainfectious arthritis
10. Fluid or electrolyte imbalance related to diabetes
63 y/o M with h/o TBI, craniotomy
htn
IDDM insulin pump
h/o multiple episodes fever with encephalopathy in the past, related to suspected pna or aspiration pna
pt woke up with fever, rigors, confuoin, weakness, knee pain (acute on chronic)
ahd said he just wakes up this way when he gets sick and he gets pretty confused
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
still febril 103
mildly confused globally, forgetful
cxr indep reviewed with PNA, RML
normal lactic, no leukocytosis; not septic at this time but with history of aspiration, will treat with unasyn.
*Pulse Oximetry
SaO2: 95
Oxygen Mode of Delivery: Room air
Patient hypoxic: no (95)
*Critical Care Note
Total Time (30-74mins, 75-104mins- exclusive of procedures): Not Applicable
ED Attending Note
-
Portions of this chart may have been created with voice recognition software.� Occasional wrong word or��sound alike� substitutions may have occurred due to the inherent limitations of voice recognition software.
Discharge Plan
Departure
Patient Disposition: Admit
Date of Disposition: 11/02/24
Time of Disposition: 09:32
Admit to: Med/Surg
Presentation/result/management discussed w/ accepting MD/DO: Hospitalist
Condition: Fair
Covid-19: Negative COVID-19
Discharge Problem:
Pneumonia, Encephalopathy
Prescriptions:
No Action
morphine 30 mg tablet extended release
30 mg PO Q12H
gabapentin 800 mg tablet
800 mg PO TID
oxycodone 10 mg tablet
10 mg PO TID
Patient Own Insulin Pump
0 units SC .NOVOLOG VIA PUMP
oxycodone 30 mg tablet
30 mg PO BID
atorvastatin 40 mg tablet
40 mg PO DAILY
amlodipine-benazepril 5-20 mg capsule
1 cap PO DAILY
paroxetine HCl 40 mg tablet
40 mg PO DAILY
divalproex 500 mg Tablet Extended Release 24 Hr
500 mg PO BID@0800,2100
diazepam 10 mg Tablet
10 mg PO DAILY@1400
diazepam 5 mg Tablet
5 mg PO DAILY
insulin aspart U-100 100 unit/mL (3 mL) insulin pen
5 sliding scale dose SC AC
divalproex 500 mg Tablet Extended Release 24 Hr
250 mg PO DAILY@1700
lisinopril 20 mg tablet
20 mg PO DAILY
levothyroxine [Synthroid] 100 mcg Tablet
100 mcg PO DAILY
Referrals:
UNKNOWN,NO INTERVIEW [Family Provider]
Interventions
Interventions:
*Risk Screen - Suicide Last Done: 11/02/24 07:50
*General Assessment Last Done: 11/02/24 07:49
*Neglect/Abuse Screening Last Done: 11/02/24 07:50
*ED- Fall Risk Assessment Last Done: 11/02/24 07:50
*ED COVID-19 Vaccine History Last Done: 11/02/24 07:50
ED- Neurological Assessment Last Done: 11/02/24 07:50
ED-Skin Assessment Last Done: 11/02/24 07:50
Discharge Date and Time
Print Language: SYRIAC
[2024-11-02] MEDS: FLAGYL 500 MG 100 IV (09:43)
--- NOTE | 2024-11-02 10:02 | PHANOTE ---
med rec note- called spouse at home for patient medication, she tries to mange patient medication but when she leaves for work patient maybe taking more pain medication then prescribe. she also cuts his divalproex in half even though the
prescription not written that way, spouse has been cut back on given his oxycodone
[2024-11-02] MEDS: UNASYN IV ×3 (10:10→22:00)
--- NOTE | 2024-11-02 11:39 | PN.DE.MGMTRT ---
Insulin Management
- -
11/02/2024: Diabetes Management Consult
63 year old male admitted with high fever, severe knee pain and difficulty ambulating. PMH: COPD, T1DM, HTN, Hypercholesterolemia, Seizures,Smoking, bipolar disorder, chronic pain syndrome on chronic narcotics, pneumonia, traumatic brain injury,
recurrent hospital admissions for similar presentation, last visit was on 10/01/2024. Prior to admission using [employer] insulin pump with NovoLog insulin, Quick set infusion set, uses CGM-Saqib, sees Endo Dr. Berger, for ongoing diabetes care.
Last A1C 6.5% on 10/01/2024, Cr 0.9, eGFR >60
Pt awake, A/O x3, sitting up in bed, able to participate in discussion regarding diabetes management.
Reports that his took his insulin pump home. He is hoping for discharge home tomorrow.
His current diabetes regimen includes low corrective insulin only. Glucose on admission was 124 (V).
Pt has been started on a diet-2000 aurora ADA diet. Will change diet to 1800 ADA diet
Will start basal bolus insulin. Give Lantus 12 units NOW and Daily in AM. Start NovoLog 4 units AC and cont low corrective insulin with meals
Pt may resume his insulin pump up on discharge. Discussed with Pt's Nurse at bedside.
T
Diabetes History
- -
Type of Diabetes: 1
Pre-Admission Diabetes Regimen
11/02/24
07:56
Creatinine 0.9
Insulin Pump Settings
IP Diabetes Regimen
11/02/24
07:56
Glucose 124 H
Patient Education
--- NOTE | 2024-11-02 11:44 | HPS.HSE ---
Family Physician
-
Family Physician: NO INTERVIEW UNKNOWN
Chief Complaint
-
Shortness of breath/fever
History of Present Illness
Patient is a 63-year-old male with past medical history of traumatic brain injury, history of seizures, history of recurrent aspiration episodes, chronic pain and narcotic dependence, neuropathy, insulin-dependent diabetes mellitus, hypothyroidism,
hyperlipidemia, essential hypertension, depression/anxiety was brought in by family after patient was noted to having new onset of fever and shortness of breath in the night. Apparently patient have history of recurrent aspiration pneumonia in the
past and swallow evaluation have cleared patient although based on records patient have some history of laryngeal penetration of food. Today in the early in the morning patient was noted to having some shortness of breath and high-grade fever of
103 Fahrenheit prompting an ER visit. At the time of my visit no family around to provide history and history gathered from patient. Patient denied of having any choking episode on the food within last 48 hours. Denies in general having any
significant dysphagia except sometimes feeling food getting stuck in throat. Denied of having any episodes of regurgitation/vomiting. Patient has been compliant with medication and also self manages insulin pump. Patient follows up with
endocrinology on outpatient basis.
Denies any associated problems of chest discomfort/palpitation/dizziness/abdomen pain/nausea/vomiting/diarrhea/dysuria.
Medical History
Past Medical History
Past Medical History: Reports Other
Additional Past Medical History:
history of traumatic brain injury, history of seizures, history of recurrent aspiration episodes, chronic pain and narcotic dependence, neuropathy, insulin-dependent diabetes mellitus, hypothyroidism, hyperlipidemia, essential hypertension,
depression/anxiety
Past Surgical History: Reports Other
Social History
Tobacco: Smoker (Half pack/day)
Alcohol: None
Drug: None
Personal:
Living: With Family
Family History
Family History: Not pertinent
Allergies / Home Medications
Allergies reflects when Allergies were last updated in [employer].
Home Medications with original date entered in [employer]
Allergy/Medication List:
Allergies
Allergy/AdvReac Type Severity Reaction Status Date / Time
No Known Allergies Allergy Verified 06/30/24 13:16
Home Medications
gabapentin 800 mg tablet 800 mg PO TID Neurological Condition 12/25/21
morphine 30 mg tablet,extended release 30 mg PO Q12H severe Pain 12/25/21
oxycodone 10 mg tablet 10 mg PO TID severe Pain 09/10/22
Patient Own Insulin Pump 0 units SC .NOVOLOG VIA PUMP Diabetes 06/26/23
oxycodone 30 mg tablet 30 mg PO BID severe Pain 07/29/23
amlodipine 5 mg-benazepril 20 mg capsule 1 cap PO DAILY Blood Pressure 08/15/23
atorvastatin 40 mg tablet 40 mg PO DAILY High Cholesterol 08/15/23
paroxetine HCl 40 mg tablet 40 mg PO DAILY Mental Health/Anxiety 08/15/23
diazepam 10 mg tablet 10 mg PO DAILY@1400 ANTIANXIETY 10/04/23
diazepam 5 mg tablet 5 mg PO DAILY ANTIANXIETY 10/04/23
divalproex 500 mg tablet,extended release 24 hr 500 mg PO BID@0800,2100 Seizures 10/04/23
divalproex 500 mg tablet,extended release 24 hr 250 mg PO DAILY@1700 11/02/24
insulin aspart U-100 100 unit/mL (3 mL) subcutaneous pen 5 sliding scale dose SC AC Diabetes 11/02/24
levothyroxine 100 mcg tablet (Synthroid) 100 mcg PO DAILY 11/02/24
lisinopril 20 mg tablet 20 mg PO DAILY high blood pressure 11/02/24
Review of Systems
-
A 12 point ROS was completed and negative except as noted: Yes
Physical Exam
Vital Signs
Vital Signs
Temp Pulse Resp BP Pulse Ox
99.6 F 63 13 143/70 95
11/02/24 10:03 11/02/24 11:00 11/02/24 11:00 11/02/24 11:00 11/02/24 10:03
Physical Exam
General: Morbidly Obese
HEENT: No Oxygen
Respiratory: Clear
Cardiac: S1/S2 and Regular Rhythm; No Murmur or Rub
GI: Soft, Non Tender, Non Distended and Normal Bowel Sounds; No Organomegaly
Musculoskeletal: No Clubbing, No Cyanosis and No Edema
Skin: No Rash
Neuro: Awake, Alert, Oriented, AO x 3 and Nonfocal/grossly intact
Laboratory Results
-
11/02/24 07:56
11/02/24 07:56
Laboratory Results
Lactic Acid Cancelled 11/02/24 08:28
Total Bilirubin 0.5 mg/dl (0.2-1.3) 11/02/24 07:56
AST 20 U/L (17-59) 11/02/24 07:56
ALT 11 U/L (0-50) 11/02/24 07:56
Alkaline Phosphatase 60 U/L (38-126) 11/02/24 07:56
Impression/Plan
-
1. Aspiration pneumonia
Rule out bacteremia
-Patient had high-grade fever 103 f at home, afebrile in ER monitor
-No WBC elevation blood pressure stable no tachycardia
-Chest x-ray showing right sided pneumonia, with history of previous aspiration likely aspiration pneumonia
-Patient got Unasyn and Flagyl in ER, continue on Unasyn
-COVID check negative. Check sputum culture and blood culture
-Admit to [facility] floor
2. Toxic metabolic encephalopathy
-Reported episodes of confusion
-Combination of related to fever episode with polypharmacy
-Currently patient mentation cleared in the ER, will maintain on home regimen of benzodiazepine/narcotic is at risk of withdrawal
-Check valproate acid level
-Further testing if patient have recurrent episode of confusion
3. History of traumatic brain injury
History of seizures
Maintained on home dose of divalproex
4. Chronic pain and narcotic dependence
-Patient on complex pain medication regimen apparently managed by pain specialist
-Maintain on home regimen of morphine/oxycodone/gabapentin
- Narcan as needed use for any signs of sedation
5. Generalized anxiety disorder
-Continue home dose of Valium, hold if patient sedated
6. Insulin-dependent diabetes mellitus
-Patient to manage insulin pump
-Diabetes nurse practitioner consulted
-Diabetic diet ordered
7. Essential hypertension
-Maintain on regimen of amlodipine/benazepril
-Hold lisinopril as duplicate CATA?
8. HLD
- Continue on atorvastatin
9. Hypothyroidism
-Maintained on levothyroxine
DVT prophylaxis -Lovenox
Full code
Total time spent : 77 mins
I personally saw and examined the patient.
I have reviewed all diagnostic interpretations and treatment plans as written.
Time includes patient management by me, time spent at the patients bedside, time to review lab and imaging results, discussing patient care, documentation in the medical record, and time spent with the family or caregiver and discussing care plan
with RN/Consultants.
[2024-11-02 11:53] LABS: Urine Character Clear (Clear)
[2024-11-02] MEDS: MS CONTIN (EXTENDED RELEASE) 30 MG PO ×2 (12:10→20:19)
[2024-11-02 12:16] LABS: Urine Urothelial Cell 0-2 /LPF (FEW)
[2024-11-02 12:18] LABS: Urine White Cell 0-2 /HPF (0-5)
[2024-11-02 14:14] LABS: Depakane 52.6 ug/ml (50.0-120.0)
[2024-11-02] MEDS: ROXICODONE 10 MG PO (14:15)
[2024-11-02] MEDS: VALIUM 10 MG PO (14:16)
[2024-11-02] MEDS: NORVASC 5 MG PO (14:16)
[2024-11-02] MEDS: ZESTRIL 20 MG PO (14:16)
--- NOTE | 2024-11-02 15:18 | PTOTSP ---
Speech Therapy Evaluation:
Pt with chronic risk factors of dysphagia including TBI s/p craniotomy, seizures, and COPD. Pt also with hx of recurrent pneumonias (12/2021, 05/2022, 02/2023, 03/2023, 05/2023, 06/2023, 07/2023, 08/2023, 06/2024, current). Pneumonias thought to be related
to aspiration, however most recent VSE completed 07/01/2024 with only mild pharyngeal dysphagia and no aspiration. Pt did exhibit laryngeal penetration that did not clear, placing pt at increased risk of aspiration and potentially contributing to
recurrent pneumonias.
At bedside, oral phase grossly functional. No overt s/sx of aspiration observed. WBC WNL and pt on room air. Pt did endorse mild globus sensation, consistent with previous admissions, therefore question potential esophageal component. Also question
if recurrent pneumonias related to other factors/comorbidities given bedside performance and recent VSE findings.
Recommend:
1. Continue regular solids and thin liquids
2. Medications as tolerated
3. General aspiration precautions: slow rate, single sips, intermittent cough/reswallow (recommended following VSE)
4. DIRECTOR OF ANESTHESIA SERVICES to follow to monitor tolerance of diet and determine if pt would benefit from repeat instrumental
[2024-11-02 15:31] LABS: Glucose - Point of Care 294 mg/dl (70-99)
[2024-11-02] MEDS: LANTUS 0.12 UNITS SC (15:32)
[2024-11-02 16:54] LABS: Glucose - Point of Care 276 mg/dl (70-99)
[2024-11-02] MEDS: DEPAKOTE ER (24 HR RELEASE) 250 MG PO (17:15)
[2024-11-02] MEDS: NEURONTIN 800 MG PO ×2 (17:15→22:00)
[2024-11-02] MEDS: LOVENOX 40 MG SC (17:15)
[2024-11-02] MEDS: NOVOLOG FLEXPEN-LOW RESISTANCE 3 UNITS SC (17:16)
[2024-11-02] MEDS: NOVOLOG FLEXPEN 4 UNITS SC (17:16)
[2024-11-02] MEDS: ROXICODONE 30 MG PO (20:19)
[2024-11-02 21:27] LABS: Glucose - Point of Care 113 mg/dl (70-99)
[2024-11-02] MEDS: DEPAKOTE ER (24 HR RELEASE) 500 MG PO (22:00)
[2024-11-03] MEDS: UNASYN IV ×4 (03:49→21:01)
[2024-11-03] MEDS: ROXICODONE 10 MG PO ×3 (05:00→18:08)
[2024-11-03] MEDS: SYNTHROID 100 MCG PO (05:01)
[2024-11-03 07:00] VITALS: BP 144/61
[2024-11-03 07:43] LABS: Hematocrit 33.7 % (39.0-52.0); Hemoglobin 11.6 g/dL (13.0-18.0); Mean Corp Hgb Conc. 34.4 g/dL (33.0-37.0); Mean Corpuscular Volume 93.6 fL (80.0-94.0); Platelet Count 146 10^3/uL (130-400); Red Cell Dist. Width 12.8 % (11.5-14.5)
--- NOTE | 2024-11-03 07:45 | PN.DE.MGMTRT ---
Insulin Management
- -
11/03/2024: Diabetes Management Consult Follow up
63 year old male admitted with high fever, severe knee pain and difficulty ambulating. PMH: COPD, T1DM, HTN, Hypercholesterolemia, Seizures,Smoking, bipolar disorder, chronic pain syndrome on chronic narcotics, pneumonia, traumatic brain injury,
recurrent hospital admissions for similar presentation, last visit was on 10/01/2024. Prior to admission using Medtronic insulin pump with NovoLog insulin, Quick set infusion set, uses CGM-Saqib, sees Endo Dr. Berger, for ongoing diabetes care.
Last A1C 6.5% on 10/01/2024, Cr 0.9, eGFR >60
Pt awake, A/O x3, sitting up in bed, able to participate in discussion regarding diabetes management.
Reports that his took his insulin pump home.
Patient ordered 12 units lantus in AM with 4 units novolog AC and low corrective insulin with meals. Fasting glucose today 123. Will make no change to regimen.
Pt may resume his insulin pump up on discharge.
Discussed with Nurse.
Will follow
Diabetes History
- -
Type of Diabetes: 2 requiring insulin
Pre-Admission Diabetes Regimen
11/02/24
07:56
Creatinine 0.9
Insulin Pump Settings
IP Diabetes Regimen
11/02/24 11/02/24 11/02/24
07:56 15:31 16:52
Glucose 124 H
POC Glucose 294 H 276 H
11/02/24
21:25
Glucose
POC Glucose 113 H
Patient Education
[2024-11-03 08:04] LABS: Glucose - Point of Care 123 mg/dl (70-99)
[2024-11-03 08:23] LABS: Blood Urea Nitrogen 15 mg/dl (9-20); Calcium 8.7 mg/dl (8.4-10.2); Carbon Dioxide 27 mmol/L (22-30); Chloride 107 mmol/L (98-107); Estimated Creatinine Clearance 105 ml/min; Glucose 116 mg/dl (70-99); Potassium 4.2 mmol/L (3.5-5.1); Sodium 138 mmol/L (135-145); eGFR > 60.00
[2024-11-03] MEDS: NOVOLOG FLEXPEN-LOW RESISTANCE SC ×2 (08:25→16:46)
[2024-11-03] MEDS: NEURONTIN 800 MG PO ×3 (08:27→21:00)
[2024-11-03] MEDS: ROXICODONE 30 MG PO ×2 (08:27→20:10)
[2024-11-03] MEDS: MS CONTIN (EXTENDED RELEASE) 30 MG PO ×2 (08:27→20:10)
[2024-11-03] MEDS: LIPITOR 40 MG PO (08:29)
[2024-11-03] MEDS: LANTUS 0.12 UNITS SC (08:29)
[2024-11-03] MEDS: NORVASC 5 MG PO (08:29)
[2024-11-03] MEDS: PAXIL 40 MG PO (08:29)
[2024-11-03] MEDS: DEPAKOTE ER (24 HR RELEASE) 500 MG PO ×2 (08:33→20:58)
[2024-11-03] MEDS: VALIUM 5 MG PO (08:34)
[2024-11-03] MEDS: ZESTRIL 20 MG PO (08:34)
[2024-11-03] MEDS: NOVOLOG FLEXPEN 4 UNITS SC ×3 (08:35→17:04)
[2024-11-03 10:09] VITALS: BP 140/65; BP 146/64; PULSE 62
[2024-11-03 10:10] VITALS: BP 140/65; BP 145/64; PULSE 62
[2024-11-03 11:50] LABS: Glucose - Point of Care 187 mg/dl (70-99)
[2024-11-03] MEDS: NOVOLOG FLEXPEN-LOW RESISTANCE 1 UNITS SC (12:31)
[2024-11-03 12:54] LABS: Lyme Antibody Screen, EIA Negative (Negative)
--- NOTE | 2024-11-03 13:08 | W.PN.HOSP.TC ---
Today's Communication/Plan
-
Continue antibiotics
Possible discharge tomorrow
Assessment / Plan
Assessment / Plan
1. Aspiration pneumonia
Rule out bacteremia
-Patient had high-grade fever 103 f at home, afebrile in ER monitor
-No WBC elevation blood pressure stable no tachycardia
-Chest x-ray showing right sided pneumonia, with history of previous aspiration likely aspiration pneumonia
-Patient got Unasyn and Flagyl in ER, continue on Unasyn
-COVID check negative. Check sputum culture and blood culture
-Admit to [facility] floor
2. Toxic metabolic encephalopathy
-Reported episodes of confusion
-Combination of related to fever episode with polypharmacy
-Currently patient mentation cleared in the ER, will maintain on home regimen of benzodiazepine/narcotic is at risk of withdrawal
-Valproate level WNL
-Further testing if patient have recurrent episode of confusion
3. History of traumatic brain injury
History of seizures
Maintained on home dose of divalproex
4. Chronic pain and narcotic dependence
-Patient on complex pain medication regimen apparently managed by pain specialist
-Maintain on home regimen of morphine/oxycodone/gabapentin
- Narcan as needed use for any signs of sedation
5. Generalized anxiety disorder
-Continue home dose of Valium, hold if patient sedated
6. Insulin-dependent diabetes mellitus
-Patient to manage insulin pump
-Diabetes nurse practitioner consulted
-Diabetic diet ordered
7. Essential hypertension
-Maintain on regimen of amlodipine/benazepril
-Hold lisinopril as duplicate CATA?
8. HLD
- Continue on atorvastatin
9. Hypothyroidism
-Maintained on levothyroxine
DVT prophylaxis -Lovenox
Full code
Anticipated Discharge: Within 24 hours
Subjective/Interval History
-
Date of Service: November 03, 2024
Resting comfortably in bed
No shortness of breath
Afebrile overnight
Objective Data
-
Labs:
Laboratory Results
11/03/24
06:49
WBC 9.0
Hgb 11.6 L
Hct 33.7 L
Plt Count 146
Sodium 138
Potassium 4.2
Chloride 107
Carbon Dioxide 27
BUN 15
Creatinine 0.7
Glucose 116 H
Calcium 8.7
Vital Signs:
Vital Signs
Temp Pulse Resp BP Pulse Ox
98.7 F 64 18 144/61 95
11/03/24 07:00 11/03/24 07:00 11/03/24 07:00 11/03/24 07:00 11/03/24 07:15
I&O
11/02/24 11/03/24 11/04/24
06:59 06:59 06:59
Intake Total 480 / 480
Output Total 400 / 400
Balance 80 / 80
Review of Systems
-
Respiratory: Reports No Symptoms
Cardiac: Reports No Symptoms
Abdomen/GI: Reports No Symptoms
Physical Exam
-
General: No Apparent Distress
HEENT: Normocephalic
Respiratory: Clear to Auscultation
Neuro: Awake, Alert, Oriented and AO x 3
Psych: Calm; Negative Confused
[2024-11-03] MEDS: VALIUM 10 MG PO (13:45)
[2024-11-03 15:02] VITALS: BP 132/59
--- NOTE | 2024-11-03 16:22 | CM ---
Patient seen at bedside with Denies
IA completed
Lives in split level home, 1 kj, flight to bed/bath
PLOF: Independent, cane when he leaves the home
DME: glucometer, wears Saqib
Has had [facility] in past, outpatient therapy with [facility]
PT rec Home Health - prefers [facility], although would like to think about it tonight
PCP: Eddi Verduzco [place]
Pharmacy: [address], [place]
PLAN: Home with [facility] when stable
[2024-11-03 16:41] LABS: Glucose - Point of Care 131 mg/dl (70-99)
[2024-11-03] MEDS: LOVENOX 40 MG SC (17:03)
[2024-11-03] MEDS: DEPAKOTE ER (24 HR RELEASE) 250 MG PO (17:03)
[2024-11-03 21:25] LABS: Glucose - Point of Care 137 mg/dl (70-99)
[2024-11-03 23:00] VITALS: BP 132/68
[2024-11-04] MEDS: ROXICODONE 10 MG PO ×2 (01:26→13:23)
[2024-11-04] MEDS: UNASYN IV ×2 (03:54→11:06)
[2024-11-04] MEDS: SYNTHROID 100 MCG PO (05:02)
[2024-11-04 07:10] LABS: Hematocrit 32.1 % (39.0-52.0); Hemoglobin 11.0 g/dL (13.0-18.0); Mean Corp Hgb Conc. 34.3 g/dL (33.0-37.0); Mean Corpuscular Volume 94.7 fL (80.0-94.0); Platelet Count 154 10^3/uL (130-400); Red Cell Dist. Width 12.7 % (11.5-14.5)
[2024-11-04 07:38] LABS: Blood Urea Nitrogen 14 mg/dl (9-20); Calcium 8.9 mg/dl (8.4-10.2); Carbon Dioxide 33 mmol/L (22-30); Chloride 105 mmol/L (98-107); Estimated Creatinine Clearance 91 ml/min; Glucose 102 mg/dl (70-99); Potassium 3.9 mmol/L (3.5-5.1); Sodium 141 mmol/L (135-145); eGFR > 60.00
[2024-11-04 07:44] VITALS: BP 127/40
[2024-11-04 07:48] LABS: Glucose - Point of Care 111 mg/dl (70-99)
--- NOTE | 2024-11-04 08:01 | PN.DE.MGMTRT ---
Insulin Management
- -
11/04/2024: Diabetes Management Follow up
63 year old male admitted with high fever, severe knee pain and difficulty ambulating. PMH: COPD, T1DM, HTN, Hypercholesterolemia, Seizures,Smoking, bipolar disorder, chronic pain syndrome on chronic narcotics, pneumonia, traumatic brain injury,
recurrent hospital admissions for similar presentation, last visit was on 10/01/2024. Prior to admission using Medtronic insulin pump with NovoLog insulin, Quick set infusion set, uses CGM-Saqib, sees Endo Dr. Berger, for ongoing diabetes care.
Last A1C 6.5% on 10/01/2024, Cr 0.9, eGFR >60
Pt awake, A/O x3, sitting up in chair, offers no complaint, able to discuss diabetes care plan.
Reports that his took his insulin pump home.
Patient ordered 12 units Lantus in AM with 4 units NovoLog AC and low corrective insulin with meals. Fasting glucose today 102 V, 111 POC.
Will make no change to regimen. Pt may resume his insulin pump up on discharge.
Discussed with Nurse. Will cont to follow
Diabetes History
- -
Type of Diabetes: 2 requiring insulin
Pre-Admission Diabetes Regimen
11/03/24 11/04/24
06:49 06:34
Creatinine 0.7 0.8
Insulin Pump Settings
IP Diabetes Regimen
11/03/24 11/03/24 11/03/24
06:49 08:03 11:49
Glucose 116 H
POC Glucose 123 H 187 H
11/03/24 11/03/24 11/04/24
16:40 21:24 06:34
Glucose 102 H
POC Glucose 131 H 137 H
11/04/24
07:48
Glucose
POC Glucose 111 H
Meal type: Lunch
Meal type: Breakfast
Amount consumed: 100%
Amount consumed: 100%
Patient Education
[2024-11-04] MEDS: DEPAKOTE ER (24 HR RELEASE) 500 MG PO (08:11)
[2024-11-04] MEDS: VALIUM 5 MG PO (08:11)
[2024-11-04] MEDS: LIPITOR 40 MG PO (08:12)
[2024-11-04] MEDS: NOVOLOG FLEXPEN-LOW RESISTANCE SC ×2 (08:14→11:44)
[2024-11-04] MEDS: ZESTRIL 20 MG PO (08:14)
[2024-11-04] MEDS: NOVOLOG FLEXPEN 4 UNITS SC ×2 (08:17→13:06)
[2024-11-04] MEDS: NEURONTIN 800 MG PO (08:17)
[2024-11-04] MEDS: PAXIL 40 MG PO (08:17)
[2024-11-04] MEDS: ROXICODONE 30 MG PO (08:18)
[2024-11-04] MEDS: MS CONTIN (EXTENDED RELEASE) 30 MG PO (08:18)
[2024-11-04] MEDS: NORVASC 5 MG PO (08:19)
[2024-11-04] MEDS: LANTUS 0.12 UNITS SC (08:25)
--- NOTE | 2024-11-04 09:37 | VNURNOTE ---
Home Health Liaison met with patient at bedside to discuss [facility] nurse/therapy, visits, schedule and homebound status. Informed patient that visits at home are usually 2-3 x per week to assess and teach medical management. Patient talked it over
w/ his last night and is declining at this time. He is considering going back to [facility] outpt PT, he went there in the past.
No referral placed, pt declining [facility]
[2024-11-04 11:42] LABS: Glucose - Point of Care 115 mg/dl (70-99)
--- NOTE | 2024-11-04 12:29 | CM ---
Patient has been medically cleared for discharge to home with no additional in home skilled services. Patient has declined recommended HH services. He wants to resume outpatient PT. Patient has arranged for transport home. IMM completed.
[2024-11-04] MEDS: VALIUM 10 MG PO (13:08)
--- NOTE | 2024-11-04 13:57 | W.PN.HOSP.TC ---
Today's Communication/Plan
-
d/c home
Assessment / Plan
Assessment / Plan
1. Aspiration pneumonia
Rule out bacteremia
-Patient had high-grade fever 103 f at home, afebrile in ER monitor
-No WBC elevation blood pressure stable no tachycardia
-Chest x-ray showing right sided pneumonia, with history of previous aspiration likely aspiration pneumonia
-Patient got Unasyn and Flagyl in ER, continue on Unasyn
-COVID check negative. blood cs neg.
2. Toxic metabolic encephalopathy
-Reported episodes of confusion
-Combination of related to fever episode with polypharmacy
-Currently patient mentation cleared in the ER, will maintain on home regimen of benzodiazepine/narcotic is at risk of withdrawal
-Valproate level WNL
-Further testing if patient have recurrent episode of confusion
3. History of traumatic brain injury
History of seizures
Maintained on home dose of divalproex
4. Chronic pain and narcotic dependence
-Patient on complex pain medication regimen apparently managed by pain specialist
-Maintain on home regimen of morphine/oxycodone/gabapentin
- Narcan as needed use for any signs of sedation
5. Generalized anxiety disorder
-Continue home dose of Valium, hold if patient sedated
6. Insulin-dependent diabetes mellitus
-Patient to manage insulin pump
-Diabetes nurse practitioner consulted
-Diabetic diet ordered
7. Essential hypertension
-Maintain on regimen of amlodipine/benazepril
-Hold lisinopril as duplicate CATA?
8. HLD
- Continue on atorvastatin
9. Hypothyroidism
-Maintained on levothyroxine
DVT prophylaxis -Lovenox
Full code
More than 30 minutes spent in discharge including
Final examination of the patient
Summarizing hospital stay
Instructions for continuing care to all relevant caregivers
Preparation of discharge records, prescriptions, and referral forms
Total time spent (in minutes): 38 mins
Anticipated Discharge: Today
Subjective/Interval History
-
Date of Service: November 04, 2024
Resting comfortably in bed
No issues overnight
Objective Data
-
Labs:
Laboratory Results
11/04/24
06:34
WBC 6.5
Hgb 11.0 L
Hct 32.1 L
Plt Count 154
Sodium 141
Potassium 3.9
Chloride 105
Carbon Dioxide 33 H
BUN 14
Creatinine 0.8
Glucose 102 H
Calcium 8.9
Vital Signs:
Vital Signs
Temp Pulse Resp BP Pulse Ox
98.3 F 55 16 127/40 94
11/04/24 07:44 11/04/24 07:44 11/04/24 07:44 11/04/24 07:44 11/04/24 07:44
I&O
11/03/24 11/04/24 11/05/24
06:59 06:59 06:59
Intake Total 480 / 480 900 / 900
Output Total 400 / 400 700 / 700
Balance 80 / 80 200 / 200
Review of Systems
-
Respiratory: Reports No Symptoms
Cardiac: Reports No Symptoms
Abdomen/GI: Reports No Symptoms
Physical Exam
-
General: No Apparent Distress
HEENT: Normocephalic
Respiratory: Clear to Auscultation
Neuro: Awake, Alert, Oriented and AO x 3
Psych: Calm; Negative Confused
--- NOTE | 2024-11-04 15:22 | W.DCSUMMARY ---
Discharge Summary
Discharge Data
Date of Admission: 11/02/24
Date of Discharge: 11/04/24
-
Pending Results: No
Hospital Course
Discharging Physician : Dr Anderson Luu
Disposition : Home
Primary care physician : Unknown
Principal Discharge diagnosis :
Aspiration pneumonia
Acute toxic encephalopathy
Chronic Discharge diagnosis :
History of traumatic brain injury
History of seizures
Chronic pain and narcotic dependence
Generalized anxiety disorder
Insulin-dependent diabetes mellitus
Essential hypertension
Hyperlipidemia
Hypothyroidism
Hospital Course :
Patient is a 63-year-old male with mentioned past medical history was brought into ER by family after patient had sudden onset of shortness of breath and confusion at home. In ER on evaluation patient was found to having right right sided new
infiltrate and was diagnosed to have new pneumonia. Patient have history of recurrent aspiration pneumonia and have undergone workup in the past, although patient regular diet VSE in the past have shown some laryngeal penetration of food/liquid.
Patient was started on empiric IV antibiotics and was admitted to hospital for further monitoring. Patient confusion improved with antibiotic. Of note patient on high dose of narcotic pain medication with antiseizure complicating patient confusion
picture. Patient requiring all this medication with history of traumatic brain injury/seizures in the past. Post medical improvement patient was discharged home with oral Augmentin therapy course.
Important imaging findings :
None
Procedure findings :
None
Discharge Plan
-
Patient Disposition: Home with Home Care
Discharge Diagnosis/Procedures: Aspiration pneumonia
Condition: Fair
Diet: Diabetic, Carb Controlled
Activity: As tolerated
Driving Restrictions: No driving
Bathing Restrictions: OK to Shower
Referrals:
UNKNOWN,NO INTERVIEW [Family Provider]
Prescriptions:
New
amoxicillin-pot clavulanate 875-125 mg tablet
1 tab PO BID Qty: 14 0RF
nicotine 14 mg/24 hr patch 24 hour
1 patch transdermal DAILY Qty: 14 0RF
Continued
morphine 30 mg tablet extended release
30 mg PO Q12H
gabapentin 800 mg tablet
800 mg PO TID
oxycodone 10 mg tablet
10 mg PO TID
Patient Own Insulin Pump
0 units SC .NOVOLOG VIA PUMP
oxycodone 30 mg tablet
30 mg PO BID
atorvastatin 40 mg tablet
40 mg PO DAILY
amlodipine-benazepril 5-20 mg capsule
1 cap PO DAILY
paroxetine HCl 40 mg tablet
40 mg PO DAILY
divalproex 500 mg Tablet Extended Release 24 Hr
500 mg PO BID@0800,2100
diazepam 10 mg Tablet
10 mg PO DAILY@1400
diazepam 5 mg Tablet
5 mg PO DAILY
insulin aspart U-100 100 unit/mL (3 mL) insulin pen
5 sliding scale dose SC AC
divalproex 500 mg Tablet Extended Release 24 Hr
250 mg PO DAILY@1700
lisinopril 20 mg tablet
20 mg PO DAILY
levothyroxine [Synthroid] 100 mcg Tablet
100 mcg PO DAILY
Discharge Orders:
Discharge Patient (As Directed); Ordered 11/04/24
Ordered By: Anderson Luu
Discharge Date and Time
Print Language: GRENADIAN
[2024-11-04 15:27] VITALS: BP 137/68
== END 2024-11-04 16:07 | disposition home or self-care (01) | DRG 177 ==
LOC: 3 WEST ACU 12:12
PROVIDERS: Physician Assistant; ADMITTING PHYSICIAN Hospitalist; EMERGENCY PHYSICIAN Student in an Organized Health Care Education/Training Program
DX: J69.0 Pneumonitis due to inhalation of food and vomit (principal); G92.8 Other toxic encephalopathy; F11.20 Opioid dependence, uncomplicated; G89.4 Chronic pain syndrome; F17.200 Nicotine dependence, unspecified, uncomplicated; F41.1 Generalized anxiety disorder; E10.9 Type 1 diabetes mellitus without complications; I10 Essential (primary) hypertension; E03.9 Hypothyroidism, unspecified; R56.9 Unspecified convulsions; E78.00 Pure hypercholesterolemia, unspecified; Z96.41 Presence of insulin pump (external) (internal); Z11.52 Encounter for screening for COVID-19; Z79.4 Long term (current) use of insulin; Z79.890 Hormone replacement therapy; Z79.899 Other long term (current) drug therapy; Z87.820 Personal history of traumatic brain injury
CPT/HCPCS: 71046; 80048; 80053; 80164; 81003; 81015; 82962; 83605; 85025; 85027; 86618; 87040; 87502; 87811; 92526; 92610; 96361; 96374; 96375; 97162; 97167; 97535; 99285